=== PATIENT | male | born 1965 | race Caucasian/White ===

== ENCOUNTER 2017-03-17 11:02 | Emergency (ER) | payer MEDICAID ==
[~2017-03-17] VITALS: Ht 177.8 cm; Wt 113.4 kg
[2017-03-17] MEDS ORDERED: SODIUM CHLORIDE 0.9% 2,000 ML IV ONE (14:25)
[2017-03-17] MEDS ORDERED: cefTRIAXone 1GM/50ML D5W 50 ML IV ONE (14:30)
[2017-03-17 15:12] LABS: Albumin 3.4 g/dL (3.4-5.0); BUN/Creatinine Ratio 8.2; Potassium 4.4 mmol/L (3.5-5.1)
[2017-03-17 15:14] LABS: Bilirubin, Total 4.3 mg/dL (0.2-1.0); Total Protein 7.5 g/dL (6.4-8.2)
[2017-03-17] MEDS ORDERED: KETOROLAC TROMETH 30 MG/ML 1ML VIAL IV ONE (15:15)
[2017-03-17 15:41] LABS: CONDITION Y; Hematocrit 47.8 % (41.0-53.0); Hemoglobin 16.2 g/dL (13.5-17.5); Mean Corpuscular Hemoglobin 30.9 pg (28.0-32.0); Mean Corpuscular Hgb Conc. 33.8 g/dL (32.0-36.0); Mean Corpuscular Volume 91.2 fL (80.0-100.0); Mean Platelet Volume 10.3 fL (7.4-10.4); Platelet Count (auto) 199 10^3/uL (140-450); Red Cell Distribution Width 13.8 % (11.6-16.0); SUSPECT SEE PRINTOUT; White Blood Cell 17.9 10^3/uL (4.4-10.8)
[2017-03-17] MEDS ORDERED: KETOROLAC TROMETH 60MG/2ML VIAL IM ONE (15:45)
[2017-03-17 15:48] LABS: Metamyelocytes % 0; Myelocytes % 0; Promyelocytes % 0; Reactive Lymphocytes 0
[2017-03-17 17:20] LABS: Platelet Clumps FEW
[2017-03-17 18:05] VITALS: BP 126/78
[2017-03-17 19:23] LABS: Urine Bilirubin Negative (Negative); Urine Blood Negative /uL (Negative); Urine Color Yellow (Yellow); Urine Glucose Normal (Normal); Urine Ketone Negative (Negative); Urine Mucus FEW (None Seen); Urine Nitrite Negative (Negative); Urine RBC <1 /hpf (0 - 3); Urine Squamous Epithelial Cell FEW /hpf (<5); Urine Urobilinogen Normal (Negative); Urine pH 5.5 (5.0-8.0)
== END 2017-03-17 18:25 | disposition home or self-care (01) ==
LOC: ER 11:02
DX: L03.116 Cellulitis of left lower limb (principal); V13.4XXA Pedal cycle driver injured in collision with car, pick-up truck or van in traffic accident, initial encounter; Y93.89 Activity, other specified; Y92.89 Other specified places as the place of occurrence of the external cause; Y99.8 Other external cause status
CPT/HCPCS: 36415; 73562; 73590; 80053; 80307; 81001; 85007; 85027; 93971; 96361; 96365; 96375; 99285; J0696; J1885; J7030

== ENCOUNTER 2017-03-18 18:04 | Emergency (ER) | payer MEDICAID ==
[~2017-03-18] VITALS: Ht 185.4 cm; Wt 122.5 kg
[2017-03-18] MEDS ORDERED: D5W 5% 100 ML MINI BAG IV ONE (18:07)
[2017-03-18] MEDS ORDERED: AMIODARONE HCL (50 MG/ ML) 3 ML VIAL IV ONE (18:07)
[2017-03-18] MEDS ORDERED: SODIUM BICARBONATE 8.4% INJ 50ML SYRINGE IV ONE (18:07)
[2017-03-18] MEDS ORDERED: DEXAMETHASONE SOD PHOS 10MG/1ML VIAL INJ ONE (18:53)
[2017-03-18] MEDS ORDERED: ETOMIDATE (2MG/ML) 20ML VIAL IV ONE ×2 (18:54→19:07)
[2017-03-18] MEDS ORDERED: SUCCINYLCHOLINE CHLORIDE 20 MG/ML 10ML VIAL IV ONE ×4 (18:55→19:15)
[2017-03-18] MEDS ORDERED: MANNITOL FTV 25% 12.5 GM/50 ML 0 ML IV ONE (18:58)
[2017-03-18] MEDS ORDERED: MANNITOL 20% SOLN 100 gm/500ml 250 ML IV ONE (19:00)
[2017-03-18] MEDS ORDERED: DEXAMETHASONE SOD PHOS 10MG/1ML VIAL INJ IV ONE (19:00)
[2017-03-18] MEDS ORDERED: MANNITOL 20 % (20GM/100ML) 500 ML IV ONE (19:00)
[2017-03-18] MEDS ORDERED: MIDAZOLAM DRIP 50 mg/50mL 50 ML IV ONE (19:05)
[2017-03-18] MEDS ORDERED: MIDAZOLAM DRIP 50 mg/50mL 50 ML IV SCH (19:14)
[2017-03-18 19:27] LABS: CONDITION Y; Hematocrit 52.9 % (41.0-53.0); Hemoglobin 18.2 g/dL (13.5-17.5); Mean Corpuscular Hemoglobin 31.1 pg (28.0-32.0); Mean Corpuscular Hgb Conc. 34.4 g/dL (32.0-36.0); Mean Corpuscular Volume 90.4 fL (80.0-100.0); Mean Platelet Volume 10.2 fL (6.9-10.8); Platelet Count (auto) 137 10^3/uL (140-450); SUSPECT SEE PRINTOUT; White Blood Cell 18.1 10^3/uL (4.4-10.8)
[2017-03-18 19:31] LABS: Metamyelocytes % 0; Myelocytes % 0; Promyelocytes % 0; Reactive Lymphocytes 0
[2017-03-18 19:36] LABS: B-Type Natriuretic Peptide 561.02 pg/mL (0-100)
[2017-03-18 19:50] LABS: Temperature: 23.5 C (20.0-25.0)
[2017-03-18 19:58] LABS: Urine Bilirubin 1+ (Negative); Urine Blood 1+ /uL (Negative); Urine Color Brown (Yellow); Urine Glucose TRACE mg/dL (Normal); Urine Ketone Negative (Negative); Urine Nitrite Negative (Negative); Urine RBC 5 /hpf (0 - 3); Urine Urobilinogen Normal (Negative); Urine pH 5.5 (5.0-8.0)
[2017-03-18] MEDS ORDERED: HETASTARCH 500 ML IV ONE (20:00)
[2017-03-18] MEDS ORDERED: THIAMINE INJ 100 MG, MULTIPLE VITAMIN 10 ML, FOLIC ACID 1 MG, MAGNESIUM SULF SDV 50% 8 ... IV SCH ×5 (20:00)
[2017-03-18] MEDS ORDERED: VANCOMYCIN 1GM/250ML D5W 250 ML IV ONE (20:00)
[2017-03-18] MEDS ORDERED: SODIUM CHLORIDE 0.9% IV ONE (20:00)
[2017-03-18 20:09] LABS: Potassium 3.4 mmol/L (3.5-5.1)
[2017-03-18 20:10] LABS: Urine Granular Cast FEW /lpf (0)
[2017-03-18 20:10] LABS: Albumin 2.6 g/dL (3.4-5.0); BUN/Creatinine Ratio 8.2; Bilirubin, Total 4.6 mg/dL (0.2-1.0); Calcium 8.1 mg/dL (8.5-10.1); Total Protein 6.7 g/dL (6.4-8.2)
[2017-03-18 20:29] LABS: Platelet Estimate Decreased
[2017-03-18] MEDS ORDERED: ACETAMINOPHEN 650 MG RECT SUPP PR ONE (20:30)
[2017-03-18] MEDS ORDERED: ROCURONIUM 10MG/ML 10ML VIAL IV ONE ×2 (20:45→21:00)
[2017-03-18 20:47] LABS: Lactic Acid w/Reflex 5.8 mmol/L (0.4-2.0)
[2017-03-18 20:48] LABS: Allen Test Yes; Base Excess -7.9 mmol/L (-2.0-2.0); Blood COHb 0.3 % (0.5-1.5); Blood MetHb 0.6 % (0.0-1.5); HCO3 16.1 mmol/L (22-26.0); MODE VENT - A/C; O2Hb 98.1 % (94.0-97.0); PCO2 29.2 mmHg (35.0-45.0); PCO2(T) 29.2 mmHg (35.0-45.0); PO2 447.1 mmHg (80.0-100.0); PO2(T) 447.1 mmHg (80.0-100.0); Sample Type Arterial; pH 7.358 (7.350-7.450)
[2017-03-18] MEDS ORDERED: PROPOFOL 100 ML IV ONE (21:01)
[2017-03-18] MEDS ORDERED: PROPOFOL 100 ML IV SCH (21:05)
[2017-03-18] MEDS ORDERED: NOREPINEPHRINE BITARTRATE 250 ML IV ONE (21:09)
[2017-03-18] MEDS ORDERED: NOREPINEPHRINE BITARTRATE 250 ML IV SCH (21:13)
[2017-03-18 21:20] LABS: REFLEX LACTIC ACID YES OR NO YES
[2017-03-18] MEDS ORDERED: AMIODARONE HCL 150 MG in D5W 5% 100 ML IV ONE ×2 (22:45→23:15)
[2017-03-18] MEDS ORDERED: LIDOCAINE HCL 100 MG/5ML (2%) SYRG INJ IV ONE ×2 (22:55→23:15)
[2017-03-18] MEDS ORDERED: AMIODARONE HCL 900 MG IV ONE (22:56)
[2017-03-18 22:58] VITALS: BP 86/50
[2017-03-18] MEDS ORDERED: AMIODARONE HCL 900 MG in DEXTROSE 500 ML IV SCH (23:12)
[2017-03-19] MEDS ORDERED: AMIODARONE HCL 900 MG in DEXTROSE 500 ML IV SCH (05:12)
== END 2017-03-18 23:45 | disposition short-term general hospital (02) ==
LOC: EDBD 18:04 → ER 18:06
DX: A41.9 Sepsis, unspecified organism (principal); S06.5X9A Traumatic subdural hemorrhage with loss of consciousness of unspecified duration, initial encounter; N39.0 Urinary tract infection, site not specified; N17.9 Acute kidney failure, unspecified; R41.82 Altered mental status, unspecified; I95.9 Hypotension, unspecified; F19.10 Other psychoactive substance abuse, uncomplicated; W18.39XA Other fall on same level, initial encounter; Y93.89 Activity, other specified; Y92.89 Other specified places as the place of occurrence of the external cause; Y99.8 Other external cause status
CPT/HCPCS: 31500; 36415; 36556; 36600; 51702; 70450; 71010; 72125; 72170; 80053; 80307; 80320; 81001; 82805; 82962; 83605; 83880; 84484; 85007; 85027; 87040; 87070; 87205; 92960; 93005; 96365; 96367; 96368; 96375; 99291; J0282; J0330; J1100; J2250; J2704; J3370; J3411; J3475; J7030; J7060; 94002

== ENCOUNTER 2019-05-04 09:35 | Emergency (ER) | payer MEDICAID ==
[~2019-05-04] VITALS: Ht 177.8 cm; Wt 104.3 kg
[2019-05-04 09:51] VITALS: BP 158/87
[2019-05-04] MEDS ORDERED: cefTRIAXone SOD 1,000 MG VL IM ONE (11:15)
[2019-05-04] MEDS ORDERED: IBUPROFEN 800 MG TAB PO ONE (11:15)
== END 2019-05-04 11:38 | disposition home or self-care (01) ==
LOC: ER 09:35
DX: S80.211A Abrasion, right knee, initial encounter (principal); S80.811A Abrasion, right lower leg, initial encounter; L03.116 Cellulitis of left lower limb; M25.532 Pain in left wrist; I10 Essential (primary) hypertension; F12.10 Cannabis abuse, uncomplicated; F15.10 Other stimulant abuse, uncomplicated; V09.9XXA Pedestrian injured in unspecified transport accident, initial encounter; Y93.89 Activity, other specified; Y92.89 Other specified places as the place of occurrence of the external cause; Y99.8 Other external cause status
CPT/HCPCS: 73110; 73562; 96372; 99283; J0696

== ENCOUNTER → 2019-12-31 | Emergency (ER) | payer MEDICAID ==
[~2019-12-31] VITALS: Ht 177.8 cm; Wt 106.6 kg
[~2019-12-31] MED LIST: LIDOCAINE 1% HCL (LOCAL ANESTH.) INJ 20ML MDV ID ONE; TETANUS-DIPTH-ACEL PERTUSSIS 0.5ML SYR Tdap IM ONE
[2019-12-31 17:38] VITALS: BP 139/85
== END | disposition home or self-care (01) ==
LOC: ER 17:21
DX: S61.241A Puncture wound with foreign body of left index finger without damage to nail, initial encounter (principal); I10 Essential (primary) hypertension; W22.8XXA Striking against or struck by other objects, initial encounter; Y93.89 Activity, other specified; Y92.89 Other specified places as the place of occurrence of the external cause; Y99.8 Other external cause status
CPT/HCPCS: 10120; 73130; 90471; 90715; 99285; J2001

== ENCOUNTER 2021-01-13 14:21 | Emergency (ER) | payer MEDICAID ==
[~2021-01-13] VITALS: Ht 180.3 cm; Wt 108.9 kg
[2021-01-13 15:50] LABS: Basophils # (auto) 0.2 10 ^3/uL (0-0.2); Basophils % (auto) 1.2 % (0.0-2.0); Eosinophils # (auto) 0.3 10 ^3/uL (0-0.8); Hematocrit 48.6 % (41.0-53.0); Hemoglobin 16.9 g/dL (13.5-17.5); Lymphocytes # (auto) 3.6 10 ^3/uL (0.4-5.4); Lymphocytes % (auto) 26.8 % (10.0-50.0); Mean Corpuscular Hgb Conc. 34.9 g/dL (32.0-36.0); Mean Corpuscular Volume 91.7 fL (80.0-100.0); Monocytes # (auto) 0.7 10 ^3/uL (0-1.3); Monocytes % (auto) 5.4 % (0.0-12.0); Neutrophils # (auto) 8.6 10 ^3/uL (1.6-8.6); Neutrophils % (auto) 64.6 % (37.0-80.0); Nucleated Red Blood Cells % 0.1 %; Red Cell Distribution Width 14.5 % (11.8-14.3); White Blood Cell 13.3 10^3/uL (4.4-10.8)
[2021-01-13] MEDS ORDERED: dilTIAZem 25 MG/5 ML VIAL IV ONE (16:00)
[2021-01-13 21:36] VITALS: BP 126/98
== END 2021-01-13 21:25 | disposition home or self-care (01) ==
LOC: ER 14:21
DX: R07.89 Other chest pain (principal); I48.0 Paroxysmal atrial fibrillation; E66.9 Obesity, unspecified; R00.0 Tachycardia, unspecified; I10 Essential (primary) hypertension; F32.9 Major depressive disorder, single episode, unspecified; Z68.33 Body mass index [BMI] 33.0-33.9, adult
CPT/HCPCS: 36415; 71045; 83880; 85025; 85049; 93005

== ENCOUNTER 2021-07-11 12:58 | Emergency (ER) | payer MEDICAID ==
[~2021-07-11] VITALS: Ht 180.3 cm; Wt 113.4 kg
[2021-07-11 16:01] VITALS: BP 144/97
[2021-07-11] MEDS ORDERED: PROM1SOL4 PO (16:50)
[2021-07-11] MEDS ORDERED: PRED20TA2 PO (16:50)
[2021-07-11] MEDS ORDERED: CEPH500T PO (16:50)
== END 2021-07-11 17:04 | disposition home or self-care (01) ==
LOC: ER 12:58
DX: J20.9 Acute bronchitis, unspecified (principal); F12.10 Cannabis abuse, uncomplicated; F15.10 Other stimulant abuse, uncomplicated; I10 Essential (primary) hypertension
CPT/HCPCS: 93005

== ENCOUNTER 2021-09-21 13:56 | Inpatient (IN) | payer MEDICAID ==
[~2021-09-21] VITALS: Ht 180.3 cm; Wt 111.0 kg
[~2021-09-21 13:56] MED LIST changes: +CEPH500T PO; -LIDOCAINE 1% HCL (LOCAL ANESTH.) INJ 20ML MDV ID ONE; +PRED20TA2 PO; +PROM1SOL4 PO; -TETANUS-DIPTH-ACEL PERTUSSIS 0.5ML SYR Tdap IM ONE
[2021-09-21] MEDS ORDERED: dilTIAZem 25 MG/5 ML VIAL IV ONE (14:30)
[2021-09-21] MEDS ORDERED: ASPirin 81 mg TAB PO ONE (14:45)
[2021-09-21 15:22] LABS: Basophils # (auto) 0 10 ^3/uL (0-0.2); Basophils % (auto) 0.4 % (0.0-2.0); Eosinophils # (auto) 0.1 10 ^3/uL (0-0.8); Eosinophils % (auto) 1.4 % (0.0-7.0); Hematocrit 40.7 % (41.0-53.0); Hemoglobin 13.8 g/dL (13.5-17.5); Lymphocytes # (auto) 2.4 10 ^3/uL (0.4-5.4); Lymphocytes % (auto) 24.2 % (10.0-50.0); Mean Corpuscular Hemoglobin 30.5 pg (28.0-32.0); Mean Corpuscular Hgb Conc. 33.9 g/dL (32.0-36.0); Mean Corpuscular Volume 90.1 fL (80.0-100.0); Monocytes # (auto) 0.7 10 ^3/uL (0-1.3); Monocytes % (auto) 7.1 % (0.0-12.0); Neutrophils # (auto) 6.7 10 ^3/uL (1.6-8.6); Neutrophils % (auto) 66.9 % (37.0-80.0); Nucleated Red Blood Cells % 0.1 %; Red Blood Cells 4.52 10^6/uL (4.5-5.90); Red Cell Distribution Width 13.8 % (11.8-14.3)
[2021-09-21] MEDS ORDERED: dilTIAZem HCL 50 MG/10 ML VIAL IV ONE (15:28)
[2021-09-21 15:35] LABS: Albumin 3.5 g/dL (3.4-5.0); Potassium 4.2 mmol/L (3.5-5.1)
[2021-09-21 15:36] LABS: INR 1.14 (0.9-1.15); Partial Thromboplastin Time 26.3 sec (23.6-33.0)
[2021-09-21 15:40] LABS: BUN/Creatinine Ratio 18.4; Bilirubin, Total 2.6 mg/dL (0.2-1.0); Total Protein 6.8 g/dL (6.4-8.2)
[2021-09-21] MEDS: dilTIAZem 125mg/125ml BAG KIT 100 ML IV SCH (15:43)
[2021-09-21 15:44] LABS: Urine Bacteria NONE SEEN /hpf (None Seen); Urine Blood Negative /uL (Negative); Urine Specific Gravity 1.024 (1.001-1.035); Urine WBC 1 /hpf (0 - 3)
[2021-09-21] MEDS ORDERED: FUROSEMIDE 40 MG/4 ML VIAL IV ONE (18:15)
[2021-09-21] MEDS ORDERED: DOCUSATE SOD 100 MG CAP PO PRN (18:15)
[2021-09-21] MEDS ORDERED: ACETAMINOPHEN 325 MG TAB PO PRN (18:15)
[2021-09-21] MEDS ORDERED: ONDANSETRON HCL 4 MG/2 ML VIAL IV PRN (18:15)
[2021-09-21] MEDS ORDERED: NITROGLYCERIN 0.4 MG SL TAB SL PRN (18:45)
[2021-09-21] MEDS ORDERED: MORPHINE SULFATE INJECTION 2 MG/ML SYRG IV PRN (18:45)
[2021-09-21] MEDS: HYDROcodone-ACET 5/325MG TAB PO PRN (22:00)
[2021-09-21] MEDS: METOPROLOL TARTRATE 50 MG TAB PO SCH (22:00)
[2021-09-21] MEDS: SODIUM CHLOR 0.9% PF (SALINE LOCK) 10ML VIAL/SYR IV SCH (22:00)
[2021-09-21] MEDS: MORPHINE SULFATE INJECTION 2 MG/ML SYRG IV PRN (22:00)
[2021-09-21 22:45] VITALS: BP 138/90
[2021-09-22] VITALS (19 sets, daily range): BP systolic 102–154; BP diastolic 64–100
[2021-09-22] MEDS: dilTIAZem 125mg/125ml BAG KIT 100 ML IV SCH (04:33)
[2021-09-22] MEDS: HYDROcodone-ACET 5/325MG TAB PO PRN (04:34)
[2021-09-22] MEDS: MORPHINE SULFATE INJECTION 2 MG/ML SYRG IV PRN (04:35)
[2021-09-22] MEDS: SODIUM CHLOR 0.9% PF (SALINE LOCK) 10ML VIAL/SYR IV SCH (06:00)
[2021-09-22] MEDS: METOPROLOL TARTRATE 50 MG TAB PO SCH (09:19)
[2021-09-22] MEDS ORDERED: ASPirin 81 mg TAB PO SCH (10:00)
[2021-09-22] MEDS ORDERED: FUROSEMIDE 40 MG/4 ML VIAL IV SCH (10:00)
[2021-09-22] MEDS ORDERED: TAMSULOSIN HYDROCHLORIDE 0.4 MG CAP PO ONE (11:15)
== END 2021-09-22 12:15 | disposition left against medical advice (07) | DRG 201 ==
LOC: ER 13:56 → TELE 18:51 → ICU CENTRL 22:25 → DOU IN ICU 22:40
PROVIDERS: ADMIT Nurse Practitioner Family; ATTEND Nurse Practitioner Family
DX: I48.0 Paroxysmal atrial fibrillation (principal); I50.21 Acute systolic (congestive) heart failure; I11.0 Hypertensive heart disease with heart failure; F32.A Depression, unspecified; Z53.29 Procedure and treatment not carried out because of patient's decision for other reasons; Z20.822 Contact with and (suspected) exposure to COVID-19; R33.9 Retention of urine, unspecified; Z91.19 Patient's noncompliance with other medical treatment and regimen
CPT/HCPCS: 36415; 71045; 80053; 81001; 83880; 84484; 85025; 85379; 85610; 85730; 87081; 96374; 96375; 99291; G0378

== ENCOUNTER 2021-11-22 00:58 | Emergency (ER) | payer MEDICAID ==
[~2021-11-22] VITALS: Ht 180.3 cm; Wt 108.9 kg
[2021-11-22 06:09] VITALS: BP 144/101
[2021-11-22] MEDS ORDERED: ACETAMINOPHEN 500 MG TAB PO ONE (06:45)
[2021-11-22 07:20] LABS: Basophils # (auto) 0.1 10 ^3/uL (0-0.2); Basophils % (auto) 0.8 % (0.0-2.0); Eosinophils # (auto) 0.2 10 ^3/uL (0-0.8); Eosinophils % (auto) 2.7 % (0.0-7.0); Hematocrit 40.4 % (41.0-53.0); Hemoglobin 13.4 g/dL (13.5-17.5); Lymphocytes % (auto) 32.6 % (10.0-50.0); Mean Corpuscular Hemoglobin 30.2 pg (28.0-32.0); Mean Corpuscular Hgb Conc. 33.2 g/dL (32.0-36.0); Monocytes # (auto) 0.6 10 ^3/uL (0-1.3); Monocytes % (auto) 6.2 % (0.0-12.0); Neutrophils # (auto) 5.3 10 ^3/uL (1.6-8.6); Neutrophils % (auto) 57.7 % (37.0-80.0); Nucleated Red Blood Cells % 0.1 %; Red Blood Cells 4.44 10^6/uL (4.5-5.90); Red Cell Distribution Width 15.4 % (11.8-14.3); White Blood Cell 9.1 10^3/uL (4.4-10.8)
[2021-11-22 08:30] LABS: Alcohol, Urine < 3.0 mg/dL (0-10); Amphetamine Screen, Urine POSITIVE (NEGATIVE); Barbiturate Scree,Urine NEGATIVE (NEGATIVE); Benzodiazephine Screen, Urine NEGATIVE (NEGATIVE); Cannabinoid Screen, Urine POSITIVE (NEGATIVE); Cocaine Screen, Urine NEGATIVE (NEGATIVE); Opiate Scree,Urine NEGATIVE (NEGATIVE); Phencyclidine Screen, Urine NEGATIVE (NEGATIVE); Urine Bacteria NONE SEEN /hpf (None Seen); Urine Blood Negative /uL (Negative); Urine Hyaline Cast FEW /lpf (0 - 2); Urine Mucus FEW (None Seen); Urine Specific Gravity 1.022 (1.001-1.035); Urine Sperm PRESENT /hpf (None Seen); Urine WBC 12 /hpf (0 - 3)
[2021-11-22 08:40] LABS: BUN/Creatinine Ratio 11.6; Calcium 8.8 mg/dL (8.5-10.1); Potassium 4.3 mmol/L (3.5-5.1); Uric Acid 6.7 mg/dL (3.5-7.2)
[2021-11-22] MEDS ORDERED: NAPR500T31 PO (09:11)
== END 2021-11-22 09:16 | disposition home or self-care (01) ==
LOC: ER 00:58
DX: S93.602A Unspecified sprain of left foot, initial encounter (principal); F19.10 Other psychoactive substance abuse, uncomplicated; F12.10 Cannabis abuse, uncomplicated; F15.10 Other stimulant abuse, uncomplicated; I10 Essential (primary) hypertension; R06.02 Shortness of breath; X50.1XXA Overexertion from prolonged static or awkward postures, initial encounter; Y93.89 Activity, other specified; Y92.89 Other specified places as the place of occurrence of the external cause; Y99.8 Other external cause status
CPT/HCPCS: 36415; 71046; 73610; 73630; 80048; 80307; 80320; 81001; 83880; 84550; 85025; 93971

== ENCOUNTER 2021-12-20 15:25 | Emergency (ER) | payer MEDICAID ==
[~2021-12-20] VITALS: Ht 180.3 cm; Wt 111.1 kg
[~2021-12-20 15:25] MED LIST changes: +NAPR500T31 PO
[2021-12-20] MEDS ORDERED: HYDROcodone-ACET 5/325MG TAB PO ONE (16:15)
[2021-12-20 16:35] LABS: Basophils # (auto) 0.2 10 ^3/uL (0-0.2); Basophils % (auto) 1.6 % (0.0-2.0); Eosinophils # (auto) 0.2 10 ^3/uL (0-0.8); Eosinophils % (auto) 1.7 % (0.0-7.0); Hematocrit 43.4 % (41.0-53.0); Hemoglobin 14.6 g/dL (13.5-17.5); Lymphocytes # (auto) 1.9 10 ^3/uL (0.4-5.4); Lymphocytes % (auto) 18.5 % (10.0-50.0); Mean Corpuscular Hemoglobin 31.2 pg (28.0-32.0); Mean Corpuscular Hgb Conc. 33.6 g/dL (32.0-36.0); Mean Corpuscular Volume 92.7 fL (80.0-100.0); Monocytes # (auto) 0.4 10 ^3/uL (0-1.3); Monocytes % (auto) 4.1 % (0.0-12.0); Neutrophils # (auto) 7.4 10 ^3/uL (1.6-8.6); Neutrophils % (auto) 74.1 % (37.0-80.0); Red Blood Cells 4.68 10^6/uL (4.5-5.90); Red Cell Distribution Width 17.4 % (11.8-14.3)
[2021-12-20 16:51] LABS: Albumin 4.2 g/dL (3.4-5.0); Calcium 9.3 mg/dL (8.5-10.1); Potassium 3.9 mmol/L (3.5-5.1)
[2021-12-20 16:54] LABS: BUN/Creatinine Ratio 22.8; Bilirubin, Total 3.9 mg/dL (0.2-1.0); Total Protein 7.9 g/dL (6.4-8.2)
[2021-12-20] MEDS ORDERED: DOXYCYCLINE 100 MG TAB/CAP PO ONE (18:00)
[2021-12-20] MEDS ORDERED: DOXY-332 PO (18:06)
[2021-12-20] MEDS ORDERED: ACET325T10 PO (18:06)
[2021-12-20 22:49] VITALS: BP 149/88
== END 2021-12-20 22:55 | disposition home or self-care (01) ==
LOC: ER 15:25
DX: L03.116 Cellulitis of left lower limb (principal); I10 Essential (primary) hypertension; F12.10 Cannabis abuse, uncomplicated; F15.10 Other stimulant abuse, uncomplicated
CPT/HCPCS: 36415; 80053; 83605; 83880; 85025; 85652; 93005; 93971

== ENCOUNTER 2021-12-30 21:50 | Emergency (ER) | payer MEDICAID ==
[~2021-12-30] VITALS: Ht 180.3 cm; Wt 117.9 kg
[~2021-12-30 21:50] MED LIST changes: +ACET325T10 PO; +DOXY-332 PO
[2021-12-31 03:47] VITALS: BP 127/105
[2021-12-31] MEDS ORDERED: CEPH-509 PO (03:58)
[2021-12-31] MEDS ORDERED: NAP500T PO (03:58)
== END 2021-12-31 04:08 | disposition home or self-care (01) ==
LOC: EDBD 21:50 → ER 21:50
DX: L03.116 Cellulitis of left lower limb (principal); I10 Essential (primary) hypertension; F12.10 Cannabis abuse, uncomplicated; F15.10 Other stimulant abuse, uncomplicated; Z59.00 Homelessness unspecified

== ENCOUNTER 2022-01-08 20:01 | Emergency (ER) | payer MEDICAID ==
[~2022-01-08] VITALS: Ht 180.3 cm; Wt 108.9 kg
[~2022-01-08 20:01] MED LIST changes: +CEPH-509 PO; +NAP500T PO
[2022-01-08 21:22] VITALS: BP 171/90
[2022-01-08 22:22] LABS: Basophils # (auto) 0 10 ^3/uL (0-0.2); Basophils % (auto) 0.8 % (0.0-2.0); Eosinophils # (auto) 0.2 10 ^3/uL (0-0.8); Eosinophils % (auto) 2.9 % (0.0-7.0); Hematocrit 41.6 % (41.0-53.0); Hemoglobin 13.6 g/dL (13.5-17.5); Lymphocytes # (auto) 1.9 10 ^3/uL (0.4-5.4); Mean Corpuscular Hemoglobin 30.4 pg (28.0-32.0); Mean Corpuscular Hgb Conc. 32.6 g/dL (32.0-36.0); Mean Corpuscular Volume 93.5 fL (80.0-100.0); Monocytes # (auto) 0.5 10 ^3/uL (0-1.3); Monocytes % (auto) 9.1 % (0.0-12.0); Neutrophils # (auto) 3.4 10 ^3/uL (1.6-8.6); Neutrophils % (auto) 56.2 % (37.0-80.0); Nucleated Red Blood Cells % 0.1 %; Red Blood Cells 4.45 10^6/uL (4.5-5.90); Red Cell Distribution Width 16.8 % (11.8-14.3)
[2022-01-08 22:43] LABS: Albumin 3.6 g/dL (3.4-5.0); Calcium 8.9 mg/dL (8.5-10.1); Potassium 4.6 mmol/L (3.5-5.1)
[2022-01-08 22:48] LABS: BUN/Creatinine Ratio 18.9; Bilirubin, Total 1.3 mg/dL (0.2-1.0); Total Protein 7.2 g/dL (6.4-8.2)
[2022-01-09] MEDS ORDERED: SULFAMETHOX W/TRIMETH(800/160MG) DS TAB PO ONE (03:15)
[2022-01-09] MEDS ORDERED: CEPHALEXIN 250 MG CAP PO ONE (03:15)
[2022-01-09] MEDS ORDERED: CEPH-509 PO (03:33)
[2022-01-09] MEDS ORDERED: SULF400T11 PO (03:33)
== END 2022-01-09 04:33 | disposition left against medical advice (07) ==
LOC: ER 20:01
DX: L03.116 Cellulitis of left lower limb (principal); I10 Essential (primary) hypertension; F12.10 Cannabis abuse, uncomplicated; F15.10 Other stimulant abuse, uncomplicated
CPT/HCPCS: 36415; 71045; 80053; 83605; 85025; 86141; 87040; 93971

== ENCOUNTER 2022-01-11 15:08 | Inpatient (IN) | payer MEDICAID ==
[~2022-01-11] VITALS: Ht 180.3 cm; Wt 108.6 kg
[~2022-01-11 15:08] MED LIST changes: +SULF400T11 PO
[2022-01-11] MEDS ORDERED: CLINDAMYCIN 600MG IV 50 ML IV ONE (15:45)
[2022-01-11] MEDS ORDERED: SODIUM CHLORIDE 0.9% 1,000 ML IV ONE (15:45)
[2022-01-11] MEDS ORDERED: cefTRIAXone 1GM/50ML D5W 50 ML IV ONE (15:45)
[2022-01-11 17:02] LABS: Basophils # (auto) 0 10 ^3/uL (0-0.2); Basophils % (auto) 0.3 % (0.0-2.0); Eosinophils # (auto) 0.2 10 ^3/uL (0-0.8); Eosinophils % (auto) 2.5 % (0.0-7.0); Hematocrit 43.3 % (41.0-53.0); Hemoglobin 14.2 g/dL (13.5-17.5); Lymphocytes % (auto) 35.7 % (10.0-50.0); Mean Corpuscular Hemoglobin 30.3 pg (28.0-32.0); Mean Corpuscular Hgb Conc. 32.9 g/dL (32.0-36.0); Monocytes # (auto) 0.6 10 ^3/uL (0-1.3); Neutrophils # (auto) 4.5 10 ^3/uL (1.6-8.6); Neutrophils % (auto) 54.5 % (37.0-80.0); Red Cell Distribution Width 16.4 % (11.8-14.3); White Blood Cell 8.3 10^3/uL (4.4-10.8)
[2022-01-11 17:22] LABS: Albumin 3.8 g/dL (3.4-5.0); BUN/Creatinine Ratio 16.1; Calcium 9.1 mg/dL (8.5-10.1); Potassium 3.9 mmol/L (3.5-5.1)
[2022-01-11 17:25] LABS: Bilirubin, Total 2.4 mg/dL (0.2-1.0); Total Protein 7.3 g/dL (6.4-8.2)
[2022-01-11] MEDS ORDERED: ONDANSETRON HCL 4 MG/2 ML VIAL IV PRN (23:15)
[2022-01-11] MEDS ORDERED: HYDROcodone-ACET 5/325MG TAB PO PRN (23:15)
[2022-01-11] MEDS ORDERED: ACETAMINOPHEN 325 MG TAB PO PRN (23:15)
[2022-01-11] MEDS ORDERED: DOCUSATE SOD 100 MG CAP PO PRN (23:15)
[2022-01-11] MEDS ORDERED: cefTRIAXone 1GM/50ML D5W 50 ML IV SCH (23:29)
[2022-01-11] MEDS ORDERED: MORPHINE SULFATE INJ 2 MG/ml SYRG IV PRN (23:45)
[2022-01-11] MEDS ORDERED: NITROGLYCERIN 0.4 MG SL TAB SL PRN (23:45)
[2022-01-12 09:01] LABS: Basophils # (auto) 0 10 ^3/uL (0-0.2); Basophils % (auto) 0.7 % (0.0-2.0); Eosinophils # (auto) 0.2 10 ^3/uL (0-0.8); Eosinophils % (auto) 2.5 % (0.0-7.0); Hematocrit 45.5 % (41.0-53.0); Hemoglobin 14.8 g/dL (13.5-17.5); Lymphocytes # (auto) 2.6 10 ^3/uL (0.4-5.4); Lymphocytes % (auto) 37.4 % (10.0-50.0); Mean Corpuscular Hemoglobin 30.1 pg (28.0-32.0); Mean Corpuscular Hgb Conc. 32.6 g/dL (32.0-36.0); Mean Corpuscular Volume 92.2 fL (80.0-100.0); Monocytes # (auto) 0.5 10 ^3/uL (0-1.3); Monocytes % (auto) 7.8 % (0.0-12.0); Neutrophils # (auto) 3.5 10 ^3/uL (1.6-8.6); Neutrophils % (auto) 51.6 % (37.0-80.0); Nucleated Red Blood Cells % 0.1 %; Red Blood Cells 4.93 10^6/uL (4.5-5.90); Red Cell Distribution Width 16.2 % (11.8-14.3); White Blood Cell 6.8 10^3/uL (4.4-10.8)
[2022-01-12 09:20] LABS: Albumin 3.8 g/dL (3.4-5.0); Calcium 8.9 mg/dL (8.5-10.1)
[2022-01-12 09:22] LABS: BUN/Creatinine Ratio 16.1
[2022-01-12 09:25] LABS: Bilirubin, Total 2.6 mg/dL (0.2-1.0); Total Protein 7.5 g/dL (6.4-8.2)
[2022-01-12] MEDS ORDERED: ENOXAPARIN SOD 40 MG/0.4 ML SYRINGE SC SCH (10:00)
[2022-01-12] MEDS: CLINDAMYCIN 300MG IV 50 ML IV SCH ×2 (15:23→22:32)
[2022-01-12] MEDS ORDERED: cloNIDine HCL 0.1 MG TAB ONE (15:57)
[2022-01-12] MEDS ORDERED: cloNIDine HCL 0.1 MG TAB PO ONE (16:00)
[2022-01-12] MEDS: cefTRIAXone 1GM/50ML D5W 50 ML IV SCH (16:23)
[2022-01-12] MEDS ORDERED: HEPARIN SODIUM (PORCINE) 5000 UNITS/ML 1ML VIAL IV ONE (18:45)
[2022-01-12] MEDS ORDERED: ACETAMINOPHEN 325 MG TAB PO PRN (18:45)
[2022-01-12] MEDS: METOPROLOL TARTRATE 25 MG TAB PO SCH ×2 (18:46→22:00)
[2022-01-12] MEDS ORDERED: dilTIAZem 25 MG/5 ML VIAL IV ONE (19:00)
[2022-01-12] MEDS ORDERED: dilTIAZem 125mg/125ml BAG KIT 125 ML IV SCH (19:00)
[2022-01-12] MEDS ORDERED: IOHEXOL 350 MG/ML 100ML IJ ONE (19:14)
[2022-01-12 22:26] LABS: Basophils # (auto) 0 10 ^3/uL (0-0.2); Basophils % (auto) 0.5 % (0.0-2.0); Eosinophils # (auto) 0.2 10 ^3/uL (0-0.8); Hematocrit 42.4 % (41.0-53.0); Hemoglobin 13.9 g/dL (13.5-17.5); Lymphocytes # (auto) 3.3 10 ^3/uL (0.4-5.4); Lymphocytes % (auto) 34.3 % (10.0-50.0); Mean Corpuscular Hemoglobin 30.3 pg (28.0-32.0); Mean Corpuscular Hgb Conc. 32.9 g/dL (32.0-36.0); Mean Corpuscular Volume 92.2 fL (80.0-100.0); Monocytes # (auto) 0.5 10 ^3/uL (0-1.3); Monocytes % (auto) 5.5 % (0.0-12.0); Neutrophils # (auto) 5.6 10 ^3/uL (1.6-8.6); Neutrophils % (auto) 57.7 % (37.0-80.0); Red Cell Distribution Width 16.2 % (11.8-14.3); White Blood Cell 9.7 10^3/uL (4.4-10.8)
[2022-01-12 22:48] LABS: INR 1.13 (0.9-1.15); Partial Thromboplastin Time 59.6 sec (24.6-33.4)
[2022-01-12] MEDS: HEPARIN DRIP/D5W 100UNITS/ML 250 ML IV SCH (23:31)
[2022-01-13] MEDS: SODIUM CHLORIDE 0.9% 1,000 ML IV SCH ×3 (00:20→08:35)
[2022-01-13 04:43] LABS: INR 1.06 (0.9-1.15); Partial Thromboplastin Time 32.6 sec (24.6-33.4)
[2022-01-13] MEDS: HEPARIN DRIP/D5W 100UNITS/ML 250 ML IV SCH (05:02)
[2022-01-13] MEDS: CLINDAMYCIN 300MG IV 50 ML IV SCH ×3 (05:58→21:36)
[2022-01-13] MEDS ORDERED: LABETALOL HCL 5 MG/ML 4ML SYRINGE IV PRN (09:00)
[2022-01-13] MEDS: cefTRIAXone 1GM/50ML D5W 50 ML IV SCH (09:50)
[2022-01-13] MEDS: METOPROLOL TARTRATE 25 MG TAB PO SCH ×2 (09:50→21:36)
[2022-01-13] MEDS: FOLIC ACID 1 MG, MULTIPLE VITAMIN 10 ML, MAGNESIUM SULF SDV 50% 8 MEQ, THIAMINE INJ 100... INJ SCH ×5 (13:06)
[2022-01-13 17:48] VITALS: BP 134/91
[2022-01-13] MEDS: APIXABAN 5 MG TAB PO SCH (21:36)
[2022-01-13 22:00] VITALS: BP 131/81
[2022-01-14] MEDS ORDERED: chlordiazePOXIDE HCL 25 MG CAP PO PRN (01:00)
[2022-01-14] MEDS: SODIUM CHLORIDE 0.9% 1,000 ML IV SCH ×2 (01:15→18:21)
[2022-01-14] MEDS ORDERED: chlordiazePOXIDE HCL 25 MG CAP PO ONE (02:45)
[2022-01-14 05:00] VITALS: BP 134/87
[2022-01-14] MEDS: CLINDAMYCIN 300MG IV 50 ML IV SCH ×3 (07:08→22:00)
[2022-01-14 09:00] VITALS: BP 162/112
[2022-01-14] MEDS: APIXABAN 5 MG TAB PO SCH ×2 (10:37→23:00)
[2022-01-14] MEDS: METOPROLOL TARTRATE 25 MG TAB PO SCH ×2 (10:37→23:00)
[2022-01-14] MEDS: cefTRIAXone 1GM/50ML D5W 50 ML IV SCH (10:38)
[2022-01-14] MEDS: chlordiazePOXIDE HCL 25 MG CAP PO PRN ×2 (10:44→19:48)
[2022-01-14] MEDS: FOLIC ACID 1 MG, MULTIPLE VITAMIN 10 ML, MAGNESIUM SULF SDV 50% 8 MEQ, THIAMINE INJ 100... INJ SCH ×5 (13:26)
[2022-01-14 17:00] VITALS: BP 150/94
[2022-01-14 22:00] VITALS: BP 132/81
[2022-01-15] VITALS (7 sets, daily range): BP systolic 123–157; BP diastolic 64–112
[2022-01-15] MEDS: CLINDAMYCIN 300MG IV 50 ML IV SCH ×3 (05:41→22:00)
[2022-01-15] MEDS: APIXABAN 5 MG TAB PO SCH ×2 (09:50→22:23)
[2022-01-15] MEDS: cefTRIAXone 1GM/50ML D5W 50 ML IV SCH (09:50)
[2022-01-15] MEDS: METOPROLOL TARTRATE 25 MG TAB PO SCH ×2 (09:51→22:23)
[2022-01-15] MEDS: chlordiazePOXIDE HCL 25 MG CAP PO PRN (09:51)
[2022-01-15] MEDS: SODIUM CHLORIDE 0.9% 1,000 ML IV SCH (09:52)
[2022-01-15] MEDS ORDERED: CLIN300C8 PO (10:59)
[2022-01-15] MEDS ORDERED: METO25TA5 PO (10:59)
[2022-01-15] MEDS ORDERED: CHL25C PO (10:59)
[2022-01-15] MEDS ORDERED: FOLI1TAB6 PO (10:59)
[2022-01-15] MEDS ORDERED: APIX5TAB PO (10:59)
[2022-01-15] MEDS ORDERED: THIA100T5 PO (10:59)
[2022-01-15] MEDS ORDERED: LEVO750T8 PO (10:59)
[2022-01-15] MEDS ORDERED: FUROSEMIDE 40 MG/4 ML VIAL IV ONE (13:45)
[2022-01-15] MEDS ORDERED: AZITHROMYCIN 500MG/ 250ML 250 ML IV ONE (13:45)
[2022-01-15] MEDS ORDERED: HALOPERIDOL LACTATE 5 MG/ML INJ VIAL IM PRN (15:45)
[2022-01-15] MEDS: IPRATROPIUM BROM 0.5 MG/2.5ML INH SOL NEB SCH ×3 (15:46→22:21)
[2022-01-15] MEDS: ALBUTEROL SULF 2.5 MG/0.5ML(0.5%) NEB SOLN NEB SCH ×3 (15:47→22:00)
[2022-01-15] MEDS: methylPREDNISolone SOD SUCC 125 MG/2 ML VL IV SCH ×2 (17:06→22:00)
[2022-01-15] MEDS: FUROSEMIDE 40 MG/4 ML VIAL IV SCH (19:36)
[2022-01-15] MEDS: FOLIC ACID 1 MG, MULTIPLE VITAMIN 10 ML, MAGNESIUM SULF SDV 50% 8 MEQ, THIAMINE INJ 100... INJ SCH ×5 (21:18)
[2022-01-16] MEDS: ALBUTEROL SULF 2.5 MG/0.5ML(0.5%) NEB SOLN NEB SCH ×6 (02:00→23:24)
[2022-01-16] MEDS: IPRATROPIUM BROM 0.5 MG/2.5ML INH SOL NEB SCH ×5 (02:00→19:33)
[2022-01-16] MEDS: SODIUM CHLORIDE 0.9% 1,000 ML IV SCH ×2 (03:15→20:30)
[2022-01-16 05:25] VITALS: BP 146/89
[2022-01-16] MEDS: FUROSEMIDE 40 MG/4 ML VIAL IV SCH ×2 (06:00→18:31)
[2022-01-16] MEDS: methylPREDNISolone SOD SUCC 125 MG/2 ML VL IV SCH ×3 (06:00→20:53)
[2022-01-16] MEDS: CLINDAMYCIN 300MG IV 50 ML IV SCH ×3 (06:00→20:53)
[2022-01-16 07:30] VITALS: BP 146/89
[2022-01-16] MEDS: APIXABAN 5 MG TAB PO SCH ×2 (10:23→20:53)
[2022-01-16] MEDS: chlordiazePOXIDE HCL 25 MG CAP PO PRN (10:25)
[2022-01-16] MEDS: METOPROLOL TARTRATE 25 MG TAB PO SCH ×2 (10:28→21:55)
[2022-01-16 11:28] VITALS: BP 127/84
[2022-01-16] MEDS: cefTRIAXone 1GM/50ML D5W 50 ML IV SCH (12:00)
[2022-01-16] MEDS: AZITHROMYCIN 500MG/ 250ML 250 ML IV SCH (12:30)
[2022-01-16 17:00] VITALS: BP 105/71
[2022-01-16] MEDS: FOLIC ACID 1 MG, MULTIPLE VITAMIN 10 ML, MAGNESIUM SULF SDV 50% 8 MEQ, THIAMINE INJ 100... INJ SCH ×5 (17:29)
[2022-01-16] MEDS ORDERED: METOPROLOL TARTRATE 1MG/1ML-5ML VIAL IV ONE (20:30)
[2022-01-16 21:43] VITALS: BP 121/66
[2022-01-16 22:41] LABS: Basophils # (auto) 0.1 10 ^3/uL (0-0.2); Basophils % (auto) 0.3 % (0.0-2.0); Eosinophils # (auto) 0 10 ^3/uL (0-0.8); Hematocrit 45.7 % (41.0-53.0); Hemoglobin 14.4 g/dL (13.5-17.5); Lymphocytes # (auto) 0.9 10 ^3/uL (0.4-5.4); Lymphocytes % (auto) 5.2 % (10.0-50.0); Mean Corpuscular Hemoglobin 29.2 pg (28.0-32.0); Mean Corpuscular Hgb Conc. 31.5 g/dL (32.0-36.0); Mean Corpuscular Volume 92.6 fL (80.0-100.0); Monocytes # (auto) 0.4 10 ^3/uL (0-1.3); Monocytes % (auto) 2.4 % (0.0-12.0); Neutrophils # (auto) 15.3 10 ^3/uL (1.6-8.6); Neutrophils % (auto) 92.1 % (37.0-80.0); Red Blood Cells 4.93 10^6/uL (4.5-5.90); Red Cell Distribution Width 16.1 % (11.8-14.3); White Blood Cell 16.6 10^3/uL (4.4-10.8)
[2022-01-16 22:56] LABS: Albumin 3.5 g/dL (3.4-5.0); BUN/Creatinine Ratio 25.2; Calcium 9.7 mg/dL (8.5-10.1); Potassium 4.4 mmol/L (3.5-5.1)
[2022-01-16 22:58] LABS: Bilirubin, Total 1.6 mg/dL (0.2-1.0); Total Protein 7.5 g/dL (6.4-8.2)
[2022-01-17] MEDS: ALBUTEROL SULF 2.5 MG/0.5ML(0.5%) NEB SOLN NEB SCH ×3 (02:00→09:53)
[2022-01-17] MEDS: IPRATROPIUM BROM 0.5 MG/2.5ML INH SOL NEB SCH ×3 (02:00→09:53)
[2022-01-17 05:00] VITALS: BP 139/84
[2022-01-17] MEDS: methylPREDNISolone SOD SUCC 125 MG/2 ML VL IV SCH (06:00)
[2022-01-17] MEDS: FUROSEMIDE 40 MG/4 ML VIAL IV SCH (06:00)
[2022-01-17] MEDS: CLINDAMYCIN 300MG IV 50 ML IV SCH (06:00)
[2022-01-17 09:00] VITALS: BP 145/91
[2022-01-17] MEDS: cefTRIAXone 1GM/50ML D5W 50 ML IV SCH (09:00)
[2022-01-17] MEDS: AZITHROMYCIN 500MG/ 250ML 250 ML IV SCH (09:44)
[2022-01-17] MEDS: APIXABAN 5 MG TAB PO SCH (09:44)
[2022-01-17] MEDS: METOPROLOL TARTRATE 25 MG TAB PO SCH (09:44)
[2022-01-17] MEDS ORDERED: ALBUAER3 IN (10:29)
[2022-01-17] MEDS ORDERED: AZIT500T66 PO (10:29)
[2022-01-17 11:06] VITALS: BP 145/91
== END 2022-01-17 12:43 | disposition home or self-care (01) | DRG 383 ==
LOC: ER 15:08 → OVERFLOW 23:39 → EAST 01-13 15:18 → TELE-EAST 01-13 19:06
PROVIDERS: ADMIT Nurse Practitioner Family; ATTEND Family Medicine
DX: L03.116 Cellulitis of left lower limb (principal); J96.01 Acute respiratory failure with hypoxia; J18.9 Pneumonia, unspecified organism; E66.01 Morbid (severe) obesity due to excess calories; I10 Essential (primary) hypertension; I48.91 Unspecified atrial fibrillation; F17.210 Nicotine dependence, cigarettes, uncomplicated; F10.10 Alcohol abuse, uncomplicated; F32.A Depression, unspecified; F12.10 Cannabis abuse, uncomplicated; Z20.822 Contact with and (suspected) exposure to COVID-19; F15.10 Other stimulant abuse, uncomplicated; G89.29 Other chronic pain; F19.10 Other psychoactive substance abuse, uncomplicated; I73.9 Peripheral vascular disease, unspecified; Z79.01 Long term (current) use of anticoagulants; I25.2 Old myocardial infarction; Z59.00 Homelessness unspecified; Z68.34 Body mass index [BMI] 34.0-34.9, adult; Z79.899 Other long term (current) drug therapy; Z83.3 Family history of diabetes mellitus; Z91.19 Patient's noncompliance with other medical treatment and regimen; Z86.59 Personal history of other mental and behavioral disorders; Z71.51 Drug abuse counseling and surveillance of drug abuser
CPT/HCPCS: 36415; 71045; 75635; 80053; 83605; 83735; 84443; 84484; 85025; 85610; 85730; 87040; 93005; 93306; 93925; 93970; 94640; 96365; G0378; J0696; J3490

== ENCOUNTER 2022-01-23 20:55 | Inpatient (IN) | payer MEDICAID ==
[~2022-01-23] VITALS: Ht 182.9 cm; Wt 107.5 kg
[~2022-01-23 20:55] MED LIST changes: +ALBUAER3 IN; +APIX5TAB PO; +AZIT500T66 PO; +CHL25C PO; +CLIN300C8 PO; +FOLI1TAB6 PO; +LEVO750T8 PO; +METO25TA5 PO; +THIA100T5 PO
[2022-01-23] MEDS ORDERED: ADENOSINE 6 MG/2 ML INJ IV ONE ×3 (21:04→21:15)
[2022-01-23] MEDS ORDERED: dilTIAZem 25 MG/5 ML VIAL IV ONE ×2 (21:15)
[2022-01-23] MEDS ORDERED: dilTIAZem HCL 50 MG/10 ML VIAL IV ONE (21:20)
[2022-01-23] MEDS ORDERED: dilTIAZem 125mg/125ml BAG KIT 125 ML IV ONE (21:20)
[2022-01-23] MEDS ORDERED: SODIUM CHLORIDE 0.9% 1,000 ML IV ONE (21:45)
[2022-01-23] MEDS: dilTIAZem 125mg/125ml BAG KIT 100 ML IV SCH (21:51)
[2022-01-23] MEDS ORDERED: HYDROcodone-ACET 5/325MG TAB PO PRN (22:15)
[2022-01-23] MEDS ORDERED: ONDANSETRON HCL 4 MG/2 ML VIAL IV PRN (22:15)
[2022-01-23] MEDS ORDERED: MORPHINE SULFATE INJ 2 MG/ml SYRG IV PRN ×2 (22:15→23:30)
[2022-01-23] MEDS ORDERED: DOCUSATE SOD 100 MG CAP PO PRN (22:15)
[2022-01-23] MEDS ORDERED: ACETAMINOPHEN 325 MG TAB PO PRN (22:15)
[2022-01-23] MEDS: SODIUM CHLORIDE 0.9% 1,000 ML IV SCH (22:35)
[2022-01-23 23:19] LABS: Basophils # (auto) 0.1 10 ^3/uL (0-0.2); Basophils % (auto) 0.6 % (0.0-2.0); Eosinophils # (auto) 0.2 10 ^3/uL (0-0.8); Eosinophils % (auto) 1.9 % (0.0-7.0); Hematocrit 42.7 % (41.0-53.0); Hemoglobin 13.5 g/dL (13.5-17.5); Lymphocytes # (auto) 3.1 10 ^3/uL (0.4-5.4); Lymphocytes % (auto) 24.8 % (10.0-50.0); Mean Corpuscular Hemoglobin 29.7 pg (28.0-32.0); Mean Corpuscular Hgb Conc. 31.6 g/dL (32.0-36.0); Mean Corpuscular Volume 93.9 fL (80.0-100.0); Monocytes # (auto) 1.2 10 ^3/uL (0-1.3); Monocytes % (auto) 9.7 % (0.0-12.0); Neutrophils # (auto) 7.9 10 ^3/uL (1.6-8.6); Red Blood Cells 4.55 10^6/uL (4.5-5.90); Red Cell Distribution Width 15.8 % (11.8-14.3); White Blood Cell 12.6 10^3/uL (4.4-10.8)
[2022-01-23] MEDS ORDERED: NITROGLYCERIN 0.4 MG SL TAB SL PRN (23:30)
[2022-01-23 23:43] LABS: Albumin 3.1 g/dL (3.4-5.0); Calcium 8.6 mg/dL (8.5-10.1); Magnesium 2.2 mg/dL (1.6-2.6); Potassium 4.4 mmol/L (3.5-5.1)
[2022-01-23 23:48] LABS: BUN/Creatinine Ratio 22.3; Bilirubin, Total 1.3 mg/dL (0.2-1.0); Total Protein 6.5 g/dL (6.4-8.2)
[2022-01-24] MEDS ORDERED: AZITHROMYCIN 500MG/ 250ML 250 ML IV ONE (01:45)
[2022-01-24 02:58] LABS: Basophils # (auto) 0.1 10 ^3/uL (0-0.2); Basophils % (auto) 0.8 % (0.0-2.0); Eosinophils # (auto) 0.3 10 ^3/uL (0-0.8); Eosinophils % (auto) 2.5 % (0.0-7.0); Hematocrit 45.4 % (41.0-53.0); Hemoglobin 14.5 g/dL (13.5-17.5); Lymphocytes # (auto) 3.1 10 ^3/uL (0.4-5.4); Lymphocytes % (auto) 25.2 % (10.0-50.0); Mean Corpuscular Hemoglobin 30.3 pg (28.0-32.0); Mean Corpuscular Volume 94.7 fL (80.0-100.0); Monocytes % (auto) 8.4 % (0.0-12.0); Neutrophils # (auto) 7.6 10 ^3/uL (1.6-8.6); Neutrophils % (auto) 63.1 % (37.0-80.0); Red Cell Distribution Width 15.7 % (11.8-14.3); White Blood Cell 12.1 10^3/uL (4.4-10.8)
[2022-01-24 03:23] LABS: Albumin 3.2 g/dL (3.4-5.0); BUN/Creatinine Ratio 24.4; Calcium 8.4 mg/dL (8.5-10.1); Potassium 4.6 mmol/L (3.5-5.1)
[2022-01-24 03:26] LABS: Bilirubin, Total 1.5 mg/dL (0.2-1.0); Total Protein 6.5 g/dL (6.4-8.2)
[2022-01-24] MEDS: METOPROLOL TARTRATE 50 MG TAB PO SCH ×2 (10:59→22:10)
[2022-01-24] MEDS: FAMOTIDINE (10MG/ML) 2ML VL IV SCH (11:00)
[2022-01-24] MEDS: ASPirin 81 mg TAB PO SCH (11:00)
[2022-01-24] MEDS ORDERED: DOXYCYCLINE 100 MG TAB/CAP PO ONE (12:30)
[2022-01-24] MEDS: dilTIAZem 125mg/125ml BAG KIT 100 ML IV SCH (13:02)
[2022-01-24] MEDS: CLINDAMYCIN 600MG IV 50 ML IV SCH ×2 (14:05→22:12)
[2022-01-24] MEDS ORDERED: dilTIAZem 120MG ER CAP PO ONE (16:30)
[2022-01-24] MEDS: SODIUM CHLORIDE 0.9% 1,000 ML IV SCH (17:24)
[2022-01-24] MEDS: AMIODARONE HCL 200 MG TAB PO SCH (17:24)
[2022-01-24 20:47] LABS: Alcohol, Urine < 3.0 mg/dL (0-10); Amphetamine Screen, Urine POSITIVE (NEGATIVE); Barbiturate Scree,Urine NEGATIVE (NEGATIVE); Benzodiazephine Screen, Urine POSITIVE (NEGATIVE); Cannabinoid Screen, Urine POSITIVE (NEGATIVE); Cocaine Screen, Urine NEGATIVE (NEGATIVE); Opiate Scree,Urine NEGATIVE (NEGATIVE); Phencyclidine Screen, Urine NEGATIVE (NEGATIVE)
[2022-01-24] MEDS ORDERED: AZITHROMYCIN 500MG/ 250ML 250 ML IV SCH (21:00)
[2022-01-24] MEDS: DOXYCYCLINE 100 MG TAB/CAP PO SCH (22:09)
[2022-01-25] MEDS: AMIODARONE HCL 200 MG TAB PO SCH ×4 (02:00→23:32)
[2022-01-25] MEDS: CLINDAMYCIN 600MG IV 50 ML IV SCH ×3 (07:10→22:42)
[2022-01-25 07:24] LABS: Basophils # (auto) 0.1 10 ^3/uL (0-0.2); Eosinophils # (auto) 0.2 10 ^3/uL (0-0.8); Eosinophils % (auto) 1.8 % (0.0-7.0); Hematocrit 41.8 % (41.0-53.0); Hemoglobin 13.7 g/dL (13.5-17.5); Lymphocytes # (auto) 1.9 10 ^3/uL (0.4-5.4); Lymphocytes % (auto) 15.7 % (10.0-50.0); Mean Corpuscular Hemoglobin 30.5 pg (28.0-32.0); Mean Corpuscular Hgb Conc. 32.7 g/dL (32.0-36.0); Mean Corpuscular Volume 93.5 fL (80.0-100.0); Monocytes # (auto) 0.7 10 ^3/uL (0-1.3); Monocytes % (auto) 5.7 % (0.0-12.0); Neutrophils # (auto) 9.3 10 ^3/uL (1.6-8.6); Neutrophils % (auto) 75.8 % (37.0-80.0); Nucleated Red Blood Cells % 0.3 %; Red Blood Cells 4.48 10^6/uL (4.5-5.90); Red Cell Distribution Width 15.5 % (11.8-14.3); White Blood Cell 12.3 10^3/uL (4.4-10.8)
[2022-01-25] MEDS: SODIUM CHLORIDE 0.9% 1,000 ML IV SCH (07:35)
[2022-01-25 07:42] LABS: Albumin 3.1 g/dL (3.4-5.0); Potassium 4.9 mmol/L (3.5-5.1)
[2022-01-25 07:45] LABS: BUN/Creatinine Ratio 22.2; Bilirubin, Total 2.2 mg/dL (0.2-1.0); Total Protein 6.3 g/dL (6.4-8.2)
[2022-01-25] MEDS: FAMOTIDINE (10MG/ML) 2ML VL IV SCH (09:25)
[2022-01-25] MEDS: ASPirin 81 mg TAB PO SCH (09:25)
[2022-01-25] MEDS: dilTIAZem 120MG ER CAP PO SCH (09:25)
[2022-01-25] MEDS: DOXYCYCLINE 100 MG TAB/CAP PO SCH ×2 (09:26→22:13)
[2022-01-25] MEDS: APIXABAN 5 MG TAB PO SCH ×2 (09:26→22:15)
[2022-01-25] MEDS: METOPROLOL TARTRATE 50 MG TAB PO SCH ×2 (09:26→22:15)
[2022-01-26] MEDS: SODIUM CHLORIDE 0.9% 1,000 ML IV SCH ×2 (00:45→17:44)
[2022-01-26 05:00] VITALS: BP 122/74
[2022-01-26] MEDS: CLINDAMYCIN 600MG IV 50 ML IV SCH ×2 (05:44→17:44)
[2022-01-26 09:18] VITALS: BP 123/73
[2022-01-26] MEDS: FAMOTIDINE (10MG/ML) 2ML VL IV SCH (10:06)
[2022-01-26] MEDS: AMIODARONE HCL 200 MG TAB PO SCH ×2 (10:06→16:30)
[2022-01-26] MEDS: DOXYCYCLINE 100 MG TAB/CAP PO SCH ×2 (10:06→21:34)
[2022-01-26] MEDS: dilTIAZem 120MG ER CAP PO SCH (10:07)
[2022-01-26] MEDS: APIXABAN 5 MG TAB PO SCH ×2 (10:07→21:33)
[2022-01-26] MEDS: ASPirin 81 mg TAB PO SCH (10:07)
[2022-01-26] MEDS: METOPROLOL TARTRATE 50 MG TAB PO SCH ×2 (10:07→21:34)
[2022-01-26 12:44] VITALS: BP 119/78
[2022-01-26 16:53] VITALS: BP 120/81
[2022-01-26 22:00] VITALS: BP 127/74
[2022-01-27] MEDS: AMIODARONE HCL 200 MG TAB PO SCH ×3 (00:05→16:30)
[2022-01-27] MEDS: SODIUM CHLORIDE 0.9% 1,000 ML IV SCH (00:06)
[2022-01-27] MEDS: CLINDAMYCIN 600MG IV 50 ML IV SCH ×3 (03:39→20:00)
[2022-01-27 05:00] VITALS: BP 127/88
[2022-01-27 08:39] VITALS: BP 129/77
[2022-01-27 09:21] LABS: Basophils # (auto) 0.1 10 ^3/uL (0-0.2); Basophils % (auto) 0.7 % (0.0-2.0); Eosinophils # (auto) 0.1 10 ^3/uL (0-0.8); Eosinophils % (auto) 0.7 % (0.0-7.0); Hematocrit 41.3 % (41.0-53.0); Hemoglobin 13.4 g/dL (13.5-17.5); Lymphocytes # (auto) 1.3 10 ^3/uL (0.4-5.4); Lymphocytes % (auto) 9.7 % (10.0-50.0); Mean Corpuscular Hemoglobin 29.9 pg (28.0-32.0); Mean Corpuscular Hgb Conc. 32.5 g/dL (32.0-36.0); Mean Corpuscular Volume 92.1 fL (80.0-100.0); Monocytes # (auto) 0.7 10 ^3/uL (0-1.3); Monocytes % (auto) 5.3 % (0.0-12.0); Neutrophils # (auto) 11.5 10 ^3/uL (1.6-8.6); Neutrophils % (auto) 83.6 % (37.0-80.0); Red Blood Cells 4.49 10^6/uL (4.5-5.90); White Blood Cell 13.7 10^3/uL (4.4-10.8)
[2022-01-27] MEDS: ASPirin 81 mg TAB PO SCH (09:30)
[2022-01-27] MEDS: FAMOTIDINE (10MG/ML) 2ML VL IV SCH (09:30)
[2022-01-27] MEDS: DOXYCYCLINE 100 MG TAB/CAP PO SCH (09:31)
[2022-01-27] MEDS: dilTIAZem 120MG ER CAP PO SCH (09:31)
[2022-01-27] MEDS: APIXABAN 5 MG TAB PO SCH ×2 (09:31→22:39)
[2022-01-27] MEDS: METOPROLOL TARTRATE 50 MG TAB PO SCH ×2 (09:31→22:39)
[2022-01-27] MEDS ORDERED: POTASSIUM CHL 20 Meq TABLET PO ONE (11:00)
[2022-01-27] MEDS ORDERED: levoFLOXacin 500 MG TAB PO ONE (11:00)
[2022-01-27] MEDS ORDERED: FUROSEMIDE 20 MG/2 ML VIAL IV ONE (11:00)
[2022-01-27 13:00] VITALS: BP 130/77
[2022-01-27 17:08] VITALS: BP 129/84
[2022-01-27 22:00] VITALS: BP 143/94
[2022-01-28 05:00] VITALS: BP 120/65
[2022-01-28] MEDS: CLINDAMYCIN 600MG IV 50 ML IV SCH (05:13)
[2022-01-28 05:39] LABS: Basophils # (auto) 0.1 10 ^3/uL (0-0.2); Basophils % (auto) 0.7 % (0.0-2.0); Eosinophils # (auto) 0.2 10 ^3/uL (0-0.8); Eosinophils % (auto) 1.3 % (0.0-7.0); Hematocrit 41.4 % (41.0-53.0); Hemoglobin 13.6 g/dL (13.5-17.5); Lymphocytes # (auto) 2.3 10 ^3/uL (0.4-5.4); Mean Corpuscular Hemoglobin 30.1 pg (28.0-32.0); Mean Corpuscular Hgb Conc. 32.9 g/dL (32.0-36.0); Mean Corpuscular Volume 91.5 fL (80.0-100.0); Monocytes % (auto) 7.2 % (0.0-12.0); Neutrophils % (auto) 73.8 % (37.0-80.0); Nucleated Red Blood Cells % 0.1 %; Red Blood Cells 4.52 10^6/uL (4.5-5.90); Red Cell Distribution Width 14.9 % (11.8-14.3); White Blood Cell 13.5 10^3/uL (4.4-10.8)
[2022-01-28 06:01] LABS: Potassium 4.3 mmol/L (3.5-5.1)
[2022-01-28 06:06] LABS: BUN/Creatinine Ratio 24.4; Calcium 9.1 mg/dL (8.5-10.1)
[2022-01-28 09:00] VITALS: BP 109/53
[2022-01-28] MEDS: METOPROLOL TARTRATE 50 MG TAB PO SCH ×2 (10:16→21:40)
[2022-01-28] MEDS: dilTIAZem 120MG ER CAP PO SCH (10:16)
[2022-01-28] MEDS: AMIODARONE HCL 200 MG TAB PO SCH (10:17)
[2022-01-28] MEDS: APIXABAN 5 MG TAB PO SCH ×2 (10:17→21:40)
[2022-01-28] MEDS: levoFLOXacin 500 MG TAB PO SCH (10:17)
[2022-01-28 13:00] VITALS: BP 137/89
[2022-01-28] MEDS: CLINDAMYCIN HCL 150 MG CAP PO SCH ×2 (14:13→21:40)
[2022-01-28 16:40] VITALS: BP 119/83
[2022-01-28 22:08] VITALS: BP 121/74
[2022-01-29 05:04] VITALS: BP 122/73
[2022-01-29] MEDS: CLINDAMYCIN HCL 150 MG CAP PO SCH ×2 (06:12→14:24)
[2022-01-29 09:00] VITALS: BP 133/78
[2022-01-29] MEDS: APIXABAN 5 MG TAB PO SCH (09:03)
[2022-01-29] MEDS: levoFLOXacin 500 MG TAB PO SCH (09:03)
[2022-01-29] MEDS: AMIODARONE HCL 200 MG TAB PO SCH (09:04)
[2022-01-29] MEDS: METOPROLOL TARTRATE 50 MG TAB PO SCH (09:04)
[2022-01-29] MEDS: dilTIAZem 120MG ER CAP PO SCH (09:05)
[2022-01-29 13:00] VITALS: BP 144/74
[2022-01-29] MEDS ORDERED: AMIO200T43 PO (13:34)
[2022-01-29] MEDS ORDERED: MET50T PO (13:34)
[2022-01-29] MEDS ORDERED: POTA-180 PO (13:34)
[2022-01-29] MEDS ORDERED: CLIN150C8 PO (13:34)
[2022-01-29] MEDS ORDERED: FURO1TAB31 PO (13:34)
[2022-01-29] MEDS ORDERED: LEVO-28 PO (13:34)
[2022-01-29] MEDS ORDERED: APIX5TAB PO (13:34)
[2022-01-29 14:35] VITALS: BP 115/74
[2022-01-29 16:40] VITALS: BP 124/75
== END 2022-01-29 17:10 | disposition home or self-care (01) | DRG 720 ==
LOC: EDBD 20:55 → ER 20:55 → TELE 23:16 → TELE-WESTW 01-25 18:45
PROVIDERS: ADMIT Nurse Practitioner Family; ATTEND Internal Medicine
DX: A41.9 Sepsis, unspecified organism (principal); I50.41 Acute combined systolic (congestive) and diastolic (congestive) heart failure; D68.69 Other thrombophilia; J18.9 Pneumonia, unspecified organism; E88.09 Other disorders of plasma-protein metabolism, not elsewhere classified; I11.0 Hypertensive heart disease with heart failure; E66.01 Morbid (severe) obesity due to excess calories; Z20.822 Contact with and (suspected) exposure to COVID-19; I48.91 Unspecified atrial fibrillation; L03.116 Cellulitis of left lower limb; Z79.01 Long term (current) use of anticoagulants; Z79.899 Other long term (current) drug therapy; Z68.32 Body mass index [BMI] 32.0-32.9, adult; Z59.00 Homelessness unspecified
CPT/HCPCS: 36415; 71045; 73700; 80048; 80053; 80307; 83735; 83880; 84443; 84484; 85025; 85379; 87081; 93005; 96361; 96374; 96375; 99291; G0378; J0153; J3490

== ENCOUNTER 2022-02-05 18:17 | Inpatient (IN) | payer MEDICAID ==
[~2022-02-05] VITALS: Ht 172.7 cm; Wt 107.5 kg
[~2022-02-05 18:17] MED LIST changes: +AMIO200T43 PO; +CLIN150C8 PO; +FURO1TAB31 PO; +LEVO-28 PO; +MET50T PO; +POTA-180 PO
[2022-02-05] MEDS ORDERED: SODIUM CHLORIDE 0.9% 1,000 ML IV ONE (20:00)
[2022-02-05 21:04] LABS: Basophils # (auto) 0.1 10 ^3/uL (0-0.2); Basophils % (auto) 1.1 % (0.0-2.0); Eosinophils # (auto) 0.2 10 ^3/uL (0-0.8); Eosinophils % (auto) 1.8 % (0.0-7.0); Hematocrit 43.7 % (41.0-53.0); Lymphocytes # (auto) 2.8 10 ^3/uL (0.4-5.4); Lymphocytes % (auto) 25.2 % (10.0-50.0); Mean Corpuscular Hemoglobin 29.8 pg (28.0-32.0); Mean Corpuscular Volume 93.1 fL (80.0-100.0); Monocytes # (auto) 0.8 10 ^3/uL (0-1.3); Monocytes % (auto) 7.6 % (0.0-12.0); Neutrophils # (auto) 7.1 10 ^3/uL (1.6-8.6); Neutrophils % (auto) 64.3 % (37.0-80.0); Nucleated Red Blood Cells % 0.1 %; Red Blood Cells 4.69 10^6/uL (4.5-5.90); Red Cell Distribution Width 14.5 % (11.8-14.3)
[2022-02-05 21:16] LABS: INR 1.05 (0.9-1.15); Partial Thromboplastin Time 27.8 sec (24.6-33.4)
[2022-02-05 21:26] LABS: Albumin 3.5 g/dL (3.4-5.0); BUN/Creatinine Ratio 14.7; Magnesium 2.5 mg/dL (1.6-2.6); Potassium 3.7 mmol/L (3.5-5.1)
[2022-02-05 21:29] LABS: Bilirubin, Total 1.6 mg/dL (0.2-1.0); Total Protein 7.2 g/dL (6.4-8.2)
[2022-02-05 21:33] LABS: Urine Bacteria NONE SEEN /hpf (None Seen); Urine Blood Negative /uL (Negative); Urine Hyaline Cast FEW /lpf (0 - 2); Urine Mucus FEW (None Seen); Urine Specific Gravity 1.024 (1.001-1.035); Urine WBC 5 /hpf (0 - 3)
[2022-02-06] MEDS ORDERED: cefTRIAXone 1GM/50ML D5W 50 ML IV ONE (01:15)
[2022-02-06] MEDS ORDERED: ACETAMINOPHEN 325 MG TAB PO PRN (02:30)
[2022-02-06] MEDS ORDERED: ONDANSETRON HCL 4 MG/2 ML VIAL IV PRN (02:30)
[2022-02-06] MEDS ORDERED: NITROGLYCERIN 0.4 MG SL TAB SL PRN (02:30)
[2022-02-06] MEDS ORDERED: HYDROcodone-ACET 5/325MG TAB PO PRN (02:30)
[2022-02-06] MEDS ORDERED: MORPHINE SULFATE INJ 2 MG/ml SYRG IV PRN (02:30)
[2022-02-06] MEDS ORDERED: TEMAZEPAM 15 MG CAP PO PRN (02:30)
[2022-02-06] MEDS: CLINDAMYCIN 600MG IV 50 ML IV SCH ×3 (06:24→23:08)
[2022-02-06] MEDS ORDERED: PANTOPRAZOLE 40 MG TAB PO SCH (10:00)
[2022-02-06] MEDS: AMIODARONE HCL 200 MG TAB PO SCH (10:15)
[2022-02-06] MEDS: FUROSEMIDE 40 MG TAB PO SCH (10:16)
[2022-02-06] MEDS: APIXABAN 5 MG TAB PO SCH ×2 (10:16→21:54)
[2022-02-06] MEDS: METOPROLOL TARTRATE 50 MG TAB PO SCH ×2 (10:17→21:54)
[2022-02-06] MEDS ORDERED: INFLUENZA QUAD 2021-2022 0.5 ML SYRG IM ONE (16:45)
[2022-02-06] MEDS ORDERED: PNEUMOCOCCAL VACC POLYS 25 MCG/0.5 ML VIAL IM ONE (16:45)
[2022-02-06 17:00] VITALS: BP 113/68
[2022-02-06 22:00] VITALS: BP 138/87
[2022-02-06] MEDS: cefTRIAXone 1GM/50ML D5W 50 ML IV SCH (22:02)
[2022-02-07 05:00] VITALS: BP 126/87
[2022-02-07] MEDS: CLINDAMYCIN 600MG IV 50 ML IV SCH ×2 (05:52→15:59)
[2022-02-07 09:00] VITALS: BP 121/48
[2022-02-07] MEDS: APIXABAN 5 MG TAB PO SCH ×2 (09:20→22:24)
[2022-02-07] MEDS: AMIODARONE HCL 200 MG TAB PO SCH (09:20)
[2022-02-07] MEDS: FUROSEMIDE 40 MG TAB PO SCH (09:21)
[2022-02-07] MEDS: METOPROLOL TARTRATE 50 MG TAB PO SCH ×2 (09:22→22:37)
[2022-02-07 11:18] LABS: Basophils # (auto) 0.1 10 ^3/uL (0-0.2); Basophils % (auto) 0.8 % (0.0-2.0); Eosinophils # (auto) 0.2 10 ^3/uL (0-0.8); Eosinophils % (auto) 2.4 % (0.0-7.0); Hematocrit 41.5 % (41.0-53.0); Hemoglobin 13.5 g/dL (13.5-17.5); Lymphocytes # (auto) 1.9 10 ^3/uL (0.4-5.4); Lymphocytes % (auto) 20.9 % (10.0-50.0); Mean Corpuscular Hemoglobin 29.9 pg (28.0-32.0); Mean Corpuscular Hgb Conc. 32.5 g/dL (32.0-36.0); Mean Corpuscular Volume 92.2 fL (80.0-100.0); Monocytes # (auto) 0.4 10 ^3/uL (0-1.3); Monocytes % (auto) 4.3 % (0.0-12.0); Neutrophils # (auto) 6.4 10 ^3/uL (1.6-8.6); Neutrophils % (auto) 71.6 % (37.0-80.0); Red Blood Cells 4.51 10^6/uL (4.5-5.90); Red Cell Distribution Width 14.7 % (11.8-14.3)
[2022-02-07 12:08] LABS: Potassium 3.9 mmol/L (3.5-5.1)
[2022-02-07 12:18] LABS: Albumin 3.1 g/dL (3.4-5.0); BUN/Creatinine Ratio 17.6; Calcium 8.7 mg/dL (8.5-10.1); Total Protein 6.6 g/dL (6.4-8.2)
[2022-02-07 13:00] VITALS: BP 126/84
[2022-02-07] MEDS: GABAPENTIN 100 MG CAP PO SCH ×2 (15:59→22:24)
[2022-02-07 17:00] VITALS: BP 124/77
[2022-02-07 22:00] VITALS: BP 101/59
[2022-02-07] MEDS: cefTRIAXone 1GM/50ML D5W 50 ML IV SCH (22:24)
[2022-02-08] MEDS: CLINDAMYCIN 600MG IV 50 ML IV SCH ×3 (00:20→14:00)
[2022-02-08 05:00] VITALS: BP 133/89
[2022-02-08] MEDS: GABAPENTIN 100 MG CAP PO SCH ×2 (06:11→14:00)
[2022-02-08 09:00] VITALS: BP 116/69
[2022-02-08] MEDS: APIXABAN 5 MG TAB PO SCH (09:36)
[2022-02-08] MEDS: METOPROLOL TARTRATE 50 MG TAB PO SCH (09:37)
[2022-02-08] MEDS: AMIODARONE HCL 200 MG TAB PO SCH (09:37)
[2022-02-08] MEDS: FUROSEMIDE 40 MG TAB PO SCH (09:39)
[2022-02-08 13:00] VITALS: BP 108/66
[2022-02-08 15:29] VITALS: BP 108/66
== END 2022-02-08 17:00 | disposition home or self-care (01) | DRG 383 ==
LOC: ER 18:17 → EDBD 18:17 → EDUNIT# 18:17 → TELE 02-06 02:21 → TELE-EAST 02-06 14:32
PROVIDERS: ADMIT Nurse Practitioner; ATTEND Internal Medicine Pulmonary Disease
PROC: 3E02340 Introduction of Influenza Vaccine into Muscle, Percutaneous Approach (ICD-10-PCS; principal; 2022-02-06)
PROC: 3E0234Z Introduction of Serum, Toxoid and Vaccine into Muscle, Percutaneous Approach (ICD-10-PCS; 2022-02-06)
DX: L03.116 Cellulitis of left lower limb (principal); I48.20 Chronic atrial fibrillation, unspecified; I50.22 Chronic systolic (congestive) heart failure; F15.90 Other stimulant use, unspecified, uncomplicated; G57.92 Unspecified mononeuropathy of left lower limb; F17.210 Nicotine dependence, cigarettes, uncomplicated; F32.A Depression, unspecified; Z20.822 Contact with and (suspected) exposure to COVID-19; Z91.19 Patient's noncompliance with other medical treatment and regimen; Z59.00 Homelessness unspecified; Z83.3 Family history of diabetes mellitus
CPT/HCPCS: 36415; 71045; 80053; 81001; 83735; 83880; 84484; 85025; 85610; 85730; 87081; 93005; 96361; 96365; 96367; G0378; J0696; J3490

== ENCOUNTER 2022-04-19 12:02 | Inpatient (IN) | payer MEDICAID ==
[2022-04-19] VITALS (10 sets, daily range): BP systolic 100–123; BP diastolic 62–93
[~2022-04-19] VITALS: Ht 172.7 cm; Wt 106.5 kg
[2022-04-19] MEDS ORDERED: cefTRIAXone 1GM/50ML D5W 50 ML IV ONE (12:15)
[2022-04-19] MEDS ORDERED: CLINDAMYCIN 600MG IV 50 ML IV ONE ×2 (12:15→15:00)
[2022-04-19] MEDS ORDERED: AMIODARONE HCL 150 MG in D5W 5% 100 ML IV ONE (12:15)
[2022-04-19] MEDS ORDERED: AMIODARONE 450mg/250ml AE 250 ML IV SCH (12:30)
[2022-04-19] MEDS ORDERED: AMIODARONE HCL (50 MG/ ML) 3 ML VIAL IV ONE (12:33)
[2022-04-19 12:41] LABS: Mean Corpuscular Volume 93.2 fL (80.0-100.0)
[2022-04-19 12:57] LABS: Hematocrit 46.9 % (41.0-53.0); Hemoglobin 15.3 g/dL (13.5-17.5); INR 1.18 (0.9-1.15); Mean Corpuscular Hemoglobin 30.4 pg (28.0-32.0); Mean Corpuscular Hgb Conc. 32.6 g/dL (32.0-36.0); Partial Thromboplastin Time 30.2 sec (24.6-33.4); Red Blood Cells 5.03 10^6/uL (4.5-5.90); Red Cell Distribution Width 16.7 % (11.8-14.3); White Blood Cell 19.2 10^3/uL (4.4-10.8)
[2022-04-19 12:59] LABS: Basophils % (manual) 0 (0.0-2.0); Blast Cells 0; Eosinophils % (manual) 0 (0-7); Metamyelocytes % 0; Myelocytes % 0; Promyelocytes % 0; Reactive Lymphocytes 0
[2022-04-19 13:01] LABS: Albumin 3.1 g/dL (3.4-5.0); BUN/Creatinine Ratio 14.6; Calcium 8.3 mg/dL (8.5-10.1); Potassium 3.7 mmol/L (3.5-5.1)
[2022-04-19 13:04] LABS: Bilirubin, Total 3.5 mg/dL (0.2-1.0); Lactic Acid w/Reflex 6.2 mmol/L (0.4-2.0); Total Protein 6.3 g/dL (6.4-8.2)
[2022-04-19] MEDS ORDERED: SODIUM CHLORIDE 0.9% 1,000 ML IV ONE ×2 (13:15→17:00)
[2022-04-19 14:52] LABS: Urine Bacteria FEW /hpf (None Seen); Urine Blood 2+ /uL (Negative); Urine Hyaline Cast FEW /lpf (0 - 2); Urine Mucus FEW (None Seen); Urine Specific Gravity 1.023 (1.001-1.035); Urine WBC 3 /hpf (0 - 3)
[2022-04-19 15:07] LABS: Amphetamine Screen, Urine POSITIVE (NEGATIVE); Barbiturate Scree,Urine NEGATIVE (NEGATIVE); Benzodiazephine Screen, Urine NEGATIVE (NEGATIVE); Cannabinoid Screen, Urine POSITIVE (NEGATIVE); Cocaine Screen, Urine NEGATIVE (NEGATIVE); Opiate Scree,Urine NEGATIVE (NEGATIVE); Phencyclidine Screen, Urine NEGATIVE (NEGATIVE)
[2022-04-19] MEDS ORDERED: ONDANSETRON HCL 4 MG/2 ML VIAL IV PRN (16:30)
[2022-04-19] MEDS ORDERED: MORPHINE SULFATE INJ 2 MG/ml SYRG IV PRN (16:30)
[2022-04-19] MEDS ORDERED: ACETAMINOPHEN 325 MG TAB PO PRN (16:30)
[2022-04-19] MEDS ORDERED: NITROGLYCERIN 0.4 MG SL TAB SL PRN (16:30)
[2022-04-19] MEDS ORDERED: VANCOMYCIN PER PHARMACY 0 MG IV SCH (17:15)
[2022-04-19] MEDS ORDERED: VANCOMYCIN 1GM/250ML 250 ML IV ONE (17:15)
[2022-04-19] MEDS: METOPROLOL TARTRATE 50 MG TAB PO SCH (17:31)
[2022-04-19] MEDS: PIPERACILLIN-TAZOB 3.375GM 100 ML IV SCH (18:30)
[2022-04-19] MEDS ORDERED: METOPROLOL TARTRATE 1MG/1ML-5ML VIAL IV ONE (19:15)
[2022-04-19] MEDS: HYDROcodone-ACET 5/325MG TAB PO PRN (20:04)
[2022-04-19] MEDS ORDERED: dilTIAZem 125mg/125ml BAG KIT 125 ML IV SCH (21:15)
[2022-04-19] MEDS ORDERED: SODIUM CHLORIDE 0.9% 2,000 ML IV ONE (21:15)
[2022-04-19] MEDS: chlordiazePOXIDE HCL 25 MG CAP PO SCH (21:52)
[2022-04-19] MEDS: APIXABAN 5 MG TAB PO SCH (21:52)
[2022-04-20] VITALS (85 sets, daily range): BP systolic 82–168; BP diastolic 50–126
[2022-04-20] MEDS: PIPERACILLIN-TAZOB 3.375GM 100 ML IV SCH ×3 (03:00→17:06)
[2022-04-20] MEDS: AMIODARONE 450mg/250ml AE 250 ML IV SCH ×2 (03:02→16:53)
[2022-04-20] MEDS: HYDROcodone-ACET 5/325MG TAB PO PRN ×2 (03:32→20:57)
[2022-04-20 04:24] LABS: Basophils # (auto) 0.1 10 ^3/uL (0-0.2); Basophils % (auto) 0.5 % (0.0-2.0); Eosinophils # (auto) 0 10 ^3/uL (0-0.8); Eosinophils % (auto) 0.2 % (0.0-7.0); Hematocrit 42.1 % (41.0-53.0); Hemoglobin 13.8 g/dL (13.5-17.5); Lymphocytes # (auto) 1.1 10 ^3/uL (0.4-5.4); Mean Corpuscular Hemoglobin 30.8 pg (28.0-32.0); Mean Corpuscular Hgb Conc. 32.9 g/dL (32.0-36.0); Mean Corpuscular Volume 93.7 fL (80.0-100.0); Monocytes # (auto) 1.1 10 ^3/uL (0-1.3); Monocytes % (auto) 6.9 % (0.0-12.0); Neutrophils # (auto) 13.1 10 ^3/uL (1.6-8.6); Neutrophils % (auto) 85.4 % (37.0-80.0); Red Blood Cells 4.49 10^6/uL (4.5-5.90); Red Cell Distribution Width 16.7 % (11.8-14.3); White Blood Cell 15.4 10^3/uL (4.4-10.8)
[2022-04-20 04:41] LABS: Albumin 2.6 g/dL (3.4-5.0); Calcium 7.8 mg/dL (8.5-10.1); Potassium 3.9 mmol/L (3.5-5.1)
[2022-04-20 04:44] LABS: Bilirubin, Total 2.5 mg/dL (0.2-1.0); Total Protein 5.7 g/dL (6.4-8.2)
[2022-04-20] MEDS: FUROSEMIDE 40 MG TAB PO SCH (06:14)
[2022-04-20] MEDS: chlordiazePOXIDE HCL 25 MG CAP PO SCH ×3 (06:14→22:20)
[2022-04-20] MEDS: VANCOMYCIN 1GM/250ML 250 ML IV SCH ×2 (06:14→17:06)
[2022-04-20] MEDS: METOPROLOL TARTRATE 50 MG TAB PO SCH (08:49)
[2022-04-20] MEDS: POTASSIUM CHL 20 Meq TABLET PO SCH (08:55)
[2022-04-20] MEDS: FOLIC ACID 1 MG TAB PO SCH (08:55)
[2022-04-20] MEDS: PANTOPRAZOLE 40 MG/10 ML VIAL INJ IV SCH (08:55)
[2022-04-20] MEDS: APIXABAN 5 MG TAB PO SCH ×2 (08:56→22:20)
[2022-04-20] MEDS: THIAMINE HCL 100 MG TAB PO SCH (08:56)
[2022-04-20] MEDS ORDERED: ENOXAPARIN SOD 40 MG/0.4 ML SYRINGE SC SCH (10:00)
[2022-04-20] MEDS ORDERED: PANTOPRAZOLE 40 MG/10 ML VIAL INJ IV SCH (10:00)
[2022-04-20] MEDS ORDERED: DIGOXIN (250MCG/ML) 2 ML AMPULE IV ONE (12:00)
[2022-04-20 12:41] LABS: Magnesium 2.1 mg/dL (1.6-2.6)
[2022-04-20 13:52] LABS: Acetaminophen < 2.0 ug/mL (10-30)
[2022-04-20 14:03] LABS: Salicylate < 1.7 mg/dL (2.8-20.0)
[2022-04-20 14:19] LABS: Anion Gap 10 (5-15); Blood Alcohol < 3.0 mg/dL (0-5); Blood Urea Nitrogen 24 mg/dL (7-18); Calcium 8.1 mg/dL (8.5-10.1); Carbon Dioxide 19 mmol/L (21-32); Chloride 103 mmol/L (98-107); GFR African American 90 mL/min; GFR Non-African American 74 mL/min; Glucose 135 mg/dL (74-106); Potassium 4.2 mmol/L (3.5-5.1); Sodium 132 mmol/L (136-145)
[2022-04-20] MEDS: MORPHINE SULFATE INJ 2 MG/ml SYRG IV PRN (16:54)
[2022-04-20] MEDS: METOPROLOL TARTRATE 25 MG TAB PO SCH (22:20)
[2022-04-21] VITALS (45 sets, daily range): BP systolic 102–190; BP diastolic 51–110
[2022-04-21] MEDS: PIPERACILLIN-TAZOB 3.375GM 100 ML IV SCH ×2 (02:30→10:44)
[2022-04-21] MEDS: MORPHINE SULFATE INJ 2 MG/ml SYRG IV PRN ×2 (02:30→08:51)
[2022-04-21] MEDS: chlordiazePOXIDE HCL 25 MG CAP PO SCH ×3 (06:00→21:39)
[2022-04-21] MEDS: VANCOMYCIN 1GM/250ML 250 ML IV SCH ×2 (06:00→16:06)
[2022-04-21] MEDS: FUROSEMIDE 40 MG TAB PO SCH (06:50)
[2022-04-21 08:13] LABS: Albumin 2.6 g/dL (3.4-5.0); Calcium 8.7 mg/dL (8.5-10.1); Potassium 4.1 mmol/L (3.5-5.1)
[2022-04-21 08:17] LABS: BUN/Creatinine Ratio 20.3; Bilirubin, Total 2.6 mg/dL (0.2-1.0); Total Protein 6.8 g/dL (6.4-8.2)
[2022-04-21] MEDS: AMIODARONE 450mg/250ml AE 250 ML IV SCH (09:47)
[2022-04-21] MEDS: APIXABAN 5 MG TAB PO SCH ×2 (09:48→21:39)
[2022-04-21] MEDS: METOPROLOL TARTRATE 25 MG TAB PO SCH (09:48)
[2022-04-21] MEDS: DIGOXIN 0.125 MG TAB PO SCH (09:48)
[2022-04-21] MEDS: THIAMINE HCL 100 MG TAB PO SCH (10:00)
[2022-04-21] MEDS: POTASSIUM CHL 20 Meq TABLET PO SCH (10:06)
[2022-04-21] MEDS: PANTOPRAZOLE 40 MG/10 ML VIAL INJ IV SCH (10:06)
[2022-04-21] MEDS: FOLIC ACID 1 MG TAB PO SCH (10:06)
[2022-04-21] MEDS ORDERED: AMIODARONE HCL 200 MG TAB PO ONE (11:00)
[2022-04-21] MEDS ORDERED: TAMSULOSIN HYDROCHLORIDE 0.4 MG CAP PO ONE (11:00)
[2022-04-21] MEDS ORDERED: cefTRIAXone 1GM/50ML D5W 50 ML IV ONE (15:00)
[2022-04-21] MEDS: TAMSULOSIN HYDROCHLORIDE 0.4 MG CAP PO SCH (18:02)
[2022-04-21] MEDS: AMIODARONE HCL 200 MG TAB PO SCH (21:40)
[2022-04-21] MEDS ORDERED: METOPROLOL TARTRATE 25 MG TAB PO SCH (22:00)
[2022-04-22] VITALS (22 sets, daily range): BP systolic 121–185; BP diastolic 66–113
[2022-04-22] MEDS: VANCOMYCIN 1GM/250ML 250 ML IV SCH ×3 (02:26→21:30)
[2022-04-22] MEDS: HYDROcodone-ACET 5/325MG TAB PO PRN ×2 (04:19→18:07)
[2022-04-22] MEDS: chlordiazePOXIDE HCL 25 MG CAP PO SCH ×3 (06:04→21:31)
[2022-04-22] MEDS: FUROSEMIDE 40 MG TAB PO SCH ×2 (06:05→07:00)
[2022-04-22] MEDS: cefTRIAXone 1GM/50ML D5W 50 ML IV SCH (09:32)
[2022-04-22] MEDS: THIAMINE HCL 100 MG TAB PO SCH (09:32)
[2022-04-22] MEDS: POTASSIUM CHL 20 Meq TABLET PO SCH (09:32)
[2022-04-22] MEDS: METOPROLOL TARTRATE 50 MG TAB PO SCH ×2 (09:33→21:31)
[2022-04-22] MEDS: AMIODARONE HCL 200 MG TAB PO SCH ×2 (09:34→21:31)
[2022-04-22] MEDS: DIGOXIN 0.125 MG TAB PO SCH (09:34)
[2022-04-22] MEDS: APIXABAN 5 MG TAB PO SCH ×2 (09:34→21:31)
[2022-04-22] MEDS: PANTOPRAZOLE 40 MG/10 ML VIAL INJ IV SCH (09:34)
[2022-04-22] MEDS: FOLIC ACID 1 MG TAB PO SCH (09:51)
[2022-04-22] MEDS ORDERED: hydrALAZINE HCL 20 MG/ML VL IV ONE (10:45)
[2022-04-22] MEDS: TAMSULOSIN HYDROCHLORIDE 0.4 MG CAP PO SCH (18:06)
[2022-04-22] MEDS: hydrALAZINE HCL 20 MG/ML VL IV PRN (21:31)
[2022-04-23] VITALS (14 sets, daily range): BP systolic 134–208; BP diastolic 80–107
[2022-04-23] MEDS: chlordiazePOXIDE HCL 25 MG CAP PO SCH ×3 (06:08→22:20)
[2022-04-23] MEDS: cloNIDine HCL 0.1 MG TAB PO PRN ×2 (06:09→15:29)
[2022-04-23] MEDS: FUROSEMIDE 40 MG TAB PO SCH (06:44)
[2022-04-23] MEDS: hydrALAZINE HCL 20 MG/ML VL IV PRN ×2 (06:59→17:16)
[2022-04-23] MEDS: VANCOMYCIN 1GM/250ML 250 ML IV SCH ×2 (08:31→18:51)
[2022-04-23 08:46] LABS: Basophils # (auto) 0.1 10 ^3/uL (0-0.2); Basophils % (auto) 0.7 % (0.0-2.0); Eosinophils # (auto) 0.3 10 ^3/uL (0-0.8); Eosinophils % (auto) 2.2 % (0.0-7.0); Hematocrit 44.1 % (41.0-53.0); Hemoglobin 14.6 g/dL (13.5-17.5); Lymphocytes # (auto) 1.7 10 ^3/uL (0.4-5.4); Lymphocytes % (auto) 14.6 % (10.0-50.0); Mean Corpuscular Hemoglobin 30.7 pg (28.0-32.0); Mean Corpuscular Hgb Conc. 33.2 g/dL (32.0-36.0); Mean Corpuscular Volume 92.5 fL (80.0-100.0); Monocytes # (auto) 1.1 10 ^3/uL (0-1.3); Monocytes % (auto) 9.1 % (0.0-12.0); Neutrophils # (auto) 8.5 10 ^3/uL (1.6-8.6); Neutrophils % (auto) 73.4 % (37.0-80.0); Nucleated Red Blood Cells % 0.2 %; Red Blood Cells 4.77 10^6/uL (4.5-5.90); White Blood Cell 11.6 10^3/uL (4.4-10.8)
[2022-04-23 09:05] LABS: BUN/Creatinine Ratio 22.8; Calcium 8.9 mg/dL (8.5-10.1); Potassium 3.6 mmol/L (3.5-5.1)
[2022-04-23] MEDS: THIAMINE HCL 100 MG TAB PO SCH (09:47)
[2022-04-23] MEDS: PANTOPRAZOLE 40 MG/10 ML VIAL INJ IV SCH (09:47)
[2022-04-23] MEDS: cefTRIAXone 1GM/50ML D5W 50 ML IV SCH (09:47)
[2022-04-23] MEDS: AMIODARONE HCL 200 MG TAB PO SCH ×2 (09:48→22:19)
[2022-04-23] MEDS: APIXABAN 5 MG TAB PO SCH ×2 (09:48→22:19)
[2022-04-23] MEDS: POTASSIUM CHL 20 Meq TABLET PO SCH (09:49)
[2022-04-23] MEDS: DIGOXIN 0.125 MG TAB PO SCH (09:50)
[2022-04-23] MEDS: METOPROLOL TARTRATE 50 MG TAB PO SCH ×3 (09:50→22:21)
[2022-04-23] MEDS: FOLIC ACID 1 MG TAB PO SCH ×2 (09:52→10:24)
[2022-04-23] MEDS: amLODIPine BESYLATE 5 MG TAB PO SCH (10:23)
[2022-04-23] MEDS: hydrALAZINE HCL 25 MG TAB PO SCH ×2 (14:35→22:19)
[2022-04-23] MEDS: GABAPENTIN 100 MG CAP PO SCH ×2 (14:35→22:21)
[2022-04-23] MEDS: TAMSULOSIN HYDROCHLORIDE 0.4 MG CAP PO SCH (18:25)
[2022-04-23] MEDS: HYDROcodone-ACET 5/325MG TAB PO PRN (22:22)
[2022-04-24] MEDS: VANCOMYCIN 1GM/250ML 250 ML IV SCH ×2 (03:47→13:42)
[2022-04-24 05:00] VITALS: BP 116/72
[2022-04-24] MEDS: GABAPENTIN 100 MG CAP PO SCH ×3 (05:52→23:15)
[2022-04-24] MEDS: chlordiazePOXIDE HCL 25 MG CAP PO SCH ×3 (05:52→23:17)
[2022-04-24] MEDS: hydrALAZINE HCL 25 MG TAB PO SCH ×3 (05:52→23:17)
[2022-04-24] MEDS: FUROSEMIDE 40 MG TAB PO SCH (06:21)
[2022-04-24 08:51] VITALS: BP 105/78
[2022-04-24] MEDS: APIXABAN 5 MG TAB PO SCH ×2 (09:22→23:15)
[2022-04-24] MEDS: cefTRIAXone 1GM/50ML D5W 50 ML IV SCH (09:22)
[2022-04-24] MEDS: PANTOPRAZOLE 40 MG/10 ML VIAL INJ IV SCH (09:22)
[2022-04-24] MEDS: METOPROLOL TARTRATE 50 MG TAB PO SCH ×2 (09:27→23:20)
[2022-04-24] MEDS: THIAMINE HCL 100 MG TAB PO SCH (09:27)
[2022-04-24] MEDS: FOLIC ACID 1 MG TAB PO SCH (09:28)
[2022-04-24] MEDS: amLODIPine BESYLATE 5 MG TAB PO SCH (09:28)
[2022-04-24] MEDS: DIGOXIN 0.125 MG TAB PO SCH (09:28)
[2022-04-24] MEDS: POTASSIUM CHL 20 Meq TABLET PO SCH (09:28)
[2022-04-24] MEDS: AMIODARONE HCL 200 MG TAB PO SCH ×2 (09:28→23:15)
[2022-04-24 09:42] LABS: Magnesium 1.8 mg/dL (1.6-2.6); Potassium 4.1 mmol/L (3.5-5.1)
[2022-04-24] MEDS ORDERED: MAGNESIUM SULFATE 1GM/100ML 100 ML IV ONE (12:00)
[2022-04-24] MEDS ORDERED: AMIO200T43 PO (12:54)
[2022-04-24] MEDS ORDERED: APIX5TAB PO (12:54)
[2022-04-24] MEDS ORDERED: AML5T PO (12:54)
[2022-04-24] MEDS ORDERED: GAB100C PO (12:54)
[2022-04-24 13:00] VITALS: BP 110/81
[2022-04-24 15:04] VITALS: BP 110/81
[2022-04-24 17:00] VITALS: BP 113/71
[2022-04-24] MEDS: TAMSULOSIN HYDROCHLORIDE 0.4 MG CAP PO SCH (18:04)
[2022-04-24 22:00] VITALS: BP 137/84
[2022-04-25] MEDS: VANCOMYCIN 1GM/250ML 250 ML IV SCH ×2 (00:10→00:14)
[2022-04-25 05:00] VITALS: BP 110/68
[2022-04-25] MEDS: GABAPENTIN 100 MG CAP PO SCH (06:00)
[2022-04-25] MEDS: chlordiazePOXIDE HCL 25 MG CAP PO SCH (06:00)
[2022-04-25] MEDS: hydrALAZINE HCL 25 MG TAB PO SCH (06:00)
[2022-04-25] MEDS: FUROSEMIDE 40 MG TAB PO SCH (06:37)
[2022-04-25] MEDS: cefTRIAXone 1GM/50ML D5W 50 ML IV SCH (09:00)
[2022-04-25] MEDS: PANTOPRAZOLE 40 MG/10 ML VIAL INJ IV SCH (09:21)
[2022-04-25] MEDS: THIAMINE HCL 100 MG TAB PO SCH (09:21)
[2022-04-25] MEDS: FOLIC ACID 1 MG TAB PO SCH (09:21)
[2022-04-25] MEDS: APIXABAN 5 MG TAB PO SCH (09:22)
[2022-04-25] MEDS: POTASSIUM CHL 20 Meq TABLET PO SCH (09:22)
[2022-04-25] MEDS: amLODIPine BESYLATE 5 MG TAB PO SCH (09:23)
[2022-04-25] MEDS: AMIODARONE HCL 200 MG TAB PO SCH (09:23)
[2022-04-25] MEDS: METOPROLOL TARTRATE 50 MG TAB PO SCH (09:24)
[2022-04-25] MEDS ORDERED: VANCOMYCIN 1GM/250ML 250 ML IV SCH (12:00)
== END 2022-04-25 12:30 | disposition home or self-care (01) | DRG 720 ==
LOC: EDBD 12:02 → ER 12:03 → OVERFLOW 16:31 → ICU WEST 17:43 → TELE-CENTR 04-23 18:10
PROVIDERS: ADMIT Registered Nurse; ATTEND Internal Medicine
PROC: 05HA33Z Insertion of Infusion Device into Left Brachial Vein, Percutaneous Approach (ICD-10-PCS; principal; 2022-04-19)
PROC: B54NZZA Ultrasonography of Left Upper Extremity Veins, Guidance (ICD-10-PCS; 2022-04-19)
DX: A41.9 Sepsis, unspecified organism (principal); N17.0 Acute kidney failure with tubular necrosis; I21.A1 Myocardial infarction type 2; I50.33 Acute on chronic diastolic (congestive) heart failure; I47.1 Supraventricular tachycardia; D68.59 Other primary thrombophilia; I11.0 Hypertensive heart disease with heart failure; I48.91 Unspecified atrial fibrillation; L03.113 Cellulitis of right upper limb; E66.9 Obesity, unspecified; F32.A Depression, unspecified; F10.239 Alcohol dependence with withdrawal, unspecified; F17.210 Nicotine dependence, cigarettes, uncomplicated; F19.10 Other psychoactive substance abuse, uncomplicated; Z20.822 Contact with and (suspected) exposure to COVID-19; Z59.00 Homelessness unspecified; Z91.199 Patient's noncompliance with other medical treatment and regimen due to unspecified reason; Z83.3 Family history of diabetes mellitus; Z68.38 Body mass index [BMI] 38.0-38.9, adult
CPT/HCPCS: 36415; 36600; 71045; 73200; 80048; 80053; 80061; 80162; 80202; 80307; 80320; 80329; 81001; 82565; 82805; 83036; 83605; 83735; 83880; 83930; 84132; 84443; 84484; 85007; 85025; 85027; 85610; 85730; 87040; 87077; 87081; 87186; 87426; 93005; 93306; 96361; 96365; 96367; 97163; 99291; C9113; G0378; J0696; J2543; J3490; J7060

== ENCOUNTER 2022-10-18 20:09 | Inpatient (IN) | payer MEDICAID ==
[~2022-10-18] VITALS: Ht 180.3 cm; Wt 117.7 kg
[~2022-10-18 20:09] MED LIST changes: +AML5T PO; -AZIT500T66 PO; -CEPH-509 PO; -CEPH500T PO; -CHL25C PO; -CLIN150C8 PO; -CLIN300C8 PO; -DOXY-332 PO; +GAB100C PO; -LEVO-28 PO; -LEVO750T8 PO; -METO25TA5 PO; -PRED20TA2 PO; -PROM1SOL4 PO; -SULF400T11 PO
[2022-10-18 21:42] LABS: Basophils # (auto) 0.2 10 ^3/uL (0-0.2); Basophils % (auto) 1.9 % (0.0-2.0); Eosinophils # (auto) 0.1 10 ^3/uL (0-0.8); Hematocrit 43.1 % (41.0-53.0); Hemoglobin 15.1 g/dL (13.5-17.5); Lymphocytes # (auto) 2.6 10 ^3/uL (0.4-5.4); Lymphocytes % (auto) 25.5 % (10.0-50.0); Mean Corpuscular Hemoglobin 31.7 pg (28.0-32.0); Mean Corpuscular Hgb Conc. 35.1 g/dL (32.0-36.0); Mean Corpuscular Volume 90.3 fL (80.0-100.0); Monocytes # (auto) 0.8 10 ^3/uL (0-1.3); Monocytes % (auto) 7.7 % (0.0-12.0); Neutrophils # (auto) 6.5 10 ^3/uL (1.6-8.6); Neutrophils % (auto) 63.9 % (37.0-80.0); Red Blood Cells 4.77 10^6/uL (4.5-5.90); Red Cell Distribution Width 15.2 % (11.8-14.3); White Blood Cell 10.2 10^3/uL (4.4-10.8)
[2022-10-18] MEDS ORDERED: dilTIAZem 25 MG/5 ML VIAL IV ONE (21:45)
[2022-10-18] MEDS ORDERED: METOPROLOL TARTRATE 1MG/1ML-5ML VIAL IV ONE (22:00)
[2022-10-18 22:09] LABS: Albumin 3.5 g/dL (3.4-5.0); Calcium 9.1 mg/dL (8.5-10.1); Potassium 4.1 mmol/L (3.5-5.1)
[2022-10-18 22:13] LABS: BUN/Creatinine Ratio 14.4 (10.0-20.0); Bilirubin, Total 1.6 mg/dL (0.2-1.0); Total Protein 6.9 g/dL (6.4-8.2)
[2022-10-19] MEDS ORDERED: cefTRIAXone 1GM/50ML D5W 50 ML IV ONE (01:00)
[2022-10-19] MEDS ORDERED: dilTIAZem 25 MG/5 ML VIAL IV ONE (01:00)
[2022-10-19] MEDS ORDERED: LACTATED RINGER'S 1,000 ML IV ONE (01:00)
[2022-10-19 06:08] LABS: Urine Bacteria FEW /hpf (None Seen); Urine Blood Negative /uL (Negative); Urine Mucus FEW (None Seen); Urine WBC 2 /hpf (0 - 3)
[2022-10-19 06:34] LABS: Cannabinoid Screen, Urine POSITIVE (NEGATIVE)
[2022-10-19 06:44] LABS: Amphetamine Screen, Urine POSITIVE (NEGATIVE); Barbiturate Scree,Urine NEGATIVE (NEGATIVE); Benzodiazephine Screen, Urine NEGATIVE (NEGATIVE); Cocaine Screen, Urine NEGATIVE (NEGATIVE); Opiate Scree,Urine NEGATIVE (NEGATIVE); Phencyclidine Screen, Urine NEGATIVE (NEGATIVE)
[2022-10-19] MEDS ORDERED: DOCUSATE SOD 100 MG CAP PO PRN (08:00)
[2022-10-19] MEDS ORDERED: MORPHINE SULFATE INJ 2 MG/ml SYRG IV PRN (08:00)
[2022-10-19] MEDS ORDERED: NITROGLYCERIN 0.4 MG SL TAB SL PRN (08:00)
[2022-10-19] MEDS ORDERED: ONDANSETRON HCL 4 MG/2 ML VIAL IV PRN (08:00)
[2022-10-19] MEDS ORDERED: ACETAMINOPHEN 325 MG TAB PO PRN (08:00)
[2022-10-19 08:49] LABS: Basophils # (auto) 0.2 10 ^3/uL (0-0.2); Basophils % (auto) 1.9 % (0.0-2.0); Eosinophils # (auto) 0.1 10 ^3/uL (0-0.8); Eosinophils % (auto) 1.4 % (0.0-7.0); Hematocrit 46.3 % (41.0-53.0); Lymphocytes # (auto) 2.4 10 ^3/uL (0.4-5.4); Lymphocytes % (auto) 26.9 % (10.0-50.0); Mean Corpuscular Hemoglobin 31.4 pg (28.0-32.0); Mean Corpuscular Hgb Conc. 34.5 g/dL (32.0-36.0); Mean Corpuscular Volume 91.1 fL (80.0-100.0); Monocytes # (auto) 0.7 10 ^3/uL (0-1.3); Monocytes % (auto) 7.7 % (0.0-12.0); Neutrophils # (auto) 5.5 10 ^3/uL (1.6-8.6); Neutrophils % (auto) 62.1 % (37.0-80.0); Nucleated Red Blood Cells % 0.1 %; Red Blood Cells 5.08 10^6/uL (4.5-5.90); Red Cell Distribution Width 15.4 % (11.8-14.3); White Blood Cell 8.9 10^3/uL (4.4-10.8)
[2022-10-19] MEDS: cefTRIAXone 1GM/50ML D5W 50 ML IV SCH (09:11)
[2022-10-19 09:15] LABS: Albumin 3.3 g/dL (3.4-5.0)
[2022-10-19 09:18] LABS: BUN/Creatinine Ratio 15.1 (10.0-20.0); Bilirubin, Total 2.1 mg/dL (0.2-1.0)
[2022-10-19] MEDS: FUROSEMIDE 40 MG/4 ML VIAL IV SCH (10:07)
[2022-10-19] MEDS: ASPirin 81 mg TAB PO SCH (10:08)
[2022-10-19] MEDS: APIXABAN 5 MG TAB PO SCH ×2 (10:08→22:13)
[2022-10-19] MEDS: MULTIPLE VITAMIN TAB PO SCH (10:08)
[2022-10-19] MEDS: THIAMINE HCL 100 MG TAB PO SCH (10:08)
[2022-10-19] MEDS: FOLIC ACID 1 MG TAB PO SCH (10:08)
[2022-10-19] MEDS: CARVEDILOL 12.5 MG TAB PO SCH ×2 (10:09→22:14)
[2022-10-19] MEDS: SODIUM CHLOR 0.9% PF (SALINE LOCK) 10ML VIAL/SYR IV SCH ×2 (14:18→22:00)
[2022-10-19] MEDS: HYDROcodone-ACET 5/325MG TAB PO PRN (22:56)
[2022-10-20] MEDS: SODIUM CHLOR 0.9% PF (SALINE LOCK) 10ML VIAL/SYR IV SCH ×3 (05:42→21:52)
[2022-10-20 05:57] LABS: Basophils # (auto) 0.1 10 ^3/uL (0-0.2); Basophils % (auto) 0.7 % (0.0-2.0); Eosinophils # (auto) 0.1 10 ^3/uL (0-0.8); Eosinophils % (auto) 1.3 % (0.0-7.0); Hematocrit 44.2 % (41.0-53.0); Hemoglobin 15.3 g/dL (13.5-17.5); Lymphocytes # (auto) 1.8 10 ^3/uL (0.4-5.4); Lymphocytes % (auto) 18.6 % (10.0-50.0); Mean Corpuscular Hemoglobin 31.8 pg (28.0-32.0); Mean Corpuscular Hgb Conc. 34.7 g/dL (32.0-36.0); Mean Corpuscular Volume 91.7 fL (80.0-100.0); Monocytes # (auto) 0.7 10 ^3/uL (0-1.3); Monocytes % (auto) 7.6 % (0.0-12.0); Neutrophils # (auto) 7.1 10 ^3/uL (1.6-8.6); Neutrophils % (auto) 71.8 % (37.0-80.0); Red Blood Cells 4.82 10^6/uL (4.5-5.90); Red Cell Distribution Width 15.4 % (11.8-14.3); White Blood Cell 9.8 10^3/uL (4.4-10.8)
[2022-10-20 07:25] LABS: Albumin 3.2 g/dL (3.4-5.0); Calcium 9.1 mg/dL (8.5-10.1)
[2022-10-20 07:28] LABS: BUN/Creatinine Ratio 16.8 (10.0-20.0); Bilirubin, Total 1.8 mg/dL (0.2-1.0); Total Protein 6.6 g/dL (6.4-8.2)
[2022-10-20] MEDS: cefTRIAXone 1GM/50ML D5W 50 ML IV SCH (10:14)
[2022-10-20] MEDS: MULTIPLE VITAMIN TAB PO SCH (10:15)
[2022-10-20] MEDS: CARVEDILOL 12.5 MG TAB PO SCH ×2 (10:15→21:50)
[2022-10-20] MEDS: FUROSEMIDE 40 MG/4 ML VIAL IV SCH (10:15)
[2022-10-20] MEDS: APIXABAN 5 MG TAB PO SCH ×2 (10:15→21:49)
[2022-10-20] MEDS: ASPirin 81 mg TAB PO SCH (10:15)
[2022-10-20] MEDS: FOLIC ACID 1 MG TAB PO SCH (10:16)
[2022-10-20] MEDS: THIAMINE HCL 100 MG TAB PO SCH (10:16)
[2022-10-20] MEDS ORDERED: AMIODARONE HCL 200 MG TAB PO ONE (14:45)
[2022-10-20] MEDS: AMIODARONE HCL 200 MG TAB PO SCH (21:50)
[2022-10-21] MEDS: SODIUM CHLOR 0.9% PF (SALINE LOCK) 10ML VIAL/SYR IV SCH (05:38)
[2022-10-21 06:42] LABS: Basophils # (auto) 0.1 10 ^3/uL (0-0.2); Basophils % (auto) 0.9 % (0.0-2.0); Eosinophils # (auto) 0.1 10 ^3/uL (0-0.8); Eosinophils % (auto) 1.3 % (0.0-7.0); Hematocrit 41.5 % (41.0-53.0); Hemoglobin 14.5 g/dL (13.5-17.5); Lymphocytes % (auto) 19.4 % (10.0-50.0); Mean Corpuscular Hemoglobin 31.9 pg (28.0-32.0); Mean Corpuscular Volume 91.2 fL (80.0-100.0); Monocytes # (auto) 0.6 10 ^3/uL (0-1.3); Monocytes % (auto) 5.6 % (0.0-12.0); Neutrophils # (auto) 7.7 10 ^3/uL (1.6-8.6); Neutrophils % (auto) 72.8 % (37.0-80.0); Red Blood Cells 4.55 10^6/uL (4.5-5.90); Red Cell Distribution Width 15.1 % (11.8-14.3); White Blood Cell 10.5 10^3/uL (4.4-10.8)
[2022-10-21 07:15] LABS: BUN/Creatinine Ratio 19.6 (10.0-20.0); Calcium 9.5 mg/dL (8.5-10.1)
[2022-10-21 09:00] VITALS: BP 125/79
[2022-10-21] MEDS: cefTRIAXone 1GM/50ML D5W 50 ML IV SCH (09:00)
[2022-10-21] MEDS: FOLIC ACID 1 MG TAB PO SCH (09:58)
[2022-10-21] MEDS: FUROSEMIDE 40 MG/4 ML VIAL IV SCH ×2 (09:58→10:00)
[2022-10-21] MEDS: THIAMINE HCL 100 MG TAB PO SCH (09:59)
[2022-10-21] MEDS: APIXABAN 5 MG TAB PO SCH (09:59)
[2022-10-21] MEDS: CARVEDILOL 12.5 MG TAB PO SCH (09:59)
[2022-10-21] MEDS: MULTIPLE VITAMIN TAB PO SCH (09:59)
[2022-10-21] MEDS ORDERED: PNEUMOCOCCAL VACC POLYS 25 MCG/0.5 ML VIAL IM ONE (10:00)
[2022-10-21] MEDS: AMIODARONE HCL 200 MG TAB PO SCH (10:00)
[2022-10-21] MEDS: HYDROcodone-ACET 5/325MG TAB PO PRN (11:46)
[2022-10-21 13:00] VITALS: BP 137/94
== END 2022-10-21 17:53 | disposition left against medical advice (07) | DRG 194 ==
LOC: ER 20:09 → TELE 10-19 08:09 → TELE-WESTW 10-20 21:00
PROVIDERS: ADMIT Nurse Practitioner Family; ATTEND Internal Medicine Pulmonary Disease
DX: I11.0 Hypertensive heart disease with heart failure (principal); I48.20 Chronic atrial fibrillation, unspecified; E86.0 Dehydration; E66.9 Obesity, unspecified; F10.10 Alcohol abuse, uncomplicated; F17.210 Nicotine dependence, cigarettes, uncomplicated; I48.91 Unspecified atrial fibrillation; L03.90 Cellulitis, unspecified; Z53.29 Procedure and treatment not carried out because of patient's decision for other reasons; I25.2 Old myocardial infarction; Z83.3 Family history of diabetes mellitus; Z68.36 Body mass index [BMI] 36.0-36.9, adult; I50.23 Acute on chronic systolic (congestive) heart failure
CPT/HCPCS: 36415; 71045; 80048; 80053; 80307; 80320; 81001; 83880; 84484; 85025; 93005; 93306; 93970; 96361; 96365; 96366; 96375; G0378; J0696

== ENCOUNTER 2022-11-22 18:26 | Inpatient (IN) | payer MEDICAID ==
[~2022-11-22] VITALS: Ht 180.3 cm; Wt 125.0 kg
[2022-11-22 19:29] LABS: Basophils # (auto) 0 10 ^3/uL (0-0.2); Basophils % (auto) 0.3 % (0.0-2.0); Eosinophils # (auto) 0.3 10 ^3/uL (0-0.8); Hematocrit 43.3 % (41.0-53.0); Hemoglobin 14.1 g/dL (13.5-17.5); Lymphocytes # (auto) 2.3 10 ^3/uL (0.4-5.4); Lymphocytes % (auto) 23.7 % (10.0-50.0); Mean Corpuscular Hemoglobin 31.4 pg (28.0-32.0); Mean Corpuscular Hgb Conc. 32.5 g/dL (32.0-36.0); Mean Corpuscular Volume 96.5 fL (80.0-100.0); Monocytes # (auto) 0.5 10 ^3/uL (0-1.3); Neutrophils # (auto) 6.7 10 ^3/uL (1.6-8.6); Red Blood Cells 4.49 10^6/uL (4.5-5.90); Red Cell Distribution Width 15.5 % (11.8-14.3); White Blood Cell 9.8 10^3/uL (4.4-10.8)
[2022-11-22 19:51] LABS: Albumin 3.8 g/dL (3.4-5.0); Potassium 4.1 mmol/L (3.5-5.1)
[2022-11-22 19:53] LABS: BUN/Creatinine Ratio 17.7 (10.0-20.0)
[2022-11-22 19:55] LABS: Total Protein 7.4 g/dL (6.4-8.2)
[2022-11-22] MEDS ORDERED: FUROSEMIDE 40 MG TAB PO ONE (20:30)
[2022-11-22 21:57] VITALS: BP 160/89
[2022-11-22] MEDS ORDERED: HYDROcodone-ACET 10/325MG TAB PO ONE (22:45)
[2022-11-22 23:07] LABS: Urine Bacteria FEW /hpf (None Seen); Urine Blood Negative /uL (Negative); Urine Mucus FEW (None Seen); Urine Specific Gravity 1.029 (1.001-1.035); Urine WBC 8 /hpf (0 - 3)
[2022-11-23] MEDS ORDERED: ACETAMINOPHEN 325 MG TAB PO PRN (04:45)
[2022-11-23] MEDS ORDERED: DOCUSATE SOD 100 MG CAP PO PRN (04:45)
[2022-11-23] MEDS ORDERED: ONDANSETRON HCL 4 MG/2 ML VIAL IV PRN (04:45)
[2022-11-23] MEDS ORDERED: HYDROcodone-ACET 5/325MG TAB PO PRN (04:45)
[2022-11-23] MEDS ORDERED: NITROGLYCERIN 0.4 MG SL TAB SL PRN (05:45)
[2022-11-23] MEDS ORDERED: MORPHINE SULFATE INJ 2 MG/ml SYRG IV PRN (05:45)
[2022-11-23] MEDS ORDERED: SODIUM CHLOR 0.9% PF (SALINE LOCK) 10ML VIAL/SYR IV SCH (06:00)
[2022-11-23 07:03] LABS: Basophils # (auto) 0.1 10 ^3/uL (0-0.2); Basophils % (auto) 0.7 % (0.0-2.0); Eosinophils # (auto) 0.4 10 ^3/uL (0-0.8); Eosinophils % (auto) 3.8 % (0.0-7.0); Hematocrit 43.1 % (41.0-53.0); Hemoglobin 14.7 g/dL (13.5-17.5); Lymphocytes # (auto) 2.7 10 ^3/uL (0.4-5.4); Lymphocytes % (auto) 23.6 % (10.0-50.0); Mean Corpuscular Hemoglobin 32.6 pg (28.0-32.0); Mean Corpuscular Hgb Conc. 34.2 g/dL (32.0-36.0); Mean Corpuscular Volume 95.5 fL (80.0-100.0); Monocytes # (auto) 0.6 10 ^3/uL (0-1.3); Monocytes % (auto) 5.4 % (0.0-12.0); Neutrophils # (auto) 7.5 10 ^3/uL (1.6-8.6); Neutrophils % (auto) 66.5 % (37.0-80.0); Nucleated Red Blood Cells % 0.3 %; Red Blood Cells 4.51 10^6/uL (4.5-5.90); Red Cell Distribution Width 15.3 % (11.8-14.3); White Blood Cell 11.3 10^3/uL (4.4-10.8)
[2022-11-23 07:50] LABS: BUN/Creatinine Ratio 16.5 (10.0-20.0); Bilirubin, Total 4.1 mg/dL (0.2-1.0); Total Protein 7.8 g/dL (6.4-8.2)
[2022-11-23 07:51] LABS: Potassium 5.1 mmol/L (3.5-5.1)
[2022-11-23] MEDS ORDERED: FAMOTIDINE (10MG/ML) 2ML VL IV SCH (10:00)
[2022-11-23] MEDS ORDERED: CARVEDILOL 3.125 MG TAB PO SCH (10:00)
[2022-11-23] MEDS ORDERED: amLODIPine BESYLATE 5 MG TAB PO SCH (10:00)
[2022-11-23] MEDS ORDERED: APIXABAN 5 MG TAB PO SCH (10:00)
[2022-11-23] MEDS ORDERED: FUROSEMIDE 40 MG/4 ML VIAL IV SCH (10:00)
== END 2022-11-23 15:11 | disposition left against medical advice (07) | DRG 194 ==
LOC: ER 18:26 → TELE 11-23 05:42
PROVIDERS: ADMIT Nurse Practitioner Family; ATTEND Nurse Practitioner Family
DX: I11.0 Hypertensive heart disease with heart failure (principal); J96.01 Acute respiratory failure with hypoxia; I50.31 Acute diastolic (congestive) heart failure; F10.90 Alcohol use, unspecified, uncomplicated; F12.90 Cannabis use, unspecified, uncomplicated; F15.90 Other stimulant use, unspecified, uncomplicated; Z53.29 Procedure and treatment not carried out because of patient's decision for other reasons; F17.210 Nicotine dependence, cigarettes, uncomplicated; I48.91 Unspecified atrial fibrillation; F32.A Depression, unspecified; Z79.899 Other long term (current) drug therapy; I25.2 Old myocardial infarction
CPT/HCPCS: 36415; 71045; 73630; 80053; 81001; 83880; 84484; 85025; 93005; G0378

== ENCOUNTER 2023-02-11 23:11 | Inpatient (IN) | payer MEDICAID ==
[~2023-02-11] VITALS: Ht 180.3 cm; Wt 113.1 kg
[~2023-02-11 23:11] MED LIST changes: +ACET-1882 PO; -ACET325T10 PO; +FOLI-119 PO; -FOLI1TAB6 PO; +NAPR-746 PO; -NAPR500T31 PO
[2023-02-12 00:25] LABS: Basophils # (auto) 0.1 10 ^3/uL (0-0.2); Basophils % (auto) 0.7 % (0.0-2.0); Eosinophils # (auto) 0.2 10 ^3/uL (0-0.8); Eosinophils % (auto) 1.2 % (0.0-7.0); Hematocrit 34.7 % (41.0-53.0); Hemoglobin 11.6 g/dL (13.5-17.5); Lymphocytes # (auto) 1.9 10 ^3/uL (0.4-5.4); Lymphocytes % (auto) 11.7 % (10.0-50.0); Mean Corpuscular Hemoglobin 31.4 pg (28.0-32.0); Mean Corpuscular Hgb Conc. 33.5 g/dL (32.0-36.0); Mean Corpuscular Volume 93.9 fL (80.0-100.0); Neutrophils # (auto) 12.8 10 ^3/uL (1.6-8.6); Neutrophils % (auto) 80.4 % (37.0-80.0); Nucleated Red Blood Cells % 0.1 %; Red Cell Distribution Width 15.8 % (11.8-14.3); White Blood Cell 15.9 10^3/uL (4.4-10.8)
[2023-02-12 00:41] LABS: INR 1.14 (0.9-1.15); Partial Thromboplastin Time 26.9 SEC (24.5-34.5); Prothrombin Time 11.9 sec (9.3-11.8)
[2023-02-12 00:44] LABS: BUN/Creatinine Ratio 12.8 (10.0-20.0); Calcium 8.4 mg/dL (8.5-10.1); Potassium 4.1 mmol/L (3.5-5.1)
[2023-02-12 00:47] LABS: Bilirubin, Total 0.8 mg/dL (0.2-1.0); Total Protein 6.8 g/dL (6.4-8.2)
[2023-02-12] MEDS ORDERED: dilTIAZem 25 MG/5 ML VIAL IV ONE ×2 (01:00→03:15)
[2023-02-12 02:19] VITALS: PULSE 107; RESP 18; O2SAT 97
[2023-02-12] MEDS ORDERED: MORPHINE SULFATE INJ 2 MG/ml SYRG IV PRN (05:00)
[2023-02-12] MEDS ORDERED: ONDANSETRON HCL 4 MG/2 ML VIAL IV PRN (05:00)
[2023-02-12] MEDS ORDERED: NITROGLYCERIN 0.4 MG SL TAB SL PRN (05:00)
[2023-02-12 05:39] LABS: Amphetamine Screen, Urine POSITIVE (NEGATIVE); Barbiturate Scree,Urine NEGATIVE (NEGATIVE); Benzodiazephine Screen, Urine NEGATIVE (NEGATIVE); Cannabinoid Screen, Urine POSITIVE (NEGATIVE); Cocaine Screen, Urine NEGATIVE (NEGATIVE)
[2023-02-12 05:47] LABS: Opiate Scree,Urine NEGATIVE (NEGATIVE); Phencyclidine Screen, Urine NEGATIVE (NEGATIVE)
[2023-02-12 08:00] VITALS: PULSE 96; RESP 25; O2SAT 96
[2023-02-12] MEDS ORDERED: DIGOXIN (250MCG/ML) 2 ML AMPULE IV ONE ×3 (08:45→15:00)
[2023-02-12] MEDS ORDERED: AMIODARONE HCL 200 MG TAB PO SCH (10:00)
[2023-02-12] MEDS: APIXABAN 5 MG TAB PO SCH ×2 (10:49→23:13)
[2023-02-12] MEDS: PANTOPRAZOLE 40 MG TAB PO SCH (10:49)
[2023-02-12] MEDS: FUROSEMIDE 40 MG TAB PO SCH (10:49)
[2023-02-12] MEDS: amLODIPine BESYLATE 5 MG TAB PO SCH (10:50)
[2023-02-12] MEDS: METOPROLOL TARTRATE 50 MG TAB PO SCH ×2 (10:50→23:13)
[2023-02-12] MEDS: ACETAMINOPHEN 325 MG TAB PO PRN (11:53)
[2023-02-12] MEDS ORDERED: AZITHROMYCIN 500MG/ 250ML 250 ML IV ONE (13:45)
[2023-02-12] MEDS ORDERED: GABAPENTIN 100 MG CAP PO ONE (13:45)
[2023-02-12] MEDS ORDERED: cefTRIAXone 1GM/50ML D5W 50 ML IV ONE (13:45)
[2023-02-12] MEDS ORDERED: LABETALOL HCL 5 MG/ML 4ML SYRINGE IV PRN (13:45)
[2023-02-12 14:52] LABS: Urine Bacteria FEW /hpf (None Seen); Urine Blood 1+ /uL (Negative); Urine Clarity Clear (Clear); Urine Color Yellow (Yellow); Urine Protein, UAD 3+ (Negative); Urine Specific Gravity 1.011 (1.001-1.035); Urine Sperm PRESENT /hpf (None Seen); Urine Urobilinogen Normal (Negative); Urine WBC 77 /hpf (0 - 3)
[2023-02-12] MEDS: GABAPENTIN 300 MG CAP PO SCH ×2 (14:52→22:00)
[2023-02-12 19:30] VITALS: PULSE 111; RESP 30; O2SAT 93
[2023-02-12 19:36] LABS: Protein, Urine 319.7 mg/dL (0.0-11.9)
[2023-02-12] MEDS: LORazepam 2MG/ML-1ML VIAL IV PRN (20:24)
[2023-02-12 23:00] VITALS: BP 107/64; PULSE 124; RESP 20; TEMP 98.6; O2SAT 96
[2023-02-12 23:24] VITALS: PULSE 126; RESP 22; O2SAT 98
[2023-02-13 00:18] LABS: % Iron Saturation 6.6 % (20-55)
[2023-02-13] MEDS ORDERED: dilTIAZem 25 MG/5 ML VIAL IV ONE (00:30)
[2023-02-13 05:00] VITALS: BP 136/89; RESP 18; TEMP 98.6; O2SAT 92
[2023-02-13] MEDS: GABAPENTIN 300 MG CAP PO SCH ×3 (06:18→21:53)
[2023-02-13 08:00] VITALS: BP 146/89; PULSE 116; PULSE 91; RESP 18; TEMP 99.7; O2SAT 93
[2023-02-13] MEDS ORDERED: METOPROLOL TARTRATE 50 MG TAB PO SCH (08:15)
[2023-02-13] MEDS: PANTOPRAZOLE 40 MG TAB PO SCH (08:59)
[2023-02-13] MEDS: APIXABAN 5 MG TAB PO SCH ×2 (08:59→21:53)
[2023-02-13] MEDS: FUROSEMIDE 40 MG TAB PO SCH (08:59)
[2023-02-13] MEDS ORDERED: cefTRIAXone 1GM/50ML D5W 50 ML IV SCH (09:00)
[2023-02-13] MEDS: amLODIPine BESYLATE 5 MG TAB PO SCH (09:00)
[2023-02-13] MEDS ORDERED: METOPROLOL TARTRATE 25 MG TAB PO ONE (11:15)
[2023-02-13] MEDS: AZITHROMYCIN 500MG/ 250ML 250 ML IV SCH (11:35)
[2023-02-13 12:00] VITALS: BP 132/57; PULSE 73; RESP 22; TEMP 98.1; O2SAT 92
[2023-02-13] MEDS ORDERED: FOLIC ACID 1 MG, MULTIPLE VITAMIN 10 ML, MAGNESIUM SULF SDV 50% 8 MEQ, THIAMINE INJ 100... INJ SCH ×5 (12:00)
[2023-02-13] MEDS ORDERED: hydrALAZINE HCL 20 MG/ML VL IV PRN (15:00)
[2023-02-13 15:05] LABS: Basophils # (auto) 0 10 ^3/uL (0-0.2); Eosinophils # (auto) 0.2 10 ^3/uL (0-0.8); Eosinophils % (auto) 0.8 % (0.0-7.0); Hematocrit 36.9 % (41.0-53.0); Hemoglobin 11.9 g/dL (13.5-17.5); Lymphocytes # (auto) 1.2 10 ^3/uL (0.4-5.4); Lymphocytes % (auto) 6.7 % (10.0-50.0); Mean Corpuscular Hemoglobin 30.5 pg (28.0-32.0); Mean Corpuscular Hgb Conc. 32.4 g/dL (32.0-36.0); Mean Corpuscular Volume 94.1 fL (80.0-100.0); Monocytes # (auto) 1.4 10 ^3/uL (0-1.3); Monocytes % (auto) 7.5 % (0.0-12.0); Neutrophils # (auto) 15.4 10 ^3/uL (1.6-8.6); Nucleated Red Blood Cells % 0.1 %; Red Blood Cells 3.92 10^6/uL (4.5-5.90); Red Cell Distribution Width 15.8 % (11.8-14.3); White Blood Cell 18.1 10^3/uL (4.4-10.8)
[2023-02-13 15:22] LABS: Albumin 2.6 g/dL (3.4-5.0); Calcium 8.9 mg/dL (8.5-10.1); Potassium 4.8 mmol/L (3.5-5.1)
[2023-02-13 15:33] LABS: BUN/Creatinine Ratio 11.3 (10.0-20.0); Total Protein 6.9 g/dL (6.4-8.2)
[2023-02-13 16:00] VITALS: BP 109/72; PULSE 84; RESP 20; TEMP 98; O2SAT 100
[2023-02-13 16:23] LABS: Urine Bacteria NONE SEEN /hpf (None Seen); Urine Blood 2+ /uL (Negative); Urine Clarity CLOUDY (Clear); Urine Color Yellow (Yellow); Urine Protein, UAD 1+ (Negative); Urine Specific Gravity 1.014 (1.001-1.035); Urine Urobilinogen Normal (Negative); Urine WBC 2657 /hpf (0 - 3); Urine WBC Clumps PRESENT /hpf (None Seen)
[2023-02-13 20:00] VITALS: PULSE 85; PULSE 95; RESP 19; O2SAT 97
[2023-02-13] MEDS: METOPROLOL TARTRATE 25 MG TAB PO SCH (21:53)
[2023-02-13 22:00] VITALS: BP 119/85; PULSE 85; RESP 19; TEMP 98.3; O2SAT 97
[2023-02-14 05:00] VITALS: BP 122/79; PULSE 94; RESP 18; TEMP 97.8; O2SAT 96
[2023-02-14 05:02] LABS: Basophils # (auto) 0.2 10 ^3/uL (0-0.2); Basophils % (auto) 1.2 % (0.0-2.0); Eosinophils # (auto) 0.2 10 ^3/uL (0-0.8); Hematocrit 38.8 % (41.0-53.0); Hemoglobin 12.8 g/dL (13.5-17.5); Lymphocytes # (auto) 1.7 10 ^3/uL (0.4-5.4); Lymphocytes % (auto) 9.3 % (10.0-50.0); Mean Corpuscular Hemoglobin 31.1 pg (28.0-32.0); Mean Corpuscular Volume 94.2 fL (80.0-100.0); Monocytes # (auto) 1.4 10 ^3/uL (0-1.3); Monocytes % (auto) 7.7 % (0.0-12.0); Neutrophils # (auto) 14.7 10 ^3/uL (1.6-8.6); Neutrophils % (auto) 80.8 % (37.0-80.0); Red Blood Cells 4.12 10^6/uL (4.5-5.90); Red Cell Distribution Width 15.4 % (11.8-14.3); White Blood Cell 18.1 10^3/uL (4.4-10.8)
[2023-02-14 05:20] LABS: Albumin 2.5 g/dL (3.4-5.0); Potassium 4.6 mmol/L (3.5-5.1)
[2023-02-14 05:27] LABS: BUN/Creatinine Ratio 12.1 (10.0-20.0); Calcium 8.9 mg/dL (8.5-10.1); Total Protein 6.5 g/dL (6.4-8.2)
[2023-02-14] MEDS: GABAPENTIN 300 MG CAP PO SCH (05:39)
[2023-02-14 08:00] VITALS: BP 114/71; PULSE 69; PULSE 77; RESP 24; TEMP 98.3; O2SAT 94
[2023-02-14] MEDS: AZITHROMYCIN 500MG/ 250ML 250 ML IV SCH (09:41)
[2023-02-14] MEDS: PANTOPRAZOLE 40 MG TAB PO SCH (09:41)
[2023-02-14] MEDS: APIXABAN 5 MG TAB PO SCH ×2 (09:41→21:49)
[2023-02-14] MEDS: METOPROLOL TARTRATE 25 MG TAB PO SCH ×2 (09:43→21:50)
[2023-02-14] MEDS: amLODIPine BESYLATE 5 MG TAB PO SCH (09:44)
[2023-02-14 12:00] VITALS: BP 120/77; PULSE 80; RESP 20; TEMP 98.3; O2SAT 92
[2023-02-14] MEDS: cefTRIAXone 1GM/50ML D5W 50 ML IV SCH (12:18)
[2023-02-14] MEDS ORDERED: GABAPENTIN 100 MG CAP PO SCH (14:00)
[2023-02-14] MEDS ORDERED: PIPERACILLIN-TAZOB 2.25GM 50 ML IV SCH (14:00)
[2023-02-14 16:00] VITALS: BP 111/69; PULSE 79; RESP 22; TEMP 98.3; O2SAT 94
[2023-02-14 20:00] VITALS: PULSE 81
[2023-02-14] MEDS: ATORVASTATIN 20 MG TAB PO SCH (21:49)
[2023-02-14] MEDS: GABAPENTIN 100 MG CAP PO SCH (21:49)
[2023-02-14] MEDS ORDERED: ATORVASTATIN 20 MG TAB PO SCH (22:00)
[2023-02-14 22:53] VITALS: BP 129/87; PULSE 83; RESP 18; TEMP 98.3; O2SAT 97
[2023-02-15] VITALS (7 sets, daily range): BP systolic 112–138; BP diastolic 52–89; PULSE 67–86; RESP 18–22; TEMP 97.6–98.6; O2SAT 91–98
[2023-02-15] MEDS: cefTRIAXone 1GM/50ML D5W 50 ML IV SCH (09:01)
[2023-02-15] MEDS: ACETAMINOPHEN 325 MG TAB PO PRN ×2 (09:04→15:28)
[2023-02-15] MEDS: AZITHROMYCIN 500MG/ 250ML 250 ML IV SCH (09:53)
[2023-02-15] MEDS: APIXABAN 5 MG TAB PO SCH ×2 (09:53→21:51)
[2023-02-15] MEDS: METOPROLOL TARTRATE 25 MG TAB PO SCH ×2 (09:53→21:51)
[2023-02-15] MEDS: GABAPENTIN 100 MG CAP PO SCH ×2 (09:54→21:51)
[2023-02-15] MEDS: amLODIPine BESYLATE 5 MG TAB PO SCH (09:54)
[2023-02-15] MEDS: PANTOPRAZOLE 40 MG TAB PO SCH (09:54)
[2023-02-15 10:28] LABS: Basophils # (auto) 0.1 10 ^3/uL (0-0.2); Basophils % (auto) 0.9 % (0.0-2.0); Eosinophils # (auto) 0.2 10 ^3/uL (0-0.8); Eosinophils % (auto) 1.8 % (0.0-7.0); Hematocrit 37.9 % (41.0-53.0); Hemoglobin 12.3 g/dL (13.5-17.5); Lymphocytes # (auto) 1.6 10 ^3/uL (0.4-5.4); Lymphocytes % (auto) 14.1 % (10.0-50.0); Mean Corpuscular Hemoglobin 30.5 pg (28.0-32.0); Mean Corpuscular Hgb Conc. 32.4 g/dL (32.0-36.0); Mean Corpuscular Volume 94.1 fL (80.0-100.0); Monocytes # (auto) 0.9 10 ^3/uL (0-1.3); Monocytes % (auto) 7.7 % (0.0-12.0); Neutrophils # (auto) 8.8 10 ^3/uL (1.6-8.6); Neutrophils % (auto) 75.5 % (37.0-80.0); Nucleated Red Blood Cells % 0.1 %; Red Blood Cells 4.02 10^6/uL (4.5-5.90); Red Cell Distribution Width 15.4 % (11.8-14.3); White Blood Cell 11.7 10^3/uL (4.4-10.8)
[2023-02-15 11:03] LABS: Albumin 2.4 g/dL (3.4-5.0); Calcium 8.9 mg/dL (8.5-10.1); Potassium 4.7 mmol/L (3.5-5.1)
[2023-02-15 11:06] LABS: BUN/Creatinine Ratio 17.5 (10.0-20.0); Bilirubin, Total 0.5 mg/dL (0.2-1.0); Total Protein 7.2 g/dL (6.4-8.2)
[2023-02-15] MEDS: ATORVASTATIN 20 MG TAB PO SCH (21:51)
[2023-02-16 05:00] VITALS: BP 115/58; PULSE 85; RESP 18; TEMP 98.6; O2SAT 100
[2023-02-16 08:00] VITALS: PULSE 74; PULSE 88; RESP 18; O2SAT 98
[2023-02-16 09:03] VITALS: BP 130/71; PULSE 88; RESP 18; TEMP 98.1; O2SAT 98
[2023-02-16] MEDS: cefTRIAXone 1GM/50ML D5W 50 ML IV SCH (09:26)
[2023-02-16] MEDS: PANTOPRAZOLE 40 MG TAB PO SCH (09:34)
[2023-02-16] MEDS: GABAPENTIN 100 MG CAP PO SCH ×2 (09:34→22:00)
[2023-02-16] MEDS: APIXABAN 5 MG TAB PO SCH ×2 (09:34→22:00)
[2023-02-16] MEDS: METOPROLOL TARTRATE 25 MG TAB PO SCH ×2 (09:35→22:02)
[2023-02-16] MEDS: amLODIPine BESYLATE 5 MG TAB PO SCH (09:35)
[2023-02-16] MEDS ORDERED: FUROSEMIDE 40 MG/4 ML VIAL IV ONE (10:45)
[2023-02-16] MEDS ORDERED: CEFA500C PO (11:54)
[2023-02-16] MEDS: AZITHROMYCIN 500MG/ 250ML 250 ML IV SCH (12:16)
[2023-02-16 15:44] LABS: Basophils # (auto) 0.1 10 ^3/uL (0-0.2); Eosinophils # (auto) 0.2 10 ^3/uL (0-0.8); Hemoglobin 13.2 g/dL (13.5-17.5); Lymphocytes # (auto) 1.4 10 ^3/uL (0.4-5.4); Monocytes # (auto) 0.9 10 ^3/uL (0-1.3); Monocytes % (auto) 7.6 % (0.0-12.0)
[2023-02-16 15:45] LABS: Basophils % (auto) 0.8 % (0.0-2.0); Eosinophils % (auto) 1.9 % (0.0-7.0); Hematocrit 39.1 % (41.0-53.0); Lymphocytes % (auto) 11.2 % (10.0-50.0); Mean Corpuscular Hemoglobin 31.1 pg (28.0-32.0); Mean Corpuscular Hgb Conc. 33.6 g/dL (32.0-36.0); Mean Corpuscular Volume 92.5 fL (80.0-100.0); Neutrophils # (auto) 9.5 10 ^3/uL (1.6-8.6); Neutrophils % (auto) 78.5 % (37.0-80.0); Nucleated Red Blood Cells % 0.1 %; Red Blood Cells 4.23 10^6/uL (4.5-5.90); Red Cell Distribution Width 14.8 % (11.8-14.3); White Blood Cell 12.2 10^3/uL (4.4-10.8)
[2023-02-16 17:00] VITALS: BP 114/82; PULSE 77; RESP 20; TEMP 98; O2SAT 97
[2023-02-16 20:00] VITALS: PULSE 115; PULSE 98; RESP 20
[2023-02-16 22:00] VITALS: BP 111/64; PULSE 94; RESP 18; TEMP 98.4; O2SAT 96
[2023-02-16] MEDS: ATORVASTATIN 20 MG TAB PO SCH (22:00)
[2023-02-17 05:00] VITALS: BP 129/70; PULSE 60; RESP 18; TEMP 98.4; O2SAT 98
[2023-02-17 08:30] VITALS: BP 117/75; PULSE 63; RESP 20; TEMP 98.4
[2023-02-17] MEDS: cefTRIAXone 1GM/50ML D5W 50 ML IV SCH (08:31)
[2023-02-17 09:00] VITALS: BP 117/75; PULSE 63; RESP 20; TEMP 98.4; O2SAT 96
[2023-02-17] MEDS: APIXABAN 5 MG TAB PO SCH ×2 (10:26→21:44)
[2023-02-17] MEDS: AZITHROMYCIN 250 MG TAB PO SCH (10:26)
[2023-02-17] MEDS: amLODIPine BESYLATE 5 MG TAB PO SCH (10:26)
[2023-02-17] MEDS: GABAPENTIN 100 MG CAP PO SCH ×2 (10:26→21:43)
[2023-02-17] MEDS: METOPROLOL TARTRATE 25 MG TAB PO SCH ×2 (10:27→21:44)
[2023-02-17 11:29] LABS: Basophils # (auto) 0.4 10 ^3/uL (0-0.2); Basophils % (auto) 3.9 % (0.0-2.0); Eosinophils # (auto) 0.2 10 ^3/uL (0-0.8); Eosinophils % (auto) 1.8 % (0.0-7.0); Hematocrit 40.6 % (41.0-53.0); Hemoglobin 13.4 g/dL (13.5-17.5); Lymphocytes # (auto) 1.3 10 ^3/uL (0.4-5.4); Lymphocytes % (auto) 12.9 % (10.0-50.0); Mean Corpuscular Hemoglobin 30.8 pg (28.0-32.0); Mean Corpuscular Volume 93.2 fL (80.0-100.0); Monocytes # (auto) 0.6 10 ^3/uL (0-1.3); Monocytes % (auto) 5.6 % (0.0-12.0); Neutrophils # (auto) 7.8 10 ^3/uL (1.6-8.6); Neutrophils % (auto) 75.8 % (37.0-80.0); Nucleated Red Blood Cells % 0.1 %; Red Blood Cells 4.36 10^6/uL (4.5-5.90); Red Cell Distribution Width 15.2 % (11.8-14.3); White Blood Cell 10.3 10^3/uL (4.4-10.8)
[2023-02-17 11:37] LABS: Albumin 2.8 g/dL (3.4-5.0); BUN/Creatinine Ratio 20.3 (10.0-20.0); Bilirubin, Total 0.5 mg/dL (0.2-1.0); Calcium 9.3 mg/dL (8.5-10.1); Magnesium 1.9 mg/dL (1.6-2.6); Potassium 3.8 mmol/L (3.5-5.1); Total Protein 7.9 g/dL (6.4-8.2)
[2023-02-17 12:58] VITALS: BP 134/73; PULSE 62; RESP 20; TEMP 97.6; O2SAT 96
[2023-02-17] MEDS: LORazepam 2MG/ML-1ML VIAL IV PRN (15:45)
[2023-02-17 17:00] VITALS: BP 107/63; PULSE 78; RESP 20; TEMP 98.2; O2SAT 97
[2023-02-17] MEDS: ATORVASTATIN 20 MG TAB PO SCH (21:44)
[2023-02-17 22:00] VITALS: BP 107/65; PULSE 70; RESP 18; TEMP 97.6; O2SAT 97
[2023-02-18 05:13] VITALS: BP 113/70; PULSE 56; RESP 18; TEMP 97.8; O2SAT 100
[2023-02-18 09:00] VITALS: BP 108/53; PULSE 62; RESP 21; TEMP 98; O2SAT 93
[2023-02-18] MEDS: METOPROLOL TARTRATE 25 MG TAB PO SCH ×2 (09:24→21:34)
[2023-02-18] MEDS: GABAPENTIN 100 MG CAP PO SCH ×2 (09:24→21:33)
[2023-02-18] MEDS: APIXABAN 5 MG TAB PO SCH ×2 (09:24→21:32)
[2023-02-18] MEDS: AZITHROMYCIN 250 MG TAB PO SCH (09:24)
[2023-02-18] MEDS: cefTRIAXone 1GM/50ML D5W 50 ML IV SCH (09:25)
[2023-02-18] MEDS: amLODIPine BESYLATE 5 MG TAB PO SCH (09:25)
[2023-02-18 09:32] LABS: Basophils # (auto) 0.1 10 ^3/uL (0-0.2); Basophils % (auto) 1.3 % (0.0-2.0); Eosinophils # (auto) 0.3 10 ^3/uL (0-0.8); Hematocrit 41.6 % (41.0-53.0); Hemoglobin 13.6 g/dL (13.5-17.5); Lymphocytes # (auto) 1.9 10 ^3/uL (0.4-5.4); Lymphocytes % (auto) 17.6 % (10.0-50.0); Mean Corpuscular Hemoglobin 30.5 pg (28.0-32.0); Mean Corpuscular Hgb Conc. 32.7 g/dL (32.0-36.0); Mean Corpuscular Volume 93.1 fL (80.0-100.0); Monocytes # (auto) 0.6 10 ^3/uL (0-1.3); Monocytes % (auto) 5.3 % (0.0-12.0); Neutrophils % (auto) 72.8 % (37.0-80.0); Nucleated Red Blood Cells % 0.1 %; Red Blood Cells 4.47 10^6/uL (4.5-5.90)
[2023-02-18 09:55] LABS: BUN/Creatinine Ratio 22.2 (10.0-20.0); Calcium 9.4 mg/dL (8.5-10.1); Potassium 4.1 mmol/L (3.5-5.1)
[2023-02-18 13:00] VITALS: BP 128/75; PULSE 54; RESP 20; TEMP 98; O2SAT 97
[2023-02-18 17:00] VITALS: BP 126/75; PULSE 59; RESP 20; TEMP 97.9; O2SAT 96
[2023-02-18] MEDS: LORazepam 2MG/ML-1ML VIAL IV PRN ×2 (18:36→23:29)
[2023-02-18 20:00] VITALS: PULSE 66; RESP 19
[2023-02-18] MEDS: ATORVASTATIN 20 MG TAB PO SCH (21:33)
[2023-02-18 22:00] VITALS: BP 121/58; PULSE 63; RESP 18; TEMP 97.6; O2SAT 96
[2023-02-19] VITALS (7 sets, daily range): BP systolic 102–126; BP diastolic 46–76; PULSE 54–96; RESP 16–20; TEMP 97.4–98; O2SAT 96–99
[2023-02-19 09:14] LABS: Basophils # (auto) 0.1 10 ^3/uL (0-0.2); Basophils % (auto) 0.9 % (0.0-2.0); Eosinophils # (auto) 0.3 10 ^3/uL (0-0.8); Hematocrit 41.7 % (41.0-53.0); Hemoglobin 13.8 g/dL (13.5-17.5); Lymphocytes # (auto) 1.9 10 ^3/uL (0.4-5.4); Lymphocytes % (auto) 17.3 % (10.0-50.0); Mean Corpuscular Hemoglobin 30.5 pg (28.0-32.0); Mean Corpuscular Hgb Conc. 33.2 g/dL (32.0-36.0); Monocytes # (auto) 0.8 10 ^3/uL (0-1.3); Monocytes % (auto) 6.8 % (0.0-12.0); Neutrophils # (auto) 8.1 10 ^3/uL (1.6-8.6); Nucleated Red Blood Cells % 0.1 %; Red Blood Cells 4.53 10^6/uL (4.5-5.90); Red Cell Distribution Width 15.3 % (11.8-14.3); White Blood Cell 11.2 10^3/uL (4.4-10.8)
[2023-02-19 09:33] LABS: Calcium 9.3 mg/dL (8.5-10.1); Potassium 4.5 mmol/L (3.5-5.1)
[2023-02-19] MEDS: cefTRIAXone 1GM/50ML D5W 50 ML IV SCH (10:19)
[2023-02-19] MEDS: AZITHROMYCIN 250 MG TAB PO SCH (10:19)
[2023-02-19] MEDS: GABAPENTIN 100 MG CAP PO SCH ×2 (10:19→22:10)
[2023-02-19] MEDS: amLODIPine BESYLATE 5 MG TAB PO SCH (10:25)
[2023-02-19] MEDS: APIXABAN 5 MG TAB PO SCH ×2 (10:25→22:00)
[2023-02-19] MEDS: METOPROLOL TARTRATE 25 MG TAB PO SCH ×2 (10:25→22:10)
[2023-02-19 19:24] LABS: Urine Bacteria NONE SEEN /hpf (None Seen); Urine Blood TRACE /uL (Negative); Urine Clarity Clear (Clear); Urine Color Yellow (Yellow); Urine Protein, UAD 1+ (Negative); Urine Specific Gravity 1.014 (1.001-1.035); Urine Urobilinogen Normal (Negative); Urine WBC 45 /hpf (0 - 3)
[2023-02-19 20:28] LABS: Albumin 3.1 g/dL (3.4-5.0); Calcium 9.1 mg/dL (8.5-10.1); Potassium 4.5 mmol/L (3.5-5.1)
[2023-02-19 20:33] LABS: BUN/Creatinine Ratio 21.3 (10.0-20.0); Bilirubin, Total 0.6 mg/dL (0.2-1.0); Total Protein 8.3 g/dL (6.4-8.2)
[2023-02-19] MEDS: LORazepam 2MG/ML-1ML VIAL IV PRN (22:09)
[2023-02-19] MEDS: ATORVASTATIN 20 MG TAB PO SCH (22:10)
[2023-02-20] VITALS (8 sets, daily range): BP systolic 107–139; BP diastolic 71–89; PULSE 67–105; RESP 12–21; TEMP 97.4–98; O2SAT 90–99
[2023-02-20] MEDS: ACETAMINOPHEN 325 MG TAB PO PRN (04:39)
[2023-02-20] MEDS: APIXABAN 5 MG TAB PO SCH ×2 (08:00→16:40)
[2023-02-20] MEDS: cefTRIAXone 1GM/50ML D5W 50 ML IV SCH (09:00)
[2023-02-20] MEDS: METOPROLOL TARTRATE 25 MG TAB PO SCH ×2 (10:00→21:40)
[2023-02-20] MEDS: GABAPENTIN 100 MG CAP PO SCH ×2 (10:00→21:37)
[2023-02-20] MEDS: amLODIPine BESYLATE 5 MG TAB PO SCH (10:00)
[2023-02-20 10:57] LABS: Basophils # (auto) 0.3 10 ^3/uL (0-0.2); Basophils % (auto) 4.3 % (0.0-2.0); Eosinophils # (auto) 0.2 10 ^3/uL (0-0.8); Eosinophils % (auto) 2.8 % (0.0-7.0); Hematocrit 49.4 % (41.0-53.0); Hemoglobin 16.5 g/dL (13.5-17.5); Lymphocytes # (auto) 1.9 10 ^3/uL (0.4-5.4); Lymphocytes % (auto) 31.2 % (10.0-50.0); Mean Corpuscular Hemoglobin 30.4 pg (28.0-32.0); Mean Corpuscular Hgb Conc. 33.4 g/dL (32.0-36.0); Monocytes # (auto) 0.3 10 ^3/uL (0-1.3); Monocytes % (auto) 5.2 % (0.0-12.0); Neutrophils # (auto) 3.4 10 ^3/uL (1.6-8.6); Neutrophils % (auto) 56.5 % (37.0-80.0); Nucleated Red Blood Cells % 0.1 %; Red Blood Cells 5.43 10^6/uL (4.5-5.90); Red Cell Distribution Width 14.8 % (11.8-14.3)
[2023-02-20] MEDS ORDERED: fentaNYL CITRATE 100 MCG/2 ML VL ONE (11:40)
[2023-02-20] MEDS ORDERED: MIDAZOLAM HCL 2MG/2ML 2ml VIAL (1mg/ml) ONE (11:40)
[2023-02-20] MEDS ORDERED: LIDOCAINE 2%HCL (LOCAL ANESTH.) INJ 20ML MDV ONE (11:41)
[2023-02-20] MEDS ORDERED: cefTRIAXone 1GM/50ML D5W 50 ML IV ONE (11:58)
[2023-02-20] MEDS ORDERED: IODIXANOL 320MG/ML 100ML BTL IV ONE (12:09)
[2023-02-20] MEDS: AZITHROMYCIN 250 MG TAB PO SCH (16:45)
[2023-02-20] MEDS ORDERED: HYDROcodone-ACET 5/325MG TAB PO PRN (20:30)
[2023-02-20] MEDS ORDERED: HYDROcodone-ACET 10/325MG TAB PO PRN (20:30)
[2023-02-20] MEDS: LORazepam 2MG/ML-1ML VIAL IV PRN (21:35)
[2023-02-20] MEDS: ATORVASTATIN 20 MG TAB PO SCH (21:37)
[2023-02-21] VITALS (7 sets, daily range): BP systolic 102–127; BP diastolic 68–87; PULSE 69–89; RESP 16–18; TEMP 97.4–98; O2SAT 95–100
[2023-02-21] MEDS: cefTRIAXone 1GM/50ML D5W 50 ML IV SCH (08:41)
[2023-02-21] MEDS: GABAPENTIN 100 MG CAP PO SCH ×2 (08:45→22:26)
[2023-02-21] MEDS: AZITHROMYCIN 250 MG TAB PO SCH (08:45)
[2023-02-21] MEDS: METOPROLOL TARTRATE 25 MG TAB PO SCH ×2 (08:46→22:26)
[2023-02-21] MEDS: amLODIPine BESYLATE 5 MG TAB PO SCH (08:46)
[2023-02-21] MEDS: APIXABAN 5 MG TAB PO SCH ×2 (08:46→22:26)
[2023-02-21 11:13] LABS: Basophils # (auto) 0.2 10 ^3/uL (0-0.2); Basophils % (auto) 1.4 % (0.0-2.0); Eosinophils # (auto) 0.3 10 ^3/uL (0-0.8); Eosinophils % (auto) 2.2 % (0.0-7.0); Hematocrit 42.6 % (41.0-53.0); Lymphocytes # (auto) 2.6 10 ^3/uL (0.4-5.4); Mean Corpuscular Hgb Conc. 32.8 g/dL (32.0-36.0); Mean Corpuscular Volume 91.5 fL (80.0-100.0); Monocytes # (auto) 0.7 10 ^3/uL (0-1.3); Neutrophils # (auto) 8.2 10 ^3/uL (1.6-8.6); Neutrophils % (auto) 68.4 % (37.0-80.0); Red Blood Cells 4.66 10^6/uL (4.5-5.90); Red Cell Distribution Width 14.9 % (11.8-14.3); White Blood Cell 11.9 10^3/uL (4.4-10.8)
[2023-02-21 11:28] LABS: Albumin 3.1 g/dL (3.4-5.0); Calcium 9.2 mg/dL (8.5-10.1); Potassium 4.6 mmol/L (3.5-5.1)
[2023-02-21 11:32] LABS: Bilirubin, Total 0.6 mg/dL (0.2-1.0); Total Protein 7.2 g/dL (6.4-8.2)
[2023-02-21] MEDS: ATORVASTATIN 20 MG TAB PO SCH (22:26)
[2023-02-22 05:00] VITALS: BP 98/71; PULSE 88; RESP 17; TEMP 98.1; O2SAT 94
[2023-02-22 05:26] LABS: Basophils # (auto) 0.2 10 ^3/uL (0-0.2); Basophils % (auto) 1.4 % (0.0-2.0); Eosinophils # (auto) 0.3 10 ^3/uL (0-0.8); Eosinophils % (auto) 2.1 % (0.0-7.0); Hematocrit 41.5 % (41.0-53.0); Hemoglobin 13.7 g/dL (13.5-17.5); Lymphocytes # (auto) 2.9 10 ^3/uL (0.4-5.4); Lymphocytes % (auto) 24.1 % (10.0-50.0); Mean Corpuscular Hemoglobin 30.2 pg (28.0-32.0); Mean Corpuscular Hgb Conc. 33.1 g/dL (32.0-36.0); Mean Corpuscular Volume 91.2 fL (80.0-100.0); Monocytes # (auto) 0.7 10 ^3/uL (0-1.3); Monocytes % (auto) 5.6 % (0.0-12.0); Neutrophils # (auto) 8.1 10 ^3/uL (1.6-8.6); Neutrophils % (auto) 66.8 % (37.0-80.0); Red Blood Cells 4.55 10^6/uL (4.5-5.90); Red Cell Distribution Width 14.9 % (11.8-14.3); White Blood Cell 12.1 10^3/uL (4.4-10.8)
[2023-02-22 05:52] LABS: Albumin 3.1 g/dL (3.4-5.0); BUN/Creatinine Ratio 22.7 (10.0-20.0); Calcium 9.1 mg/dL (8.5-10.1); Potassium 4.2 mmol/L (3.5-5.1)
[2023-02-22 05:55] LABS: Bilirubin, Total 0.5 mg/dL (0.2-1.0); Total Protein 7.7 g/dL (6.4-8.2)
[2023-02-22 09:14] VITALS: BP 95/59; PULSE 57; RESP 16; TEMP 97.6; O2SAT 95
[2023-02-22] MEDS: AZITHROMYCIN 250 MG TAB PO SCH (09:32)
[2023-02-22] MEDS: GABAPENTIN 100 MG CAP PO SCH (09:32)
[2023-02-22] MEDS: cefTRIAXone 1GM/50ML D5W 50 ML IV SCH (09:33)
[2023-02-22] MEDS: APIXABAN 5 MG TAB PO SCH ×2 (09:33→23:18)
[2023-02-22] MEDS: METOPROLOL TARTRATE 25 MG TAB PO SCH ×2 (09:34→23:18)
[2023-02-22] MEDS: amLODIPine BESYLATE 5 MG TAB PO SCH (09:34)
[2023-02-22 13:00] VITALS: BP 105/72; PULSE 80; RESP 18; TEMP 97.6; O2SAT 98
[2023-02-22 17:22] VITALS: BP 132/74; PULSE 46; RESP 18; TEMP 98.4; O2SAT 97
[2023-02-22 20:00] VITALS: BP 121/78; PULSE 96; RESP 18; TEMP 97.7; O2SAT 98
[2023-02-22 22:00] VITALS: BP 121/78; PULSE 96; RESP 18; TEMP 97.7; O2SAT 98
[2023-02-22] MEDS: ATORVASTATIN 20 MG TAB PO SCH (23:17)
[2023-02-23] VITALS (7 sets, daily range): BP systolic 111–127; BP diastolic 52–76; PULSE 64–120; RESP 17–20; TEMP 97.5–98.4; O2SAT 91–98
[2023-02-23] MEDS: AZITHROMYCIN 250 MG TAB PO SCH (08:44)
[2023-02-23] MEDS: METOPROLOL SUCCINATE XL 50 MG TAB PO SCH (08:45)
[2023-02-23] MEDS: cefTRIAXone 1GM/50ML D5W 50 ML IV SCH (08:45)
[2023-02-23] MEDS: APIXABAN 5 MG TAB PO SCH ×2 (08:45→21:05)
[2023-02-23] MEDS: amLODIPine BESYLATE 5 MG TAB PO SCH (08:45)
[2023-02-23] MEDS: GABAPENTIN 100 MG CAP PO SCH (08:45)
[2023-02-23 11:30] LABS: Basophils # (auto) 0.5 10 ^3/uL (0-0.2); Basophils % (auto) 4.3 % (0.0-2.0); Eosinophils # (auto) 0.2 10 ^3/uL (0-0.8); Eosinophils % (auto) 1.6 % (0.0-7.0); Hematocrit 45.6 % (41.0-53.0); Hemoglobin 15.1 g/dL (13.5-17.5); Lymphocytes # (auto) 2.5 10 ^3/uL (0.4-5.4); Lymphocytes % (auto) 23.3 % (10.0-50.0); Mean Corpuscular Hemoglobin 30.5 pg (28.0-32.0); Mean Corpuscular Volume 92.5 fL (80.0-100.0); Monocytes # (auto) 0.6 10 ^3/uL (0-1.3); Monocytes % (auto) 5.6 % (0.0-12.0); Neutrophils # (auto) 6.9 10 ^3/uL (1.6-8.6); Neutrophils % (auto) 65.2 % (37.0-80.0); Nucleated Red Blood Cells % 0.1 %; Red Blood Cells 4.94 10^6/uL (4.5-5.90); Red Cell Distribution Width 14.5 % (11.8-14.3); White Blood Cell 10.6 10^3/uL (4.4-10.8)
[2023-02-23 12:26] LABS: Potassium 4.8 mmol/L (3.5-5.1)
[2023-02-23 12:33] LABS: Albumin 3.4 g/dL (3.4-5.0); BUN/Creatinine Ratio 21.1 (10.0-20.0); Bilirubin, Total 0.8 mg/dL (0.2-1.0); Calcium 9.6 mg/dL (8.5-10.1); Total Protein 7.7 g/dL (6.4-8.2)
[2023-02-23] MEDS: ATORVASTATIN 20 MG TAB PO SCH (21:08)
[2023-02-24 05:00] VITALS: BP 109/74; PULSE 117; RESP 18; TEMP 97.5; O2SAT 92
[2023-02-24 08:00] VITALS: BP 104/61; PULSE 63; RESP 18; TEMP 98.2; O2SAT 99
[2023-02-24] MEDS ORDERED: CIPROFLOXACIN 400MG/200ML 200 ML IV ONE (08:02)
[2023-02-24] MEDS ORDERED: ROCURONIUM 10MG/ML 10ML VIAL IV ONE (08:12)
[2023-02-24] MEDS ORDERED: PROPOFOL 10 MG/ML 20 ML IV ONE (08:12)
[2023-02-24] MEDS ORDERED: SODIUM CHLORIDE LOCK 10 ML ONE (08:12)
[2023-02-24] MEDS ORDERED: MIDAZOLAM HCL 2MG/2ML 2ml VIAL (1mg/ml) ONE (08:12)
[2023-02-24] MEDS ORDERED: ONDANSETRON HCL 4 MG/2 ML VIAL ONE (08:12)
[2023-02-24] MEDS ORDERED: MEPERIDINE HCL (50 MG/ML) 1 ML VIAL ONE (08:12)
[2023-02-24] MEDS ORDERED: fentaNYL CITRATE 100 MCG/2 ML VL ONE (08:12)
[2023-02-24] MEDS ORDERED: DexAMETHasone SOD PHOS 10MG/1ML VIAL INJ ONE (08:12)
[2023-02-24] MEDS: amLODIPine BESYLATE 5 MG TAB PO SCH (10:00)
[2023-02-24] MEDS: APIXABAN 5 MG TAB PO SCH (10:00)
[2023-02-24] MEDS: METOPROLOL SUCCINATE XL 50 MG TAB PO SCH (10:00)
[2023-02-24] MEDS: cefTRIAXone 1GM/50ML D5W 50 ML IV SCH (11:13)
[2023-02-24] MEDS: AZITHROMYCIN 250 MG TAB PO SCH (11:13)
[2023-02-24] MEDS: GABAPENTIN 100 MG CAP PO SCH (11:13)
[2023-02-24 12:34] VITALS: BP 112/75; PULSE 61; RESP 19; TEMP 97.3; O2SAT 100
[2023-02-24 16:50] VITALS: BP 107/62; PULSE 67; RESP 18; TEMP 98.2; O2SAT 98
[2023-02-24 18:48] VITALS: BP 107/62; PULSE 67; RESP 18; TEMP 98.2; O2SAT 98
== END 2023-02-24 20:08 | disposition home or self-care (01) | DRG 720 ==
LOC: EDBD 23:11 → ER 23:11 → TELE 02-12 04:52 → TELE-WESTW 02-12 22:30 → WEST WING 02-16 22:37 → TELE-WESTW 02-23 09:59
PROVIDERS: ADMIT Internal Medicine; ATTEND Student in an Organized Health Care Education/Training Program
PROC: 0T943ZZ Drainage of Left Kidney Pelvis, Percutaneous Approach (ICD-10-PCS; principal; 2023-02-20)
PROC: BT121ZZ Fluoroscopy of Left Kidney using Low Osmolar Contrast (ICD-10-PCS; 2023-02-20)
PROC: 0JPV3XZ Removal of Tunneled Vascular Access Device from Upper Extremity Subcutaneous Tissue and Fascia, Percutaneous Approach (ICD-10-PCS; 2023-02-20)
PROC: 05PYX3Z Removal of Infusion Device from Upper Vein, External Approach (ICD-10-PCS; 2023-02-20)
DX: A41.9 Sepsis, unspecified organism (principal); I13.2 Hypertensive heart and chronic kidney disease with heart failure and with stage 5 chronic kidney disease, or end stage renal disease; I47.1 Supraventricular tachycardia; N17.9 Acute kidney failure, unspecified; D63.8 Anemia in other chronic diseases classified elsewhere; I48.92 Unspecified atrial flutter; N18.6 End stage renal disease; E11.22 Type 2 diabetes mellitus with diabetic chronic kidney disease; I50.32 Chronic diastolic (congestive) heart failure; J15.9 Unspecified bacterial pneumonia; I48.91 Unspecified atrial fibrillation; G25.81 Restless legs syndrome; E66.9 Obesity, unspecified; F32.A Depression, unspecified; N13.6 Pyonephrosis; N44.2 Benign cyst of testis; N40.1 Benign prostatic hyperplasia with lower urinary tract symptoms; Y90.9 Presence of alcohol in blood, level not specified; D50.9 Iron deficiency anemia, unspecified; F10.239 Alcohol dependence with withdrawal, unspecified; F10.229 Alcohol dependence with intoxication, unspecified; N13.8 Other obstructive and reflux uropathy; R80.9 Proteinuria, unspecified; Z79.899 Other long term (current) drug therapy; Z79.1 Long term (current) use of non-steroidal anti-inflammatories (NSAID); Z79.01 Long term (current) use of anticoagulants; Z91.148 Patient's other noncompliance with medication regimen for other reason; Z99.2 Dependence on renal dialysis; Z91.199 Patient's noncompliance with other medical treatment and regimen due to unspecified reason; Z59.00 Homelessness unspecified
CPT/HCPCS: 36415; 70450; 71045; 74176; 74425; 76775; 76942; 78707; 80048; 80053; 80061; 80307; 81001; 82570; 82728; 82962; 83036; 83540; 83550; 83605; 83735; 83880; 84100; 84156; 84443; 84484; 85025; 85610; 85730; 87081; 87086; 93005; 96365; 96366; 96375; 96376; 99152; 99153; G0378; J0696; J1100; J2250; J2405; J2704; Q9967

== ENCOUNTER 2023-02-27 12:59 | Emergency (ER) | payer MEDICAID ==
[~2023-02-27] VITALS: Ht 177.8 cm; Wt 108.6 kg
[~2023-02-27 12:59] MED LIST changes: +CEFA500C PO
[2023-02-27 13:45] LABS: Basophils # (auto) 0.1 10 ^3/uL (0-0.2); Basophils % (auto) 0.7 % (0.0-2.0); Eosinophils # (auto) 0.3 10 ^3/uL (0-0.8); Eosinophils % (auto) 2.2 % (0.0-7.0); Hematocrit 43.6 % (41.0-53.0); Hemoglobin 14.3 g/dL (13.5-17.5); Mean Corpuscular Hemoglobin 30.2 pg (28.0-32.0); Mean Corpuscular Hgb Conc. 32.7 g/dL (32.0-36.0); Mean Corpuscular Volume 92.3 fL (80.0-100.0); Monocytes # (auto) 0.8 10 ^3/uL (0-1.3); Monocytes % (auto) 6.1 % (0.0-12.0); Neutrophils # (auto) 9.5 10 ^3/uL (1.6-8.6); Nucleated Red Blood Cells % 0.1 %; Red Blood Cells 4.73 10^6/uL (4.5-5.90); Red Cell Distribution Width 14.9 % (11.8-14.3); White Blood Cell 13.7 10^3/uL (4.4-10.8)
[2023-02-27 14:00] LABS: INR 1.08 (0.9-1.15); Partial Thromboplastin Time 28.6 SEC (24.5-34.5); Prothrombin Time 11.3 sec (9.3-11.8)
[2023-02-27 14:10] LABS: Alanine Aminotransferase 48 U/L (7-40); Albumin 4.8 g/dL (3.2-4.8); Alkaline Phosphatase 151 U/L (46-116); Aspartate Aminotransferase 44 U/L (13-40); BUN/Creatinine Ratio 10.2 (10.0-20.0); Blood Urea Nitrogen 13 mg/dL (9-23); Calcium 9.9 mg/dL (8.5-10.1); Chloride 109 mmol/L (98-107); Glucose 98 mg/dL (74-106); Potassium 4.4 mmol/L (3.5-5.1); Sodium 138 mmol/L (136-145)
[2023-02-27 14:11] LABS: Bilirubin, Total 1.1 mg/dL (0.2-1.0); Total Protein 8.4 g/dL (5.7-8.2)
[2023-02-27] MEDS ORDERED: cefTRIAXone SOD 1,000 MG VL IM ONE ×2 (16:30→18:45)
[2023-02-27 18:50] VITALS: BP 143/98; PULSE 72; RESP 19; TEMP 98; O2SAT 95
== END 2023-02-27 18:55 | disposition home or self-care (01) ==
LOC: ER 12:59
DX: T83.022A Displacement of nephrostomy catheter, initial encounter (principal); I11.0 Hypertensive heart disease with heart failure; I50.9 Heart failure, unspecified; I25.2 Old myocardial infarction; I48.91 Unspecified atrial fibrillation; F17.210 Nicotine dependence, cigarettes, uncomplicated; Z90.49 Acquired absence of other specified parts of digestive tract; Z79.899 Other long term (current) drug therapy
CPT/HCPCS: 36415; 80053; 85025; 85610; 85730; 96372; 99284; J0696

== ENCOUNTER 2023-03-01 19:31 | Emergency (ER) | payer MEDICAID ==
[~2023-03-01] VITALS: Ht 180.3 cm; Wt 109.0 kg
[2023-03-01 19:54] VITALS: BP 132/74; O2SAT 94
[2023-03-01 19:59] VITALS: PULSE 133
[2023-03-01 20:34] LABS: Basophils # (auto) 0.1 10 ^3/uL (0-0.2); Basophils % (auto) 0.7 % (0.0-2.0); Eosinophils # (auto) 0.4 10 ^3/uL (0-0.8); Eosinophils % (auto) 2.9 % (0.0-7.0); Hematocrit 37.9 % (41.0-53.0); Hemoglobin 12.5 g/dL (13.5-17.5); Lymphocytes # (auto) 2.5 10 ^3/uL (0.4-5.4); Lymphocytes % (auto) 20.4 % (10.0-50.0); Mean Corpuscular Hgb Conc. 32.9 g/dL (32.0-36.0); Mean Corpuscular Volume 91.1 fL (80.0-100.0); Monocytes % (auto) 8.1 % (0.0-12.0); Neutrophils # (auto) 8.5 10 ^3/uL (1.6-8.6); Neutrophils % (auto) 67.9 % (37.0-80.0); Red Blood Cells 4.16 10^6/uL (4.5-5.90); Red Cell Distribution Width 14.9 % (11.8-14.3); White Blood Cell 12.5 10^3/uL (4.4-10.8)
[2023-03-01 20:51] LABS: Alanine Aminotransferase 35 U/L (7-40); Albumin 4.3 g/dL (3.2-4.8); Alkaline Phosphatase 133 U/L (46-116); Anion Gap 11.6 (5-15); Aspartate Aminotransferase 39 U/L (13-40); BUN/Creatinine Ratio 13.8 (10.0-20.0); Bilirubin, Total 1.4 mg/dL (0.2-1.0); Blood Urea Nitrogen 20 mg/dL (9-23); Calcium 9.4 mg/dL (8.7-10.4); Carbon Dioxide 18.4 mmol/L (20-30); Chloride 110 mmol/L (98-107); Glucose 84 mg/dL (74-106); Magnesium 1.9 mg/dL (1.6-2.6); Sodium 140 mmol/L (136-145); Total Protein 7.1 g/dL (5.7-8.2)
[2023-03-01 21:11] LABS: INR 1.06 (0.9-1.15); Prothrombin Time 11.1 sec (9.3-11.8)
[2023-03-02 06:02] VITALS: RESP 18
== END 2023-03-02 06:03 | disposition home or self-care (01) ==
LOC: EDBD 19:31 → ER 19:31
DX: F10.10 Alcohol abuse, uncomplicated (principal); R53.1 Weakness; F17.210 Nicotine dependence, cigarettes, uncomplicated; F12.10 Cannabis abuse, uncomplicated; F15.10 Other stimulant abuse, uncomplicated; I13.0 Hypertensive heart and chronic kidney disease with heart failure and stage 1 through stage 4 chronic kidney disease, or unspecified chronic kidney disease; N18.9 Chronic kidney disease, unspecified; I50.89 Other heart failure; I25.2 Old myocardial infarction; Y90.8 Blood alcohol level of 240 mg/100 ml or more
CPT/HCPCS: 36415; 71045; 80053; 80320; 83735; 83880; 84484; 85025; 85610; 85730; 93005

== ENCOUNTER 2023-03-17 10:58 | Inpatient (IN) | payer MEDICAID ==
[~2023-03-17] VITALS: Ht 180.3 cm; Wt 107.6 kg
[2023-03-17 11:58] LABS: Basophils # (auto) 0.1 10 ^3/uL (0-0.2); Basophils % (auto) 0.8 % (0.0-2.0); Eosinophils # (auto) 0.4 10 ^3/uL (0-0.8); Eosinophils % (auto) 4.1 % (0.0-7.0); Hematocrit 37.1 % (41.0-53.0); Hemoglobin 12.2 g/dL (13.5-17.5); Lymphocytes # (auto) 1.8 10 ^3/uL (0.4-5.4); Lymphocytes % (auto) 19.8 % (10.0-50.0); Mean Corpuscular Hemoglobin 30.5 pg (28.0-32.0); Mean Corpuscular Volume 92.5 fL (80.0-100.0); Monocytes # (auto) 0.7 10 ^3/uL (0-1.3); Monocytes % (auto) 7.4 % (0.0-12.0); Neutrophils # (auto) 6.2 10 ^3/uL (1.6-8.6); Neutrophils % (auto) 67.9 % (37.0-80.0); Red Blood Cells 4.01 10^6/uL (4.5-5.90); Red Cell Distribution Width 15.4 % (11.8-14.3); White Blood Cell 9.2 10^3/uL (4.4-10.8)
[2023-03-17 12:17] LABS: Alanine Aminotransferase 11 U/L (7-40); Alkaline Phosphatase 107 U/L (46-116); Anion Gap 7.7 (5-15); Aspartate Aminotransferase 14 U/L (13-40); BUN/Creatinine Ratio 6.7 (10.0-20.0); Blood Urea Nitrogen 9 mg/dL (9-23); Calcium 8.9 mg/dL (8.5-10.1); Carbon Dioxide 23.3 mmol/L (20-30); Chloride 111 mmol/L (98-107); Glucose 93 mg/dL (74-106); Potassium 3.7 mmol/L (3.5-5.1); Sodium 142 mmol/L (136-145)
[2023-03-17 12:18] LABS: Bilirubin, Total 2.7 mg/dL (0.2-1.0); Total Protein 6.8 g/dL (5.7-8.2)
[2023-03-17] MEDS ORDERED: cefTRIAXone 1GM/50ML D5W 50 ML IV ONE (15:00)
[2023-03-17] MEDS ORDERED: SODIUM CHLORIDE 0.9% 1,000 ML IV ONE ×2 (15:00)
[2023-03-17 16:43] LABS: Lactic Acid w/Reflex 2.1 mmol/L (0.4-2.0)
[2023-03-17] MEDS ORDERED: ACETAMINOPHEN 325 MG TAB PO PRN (17:15)
[2023-03-17] MEDS: TAMSULOSIN HYDROCHLORIDE 0.4 MG CAP PO SCH (18:16)
[2023-03-17 18:32] VITALS: PULSE 77; RESP 23; O2SAT 97
[2023-03-17] MEDS: hydrALAZINE HCL 20 MG/ML VL IV PRN ×2 (18:37→22:36)
[2023-03-17 20:05] VITALS: PULSE 67; RESP 13; O2SAT 96
[2023-03-17] MEDS ORDERED: ERTAPENEM SOD 1 GM INJ VIAL ONE (22:25)
[2023-03-17] MEDS: ERTAPENEM SOD INJ 1 GM in SODIUM CHL 0.9% 50 ML IV SCH (22:32)
[2023-03-17] MEDS: HYDROcodone-ACET 5/325MG TAB PO PRN (22:33)
[2023-03-17] MEDS: GABAPENTIN 100 MG CAP PO SCH (22:33)
[2023-03-17] MEDS: METOPROLOL TARTRATE 50 MG TAB PO SCH (22:33)
[2023-03-18 05:12] LABS: Basophils # (auto) 0.1 10 ^3/uL (0-0.2); Basophils % (auto) 0.9 % (0.0-2.0); Eosinophils # (auto) 0.3 10 ^3/uL (0-0.8); Eosinophils % (auto) 4.1 % (0.0-7.0); Hematocrit 38.6 % (41.0-53.0); Lymphocytes # (auto) 1.5 10 ^3/uL (0.4-5.4); Lymphocytes % (auto) 17.3 % (10.0-50.0); Mean Corpuscular Hemoglobin 31.3 pg (28.0-32.0); Mean Corpuscular Hgb Conc. 33.8 g/dL (32.0-36.0); Mean Corpuscular Volume 92.8 fL (80.0-100.0); Monocytes # (auto) 0.7 10 ^3/uL (0-1.3); Monocytes % (auto) 7.9 % (0.0-12.0); Neutrophils # (auto) 5.9 10 ^3/uL (1.6-8.6); Neutrophils % (auto) 69.8 % (37.0-80.0); Red Blood Cells 4.16 10^6/uL (4.5-5.90); Red Cell Distribution Width 15.5 % (11.8-14.3); White Blood Cell 8.5 10^3/uL (4.4-10.8)
[2023-03-18 05:55] LABS: Alanine Aminotransferase 10 U/L (7-40); Albumin 3.8 g/dL (3.2-4.8); Alkaline Phosphatase 112 U/L (46-116); Anion Gap 5.8 (5-15); Aspartate Aminotransferase 13 U/L (13-40); BUN/Creatinine Ratio 6.4 (10.0-20.0); Bilirubin, Total 2.2 mg/dL (0.2-1.0); Blood Urea Nitrogen 7 mg/dL (9-23); Carbon Dioxide 24.2 mmol/L (20-30); Chloride 111 mmol/L (98-107); Glucose 98 mg/dL (74-106); Sodium 141 mmol/L (136-145); Total Protein 6.3 g/dL (5.7-8.2)
[2023-03-18] MEDS ORDERED: FUROSEMIDE 40 MG TAB PO SCH (07:00)
[2023-03-18] MEDS: HYDROcodone-ACET 5/325MG TAB PO PRN (07:06)
[2023-03-18] MEDS: GABAPENTIN 100 MG CAP PO SCH ×3 (07:07→22:01)
[2023-03-18 09:14] VITALS: PULSE 55; RESP 20; O2SAT 97
[2023-03-18] MEDS ORDERED: ENOXAPARIN SOD 40 MG/0.4 ML SYRINGE SC SCH (10:00)
[2023-03-18] MEDS ORDERED: IOHEXOL 300 MG/ML 100ML BOTTLE IJ ONE (10:35)
[2023-03-18] MEDS: POTASSIUM CHL 20 Meq TABLET PO SCH (11:09)
[2023-03-18] MEDS: THIAMINE HCL 100 MG TAB PO SCH (11:09)
[2023-03-18] MEDS: AMIODARONE HCL 200 MG TAB PO SCH (11:10)
[2023-03-18 11:11] LABS: Urine Bacteria FEW /hpf (None Seen); Urine Blood 1+ /uL (Negative); Urine Budding Yeast MODERATE /hpf (None Seen); Urine Clarity HAZY (Clear); Urine Color Yellow (Yellow); Urine Protein, UAD 2+ (Negative); Urine Specific Gravity 1.012 (1.001-1.035); Urine Urobilinogen Normal (Negative); Urine WBC 410 /hpf (0 - 3); Urine WBC Clumps PRESENT /hpf (None Seen)
[2023-03-18] MEDS: FOLIC ACID 1 MG TAB PO SCH (11:11)
[2023-03-18] MEDS: amLODIPine BESYLATE 5 MG TAB PO SCH (11:11)
[2023-03-18] MEDS: METOPROLOL TARTRATE 50 MG TAB PO SCH ×2 (11:12→22:02)
[2023-03-18] MEDS: TAMSULOSIN HYDROCHLORIDE 0.4 MG CAP PO SCH (18:24)
[2023-03-18] MEDS: ERTAPENEM SOD INJ 1 GM in SODIUM CHL 0.9% 50 ML IV SCH (20:47)
[2023-03-18 20:57] VITALS: PULSE 65; RESP 18; O2SAT 97
[2023-03-18] MEDS ORDERED: ENOXAPARIN SOD 100 MG/1 ML SYRINGE SC SCH (22:00)
[2023-03-18 23:05] VITALS: BP 142/76; PULSE 63; RESP 22; TEMP 97.6; O2SAT 98
[2023-03-18 23:56] VITALS: PULSE 66; RESP 22; O2SAT 98
[2023-03-19] VITALS (7 sets, daily range): BP systolic 129–157; BP diastolic 70–90; PULSE 57–98; RESP 18–22; TEMP 97.6–98.8; O2SAT 95–99
[2023-03-19] MEDS ORDERED: PNEUMOCOCCAL VACC POLYS 25 MCG/0.5 ML VIAL IM ONE (00:30)
[2023-03-19] MEDS: GABAPENTIN 100 MG CAP PO SCH ×3 (06:00→21:54)
[2023-03-19 07:01] LABS: INR 1.05 (0.9-1.15); Partial Thromboplastin Time 25.1 SEC (24.5-34.5)
[2023-03-19 07:07] LABS: Alanine Aminotransferase 10 U/L (7-40); Albumin 3.8 g/dL (3.2-4.8); Alkaline Phosphatase 106 U/L (46-116); Aspartate Aminotransferase 23 U/L (13-40); BUN/Creatinine Ratio 6.4 (10.0-20.0); Bilirubin, Total 2.6 mg/dL (0.2-1.0); Blood Urea Nitrogen 7 mg/dL (9-23); Calcium 9.2 mg/dL (8.5-10.1); Chloride 108 mmol/L (98-107); Glucose 92 mg/dL (74-106); Magnesium 1.8 mg/dL (1.6-2.6); Potassium 4.5 mmol/L (3.5-5.1); Sodium 138 mmol/L (136-145); Total Protein 6.7 g/dL (5.7-8.2)
[2023-03-19 07:09] LABS: Anion Gap 8 (5-15); Carbon Dioxide 22 mmol/L (20-30)
[2023-03-19 07:20] LABS: Basophils # (auto) 0.1 10 ^3/uL (0-0.2); Basophils % (auto) 0.8 % (0.0-2.0); Eosinophils # (auto) 0.3 10 ^3/uL (0-0.8); Eosinophils % (auto) 3.9 % (0.0-7.0); Hemoglobin 13.7 g/dL (13.5-17.5); Lymphocytes # (auto) 1.6 10 ^3/uL (0.4-5.4); Lymphocytes % (auto) 19.5 % (10.0-50.0); Mean Corpuscular Hemoglobin 30.9 pg (28.0-32.0); Mean Corpuscular Hgb Conc. 31.8 g/dL (32.0-36.0); Mean Corpuscular Volume 97.2 fL (80.0-100.0); Monocytes # (auto) 0.7 10 ^3/uL (0-1.3); Monocytes % (auto) 8.6 % (0.0-12.0); Neutrophils # (auto) 5.6 10 ^3/uL (1.6-8.6); Neutrophils % (auto) 67.2 % (37.0-80.0); Red Blood Cells 4.43 10^6/uL (4.5-5.90); White Blood Cell 8.4 10^3/uL (4.4-10.8)
[2023-03-19] MEDS: THIAMINE HCL 100 MG TAB PO SCH (09:49)
[2023-03-19] MEDS: FOLIC ACID 1 MG TAB PO SCH (09:50)
[2023-03-19] MEDS: METOPROLOL TARTRATE 50 MG TAB PO SCH ×2 (09:50→21:53)
[2023-03-19] MEDS: AMIODARONE HCL 200 MG TAB PO SCH (09:50)
[2023-03-19] MEDS: amLODIPine BESYLATE 5 MG TAB PO SCH (09:50)
[2023-03-19] MEDS: POTASSIUM CHL 20 Meq TABLET PO SCH (09:51)
[2023-03-19] MEDS: FLUCONAZOLE 200MG/100ML 100 ML IV SCH (11:29)
[2023-03-19] MEDS ORDERED: CIPROFLOXACIN 400MG/200ML 200 ML IV ONE (13:03)
[2023-03-19] MEDS ORDERED: fentaNYL CITRATE 100 MCG/2 ML VL ONE (13:18)
[2023-03-19] MEDS ORDERED: MIDAZOLAM HCL 2MG/2ML 2ml VIAL (1mg/ml) ONE ×2 (13:18→13:57)
[2023-03-19] MEDS ORDERED: ONDANSETRON HCL 4 MG/2 ML VIAL ONE (13:19)
[2023-03-19] MEDS ORDERED: EPINEPHrine HCL 1 MG/1 ML AMP ONE (13:19)
[2023-03-19] MEDS ORDERED: SODIUM CHLORIDE LOCK 10 ML ONE (13:19)
[2023-03-19] MEDS ORDERED: DexAMETHasone SOD PHOS 10MG/1ML VIAL INJ ONE (13:19)
[2023-03-19] MEDS ORDERED: PROPOFOL 10 MG/ML 20 ML IV ONE (13:19)
[2023-03-19] MEDS ORDERED: MORPHINE SULFATE INJ 2 MG/ml SYRG IV PRN (15:30)
[2023-03-19] MEDS ORDERED: METOCLOPRAMIDE HCL 5MG/ml INJ 2ml VIAL IV PRN (15:30)
[2023-03-19] MEDS ORDERED: HYDROmorphone HCL 2 MG/ML VL/or syr IV PRN ×2 (15:30)
[2023-03-19] MEDS: TAMSULOSIN HYDROCHLORIDE 0.4 MG CAP PO SCH (18:09)
[2023-03-19] MEDS: HYDROcodone-ACET 5/325MG TAB PO PRN (19:50)
[2023-03-19] MEDS: ERTAPENEM SOD INJ 1 GM in SODIUM CHL 0.9% 50 ML IV SCH (20:45)
[2023-03-19] MEDS: MORPHINE SULFATE INJ 2 MG/ml SYRG IV PRN (21:53)
[2023-03-20] VITALS (7 sets, daily range): BP systolic 106–144; BP diastolic 60–76; PULSE 53–93; RESP 18–23; TEMP 97.5–98.6; O2SAT 90–95
[2023-03-20] MEDS: GABAPENTIN 100 MG CAP PO SCH ×3 (05:12→21:21)
[2023-03-20] MEDS: POTASSIUM CHL 20 Meq TABLET PO SCH (08:11)
[2023-03-20] MEDS: THIAMINE HCL 100 MG TAB PO SCH (08:11)
[2023-03-20] MEDS: HYDROcodone-ACET 5/325MG TAB PO PRN (08:12)
[2023-03-20] MEDS: AMIODARONE HCL 200 MG TAB PO SCH (08:12)
[2023-03-20] MEDS: METOPROLOL TARTRATE 50 MG TAB PO SCH ×2 (08:13→21:23)
[2023-03-20] MEDS: FLUCONAZOLE 200MG/100ML 100 ML IV SCH (08:13)
[2023-03-20] MEDS: FOLIC ACID 1 MG TAB PO SCH (08:13)
[2023-03-20] MEDS: amLODIPine BESYLATE 5 MG TAB PO SCH (08:13)
[2023-03-20 09:08] LABS: Basophils # (auto) 0 10 ^3/uL (0-0.2); Basophils % (auto) 0.4 % (0.0-2.0); Eosinophils # (auto) 0.2 10 ^3/uL (0-0.8); Eosinophils % (auto) 2.1 % (0.0-7.0); Hemoglobin 12.6 g/dL (13.5-17.5); Lymphocytes # (auto) 1.1 10 ^3/uL (0.4-5.4); Lymphocytes % (auto) 11.2 % (10.0-50.0); Mean Corpuscular Hemoglobin 30.8 pg (28.0-32.0); Mean Corpuscular Hgb Conc. 33.2 g/dL (32.0-36.0); Mean Corpuscular Volume 92.7 fL (80.0-100.0); Monocytes # (auto) 0.7 10 ^3/uL (0-1.3); Monocytes % (auto) 6.7 % (0.0-12.0); Neutrophils % (auto) 79.6 % (37.0-80.0); Nucleated Red Blood Cells % 0.1 %; Red Cell Distribution Width 15.3 % (11.8-14.3)
[2023-03-20 09:22] LABS: Anion Gap 5 (5-15); Carbon Dioxide 24 mmol/L (20-30); Chloride 108 mmol/L (98-107); Potassium 4.3 mmol/L (3.5-5.1); Sodium 137 mmol/L (136-145)
[2023-03-20 09:23] LABS: Calcium 8.9 mg/dL (8.5-10.1)
[2023-03-20 09:27] LABS: BUN/Creatinine Ratio 10.3 (10.0-20.0); Blood Urea Nitrogen 10 mg/dL (9-23); Glucose 128 mg/dL (74-106)
[2023-03-20 09:28] LABS: Magnesium 1.7 mg/dL (1.6-2.6)
[2023-03-20] MEDS: TAMSULOSIN HYDROCHLORIDE 0.4 MG CAP PO SCH (17:25)
[2023-03-20] MEDS: ERTAPENEM SOD INJ 1 GM in SODIUM CHL 0.9% 50 ML IV SCH (20:19)
[2023-03-21] VITALS (8 sets, daily range): BP systolic 146–166; BP diastolic 59–98; PULSE 58–75; RESP 17–22; TEMP 97.7–98.1; O2SAT 92–99
[2023-03-21 00:07] LABS: PSA Free 1.8 ng/mL; Prostate Specific Antigen 54.3 ng/mL (0.0-4.0)
[2023-03-21] MEDS ORDERED: CALCIUM CARB 500 MG CHEW TAB PO PRN (02:30)
[2023-03-21] MEDS: GABAPENTIN 100 MG CAP PO SCH ×3 (05:37→21:57)
[2023-03-21] MEDS: HYDROcodone-ACET 5/325MG TAB PO PRN ×3 (06:38→19:41)
[2023-03-21] MEDS: MORPHINE SULFATE INJ 2 MG/ml SYRG IV PRN (10:12)
[2023-03-21] MEDS: FLUCONAZOLE 200MG/100ML 100 ML IV SCH (10:16)
[2023-03-21] MEDS: METOPROLOL TARTRATE 50 MG TAB PO SCH ×2 (10:25→21:57)
[2023-03-21] MEDS: amLODIPine BESYLATE 5 MG TAB PO SCH (10:25)
[2023-03-21] MEDS: AMIODARONE HCL 200 MG TAB PO SCH (10:25)
[2023-03-21] MEDS: POTASSIUM CHL 20 Meq TABLET PO SCH (10:26)
[2023-03-21] MEDS: THIAMINE HCL 100 MG TAB PO SCH (10:26)
[2023-03-21] MEDS: FOLIC ACID 1 MG TAB PO SCH (10:26)
[2023-03-21] MEDS ORDERED: FLEET ENEMA(ADULT) 135 ML PR ONE (10:30)
[2023-03-21] MEDS ORDERED: DOCUSATE SOD 100 MG CAP PO ONE (10:30)
[2023-03-21] MEDS ORDERED: LACTULOSE 20Gm/30ML SOLN PO ONE (10:30)
[2023-03-21] MEDS: hydrALAZINE HCL 20 MG/ML VL IV PRN (13:36)
[2023-03-21] MEDS: TAMSULOSIN HYDROCHLORIDE 0.4 MG CAP PO SCH (18:00)
[2023-03-21] MEDS: ERTAPENEM SOD INJ 1 GM in SODIUM CHL 0.9% 50 ML IV SCH (19:39)
[2023-03-21] MEDS: DOCUSATE SOD 100 MG CAP PO SCH (21:57)
[2023-03-22] VITALS (8 sets, daily range): BP systolic 121–133; BP diastolic 65–75; PULSE 58–83; RESP 17–20; TEMP 97.9–98.9; O2SAT 90–97
[2023-03-22] MEDS: GABAPENTIN 100 MG CAP PO SCH ×3 (05:07→22:44)
[2023-03-22] MEDS: DOCUSATE SOD 100 MG CAP PO SCH ×2 (10:17→22:36)
[2023-03-22] MEDS: METOPROLOL TARTRATE 50 MG TAB PO SCH ×2 (10:17→22:45)
[2023-03-22] MEDS: THIAMINE HCL 100 MG TAB PO SCH (10:17)
[2023-03-22] MEDS: AMIODARONE HCL 200 MG TAB PO SCH (10:17)
[2023-03-22] MEDS: FOLIC ACID 1 MG TAB PO SCH (10:17)
[2023-03-22] MEDS: amLODIPine BESYLATE 5 MG TAB PO SCH (10:18)
[2023-03-22] MEDS: FLUCONAZOLE 200MG/100ML 100 ML IV SCH (10:18)
[2023-03-22] MEDS: POTASSIUM CHL 20 Meq TABLET PO SCH (10:18)
[2023-03-22] MEDS: TAMSULOSIN HYDROCHLORIDE 0.4 MG CAP PO SCH (18:00)
[2023-03-22] MEDS: ERTAPENEM SOD INJ 1 GM in SODIUM CHL 0.9% 50 ML IV SCH (22:36)
[2023-03-23] MEDS: GABAPENTIN 100 MG CAP PO SCH (05:32)
[2023-03-23 05:40] VITALS: BP 124/80; PULSE 60; RESP 18; TEMP 98.2; O2SAT 98
[2023-03-23 08:00] VITALS: PULSE 58; PULSE 61; RESP 20
[2023-03-23] MEDS: FLUCONAZOLE 200MG/100ML 100 ML IV SCH (09:06)
[2023-03-23] MEDS: POTASSIUM CHL 20 Meq TABLET PO SCH (09:08)
[2023-03-23] MEDS: DOCUSATE SOD 100 MG CAP PO SCH (09:08)
[2023-03-23] MEDS: THIAMINE HCL 100 MG TAB PO SCH (09:09)
[2023-03-23] MEDS: FOLIC ACID 1 MG TAB PO SCH (09:09)
[2023-03-23] MEDS: amLODIPine BESYLATE 5 MG TAB PO SCH (09:09)
[2023-03-23] MEDS: METOPROLOL TARTRATE 50 MG TAB PO SCH (09:09)
[2023-03-23] MEDS: AMIODARONE HCL 200 MG TAB PO SCH (09:10)
[2023-03-23 10:44] VITALS: BP 101/53; PULSE 55; RESP 16; TEMP 97.5; O2SAT 99
[2023-03-23] MEDS ORDERED: FLUC200T PO (11:20)
[2023-03-23] MEDS ORDERED: CIPR-173 PO (11:20)
[2023-03-23 12:06] VITALS: BP 115/74; PULSE 58; RESP 16; TEMP 97.6; O2SAT 96
[2023-03-23 13:20] VITALS: BP 102/56; PULSE 57; RESP 21; TEMP 97.6; O2SAT 96
== END 2023-03-23 14:15 | disposition home or self-care (01) | DRG 482 ==
LOC: ER 10:58 → OVERFLOW 17:14 → TELE-WESTW 03-18 22:50
PROVIDERS: ADMIT Internal Medicine Geriatric Medicine; ATTEND Internal Medicine Geriatric Medicine
PROC: 0T9130Z Drainage of Left Kidney with Drainage Device, Percutaneous Approach (ICD-10-PCS; 2023-03-18)
PROC: 0VT08ZZ Resection of Prostate, Via Natural or Artificial Opening Endoscopic (ICD-10-PCS; principal; 2023-03-19 13:33)
DX: N40.1 Benign prostatic hyperplasia with lower urinary tract symptoms (principal); N17.9 Acute kidney failure, unspecified; N13.6 Pyonephrosis; E11.22 Type 2 diabetes mellitus with diabetic chronic kidney disease; I13.0 Hypertensive heart and chronic kidney disease with heart failure and stage 1 through stage 4 chronic kidney disease, or unspecified chronic kidney disease; I50.32 Chronic diastolic (congestive) heart failure; I48.92 Unspecified atrial flutter; N13.8 Other obstructive and reflux uropathy; L03.90 Cellulitis, unspecified; E66.9 Obesity, unspecified; I48.91 Unspecified atrial fibrillation; F10.20 Alcohol dependence, uncomplicated; Y90.9 Presence of alcohol in blood, level not specified; F12.90 Cannabis use, unspecified, uncomplicated; F17.210 Nicotine dependence, cigarettes, uncomplicated; K59.00 Constipation, unspecified; R33.8 Other retention of urine; F19.10 Other psychoactive substance abuse, uncomplicated; N32.0 Bladder-neck obstruction; N18.2 Chronic kidney disease, stage 2 (mild); Z93.6 Other artificial openings of urinary tract status; Z90.79 Acquired absence of other genital organ(s); Z59.00 Homelessness unspecified; Z79.01 Long term (current) use of anticoagulants; Z91.199 Patient's noncompliance with other medical treatment and regimen due to unspecified reason; Z68.33 Body mass index [BMI] 33.0-33.9, adult
CPT/HCPCS: 36415; 50432; 71045; 74176; 74425; 80048; 80053; 81001; 83605; 83735; 84154; 85025; 85610; 85730; 87040; 87086; 87088; 87186; 93005; 96365; 96366; 97110; 97116; 97163; 97530; G0378; J0171; J0696; J1100; J1335; J1450; J2250; J2405; J2704

== ENCOUNTER 2023-03-23 17:54 | Inpatient (IN) | payer MEDICAID ==
[~2023-03-23] VITALS: Ht 175.3 cm; Wt 115.0 kg
[~2023-03-23 17:54] MED LIST changes: +CIPR-173 PO; +FLUC200T PO
[2023-03-23 18:42] VITALS: PULSE 63; RESP 22; O2SAT 96
[2023-03-23 19:11] LABS: Basophils # (auto) 0 10 ^3/uL (0-0.2); Basophils % (auto) 0.3 % (0.0-2.0); Eosinophils # (auto) 0.3 10 ^3/uL (0-0.8); Eosinophils % (auto) 1.9 % (0.0-7.0); Hematocrit 37.6 % (41.0-53.0); Hemoglobin 12.4 g/dL (13.5-17.5); Lymphocytes # (auto) 1.6 10 ^3/uL (0.4-5.4); Lymphocytes % (auto) 11.6 % (10.0-50.0); Mean Corpuscular Hemoglobin 30.5 pg (28.0-32.0); Mean Corpuscular Hgb Conc. 33.1 g/dL (32.0-36.0); Mean Corpuscular Volume 92.3 fL (80.0-100.0); Monocytes # (auto) 1.5 10 ^3/uL (0-1.3); Monocytes % (auto) 11.1 % (0.0-12.0); Neutrophils # (auto) 10.3 10 ^3/uL (1.6-8.6); Neutrophils % (auto) 75.1 % (37.0-80.0); Red Blood Cells 4.07 10^6/uL (4.5-5.90); Red Cell Distribution Width 15.2 % (11.8-14.3); White Blood Cell 13.8 10^3/uL (4.4-10.8)
[2023-03-23 19:30] LABS: INR 1.09 (0.9-1.15); Partial Thromboplastin Time 29.9 SEC (24.5-34.5); Prothrombin Time 11.4 sec (9.3-11.8)
[2023-03-23 19:31] LABS: Alanine Aminotransferase 11 U/L (7-40); Albumin 3.9 g/dL (3.2-4.8); Alkaline Phosphatase 137 U/L (46-116); Anion Gap 6 (5-15); Aspartate Aminotransferase 17 U/L (13-40); BUN/Creatinine Ratio 16.2 (10.0-20.0); Blood Urea Nitrogen 24 mg/dL (9-23); Calcium 9.2 mg/dL (8.7-10.4); Carbon Dioxide 25 mmol/L (20-30); Chloride 104 mmol/L (98-107); Glucose 94 mg/dL (74-106); Potassium 4.4 mmol/L (3.5-5.1); Sodium 135 mmol/L (136-145); Total Protein 6.7 g/dL (5.7-8.2)
[2023-03-23 20:00] VITALS: PULSE 64; RESP 20; O2SAT 97
[2023-03-23] MEDS ORDERED: SODIUM CHLORIDE 0.9% 1,000 ML IV ONE ×2 (20:45→21:15)
[2023-03-23] MEDS ORDERED: PIPERACILLIN-TAZOB 3.375GM 100 ML IV ONE (21:15)
[2023-03-24] MEDS ORDERED: metroNIDAZOLE 500MG/100ML 100 ML IV ONE ×2 (02:45→11:15)
[2023-03-24 04:44] LABS: Urine Bacteria FEW /hpf (None Seen); Urine Blood 3+ /uL (Negative); Urine Budding Yeast FEW /hpf (None Seen); Urine Clarity HAZY (Clear); Urine Color Red (Yellow); Urine Mucus FEW (None Seen); Urine Protein, UAD 2+ (Negative); Urine Specific Gravity 1.019 (1.001-1.035); Urine Urobilinogen Normal (Negative); Urine WBC 353 /hpf (0 - 3); Urine WBC Clumps PRESENT /hpf (None Seen); Urine pH 5.5 (5.0-8.0)
[2023-03-24] MEDS ORDERED: HYDROcodone-ACET 5/325MG TAB PO PRN (06:30)
[2023-03-24] MEDS ORDERED: ACETAMINOPHEN 325 MG TAB PO PRN (06:30)
[2023-03-24] MEDS ORDERED: TEMAZEPAM 15 MG CAP PO PRN (06:30)
[2023-03-24] MEDS ORDERED: ONDANSETRON HCL 4 MG/2 ML VIAL IV PRN (06:30)
[2023-03-24 07:02] LABS: Basophils # (auto) 0.1 10 ^3/uL (0-0.2); Basophils % (auto) 0.6 % (0.0-2.0); Eosinophils # (auto) 0.4 10 ^3/uL (0-0.8); Eosinophils % (auto) 3.3 % (0.0-7.0); Hematocrit 33.9 % (41.0-53.0); Hemoglobin 11.2 g/dL (13.5-17.5); Lymphocytes # (auto) 1.5 10 ^3/uL (0.4-5.4); Lymphocytes % (auto) 11.9 % (10.0-50.0); Mean Corpuscular Hemoglobin 30.7 pg (28.0-32.0); Mean Corpuscular Volume 92.9 fL (80.0-100.0); Monocytes # (auto) 1.1 10 ^3/uL (0-1.3); Monocytes % (auto) 8.4 % (0.0-12.0); Neutrophils # (auto) 9.7 10 ^3/uL (1.6-8.6); Neutrophils % (auto) 75.8 % (37.0-80.0); Nucleated Red Blood Cells % 0.1 %; Red Blood Cells 3.65 10^6/uL (4.5-5.90); Red Cell Distribution Width 14.6 % (11.8-14.3); White Blood Cell 12.8 10^3/uL (4.4-10.8)
[2023-03-24 07:12] LABS: Alanine Aminotransferase 12 U/L (7-40); Albumin 3.4 g/dL (3.2-4.8); Alkaline Phosphatase 134 U/L (46-116); Anion Gap 5 (5-15); Aspartate Aminotransferase 22 U/L (13-40); BUN/Creatinine Ratio 17.5 (10.0-20.0); Blood Urea Nitrogen 21 mg/dL (9-23); Calcium 8.3 mg/dL (8.7-10.4); Carbon Dioxide 22 mmol/L (20-30); Chloride 109 mmol/L (98-107); Glucose 93 mg/dL (74-106); Sodium 136 mmol/L (136-145)
[2023-03-24 07:13] LABS: Bilirubin, Total 1.5 mg/dL (0.2-1.0); Total Protein 5.9 g/dL (5.7-8.2)
[2023-03-24 07:45] VITALS: PULSE 62; RESP 16; O2SAT 95
[2023-03-24] MEDS: amLODIPine BESYLATE 5 MG TAB PO SCH (11:05)
[2023-03-24] MEDS: PANTOPRAZOLE 40 MG TAB PO SCH (11:05)
[2023-03-24] MEDS: AMIODARONE HCL 200 MG TAB PO SCH (11:34)
[2023-03-24] MEDS: METOPROLOL TARTRATE 25 MG TAB PO SCH ×2 (11:35→22:00)
[2023-03-24] MEDS ORDERED: FOLIC ACID 1 MG, MULTIPLE VITAMIN 10 ML, MAGNESIUM SULF SDV 50% 8 MEQ, THIAMINE INJ 100... INJ ONE ×5 (12:00)
[2023-03-24] MEDS: metroNIDAZOLE 500MG/100ML 100 ML IV SCH ×2 (14:31→20:13)
[2023-03-24] MEDS: CEFEPIME 1GM/ 50ML 50 ML IV SCH (15:14)
[2023-03-24 20:34] VITALS: BP 106/71; PULSE 78; PULSE 82; RESP 18; RESP 21; TEMP 97.3; O2SAT 100
[2023-03-25] VITALS (7 sets, daily range): BP systolic 97–137; BP diastolic 58–105; PULSE 59–85; RESP 18–22; TEMP 97.6–98.7; O2SAT 95–100
[2023-03-25] MEDS: CEFEPIME 1GM/ 50ML 50 ML IV SCH ×2 (05:01→13:00)
[2023-03-25] MEDS: metroNIDAZOLE 500MG/100ML 100 ML IV SCH ×3 (05:02→21:10)
[2023-03-25 06:21] LABS: Basophils # (auto) 0.1 10 ^3/uL (0-0.2); Eosinophils # (auto) 0.4 10 ^3/uL (0-0.8); Eosinophils % (auto) 3.1 % (0.0-7.0); Hematocrit 36.1 % (41.0-53.0); Lymphocytes # (auto) 1.4 10 ^3/uL (0.4-5.4); Lymphocytes % (auto) 11.2 % (10.0-50.0); Mean Corpuscular Hemoglobin 30.4 pg (28.0-32.0); Mean Corpuscular Hgb Conc. 33.1 g/dL (32.0-36.0); Mean Corpuscular Volume 91.7 fL (80.0-100.0); Monocytes # (auto) 1.1 10 ^3/uL (0-1.3); Monocytes % (auto) 8.8 % (0.0-12.0); Neutrophils # (auto) 9.2 10 ^3/uL (1.6-8.6); Neutrophils % (auto) 75.9 % (37.0-80.0); Red Blood Cells 3.94 10^6/uL (4.5-5.90); White Blood Cell 12.1 10^3/uL (4.4-10.8)
[2023-03-25 06:30] LABS: Calcium 8.7 mg/dL (8.7-10.4); Chloride 106 mmol/L (98-107); Potassium 3.8 mmol/L (3.5-5.1); Sodium 135 mmol/L (136-145)
[2023-03-25 06:31] LABS: Anion Gap 7 (5-15); Carbon Dioxide 22 mmol/L (20-30)
[2023-03-25 06:36] LABS: BUN/Creatinine Ratio 14.4 (10.0-20.0); Blood Urea Nitrogen 13 mg/dL (9-23); Glucose 97 mg/dL (74-106)
[2023-03-25] MEDS: amLODIPine BESYLATE 5 MG TAB PO SCH (10:00)
[2023-03-25] MEDS: METOPROLOL TARTRATE 25 MG TAB PO SCH ×2 (11:25→21:37)
[2023-03-25] MEDS: PANTOPRAZOLE 40 MG TAB PO SCH (11:26)
[2023-03-25] MEDS: AMIODARONE HCL 200 MG TAB PO SCH (11:26)
[2023-03-25] MEDS ORDERED: FOLIC ACID 1 MG, MULTIPLE VITAMIN 10 ML, MAGNESIUM SULF SDV 50% 8 MEQ, THIAMINE INJ 100... INJ SCH ×5 (12:00)
[2023-03-25] MEDS: D5W/SOD CHL 0.45% 1,000 ML IV SCH (17:54)
[2023-03-25] MEDS: LINEZOLID 600MG/300ML 300 ML IV SCH (21:16)
[2023-03-26] MEDS: D5W/SOD CHL 0.45% 1,000 ML IV SCH ×3 (01:15→16:47)
[2023-03-26] MEDS: metroNIDAZOLE 500MG/100ML 100 ML IV SCH ×3 (04:36→20:10)
[2023-03-26 05:00] VITALS: BP 123/67; PULSE 67; RESP 20; TEMP 98.6; O2SAT 97
[2023-03-26 08:00] VITALS: BP 125/75; PULSE 63; RESP 18; TEMP 97.9; O2SAT 97
[2023-03-26] MEDS: LINEZOLID 600MG/300ML 300 ML IV SCH ×2 (09:17→21:43)
[2023-03-26] MEDS: PANTOPRAZOLE 40 MG TAB PO SCH (09:17)
[2023-03-26] MEDS: AMIODARONE HCL 200 MG TAB PO SCH (09:17)
[2023-03-26] MEDS: amLODIPine BESYLATE 5 MG TAB PO SCH (09:18)
[2023-03-26] MEDS: METOPROLOL TARTRATE 25 MG TAB PO SCH ×2 (09:18→21:44)
[2023-03-26 10:44] LABS: Basophils # (auto) 0.1 10 ^3/uL (0-0.2); Eosinophils # (auto) 0.3 10 ^3/uL (0-0.8); Eosinophils % (auto) 2.1 % (0.0-7.0); Hematocrit 33.8 % (41.0-53.0); Hemoglobin 11.1 g/dL (13.5-17.5); Lymphocytes # (auto) 1.2 10 ^3/uL (0.4-5.4); Lymphocytes % (auto) 8.5 % (10.0-50.0); Mean Corpuscular Hemoglobin 29.8 pg (28.0-32.0); Mean Corpuscular Hgb Conc. 32.9 g/dL (32.0-36.0); Mean Corpuscular Volume 90.5 fL (80.0-100.0); Neutrophils % (auto) 81.4 % (37.0-80.0); Red Blood Cells 3.74 10^6/uL (4.5-5.90); Red Cell Distribution Width 14.5 % (11.8-14.3); White Blood Cell 14.8 10^3/uL (4.4-10.8)
[2023-03-26 11:00] LABS: Alanine Aminotransferase 11 U/L (7-40); Albumin 3.5 g/dL (3.2-4.8); Alkaline Phosphatase 165 U/L (46-116); Anion Gap 5 (5-15); Aspartate Aminotransferase 15 U/L (13-40); BUN/Creatinine Ratio 11.7 (10.0-20.0); Bilirubin, Total 1.7 mg/dL (0.2-1.0); Blood Urea Nitrogen 11 mg/dL (9-23); Calcium 8.4 mg/dL (8.7-10.4); Carbon Dioxide 23 mmol/L (20-30); Chloride 106 mmol/L (98-107); Glucose 142 mg/dL (74-106); Potassium 3.8 mmol/L (3.5-5.1); Sodium 134 mmol/L (136-145); Total Protein 6.3 g/dL (5.7-8.2)
[2023-03-26 12:00] VITALS: BP 116/68; PULSE 55; RESP 18; TEMP 97.7; O2SAT 97
[2023-03-26] MEDS ORDERED: levoFLOXacin 500MG 100 ML IV ONE (13:30)
[2023-03-26 16:00] VITALS: BP 103/55; PULSE 57; RESP 18; TEMP 97.6; O2SAT 95
[2023-03-26 20:00] VITALS: PULSE 68; RESP 20; O2SAT 97
[2023-03-26 22:00] VITALS: BP 125/70; PULSE 68; RESP 20; TEMP 98.8; O2SAT 97
[2023-03-27] VITALS (19 sets, daily range): BP systolic 103–127; BP diastolic 54–77; PULSE 51–66; RESP 16–21; TEMP 97.7–98.3; O2SAT 92–98
[2023-03-27] MEDS: D5W/SOD CHL 0.45% 1,000 ML IV SCH ×4 (01:15→12:18)
[2023-03-27] MEDS: metroNIDAZOLE 500MG/100ML 100 ML IV SCH ×3 (04:29→22:05)
[2023-03-27] MEDS: levoFLOXacin 500MG 100 ML IV SCH (09:28)
[2023-03-27] MEDS: LINEZOLID 600MG/300ML 300 ML IV SCH ×2 (09:28→22:13)
[2023-03-27] MEDS: AMIODARONE HCL 200 MG TAB PO SCH (09:33)
[2023-03-27] MEDS: METOPROLOL TARTRATE 25 MG TAB PO SCH ×2 (09:34→22:00)
[2023-03-27] MEDS: amLODIPine BESYLATE 5 MG TAB PO SCH (09:34)
[2023-03-27] MEDS ORDERED: ROCURONIUM 10MG/ML 10ML VIAL IV ONE ×2 (09:41→13:57)
[2023-03-27 10:59] LABS: Alanine Aminotransferase 11 U/L (7-40); Alkaline Phosphatase 148 U/L (46-116)
[2023-03-27 11:00] LABS: Albumin 3.6 g/dL (3.2-4.8); Aspartate Aminotransferase 23 U/L (13-40); Bilirubin, Total 1.7 mg/dL (0.2-1.0); Calcium 8.6 mg/dL (8.5-10.1); Carbon Dioxide 21 mmol/L (20-30); Glucose 101 mg/dL (74-106); Total Protein 6.5 g/dL (5.7-8.2)
[2023-03-27 11:14] LABS: Basophils # (auto) 0.1 10 ^3/uL (0-0.2); Basophils % (auto) 0.7 % (0.0-2.0); Eosinophils # (auto) 0.3 10 ^3/uL (0-0.8); Eosinophils % (auto) 2.1 % (0.0-7.0); Hematocrit 36.3 % (41.0-53.0); Hemoglobin 11.7 g/dL (13.5-17.5); Lymphocytes # (auto) 1.4 10 ^3/uL (0.4-5.4); Lymphocytes % (auto) 10.1 % (10.0-50.0); Mean Corpuscular Hemoglobin 30.5 pg (28.0-32.0); Mean Corpuscular Hgb Conc. 32.3 g/dL (32.0-36.0); Mean Corpuscular Volume 94.4 fL (80.0-100.0); Monocytes # (auto) 1.1 10 ^3/uL (0-1.3); Monocytes % (auto) 7.7 % (0.0-12.0); Neutrophils # (auto) 11.3 10 ^3/uL (1.6-8.6); Neutrophils % (auto) 79.4 % (37.0-80.0); Red Blood Cells 3.85 10^6/uL (4.5-5.90); White Blood Cell 14.3 10^3/uL (4.4-10.8)
[2023-03-27 11:23] LABS: Blood Urea Nitrogen < 5 mg/dL (9-23)
[2023-03-27 11:47] LABS: Anion Gap 7 (5-15); Chloride 106 mmol/L (98-107); Potassium 3.9 mmol/L (3.5-5.1); Sodium 134 mmol/L (136-145)
[2023-03-27] MEDS ORDERED: LIDOCAINE 1% HCL (LOCAL ANESTH.) INJ 20ML MDV ONE (12:43)
[2023-03-27] MEDS ORDERED: fentaNYL CITRATE 100 MCG/2 ML VL ONE ×2 (13:57→18:01)
[2023-03-27] MEDS ORDERED: MIDAZOLAM HCL 2MG/2ML 2ml VIAL (1mg/ml) ONE (13:57)
[2023-03-27] MEDS ORDERED: ONDANSETRON HCL 4 MG/2 ML VIAL ONE (13:57)
[2023-03-27] MEDS ORDERED: PROPOFOL 10 MG/ML 20 ML IV ONE (13:57)
[2023-03-27] MEDS ORDERED: LIDOCAINE 2% (LOCAL ANESTH.) PF 5ml SDV ONE (13:57)
[2023-03-27] MEDS ORDERED: HYDROmorphone HCL 2 MG/ML VL/or syr IV PRN (16:15)
[2023-03-27] MEDS ORDERED: ONDANSETRON HCL 4 MG/2 ML VIAL IV PRN (16:15)
[2023-03-27] MEDS ORDERED: ACETAMINOPHEN IV 1000 MG/100ML (10MG/ML) IV ONE (18:00)
[2023-03-27] MEDS ORDERED: NOREPINEPHRINE 8 MG/250ML KIT 250 ML IV SCH (18:00)
[2023-03-27] MEDS: HYDROmorphone HCL 2 MG/ML VL/or syr IV PRN ×2 (18:45→19:20)
[2023-03-27] MEDS: SODIUM CHLORIDE 0.9% 1,000 ML IV SCH (18:50)
[2023-03-28] VITALS (51 sets, daily range): BP systolic 100–153; BP diastolic 45–92; PULSE 56–72; RESP 9–26; TEMP 97.6–98.3; O2SAT 79–100
[2023-03-28] MEDS: HYDROmorphone HCL 2 MG/ML VL/or syr IV PRN ×5 (00:26→21:09)
[2023-03-28] MEDS: SODIUM CHLORIDE 0.9% 1,000 ML IV SCH ×3 (02:16→20:02)
[2023-03-28] MEDS: metroNIDAZOLE 500MG/100ML 100 ML IV SCH ×3 (03:36→20:03)
[2023-03-28 04:12] LABS: Basophils # (auto) 0.1 10 ^3/uL (0-0.2); Basophils % (auto) 0.6 % (0.0-2.0); Eosinophils # (auto) 0.1 10 ^3/uL (0-0.8); Eosinophils % (auto) 0.6 % (0.0-7.0); Hematocrit 32.1 % (41.0-53.0); Hemoglobin 10.5 g/dL (13.5-17.5); Lymphocytes # (auto) 1.3 10 ^3/uL (0.4-5.4); Lymphocytes % (auto) 9.5 % (10.0-50.0); Mean Corpuscular Hgb Conc. 32.8 g/dL (32.0-36.0); Mean Corpuscular Volume 91.4 fL (80.0-100.0); Monocytes % (auto) 7.3 % (0.0-12.0); Neutrophils # (auto) 10.9 10 ^3/uL (1.6-8.6); Red Blood Cells 3.51 10^6/uL (4.5-5.90); Red Cell Distribution Width 14.7 % (11.8-14.3); White Blood Cell 13.2 10^3/uL (4.4-10.8)
[2023-03-28 04:26] LABS: Alanine Aminotransferase 11 U/L (7-40); Alkaline Phosphatase 142 U/L (46-116); Aspartate Aminotransferase 32 U/L (13-40); BUN/Creatinine Ratio 6.9 (10.0-20.0); Blood Urea Nitrogen 6 mg/dL (9-23); Calcium 8.2 mg/dL (8.7-10.4); Chloride 107 mmol/L (98-107); Glucose 99 mg/dL (74-106); Magnesium 1.6 mg/dL (1.6-2.6); Potassium 4.2 mmol/L (3.5-5.1); Sodium 136 mmol/L (136-145)
[2023-03-28 04:27] LABS: Bilirubin, Total 0.8 mg/dL (0.2-1.0); Total Protein 5.6 g/dL (5.7-8.2)
[2023-03-28 04:44] LABS: Anion Gap 9 (5-15); Carbon Dioxide 20 mmol/L (20-30)
[2023-03-28] MEDS: levoFLOXacin 500MG 100 ML IV SCH (09:34)
[2023-03-28] MEDS: amLODIPine BESYLATE 5 MG TAB PO SCH (10:00)
[2023-03-28] MEDS: AMIODARONE HCL 200 MG TAB PO SCH (10:00)
[2023-03-28] MEDS: METOPROLOL TARTRATE 25 MG TAB PO SCH ×2 (10:00→21:16)
[2023-03-28] MEDS: LINEZOLID 600MG/300ML 300 ML IV SCH ×2 (10:46→21:08)
[2023-03-29] VITALS (13 sets, daily range): BP systolic 107–149; BP diastolic 64–83; PULSE 66–79; RESP 15–27; TEMP 97.5–98.6; O2SAT 89–99
[2023-03-29] MEDS: metroNIDAZOLE 500MG/100ML 100 ML IV SCH ×3 (03:17→20:37)
[2023-03-29] MEDS: SODIUM CHLORIDE 0.9% 1,000 ML IV SCH ×4 (03:17→17:29)
[2023-03-29 03:58] LABS: Basophils # (auto) 0.1 10 ^3/uL (0-0.2); Basophils % (auto) 0.8 % (0.0-2.0); Eosinophils # (auto) 0.4 10 ^3/uL (0-0.8); Eosinophils % (auto) 3.1 % (0.0-7.0); Hematocrit 31.1 % (41.0-53.0); Hemoglobin 10.4 g/dL (13.5-17.5); Lymphocytes # (auto) 1.5 10 ^3/uL (0.4-5.4); Lymphocytes % (auto) 12.5 % (10.0-50.0); Mean Corpuscular Hemoglobin 30.2 pg (28.0-32.0); Mean Corpuscular Hgb Conc. 33.5 g/dL (32.0-36.0); Mean Corpuscular Volume 90.3 fL (80.0-100.0); Monocytes # (auto) 0.8 10 ^3/uL (0-1.3); Monocytes % (auto) 7.1 % (0.0-12.0); Neutrophils # (auto) 8.9 10 ^3/uL (1.6-8.6); Neutrophils % (auto) 76.5 % (37.0-80.0); Red Blood Cells 3.44 10^6/uL (4.5-5.90); Red Cell Distribution Width 14.9 % (11.8-14.3); White Blood Cell 11.6 10^3/uL (4.4-10.8)
[2023-03-29 04:17] LABS: Alanine Aminotransferase 11 U/L (7-40); Albumin 2.9 g/dL (3.2-4.8); Alkaline Phosphatase 139 U/L (46-116); Anion Gap 7 (5-15); Aspartate Aminotransferase 22 U/L (13-40); BUN/Creatinine Ratio 7.8 (10.0-20.0); Bilirubin, Total 0.7 mg/dL (0.2-1.0); Blood Urea Nitrogen 6 mg/dL (9-23); Calcium 8.2 mg/dL (8.7-10.4); Carbon Dioxide 23 mmol/L (20-30); Chloride 107 mmol/L (98-107); Glucose 90 mg/dL (74-106); Potassium 3.8 mmol/L (3.5-5.1); Sodium 137 mmol/L (136-145); Total Protein 5.5 g/dL (5.7-8.2)
[2023-03-29] MEDS: levoFLOXacin 500MG 100 ML IV SCH (09:41)
[2023-03-29] MEDS: AMIODARONE HCL 200 MG TAB PO SCH (10:00)
[2023-03-29] MEDS: amLODIPine BESYLATE 5 MG TAB PO SCH (10:00)
[2023-03-29] MEDS: METOPROLOL TARTRATE 25 MG TAB PO SCH ×2 (10:00→21:34)
[2023-03-29] MEDS: LINEZOLID 600MG/300ML 300 ML IV SCH ×2 (10:53→21:35)
[2023-03-29] MEDS: HYDROmorphone HCL 2 MG/ML VL/or syr IV PRN ×2 (15:26→21:39)
[2023-03-29 15:43] LABS: Hemoglobin 9.3 g/dL (13.5-17.5)
[2023-03-29 15:45] LABS: Hematocrit 27.8 % (41.0-53.0)
[2023-03-30] VITALS (51 sets, daily range): BP systolic 81–146; BP diastolic 36–105; PULSE 58–145; RESP 13–31; TEMP 97.9–98.9; O2SAT 85–100
[2023-03-30] MEDS: metroNIDAZOLE 500MG/100ML 100 ML IV SCH ×3 (03:36→20:24)
[2023-03-30 04:18] LABS: Basophils # (auto) 0.1 10 ^3/uL (0-0.2); Eosinophils # (auto) 0.6 10 ^3/uL (0-0.8); Neutrophils # (auto) 9.5 10 ^3/uL (1.6-8.6); Red Cell Distribution Width 14.7 % (11.8-14.3)
[2023-03-30 04:20] LABS: Basophils % (auto) 0.8 % (0.0-2.0); Eosinophils % (auto) 4.7 % (0.0-7.0); Hematocrit 22.1 % (41.0-53.0); Hemoglobin 7.5 g/dL (13.5-17.5); Lymphocytes # (auto) 1.8 10 ^3/uL (0.4-5.4); Lymphocytes % (auto) 13.6 % (10.0-50.0); Mean Corpuscular Hemoglobin 30.4 pg (28.0-32.0); Mean Corpuscular Hgb Conc. 33.9 g/dL (32.0-36.0); Mean Corpuscular Volume 89.4 fL (80.0-100.0); Monocytes # (auto) 0.9 10 ^3/uL (0-1.3); Monocytes % (auto) 6.9 % (0.0-12.0); Red Blood Cells 2.47 10^6/uL (4.5-5.90); White Blood Cell 12.9 10^3/uL (4.4-10.8)
[2023-03-30 04:37] LABS: Alanine Aminotransferase 11 U/L (7-40); Albumin 2.7 g/dL (3.2-4.8); Alkaline Phosphatase 136 U/L (46-116); Anion Gap 4 (5-15); Aspartate Aminotransferase 24 U/L (13-40); BUN/Creatinine Ratio 5.9 (10.0-20.0); Blood Urea Nitrogen 5 mg/dL (9-23); Calcium 7.9 mg/dL (8.7-10.4); Carbon Dioxide 25 mmol/L (20-30); Chloride 106 mmol/L (98-107); Glucose 134 mg/dL (74-106); Potassium 3.7 mmol/L (3.5-5.1); Sodium 135 mmol/L (136-145)
[2023-03-30 04:38] LABS: Bilirubin, Total 0.7 mg/dL (0.2-1.0); Total Protein 4.9 g/dL (5.7-8.2)
[2023-03-30] MEDS: HYDROmorphone HCL 2 MG/ML VL/or syr IV PRN ×2 (06:18→09:32)
[2023-03-30] MEDS ORDERED: LIDOCAINE 2% JELLY 11ml (GLYDO) ONE (09:21)
[2023-03-30] MEDS ORDERED: LIDOCAINE 2% JELLY 11ml (GLYDO) UR ONE (09:30)
[2023-03-30] MEDS: amLODIPine BESYLATE 5 MG TAB PO SCH (10:00)
[2023-03-30] MEDS: METOPROLOL TARTRATE 25 MG TAB PO SCH ×3 (10:00→21:41)
[2023-03-30] MEDS: AMIODARONE HCL 200 MG TAB PO SCH ×2 (10:00→10:13)
[2023-03-30] MEDS: levoFLOXacin 500MG 100 ML IV SCH (10:05)
[2023-03-30] MEDS: LINEZOLID 600MG/300ML 300 ML IV SCH ×2 (11:16→22:00)
[2023-03-30] MEDS: SODIUM CHLORIDE 0.9% 1,000 ML IV SCH (11:24)
[2023-03-30] MEDS ORDERED: AMIODARONE BOLUS KIT 100 ML IV ONE (12:15)
[2023-03-30] MEDS ORDERED: AMIODARONE 450mg/250ml AE 250 ML IV SCH (12:30)
[2023-03-30] MEDS: AMIODARONE 450mg/250ml AE 250 ML IV SCH (19:32)
[2023-03-31] VITALS (44 sets, daily range): BP systolic 84–164; BP diastolic 20–103; PULSE 62–76; RESP 11–34; TEMP 97.6–98.8; O2SAT 90–100
[2023-03-31] MEDS: metroNIDAZOLE 500MG/100ML 100 ML IV SCH ×3 (04:19→20:00)
[2023-03-31 07:45] LABS: Eosinophils # (auto) 0.3 10 ^3/uL (0-0.8); Lymphocytes # (auto) 1.2 10 ^3/uL (0.4-5.4); Lymphocytes % (auto) 10.9 % (10.0-50.0); Monocytes # (auto) 0.5 10 ^3/uL (0-1.3); White Blood Cell 10.8 10^3/uL (4.4-10.8)
[2023-03-31 07:47] LABS: Basophils # (auto) 0 10 ^3/uL (0-0.2); Basophils % (auto) 0.5 % (0.0-2.0); Eosinophils % (auto) 2.9 % (0.0-7.0); Hematocrit 24.4 % (41.0-53.0); Hemoglobin 8.3 g/dL (13.5-17.5); Mean Corpuscular Hemoglobin 30.7 pg (28.0-32.0); Mean Corpuscular Hgb Conc. 34.2 g/dL (32.0-36.0); Mean Corpuscular Volume 89.9 fL (80.0-100.0); Monocytes % (auto) 4.2 % (0.0-12.0); Neutrophils # (auto) 8.8 10 ^3/uL (1.6-8.6); Neutrophils % (auto) 81.5 % (37.0-80.0); Red Blood Cells 2.72 10^6/uL (4.5-5.90); Red Cell Distribution Width 15.1 % (11.8-14.3)
[2023-03-31 07:50] LABS: INR 1.24 (0.9-1.15); Partial Thromboplastin Time 20.9 SEC (24.5-34.5); Prothrombin Time 12.8 sec (9.3-11.8)
[2023-03-31 08:01] LABS: Alanine Aminotransferase 10 U/L (7-40); Albumin 2.9 g/dL (3.2-4.8); Alkaline Phosphatase 133 U/L (46-116); Anion Gap 7 (5-15); Aspartate Aminotransferase 27 U/L (13-40); Bilirubin, Total 0.9 mg/dL (0.2-1.0); Carbon Dioxide 23 mmol/L (20-30); Chloride 105 mmol/L (98-107); Glucose 102 mg/dL (74-106); Potassium 3.8 mmol/L (3.5-5.1); Sodium 135 mmol/L (136-145); Total Protein 5.4 g/dL (5.7-8.2)
[2023-03-31 08:04] LABS: BUN/Creatinine Ratio 6.5 (10.0-20.0); Blood Urea Nitrogen < 5 mg/dL (9-23)
[2023-03-31] MEDS: AMIODARONE 450mg/250ml AE 250 ML IV SCH (09:30)
[2023-03-31] MEDS: LINEZOLID 600MG/300ML 300 ML IV SCH ×2 (09:35→22:00)
[2023-03-31] MEDS: METOPROLOL TARTRATE 25 MG TAB PO SCH ×2 (10:00→22:28)
[2023-03-31] MEDS: amLODIPine BESYLATE 5 MG TAB PO SCH (10:00)
[2023-03-31] MEDS: AMIODARONE HCL 200 MG TAB PO SCH (10:47)
[2023-03-31] MEDS: MAGNESIUM SULFATE 1GM/100ML 100 ML IV SCH ×2 (10:56→17:46)
[2023-03-31] MEDS ORDERED: CIPROFLOXACIN 400MG/200ML 200 ML IV ONE (14:00)
[2023-03-31] MEDS ORDERED: MIDAZOLAM HCL 2MG/2ML 2ml VIAL (1mg/ml) ONE (14:14)
[2023-03-31] MEDS ORDERED: fentaNYL CITRATE 100 MCG/2 ML VL ONE (14:14)
[2023-03-31] MEDS ORDERED: ONDANSETRON HCL 4 MG/2 ML VIAL ONE (15:39)
[2023-03-31] MEDS ORDERED: GLYCOPYRROLATE 0.2 MG/ML 1ML VIAL ONE (15:39)
[2023-03-31] MEDS ORDERED: PROPOFOL 10 MG/ML 20 ML IV ONE (15:39)
[2023-03-31] MEDS ORDERED: NEOSTIGMINE 1 MG/ML INJ (10mg/10ML VIAL) ONE (15:39)
[2023-03-31] MEDS ORDERED: HYDROmorphone HCL 2 MG/ML VL/or syr IV PRN (16:15)
[2023-03-31] MEDS ORDERED: ONDANSETRON HCL 4 MG/2 ML VIAL IV PRN (16:15)
[2023-03-31] MEDS ORDERED: SUCCINYLCHOLINE CHLORIDE 20 MG/ML 10ML VIAL IV ONE (16:51)
[2023-04-01] VITALS (8 sets, daily range): BP systolic 100–119; BP diastolic 52–63; PULSE 54–70; RESP 18–22; TEMP 97.9–98.6; O2SAT 91–98
[2023-04-01] MEDS: AMIODARONE 450mg/250ml AE 250 ML IV SCH ×2 (00:30→15:30)
[2023-04-01] MEDS: metroNIDAZOLE 500MG/100ML 100 ML IV SCH (04:21)
[2023-04-01 05:41] LABS: Eosinophils # (auto) 0.4 10 ^3/uL (0-0.8); Hematocrit 29.7 % (41.0-53.0); Monocytes # (auto) 1.1 10 ^3/uL (0-1.3); Red Cell Distribution Width 15.8 % (11.8-14.3); White Blood Cell 12.1 10^3/uL (4.4-10.8)
[2023-04-01 05:45] LABS: Basophils # (auto) 0.2 10 ^3/uL (0-0.2); Basophils % (auto) 1.3 % (0.0-2.0); Eosinophils % (auto) 3.3 % (0.0-7.0); Hemoglobin 10.1 g/dL (13.5-17.5); Lymphocytes % (auto) 16.1 % (10.0-50.0); Mean Corpuscular Hemoglobin 29.7 pg (28.0-32.0); Mean Corpuscular Hgb Conc. 33.9 g/dL (32.0-36.0); Mean Corpuscular Volume 87.6 fL (80.0-100.0); Neutrophils # (auto) 8.5 10 ^3/uL (1.6-8.6); Neutrophils % (auto) 70.3 % (37.0-80.0); Red Blood Cells 3.39 10^6/uL (4.5-5.90)
[2023-04-01 06:03] LABS: Alanine Aminotransferase 11 U/L (7-40); Alkaline Phosphatase 135 U/L (46-116); Anion Gap 4 (5-15); Aspartate Aminotransferase 28 U/L (13-40); BUN/Creatinine Ratio 6.5 (10.0-20.0); Bilirubin, Total 0.9 mg/dL (0.2-1.0); Blood Urea Nitrogen 6 mg/dL (9-23); Calcium 8.1 mg/dL (8.7-10.4); Carbon Dioxide 26 mmol/L (20-30); Chloride 103 mmol/L (98-107); Glucose 103 mg/dL (74-106); Magnesium 1.8 mg/dL (1.6-2.6); Potassium 3.8 mmol/L (3.5-5.1); Sodium 133 mmol/L (136-145)
[2023-04-01 06:04] LABS: Total Protein 5.5 g/dL (5.7-8.2)
[2023-04-01] MEDS: METOPROLOL TARTRATE 25 MG TAB PO SCH ×2 (10:41→22:00)
[2023-04-01] MEDS: amLODIPine BESYLATE 5 MG TAB PO SCH (10:41)
[2023-04-01] MEDS: LINEZOLID 600MG/300ML 300 ML IV SCH ×2 (10:41→22:10)
[2023-04-01] MEDS: AMIODARONE HCL 200 MG TAB PO SCH (10:41)
[2023-04-01] MEDS ORDERED: FLUCONAZOLE 200MG/100ML 100 ML IV ONE (11:00)
[2023-04-02] VITALS (7 sets, daily range): BP systolic 104–119; BP diastolic 50–86; PULSE 55–75; RESP 18–22; TEMP 97.4–99.1; O2SAT 8–95
[2023-04-02] MEDS: AMIODARONE 450mg/250ml AE 250 ML IV SCH (05:49)
[2023-04-02 06:52] LABS: Basophils # (auto) 0.1 10 ^3/uL (0-0.2); Basophils % (auto) 1.3 % (0.0-2.0); Eosinophils # (auto) 0.7 10 ^3/uL (0-0.8); Eosinophils % (auto) 5.7 % (0.0-7.0); Hematocrit 27.7 % (41.0-53.0); Hemoglobin 9.2 g/dL (13.5-17.5); Lymphocytes # (auto) 2.2 10 ^3/uL (0.4-5.4); Lymphocytes % (auto) 18.9 % (10.0-50.0); Mean Corpuscular Hemoglobin 29.7 pg (28.0-32.0); Mean Corpuscular Hgb Conc. 33.4 g/dL (32.0-36.0); Mean Corpuscular Volume 88.7 fL (80.0-100.0); Monocytes # (auto) 0.9 10 ^3/uL (0-1.3); Monocytes % (auto) 7.9 % (0.0-12.0); Neutrophils # (auto) 7.7 10 ^3/uL (1.6-8.6); Neutrophils % (auto) 66.2 % (37.0-80.0); Red Blood Cells 3.12 10^6/uL (4.5-5.90); Red Cell Distribution Width 15.7 % (11.8-14.3); White Blood Cell 11.6 10^3/uL (4.4-10.8)
[2023-04-02 06:59] LABS: Anion Gap 7 (5-15); Carbon Dioxide 25 mmol/L (20-30); Chloride 106 mmol/L (98-107); Potassium 3.7 mmol/L (3.5-5.1); Sodium 138 mmol/L (136-145)
[2023-04-02 07:00] LABS: Calcium 8.1 mg/dL (8.5-10.1)
[2023-04-02 07:05] LABS: Glucose 132 mg/dL (74-106)
[2023-04-02 07:06] LABS: BUN/Creatinine Ratio 9.9 (10.0-20.0); Blood Urea Nitrogen 8 mg/dL (9-23)
[2023-04-02] MEDS ORDERED: FLUC200T50 PO ×2 (09:42)
[2023-04-02] MEDS: FLUCONAZOLE 200MG/100ML 100 ML IV SCH (10:53)
[2023-04-02] MEDS: METOPROLOL TARTRATE 25 MG TAB PO SCH ×2 (10:54→22:03)
[2023-04-02] MEDS: APIXABAN 2.5 MG TAB PO SCH ×2 (10:54→22:03)
[2023-04-02] MEDS: AMIODARONE HCL 200 MG TAB PO SCH (10:54)
[2023-04-02] MEDS: amLODIPine BESYLATE 5 MG TAB PO SCH (10:54)
[2023-04-03] VITALS (7 sets, daily range): BP systolic 117–152; BP diastolic 61–80; PULSE 56–65; RESP 18–20; TEMP 97.6–98.6; O2SAT 93–99
[2023-04-03 06:57] LABS: Chloride 106 mmol/L (98-107); Sodium 138 mmol/L (136-145)
[2023-04-03 06:58] LABS: Anion Gap 7 (5-15); Carbon Dioxide 25 mmol/L (20-30)
[2023-04-03 06:59] LABS: Calcium 8.6 mg/dL (8.7-10.4)
[2023-04-03 07:03] LABS: BUN/Creatinine Ratio 10.6 (10.0-20.0); Blood Urea Nitrogen 9 mg/dL (9-23); Glucose 97 mg/dL (74-106)
[2023-04-03 07:07] LABS: Basophils # (auto) 0.1 10 ^3/uL (0-0.2); Eosinophils # (auto) 0.6 10 ^3/uL (0-0.8); Lymphocytes # (auto) 2.4 10 ^3/uL (0.4-5.4); Mean Corpuscular Hemoglobin 29.3 pg (28.0-32.0); Mean Corpuscular Volume 88.9 fL (80.0-100.0); Monocytes # (auto) 0.7 10 ^3/uL (0-1.3); Neutrophils # (auto) 7.6 10 ^3/uL (1.6-8.6); Red Cell Distribution Width 15.9 % (11.8-14.3)
[2023-04-03 07:09] LABS: Basophils % (auto) 0.6 % (0.0-2.0); Eosinophils % (auto) 5.7 % (0.0-7.0); Hematocrit 29.2 % (41.0-53.0); Hemoglobin 9.6 g/dL (13.5-17.5); Lymphocytes % (auto) 21.1 % (10.0-50.0); Mean Corpuscular Hgb Conc. 32.9 g/dL (32.0-36.0); Monocytes % (auto) 6.4 % (0.0-12.0); Neutrophils % (auto) 66.2 % (37.0-80.0); Red Blood Cells 3.29 10^6/uL (4.5-5.90); White Blood Cell 11.4 10^3/uL (4.4-10.8)
[2023-04-03] MEDS: FLUCONAZOLE 200MG/100ML 100 ML IV SCH (09:15)
[2023-04-03] MEDS: METOPROLOL TARTRATE 25 MG TAB PO SCH ×2 (09:15→22:10)
[2023-04-03] MEDS: APIXABAN 2.5 MG TAB PO SCH ×2 (09:15→22:10)
[2023-04-03] MEDS: AMIODARONE HCL 200 MG TAB PO SCH (09:16)
[2023-04-03] MEDS: amLODIPine BESYLATE 5 MG TAB PO SCH (09:16)
[2023-04-04] VITALS (7 sets, daily range): BP systolic 100–139; BP diastolic 60–86; PULSE 56–65; RESP 17–22; TEMP 97.3–98.3; O2SAT 96–98
[2023-04-04 07:05] LABS: Basophils # (auto) 0.1 10 ^3/uL (0-0.2); Basophils % (auto) 1.1 % (0.0-2.0); Eosinophils # (auto) 0.6 10 ^3/uL (0-0.8); Eosinophils % (auto) 4.5 % (0.0-7.0); Hematocrit 31.2 % (41.0-53.0); Hemoglobin 10.3 g/dL (13.5-17.5); Lymphocytes # (auto) 2.4 10 ^3/uL (0.4-5.4); Lymphocytes % (auto) 18.4 % (10.0-50.0); Mean Corpuscular Hemoglobin 29.6 pg (28.0-32.0); Monocytes # (auto) 0.9 10 ^3/uL (0-1.3); Monocytes % (auto) 6.9 % (0.0-12.0); Neutrophils # (auto) 9.2 10 ^3/uL (1.6-8.6); Neutrophils % (auto) 69.1 % (37.0-80.0); Red Blood Cells 3.47 10^6/uL (4.5-5.90); Red Cell Distribution Width 15.7 % (11.8-14.3); White Blood Cell 13.3 10^3/uL (4.4-10.8)
[2023-04-04] MEDS: AMIODARONE HCL 200 MG TAB PO SCH (08:21)
[2023-04-04] MEDS: METOPROLOL TARTRATE 25 MG TAB PO SCH ×2 (08:21→21:57)
[2023-04-04] MEDS: amLODIPine BESYLATE 5 MG TAB PO SCH (08:22)
[2023-04-04] MEDS: APIXABAN 2.5 MG TAB PO SCH ×2 (08:22→21:56)
[2023-04-04] MEDS: FLUCONAZOLE 200MG/100ML 100 ML IV SCH (08:22)
[2023-04-04 08:32] LABS: Anion Gap 4 (5-15); Calcium 8.8 mg/dL (8.5-10.1); Carbon Dioxide 27 mmol/L (20-30); Chloride 107 mmol/L (98-107); Potassium 4.8 mmol/L (3.5-5.1); Sodium 138 mmol/L (136-145)
[2023-04-04 08:37] LABS: BUN/Creatinine Ratio 11.9 (10.0-20.0); Blood Urea Nitrogen 13 mg/dL (9-23); Glucose 86 mg/dL (74-106)
[2023-04-05] VITALS (7 sets, daily range): BP systolic 124–141; BP diastolic 60–81; PULSE 54–64; RESP 17–22; TEMP 97.3–97.9; O2SAT 94–99
[2023-04-05] MEDS: APIXABAN 2.5 MG TAB PO SCH ×2 (08:25→21:53)
[2023-04-05] MEDS: AMIODARONE HCL 200 MG TAB PO SCH (08:25)
[2023-04-05] MEDS: FLUCONAZOLE 200MG/100ML 100 ML IV SCH (08:25)
[2023-04-05] MEDS: METOPROLOL TARTRATE 25 MG TAB PO SCH ×3 (08:26→21:53)
[2023-04-05] MEDS: amLODIPine BESYLATE 5 MG TAB PO SCH (08:26)
[2023-04-05 12:56] LABS: Anion Gap 7 (5-15); Carbon Dioxide 22 mmol/L (20-30); Chloride 106 mmol/L (98-107); Potassium 4.9 mmol/L (3.5-5.1); Sodium 135 mmol/L (136-145)
[2023-04-05 12:57] LABS: Calcium 8.9 mg/dL (8.5-10.1)
[2023-04-05 13:02] LABS: BUN/Creatinine Ratio 14.1 (10.0-20.0); Blood Urea Nitrogen 13 mg/dL (9-23); Glucose 105 mg/dL (74-106)
[2023-04-05 13:12] LABS: Basophils # (auto) 0.2 10 ^3/uL (0-0.2); Eosinophils # (auto) 0.7 10 ^3/uL (0-0.8); Hemoglobin 10.6 g/dL (13.5-17.5)
[2023-04-05 13:13] LABS: Basophils % (auto) 1.3 % (0.0-2.0); Eosinophils % (auto) 3.8 % (0.0-7.0); Hematocrit 32.3 % (41.0-53.0); Lymphocytes % (auto) 17.5 % (10.0-50.0); Mean Corpuscular Hgb Conc. 32.9 g/dL (32.0-36.0); Mean Corpuscular Volume 91.3 fL (80.0-100.0); Monocytes # (auto) 1.3 10 ^3/uL (0-1.3); Monocytes % (auto) 7.2 % (0.0-12.0); Neutrophils # (auto) 12.2 10 ^3/uL (1.6-8.6); Neutrophils % (auto) 70.2 % (37.0-80.0); Red Blood Cells 3.54 10^6/uL (4.5-5.90); Red Cell Distribution Width 15.8 % (11.8-14.3); White Blood Cell 17.4 10^3/uL (4.4-10.8)
[2023-04-06 05:00] VITALS: BP 128/68; PULSE 111; RESP 20; TEMP 98.8; O2SAT 97
[2023-04-06 07:36] VITALS: PULSE 133
[2023-04-06 08:00] VITALS: PULSE 128; RESP 17
[2023-04-06 08:24] LABS: Basophils # (auto) 0.3 10 ^3/uL (0-0.2); Basophils % (auto) 1.3 % (0.0-2.0); Eosinophils # (auto) 0.8 10 ^3/uL (0-0.8); Eosinophils % (auto) 3.7 % (0.0-7.0); Hematocrit 35.6 % (41.0-53.0); Hemoglobin 11.7 g/dL (13.5-17.5); Lymphocytes # (auto) 3.9 10 ^3/uL (0.4-5.4); Lymphocytes % (auto) 18.8 % (10.0-50.0); Mean Corpuscular Hemoglobin 29.8 pg (28.0-32.0); Mean Corpuscular Hgb Conc. 32.8 g/dL (32.0-36.0); Mean Corpuscular Volume 90.7 fL (80.0-100.0); Monocytes # (auto) 1.2 10 ^3/uL (0-1.3); Monocytes % (auto) 5.7 % (0.0-12.0); Neutrophils # (auto) 14.5 10 ^3/uL (1.6-8.6); Neutrophils % (auto) 70.5 % (37.0-80.0); Red Blood Cells 3.92 10^6/uL (4.5-5.90); Red Cell Distribution Width 15.8 % (11.8-14.3); White Blood Cell 20.5 10^3/uL (4.4-10.8)
[2023-04-06] MEDS: METOPROLOL TARTRATE 25 MG TAB PO SCH (08:44)
[2023-04-06 08:48] LABS: Alanine Aminotransferase 20 U/L (7-40); Alkaline Phosphatase 133 U/L (46-116); Anion Gap 7 (5-15); Aspartate Aminotransferase 44 U/L (13-40); BUN/Creatinine Ratio 16.4 (10.0-20.0); Bilirubin, Total 0.6 mg/dL (0.2-1.0); Blood Urea Nitrogen 18 mg/dL (9-23); Calcium 9.3 mg/dL (8.5-10.1); Carbon Dioxide 23 mmol/L (20-30); Chloride 106 mmol/L (98-107); Glucose 111 mg/dL (74-106); Potassium 4.6 mmol/L (3.5-5.1); Sodium 136 mmol/L (136-145); Total Protein 7.2 g/dL (5.7-8.2)
[2023-04-06] MEDS: AMIODARONE HCL 200 MG TAB PO SCH (08:49)
[2023-04-06] MEDS: FLUCONAZOLE 200MG/100ML 100 ML IV SCH (09:35)
[2023-04-06] MEDS: APIXABAN 2.5 MG TAB PO SCH (09:39)
[2023-04-06] MEDS: amLODIPine BESYLATE 5 MG TAB PO SCH (09:39)
[2023-04-06 09:41] VITALS: BP 104/82; PULSE 78; RESP 17; TEMP 98.9; O2SAT 99
[2023-04-06 14:51] VITALS: BP 124/78; PULSE 73; RESP 18; TEMP 97.8; O2SAT 96
[2023-04-06 14:55] VITALS: BP 104/69; PULSE 108; RESP 17; TEMP 98.9; O2SAT 99
== END 2023-04-06 15:30 | disposition home or self-care (01) | DRG 710 ==
LOC: ER 17:54 → EDBD 17:54 → OVERFLOW 03-24 06:28 → EAST 03-24 19:19 → ICU WEST 03-27 19:00 → TELE-EAST 03-31 23:17
PROVIDERS: ADMIT Internal Medicine Pulmonary Disease; ATTEND Student in an Organized Health Care Education/Training Program
PROC: 05HB33Z Insertion of Infusion Device into Right Basilic Vein, Percutaneous Approach (ICD-10-PCS; 2023-03-27)
PROC: B54MZZA Ultrasonography of Right Upper Extremity Veins, Guidance (ICD-10-PCS; 2023-03-27)
PROC: 0FT40ZZ Resection of Gallbladder, Open Approach (ICD-10-PCS; 2023-03-27)
PROC: 0FJ44ZZ Inspection of Gallbladder, Percutaneous Endoscopic Approach (ICD-10-PCS; 2023-03-27)
PROC: 0DNU4ZZ Release Omentum, Percutaneous Endoscopic Approach (ICD-10-PCS; principal; 2023-03-27 14:15)
PROC: 30233N1 Transfusion of Nonautologous Red Blood Cells into Peripheral Vein, Percutaneous Approach (ICD-10-PCS; 2023-03-30)
PROC: 0TCB8ZZ Extirpation of Matter from Bladder, Via Natural or Artificial Opening Endoscopic (ICD-10-PCS; 2023-03-31)
PROC: 0T5B8ZZ Destruction of Bladder, Via Natural or Artificial Opening Endoscopic (ICD-10-PCS; 2023-03-31)
DX: A41.9 Sepsis, unspecified organism (principal); K65.1 Peritoneal abscess; C79.9 Secondary malignant neoplasm of unspecified site; I13.2 Hypertensive heart and chronic kidney disease with heart failure and with stage 5 chronic kidney disease, or end stage renal disease; K81.0 Acute cholecystitis; D62 Acute posthemorrhagic anemia; D63.8 Anemia in other chronic diseases classified elsewhere; K82.A1 Gangrene of gallbladder in cholecystitis; N36.5 Urethral false passage; C61 Malignant neoplasm of prostate; I48.0 Paroxysmal atrial fibrillation; E11.22 Type 2 diabetes mellitus with diabetic chronic kidney disease; I50.32 Chronic diastolic (congestive) heart failure; R31.0 Gross hematuria; F19.10 Other psychoactive substance abuse, uncomplicated; N40.0 Benign prostatic hyperplasia without lower urinary tract symptoms; K82.8 Other specified diseases of gallbladder; B95.2 Enterococcus as the cause of diseases classified elsewhere; E66.01 Morbid (severe) obesity due to excess calories; F10.20 Alcohol dependence, uncomplicated; K66.0 Peritoneal adhesions (postprocedural) (postinfection); N11.9 Chronic tubulo-interstitial nephritis, unspecified; N13.6 Pyonephrosis; Z16.21 Resistance to vancomycin; Z59.00 Homelessness unspecified; Z71.3 Dietary counseling and surveillance; Z68.37 Body mass index [BMI] 37.0-37.9, adult; Z79.01 Long term (current) use of anticoagulants; Z83.3 Family history of diabetes mellitus; Z90.79 Acquired absence of other genital organ(s); Z91.199 Patient's noncompliance with other medical treatment and regimen due to unspecified reason; Z99.2 Dependence on renal dialysis; Z53.31 Laparoscopic surgical procedure converted to open procedure; E78.5 Hyperlipidemia, unspecified; F17.210 Nicotine dependence, cigarettes, uncomplicated
CPT/HCPCS: 36415; 71045; 74176; 74181; 76775; 78226; 80048; 80053; 80320; 81001; 83605; 83735; 85014; 85018; 85025; 85610; 85730; 86850; 86900; 86901; 86920; 87040; 87081; 87086; 93005; 93971; 96361; 96365; 96367; 97110; 97116; 97163; 97530; A4565; G0378; J0131; J0330; J1450; J1956; J2001; J2250; J2405; J2543; J2704; J3490

== ENCOUNTER 2023-05-16 17:22 | Emergency (ER) | payer MEDICAID ==
[~2023-05-16] VITALS: Ht 180.3 cm; Wt 104.6 kg
[~2023-05-16 17:22] MED LIST changes: -CEFA500C PO; -CIPR-173 PO; -FLUC200T PO; -NAP500T PO; -NAPR-746 PO
[2023-05-16 19:57] LABS: Basophils # (auto) 0.1 10 ^3/uL (0-0.2); Basophils % (auto) 0.8 % (0.0-2.0); Eosinophils # (auto) 0.2 10 ^3/uL (0-0.8); Eosinophils % (auto) 2.6 % (0.0-7.0); Hemoglobin 12.3 g/dL (13.5-17.5); Lymphocytes # (auto) 2.6 10 ^3/uL (0.4-5.4); Lymphocytes % (auto) 29.6 % (10.0-50.0); Mean Corpuscular Hgb Conc. 31.5 g/dL (32.0-36.0); Mean Corpuscular Volume 88.9 fL (80.0-100.0); Monocytes # (auto) 0.6 10 ^3/uL (0-1.3); Neutrophils # (auto) 5.3 10 ^3/uL (1.6-8.6); Nucleated Red Blood Cells % 0.1 %; Red Blood Cells 4.38 10^6/uL (4.5-5.90); Red Cell Distribution Width 16.1 % (11.8-14.3); White Blood Cell 8.8 10^3/uL (4.4-10.8)
[2023-05-16 20:06] LABS: Alanine Aminotransferase 43 U/L (7-40); Albumin 4.6 g/dL (3.2-4.8); Alkaline Phosphatase 112 U/L (46-116); Anion Gap 7 (5-15); Aspartate Aminotransferase 55 U/L (13-40); BUN/Creatinine Ratio 9.2 (10.0-20.0); Bilirubin, Total 1.2 mg/dL (0.2-1.0); Blood Urea Nitrogen 12 mg/dL (9-23); Calcium 9.5 mg/dL (8.7-10.4); Carbon Dioxide 24 mmol/L (20-30); Chloride 109 mmol/L (98-107); Glucose 87 mg/dL (74-106); Potassium 4.1 mmol/L (3.5-5.1); Sodium 140 mmol/L (136-145); Total Protein 7.1 g/dL (5.7-8.2)
[2023-05-16] MEDS ORDERED: CEPH500C PO (20:59)
[2023-05-16 21:45] VITALS: BP 160/95; PULSE 73; RESP 18; TEMP 98.2; O2SAT 96
== END 2023-05-16 21:48 | disposition home or self-care (01) ==
LOC: ER 17:22
DX: L08.89 Other specified local infections of the skin and subcutaneous tissue (principal); I13.0 Hypertensive heart and chronic kidney disease with heart failure and stage 1 through stage 4 chronic kidney disease, or unspecified chronic kidney disease; N18.9 Chronic kidney disease, unspecified; I50.9 Heart failure, unspecified; I48.91 Unspecified atrial fibrillation; F32.9 Major depressive disorder, single episode, unspecified; E78.5 Hyperlipidemia, unspecified; I25.2 Old myocardial infarction; F17.210 Nicotine dependence, cigarettes, uncomplicated; F15.90 Other stimulant use, unspecified, uncomplicated; Z48.00 Encounter for change or removal of nonsurgical wound dressing; Z98.890 Other specified postprocedural states; Z79.899 Other long term (current) drug therapy
CPT/HCPCS: 36415; 80053; 83605; 85025; 87040

== ENCOUNTER 2023-08-20 10:02 | Inpatient (IN) | payer MEDICAID ==
[~2023-08-20] VITALS: Ht 185.4 cm; Wt 108.0 kg
[~2023-08-20 10:02] MED LIST changes: +CEPH500C PO
[2023-08-20 11:25] LABS: Alanine Aminotransferase 22 U/L (7-40); Albumin 4.8 g/dL (3.2-4.8); Alkaline Phosphatase 131 U/L (46-116); Anion Gap 10 (5-15); Aspartate Aminotransferase 25 U/L (13-40); BUN/Creatinine Ratio 21.1 (10.0-20.0); Bilirubin, Total 3.7 mg/dL (0.2-1.0); Blood Urea Nitrogen 26 mg/dL (9-23); Calcium 10.1 mg/dL (8.5-10.1); Carbon Dioxide 21 mmol/L (20-30); Chloride 109 mmol/L (98-107); Glucose 93 mg/dL (74-106); Potassium 4.3 mmol/L (3.5-5.1); Sodium 140 mmol/L (136-145); Total Protein 7.1 g/dL (5.7-8.2)
[2023-08-20 11:28] LABS: Basophils # (auto) 0.1 10 ^3/uL (0-0.2); Basophils % (auto) 0.8 % (0.0-2.0); Eosinophils # (auto) 0.1 10 ^3/uL (0-0.8); Eosinophils % (auto) 0.8 % (0.0-7.0); Hematocrit 42.1 % (41.0-53.0); Hemoglobin 13.4 g/dL (13.5-17.5); Lymphocytes # (auto) 1.9 10 ^3/uL (0.4-5.4); Lymphocytes % (auto) 17.1 % (10.0-50.0); Mean Corpuscular Hemoglobin 27.5 pg (28.0-32.0); Mean Corpuscular Hgb Conc. 31.7 g/dL (32.0-36.0); Mean Corpuscular Volume 86.6 fL (80.0-100.0); Monocytes # (auto) 0.6 10 ^3/uL (0-1.3); Monocytes % (auto) 5.5 % (0.0-12.0); Neutrophils # (auto) 8.2 10 ^3/uL (1.6-8.6); Neutrophils % (auto) 75.8 % (37.0-80.0); Nucleated Red Blood Cells % 0.1 %; Red Blood Cells 4.86 10^6/uL (4.5-5.90); Red Cell Distribution Width 19.2 % (11.8-14.3); White Blood Cell 10.8 10^3/uL (4.4-10.8)
[2023-08-20] MEDS: cefTRIAXone 1GM/50ML D5W 50 ML IV ONE (16:30)
[2023-08-20] MEDS: FUROSEMIDE 100 MG/10ML VIAL IV ONE (16:30)
[2023-08-20] MEDS: FUROSEMIDE 40 MG/4 ML VIAL IV SCH (20:46)
[2023-08-20] MEDS: ENOXAPARIN SOD 40 MG/0.4 ML SYRINGE SC SCH (20:53)
[2023-08-20] MEDS: HYDROcodone-ACET 5/325MG TAB PO ONE (20:53)
[2023-08-20 21:42] LABS: INR 1.17 (0.9-1.15); Prothrombin Time 12.2 sec (9.3-11.8)
[2023-08-20] MEDS ORDERED: ATORVASTATIN 20 MG TAB PO SCH (22:00)
[2023-08-20] MEDS: GABAPENTIN 100 MG CAP PO SCH (23:34)
[2023-08-20] MEDS: APIXABAN 5 MG TAB PO SCH (23:34)
[2023-08-20] MEDS: METOPROLOL TARTRATE 50 MG TAB PO SCH (23:35)
[2023-08-20] MEDS: ATORVASTATIN 20 MG TAB PO SCH (23:35)
[2023-08-21] VITALS (8 sets, daily range): BP systolic 109–152; BP diastolic 63–99; PULSE 80–110; RESP 16–20; TEMP 96.1–98.6; O2SAT 91–99
[2023-08-21 04:38] LABS: Basophils # (auto) 0.1 10 ^3/uL (0-0.2); Basophils % (auto) 0.9 % (0.0-2.0); Eosinophils # (auto) 0.3 10 ^3/uL (0-0.8); Eosinophils % (auto) 2.2 % (0.0-7.0); Hematocrit 43.9 % (41.0-53.0); Hemoglobin 13.9 g/dL (13.5-17.5); Lymphocytes # (auto) 2.7 10 ^3/uL (0.4-5.4); Lymphocytes % (auto) 24.2 % (10.0-50.0); Mean Corpuscular Hemoglobin 27.1 pg (28.0-32.0); Mean Corpuscular Hgb Conc. 31.6 g/dL (32.0-36.0); Mean Corpuscular Volume 85.8 fL (80.0-100.0); Monocytes # (auto) 0.8 10 ^3/uL (0-1.3); Monocytes % (auto) 6.8 % (0.0-12.0); Neutrophils # (auto) 7.5 10 ^3/uL (1.6-8.6); Neutrophils % (auto) 65.9 % (37.0-80.0); Nucleated Red Blood Cells % 0.5 %; Red Blood Cells 5.12 10^6/uL (4.5-5.90); Red Cell Distribution Width 18.9 % (11.8-14.3); White Blood Cell 11.4 10^3/uL (4.4-10.8)
[2023-08-21 04:55] LABS: Alanine Aminotransferase 25 U/L (7-40); Albumin 4.8 g/dL (3.2-4.8); Alkaline Phosphatase 137 U/L (46-116); Anion Gap 11 (5-15); Aspartate Aminotransferase 25 U/L (13-40); BUN/Creatinine Ratio 12.5 (10.0-20.0); Blood Urea Nitrogen 18 mg/dL (9-23); Calcium 10.3 mg/dL (8.5-10.1); Carbon Dioxide 25 mmol/L (20-30); Chloride 105 mmol/L (98-107); Glucose 99 mg/dL (74-106); Potassium 4.5 mmol/L (3.5-5.1); Sodium 141 mmol/L (136-145)
[2023-08-21 04:56] LABS: Bilirubin, Total 4.1 mg/dL (0.2-1.0); Total Protein 7.5 g/dL (5.7-8.2)
[2023-08-21] MEDS: AMIODARONE HCL 200 MG TAB PO SCH (09:49)
[2023-08-21] MEDS: THIAMINE HCL 100 MG TAB PO SCH (09:49)
[2023-08-21] MEDS: amLODIPine BESYLATE 5 MG TAB PO SCH (09:51)
[2023-08-21] MEDS ORDERED: TAMS0.4C36 PO (10:48)
[2023-08-21] MEDS ORDERED: METOPROLOL TARTRATE 1MG/1ML-5ML VIAL IV PRN (13:45)
[2023-08-22 05:00] VITALS: BP 146/99; PULSE 98; RESP 18; TEMP 97.9; O2SAT 97
[2023-08-22 09:27] VITALS: BP 141/87; PULSE 66; RESP 20; TEMP 97.7; O2SAT 98
[2023-08-22] MEDS: MULTIPLE VITAMIN TAB PO SCH (10:11)
[2023-08-22] MEDS: EMPAGLIFLOZIN 10 MG TAB PO SCH (10:11)
[2023-08-22 12:54] LABS: Amphetamine Screen, Urine Pos (NEGATIVE); Barbiturate Scree,Urine Neg (NEGATIVE); Benzodiazephine Screen, Urine Neg (NEGATIVE); Cocaine Screen, Urine Neg (NEGATIVE); Opiate Scree,Urine Neg (NEGATIVE)
[2023-08-22 12:55] LABS: Cannabinoid Screen, Urine Pos (NEGATIVE); Phencyclidine Screen, Urine Neg (NEGATIVE)
[2023-08-22 13:00] VITALS: BP 134/80; PULSE 68; RESP 18; TEMP 98; O2SAT 98
[2023-08-22 13:06] LABS: Urine Bacteria NONE SEEN /hpf (None Seen); Urine Blood Negative /uL (Negative); Urine Clarity Clear (Clear); Urine Color Yellow (Yellow); Urine Protein, UAD TRACE (Negative); Urine Specific Gravity 1.021 (1.001-1.035); Urine WBC 2 /hpf (0 - 3); Urine pH 6.5 (5.0-8.0)
[2023-08-22 14:34] LABS: Basophils # (auto) 0.1 10 ^3/uL (0-0.2); Basophils % (auto) 1.2 % (0.0-2.0); Eosinophils # (auto) 0.3 10 ^3/uL (0-0.8); Eosinophils % (auto) 2.7 % (0.0-7.0); Hematocrit 43.3 % (41.0-53.0); Hemoglobin 13.9 g/dL (13.5-17.5); Lymphocytes % (auto) 17.8 % (10.0-50.0); Mean Corpuscular Hemoglobin 27.4 pg (28.0-32.0); Mean Corpuscular Hgb Conc. 32.1 g/dL (32.0-36.0); Mean Corpuscular Volume 85.6 fL (80.0-100.0); Monocytes # (auto) 0.9 10 ^3/uL (0-1.3); Neutrophils # (auto) 7.8 10 ^3/uL (1.6-8.6); Neutrophils % (auto) 70.3 % (37.0-80.0); Nucleated Red Blood Cells % 0.2 %; Red Blood Cells 5.06 10^6/uL (4.5-5.90); Red Cell Distribution Width 18.6 % (11.8-14.3)
[2023-08-22 14:46] LABS: Alkaline Phosphatase 129 U/L (46-116)
[2023-08-22 14:47] LABS: Alanine Aminotransferase 29 U/L (7-40); Albumin 4.5 g/dL (3.2-4.8); Anion Gap 9 (5-15); Aspartate Aminotransferase 38 U/L (13-40); BUN/Creatinine Ratio 16.7 (10.0-20.0); Bilirubin, Total 2.8 mg/dL (0.2-1.0); Blood Urea Nitrogen 21 mg/dL (9-23); Calcium 10.1 mg/dL (8.5-10.1); Carbon Dioxide 26 mmol/L (20-30); Chloride 105 mmol/L (98-107); Glucose 103 mg/dL (74-106); Potassium 4.3 mmol/L (3.5-5.1); Sodium 140 mmol/L (136-145); Total Protein 7.3 g/dL (5.7-8.2)
[2023-08-22 16:12] VITALS: BP 134/88; PULSE 73; RESP 20; TEMP 98.5; O2SAT 96
[2023-08-22 20:00] VITALS: PULSE 61
[2023-08-22] MEDS: SACUBITRIL-VALSARTAN 24mg/26mg TAB PO SCH (21:36)
[2023-08-23 08:00] VITALS: BP 122/88; PULSE 60; PULSE 69; RESP 18; TEMP 98.7; O2SAT 93
[2023-08-23 08:56] VITALS: BP 122/88; PULSE 69; RESP 18; TEMP 98.7; O2SAT 96
[2023-08-23 13:00] VITALS: BP 124/80; PULSE 66; RESP 18; TEMP 98; O2SAT 95
[2023-08-23 16:46] VITALS: BP 146/94; PULSE 89; RESP 18; TEMP 98.4; O2SAT 95
[2023-08-23 17:00] VITALS: BP 146/94; PULSE 63; RESP 18; TEMP 98.4; O2SAT 95
== END 2023-08-23 17:20 | disposition home or self-care (01) | DRG 194 ==
LOC: ER 10:02 → TELE 16:14 → TELE-WESTW 08-21 12:11
PROVIDERS: ADMIT Nurse Practitioner Family; ATTEND Nurse Practitioner Acute Care
DX: I13.0 Hypertensive heart and chronic kidney disease with heart failure and stage 1 through stage 4 chronic kidney disease, or unspecified chronic kidney disease (principal); N17.9 Acute kidney failure, unspecified; Z79.01 Long term (current) use of anticoagulants; E66.9 Obesity, unspecified; E78.5 Hyperlipidemia, unspecified; F15.10 Other stimulant abuse, uncomplicated; I50.43 Acute on chronic combined systolic (congestive) and diastolic (congestive) heart failure; F17.210 Nicotine dependence, cigarettes, uncomplicated; N40.0 Benign prostatic hyperplasia without lower urinary tract symptoms; F32.A Depression, unspecified; Y90.9 Presence of alcohol in blood, level not specified; F10.20 Alcohol dependence, uncomplicated; I48.0 Paroxysmal atrial fibrillation; N18.9 Chronic kidney disease, unspecified; Z91.199 Patient's noncompliance with other medical treatment and regimen due to unspecified reason; Z90.49 Acquired absence of other specified parts of digestive tract; Z83.3 Family history of diabetes mellitus; Z91.128 Patient's intentional underdosing of medication regimen for other reason; Z68.31 Body mass index [BMI] 31.0-31.9, adult
CPT/HCPCS: 36415; 71045; 80053; 80307; 80320; 81001; 83880; 84484; 85025; 85610; 87081; 93005; 93306; G0378

== ENCOUNTER 2023-09-13 11:19 | Inpatient (IN) | payer MEDICAID ==
[~2023-09-13] VITALS: Ht 180.3 cm; Wt 102.4 kg
[~2023-09-13 11:19] MED LIST changes: -CEPH500C PO; +TAMS0.4C36 PO
[2023-09-13 13:03] LABS: Basophils # (auto) 0.1 10 ^3/uL (0-0.2); Basophils % (auto) 0.8 % (0.0-2.0); Eosinophils # (auto) 0.2 10 ^3/uL (0-0.8); Eosinophils % (auto) 2.1 % (0.0-7.0); Hemoglobin 12.7 g/dL (13.5-17.5); Lymphocytes # (auto) 1.8 10 ^3/uL (0.4-5.4); Mean Corpuscular Hemoglobin 27.3 pg (28.0-32.0); Mean Corpuscular Hgb Conc. 31.6 g/dL (32.0-36.0); Mean Corpuscular Volume 86.4 fL (80.0-100.0); Monocytes # (auto) 0.6 10 ^3/uL (0-1.3); Neutrophils % (auto) 74.1 % (37.0-80.0); Red Blood Cells 4.64 10^6/uL (4.5-5.90); Red Cell Distribution Width 18.5 % (11.8-14.3); White Blood Cell 10.8 10^3/uL (4.4-10.8)
[2023-09-13 13:25] LABS: Alanine Aminotransferase 25 U/L (7-40); Albumin 4.3 g/dL (3.2-4.8); Alkaline Phosphatase 149 U/L (46-116); Anion Gap 8 (5-15); Aspartate Aminotransferase 26 U/L (13-40); BUN/Creatinine Ratio 17.3 (10.0-20.0); Bilirubin, Direct 0.7 mg/dL (<0.3); Bilirubin, Total 4.7 mg/dL (0.2-1.0); Blood Urea Nitrogen 17 mg/dL (9-23); Calcium 9.4 mg/dL (8.5-10.1); Carbon Dioxide 20 mmol/L (20-30); Chloride 113 mmol/L (98-107); Glucose 124 mg/dL (74-106); Sodium 141 mmol/L (136-145); Total Protein 6.6 g/dL (5.7-8.2)
[2023-09-13 13:43] LABS: Lipase 40 U/L (12-53)
[2023-09-13 13:56] LABS: Triglycerides 74 mg/dL (< 150)
[2023-09-13 13:57] LABS: LDL Cholesterol 104 mg/dL (< 100)
[2023-09-13 13:58] LABS: Cholesterol 147 mg/dL (< 200); HDL Cholesterol 35 mg/dL (40-59)
[2023-09-13] MEDS ORDERED: MORPHINE SULFATE INJ 2 MG/ml SYRG IV PRN (14:00)
[2023-09-13] MEDS ORDERED: ACETAMINOPHEN 325 MG TAB PO PRN (14:00)
[2023-09-13] MEDS ORDERED: NITROGLYCERIN 0.4 MG SL TAB SL PRN (14:00)
[2023-09-13 14:11] VITALS: BP 167/113; PULSE 112; RESP 24; TEMP 97.6; O2SAT 97
[2023-09-13] MEDS: IOHEXOL 350 MG/ML 100ML IJ ONE ×3 (18:12→23:25)
[2023-09-13] MEDS: cefTRIAXone 1GM/50ML D5W 50 ML IV ONE (18:25)
[2023-09-13 18:31] VITALS: PULSE 108; RESP 18; O2SAT 95
[2023-09-13] MEDS: FUROSEMIDE 40 MG/4 ML VIAL IV ONE (18:36)
[2023-09-13] MEDS: AZITHROMYCIN 500MG/ 250ML 250 ML IV ONE (19:20)
[2023-09-13] MEDS: hydrALAZINE HCL 20 MG/ML VL IV PRN (19:55)
[2023-09-13 20:00] LABS: Urine Bacteria NONE SEEN /hpf (None Seen); Urine Blood Negative /uL (Negative); Urine Clarity Clear (Clear); Urine Color Colorless (Yellow); Urine Protein, UAD Negative (Negative); Urine Specific Gravity 1.005 (1.001-1.035); Urine Urobilinogen Normal (Negative); Urine WBC <1 /hpf (0 - 3)
[2023-09-13 20:10] LABS: Amphetamine Screen, Urine Pos (NEGATIVE)
[2023-09-13 20:11] LABS: Barbiturate Scree,Urine Neg (NEGATIVE); Benzodiazephine Screen, Urine Neg (NEGATIVE); Cocaine Screen, Urine Neg (NEGATIVE); Opiate Scree,Urine Neg (NEGATIVE); Phencyclidine Screen, Urine Neg (NEGATIVE)
[2023-09-13 20:30] LABS: Rapid Influenza A Negative (Negative); Rapid Influenza B Negative (Negative)
[2023-09-13 20:31] LABS: COVID19 ANTIGEN SOFIA FIA NEGATIVE (NEGATIVE)
[2023-09-13 21:00] VITALS: RESP 16; O2SAT 93
[2023-09-13 21:34] LABS: Cannabinoid Screen, Urine Neg (NEGATIVE)
[2023-09-14] VITALS (9 sets, daily range): BP systolic 130–142; BP diastolic 82–92; PULSE 74–97; RESP 17–22; TEMP 97.3–98; O2SAT 92–98
[2023-09-14 05:39] LABS: Basophils # (auto) 0.1 10 ^3/uL (0-0.2); Basophils % (auto) 0.8 % (0.0-2.0); Eosinophils # (auto) 0.3 10 ^3/uL (0-0.8); Eosinophils % (auto) 3.6 % (0.0-7.0); Hematocrit 39.9 % (41.0-53.0); Lymphocytes # (auto) 2.2 10 ^3/uL (0.4-5.4); Lymphocytes % (auto) 23.4 % (10.0-50.0); Mean Corpuscular Hemoglobin 28.1 pg (28.0-32.0); Mean Corpuscular Hgb Conc. 32.6 g/dL (32.0-36.0); Mean Corpuscular Volume 86.3 fL (80.0-100.0); Monocytes # (auto) 0.6 10 ^3/uL (0-1.3); Monocytes % (auto) 6.5 % (0.0-12.0); Neutrophils # (auto) 6.1 10 ^3/uL (1.6-8.6); Neutrophils % (auto) 65.7 % (37.0-80.0); Nucleated Red Blood Cells % 0.1 %; Red Blood Cells 4.63 10^6/uL (4.5-5.90); Red Cell Distribution Width 18.6 % (11.8-14.3); White Blood Cell 9.3 10^3/uL (4.4-10.8)
[2023-09-14 05:56] LABS: Alanine Aminotransferase 20 U/L (7-40); Albumin 4.3 g/dL (3.2-4.8); Alkaline Phosphatase 134 U/L (46-116); Anion Gap 10 (5-15); Aspartate Aminotransferase 34 U/L (13-40); BUN/Creatinine Ratio 12.6 (10.0-20.0); Bilirubin, Total 4.3 mg/dL (0.2-1.0); Blood Urea Nitrogen 16 mg/dL (9-23); Calcium 9.9 mg/dL (8.7-10.4); Carbon Dioxide 22 mmol/L (20-30); Chloride 108 mmol/L (98-107); Glucose 101 mg/dL (74-106); Potassium 4.2 mmol/L (3.5-5.1); Sodium 140 mmol/L (136-145); Total Protein 7.1 g/dL (5.7-8.2)
[2023-09-14] MEDS: FUROSEMIDE 20 MG/2 ML VIAL IV SCH ×2 (10:34→12:08)
[2023-09-14] MEDS: ENOXAPARIN SOD 40 MG/0.4 ML SYRINGE SC SCH (10:34)
[2023-09-14] MEDS: cefTRIAXone 1GM/50ML D5W 50 ML IV SCH (10:34)
[2023-09-14] MEDS: ALBUTEROL SULF 2.5 MG/0.5ML(0.5%) NEB SOLN NEB PRN (10:35)
[2023-09-14] MEDS: AZITHROMYCIN 500MG/ 250ML 250 ML IV SCH (10:35)
[2023-09-14] MEDS: ALBUTEROL SULF 2.5 MG/0.5ML(0.5%) NEB SOLN NEB ONE (10:35)
[2023-09-14] MEDS: IPRATROPIUM BROM 0.5 MG/2.5ML INH SOL NEB ONE (10:35)
[2023-09-14] MEDS: METOPROLOL TARTRATE 50 MG TAB PO SCH (12:09)
[2023-09-14] MEDS: amLODIPine BESYLATE 5 MG TAB PO SCH (12:10)
[2023-09-14] MEDS: IPRATROPIUM BROM 0.5 MG/2.5ML INH SOL NEB SCH (14:00)
[2023-09-14] MEDS: ALBUTEROL SULF 2.5 MG/0.5ML(0.5%) NEB SOLN NEB SCH (14:00)
[2023-09-14] MEDS: SPIRONOLACTONE 25 MG TAB PO SCH (20:43)
[2023-09-14] MEDS: ATORVASTATIN 20 MG TAB PO SCH (21:19)
[2023-09-14] MEDS: APIXABAN 5 MG TAB PO SCH (21:19)
[2023-09-15] VITALS (17 sets, daily range): BP systolic 132–166; BP diastolic 86–105; PULSE 60–95; RESP 14–20; TEMP 97.3–98; O2SAT 92–100
[2023-09-15] MEDS: FUROSEMIDE 40 MG/4 ML VIAL IV SCH (05:44)
[2023-09-15 06:56] LABS: Basophils # (auto) 0.1 10 ^3/uL (0-0.2); Basophils % (auto) 0.8 % (0.0-2.0); Eosinophils # (auto) 0.4 10 ^3/uL (0-0.8); Eosinophils % (auto) 3.2 % (0.0-7.0); Hematocrit 42.8 % (41.0-53.0); Hemoglobin 13.6 g/dL (13.5-17.5); Lymphocytes # (auto) 1.7 10 ^3/uL (0.4-5.4); Lymphocytes % (auto) 14.9 % (10.0-50.0); Mean Corpuscular Hgb Conc. 31.9 g/dL (32.0-36.0); Mean Corpuscular Volume 87.9 fL (80.0-100.0); Monocytes # (auto) 0.8 10 ^3/uL (0-1.3); Monocytes % (auto) 6.9 % (0.0-12.0); Neutrophils # (auto) 8.4 10 ^3/uL (1.6-8.6); Neutrophils % (auto) 74.2 % (37.0-80.0); Red Blood Cells 4.87 10^6/uL (4.5-5.90); Red Cell Distribution Width 18.3 % (11.8-14.3); White Blood Cell 11.4 10^3/uL (4.4-10.8)
[2023-09-15 07:22] LABS: Alanine Aminotransferase 18 U/L (7-40); Albumin 4.6 g/dL (3.2-4.8); Alkaline Phosphatase 149 U/L (46-116); Anion Gap 9 (5-15); Aspartate Aminotransferase 22 U/L (13-40); Bilirubin, Total 4.6 mg/dL (0.2-1.0); Blood Urea Nitrogen 18 mg/dL (9-23); Calcium 9.9 mg/dL (8.5-10.1); Carbon Dioxide 24 mmol/L (20-30); Chloride 107 mmol/L (98-107); Glucose 99 mg/dL (74-106); Potassium 4.2 mmol/L (3.5-5.1); Sodium 140 mmol/L (136-145); Total Protein 7.3 g/dL (5.7-8.2)
[2023-09-15] MEDS ORDERED: FUROSEMIDE 40 MG/4 ML VIAL IV SCH (10:00)
[2023-09-16] VITALS (11 sets, daily range): BP systolic 139–158; BP diastolic 86–99; PULSE 70–78; RESP 18–20; TEMP 37; O2SAT 95–100
[2023-09-16] MEDS ORDERED: ATOR20TA50 PO (11:13)
[2023-09-16] MEDS ORDERED: SPIR25TA PO (11:13)
[2023-09-16 12:59] LABS: Basophils # (auto) 0.1 10 ^3/uL (0-0.2); Eosinophils # (auto) 0.5 10 ^3/uL (0-0.8); Eosinophils % (auto) 4.7 % (0.0-7.0); Hematocrit 46.9 % (41.0-53.0); Hemoglobin 14.9 g/dL (13.5-17.5); Lymphocytes # (auto) 1.5 10 ^3/uL (0.4-5.4); Lymphocytes % (auto) 14.7 % (10.0-50.0); Mean Corpuscular Hemoglobin 27.6 pg (28.0-32.0); Mean Corpuscular Hgb Conc. 31.8 g/dL (32.0-36.0); Mean Corpuscular Volume 86.7 fL (80.0-100.0); Monocytes # (auto) 0.8 10 ^3/uL (0-1.3); Monocytes % (auto) 7.8 % (0.0-12.0); Neutrophils # (auto) 7.6 10 ^3/uL (1.6-8.6); Neutrophils % (auto) 71.8 % (37.0-80.0); Red Blood Cells 5.41 10^6/uL (4.5-5.90); Red Cell Distribution Width 18.6 % (11.8-14.3); White Blood Cell 10.5 10^3/uL (4.4-10.8)
[2023-09-16 13:21] LABS: Alanine Aminotransferase 20 U/L (7-40); Albumin 4.8 g/dL (3.2-4.8); Alkaline Phosphatase 154 U/L (46-116); Anion Gap 11 (5-15); Aspartate Aminotransferase 25 U/L (13-40); BUN/Creatinine Ratio 18.3 (10.0-20.0); Blood Urea Nitrogen 26 mg/dL (9-23); Calcium 10.2 mg/dL (8.7-10.4); Carbon Dioxide 26 mmol/L (20-30); Chloride 102 mmol/L (98-107); Glucose 84 mg/dL (74-106); Potassium 4.6 mmol/L (3.5-5.1); Sodium 139 mmol/L (136-145)
[2023-09-16 13:22] LABS: Bilirubin, Total 4.1 mg/dL (0.2-1.0); Total Protein 7.9 g/dL (5.7-8.2)
== END 2023-09-16 15:50 | disposition home or self-care (01) | DRG 133 ==
LOC: ER 11:19 → TELE 13:48 → TELE-CENTR 09-14 17:36
PROVIDERS: ADMIT Internal Medicine Pulmonary Disease; ATTEND Internal Medicine Pulmonary Disease
DX: J96.01 Acute respiratory failure with hypoxia (principal); N17.0 Acute kidney failure with tubular necrosis; I50.23 Acute on chronic systolic (congestive) heart failure; I13.0 Hypertensive heart and chronic kidney disease with heart failure and stage 1 through stage 4 chronic kidney disease, or unspecified chronic kidney disease; E66.01 Morbid (severe) obesity due to excess calories; Z68.31 Body mass index [BMI] 31.0-31.9, adult; E78.5 Hyperlipidemia, unspecified; F15.90 Other stimulant use, unspecified, uncomplicated; Z20.822 Contact with and (suspected) exposure to COVID-19; F17.210 Nicotine dependence, cigarettes, uncomplicated; R74.8 Abnormal levels of other serum enzymes; F32.A Depression, unspecified; I48.91 Unspecified atrial fibrillation; N18.9 Chronic kidney disease, unspecified
CPT/HCPCS: 36415; 71045; 71275; 76705; 80048; 80053; 80061; 80076; 80307; 80320; 81001; 83690; 83880; 84443; 84484; 85025; 85379; 87070; 87205; 87426; 87804; 93005; 94640; 96374; G0378

== ENCOUNTER 2023-12-03 18:03 | Inpatient (IN) | payer MEDICAID ==
[~2023-12-03] VITALS: Ht 180.3 cm; Wt 103.1 kg
[~2023-12-03 18:03] MED LIST changes: -ACET-1882 PO; +AMIO200T33 PO; -AMIO200T43 PO; -AML5T PO; -APIX5TAB PO; +ATOR20TA50 PO; +LISI20TA56 PO; -MET50T PO; +METO-289 PO; +SPIR25TA PO
[2023-12-03] MEDS: KETOROLAC TROMETH 60MG/2ML VIAL IM ONE (19:28)
[2023-12-03 20:25] LABS: Urine Blood 3+ /uL (Negative); Urine Protein, UAD 2+ (Negative); Urine Urobilinogen Normal (Negative)
[2023-12-03 20:26] LABS: Urine Clarity TURBID (Clear); Urine Color RED (Yellow); Urine Specific Gravity 1.021 (1.001-1.035)
[2023-12-03 20:28] LABS: Urine Bacteria MANY /hpf (None Seen)
[2023-12-03 20:29] LABS: Urine WBC FEW /hpf (0 - 3)
[2023-12-03] MEDS: HYDROcodone-ACET 10/325MG TAB PO ONE (21:48)
[2023-12-03 21:54] LABS: Alanine Aminotransferase 48 U/L (7-40); Albumin 4.9 g/dL (3.2-4.8); Alkaline Phosphatase 192 U/L (46-116); Anion Gap 8 (5-15); Aspartate Aminotransferase 46 U/L (13-40); BUN/Creatinine Ratio 17.4 (10.0-20.0); Bilirubin, Total 1.3 mg/dL (0.2-1.0); Blood Urea Nitrogen 32 mg/dL (9-23); Carbon Dioxide 25 mmol/L (20-30); Chloride 105 mmol/L (98-107); Glucose 97 mg/dL (74-106); Potassium 4.1 mmol/L (3.5-5.1); Sodium 138 mmol/L (136-145)
[2023-12-03 22:02] LABS: Basophils # (auto) 0.1 10 ^3/uL (0-0.2); Basophils % (auto) 1.2 % (0.0-2.0); Eosinophils # (auto) 0.3 10 ^3/uL (0-0.8); Hematocrit 35.4 % (41.0-53.0); Hemoglobin 11.7 g/dL (13.5-17.5); Lymphocytes # (auto) 1.7 10 ^3/uL (0.4-5.4); Lymphocytes % (auto) 16.3 % (10.0-50.0); Mean Corpuscular Hemoglobin 29.7 pg (28.0-32.0); Mean Corpuscular Volume 89.9 fL (80.0-100.0); Monocytes # (auto) 0.8 10 ^3/uL (0-1.3); Monocytes % (auto) 7.5 % (0.0-12.0); Neutrophils # (auto) 7.6 10 ^3/uL (1.6-8.6); Red Blood Cells 3.94 10^6/uL (4.5-5.90); Red Cell Distribution Width 17.4 % (11.8-14.3); White Blood Cell 10.6 10^3/uL (4.4-10.8)
[2023-12-03] MEDS ORDERED: ACETAMINOPHEN 325 MG TAB PO PRN ×2 (22:45)
[2023-12-03] MEDS ORDERED: ONDANSETRON HCL 4 MG/2 ML VIAL IV PRN (22:45)
[2023-12-03] MEDS ORDERED: HYDROcodone-ACET 5/325MG TAB PO PRN (22:45)
[2023-12-03] MEDS ORDERED: MORPHINE SULFATE INJ 2 MG/ml SYRG IV PRN ×2 (22:45)
[2023-12-03] MEDS ORDERED: NITROGLYCERIN 0.4 MG SL TAB SL PRN (22:45)
[2023-12-03 23:19] LABS: INR 1.08 (0.9-1.15); Partial Thromboplastin Time 24.1 SEC (24.5-34.5); Prothrombin Time 11.4 sec (9.3-11.8)
[2023-12-04 00:56] LABS: Hematocrit 31.6 % (41.0-53.0); Hemoglobin 10.2 g/dL (13.5-17.5)
[2023-12-04] MEDS: LORazepam 2MG/ML-1ML VIAL IV ONE (03:14)
[2023-12-04 04:40] VITALS: PULSE 73; RESP 21; O2SAT 95
[2023-12-04] MEDS: GABAPENTIN 100 MG CAP PO SCH (06:33)
[2023-12-04] MEDS: FUROSEMIDE 40 MG TAB PO SCH (06:56)
[2023-12-04 07:35] VITALS: BP 115/70; PULSE 62; RESP 16; TEMP 97.9; O2SAT 94
[2023-12-04 09:50] LABS: Hematocrit 30.5 % (41.0-53.0); Hemoglobin 9.7 g/dL (13.5-17.5)
[2023-12-04 09:51] LABS: Basophils # (auto) 0.1 10 ^3/uL (0-0.2); Basophils % (auto) 1.4 % (0.0-2.0); Eosinophils # (auto) 0.5 10 ^3/uL (0-0.8); Hematocrit 29.9 % (41.0-53.0); Hemoglobin 9.6 g/dL (13.5-17.5); Lymphocytes # (auto) 1.9 10 ^3/uL (0.4-5.4); Lymphocytes % (auto) 25.6 % (10.0-50.0); Mean Corpuscular Hemoglobin 29.6 pg (28.0-32.0); Mean Corpuscular Hgb Conc. 32.3 g/dL (32.0-36.0); Mean Corpuscular Volume 91.6 fL (80.0-100.0); Monocytes # (auto) 0.9 10 ^3/uL (0-1.3); Monocytes % (auto) 11.8 % (0.0-12.0); Neutrophils # (auto) 4.2 10 ^3/uL (1.6-8.6); Neutrophils % (auto) 55.2 % (37.0-80.0); Nucleated Red Blood Cells % 0.1 %; Red Blood Cells 3.26 10^6/uL (4.5-5.90); Red Cell Distribution Width 17.7 % (11.8-14.3); White Blood Cell 7.6 10^3/uL (4.4-10.8)
[2023-12-04] MEDS: POTASSIUM CHL 20 Meq TABLET PO SCH (10:00)
[2023-12-04] MEDS: FOLIC ACID 1 MG TAB PO SCH (10:00)
[2023-12-04] MEDS: THIAMINE HCL 100 MG TAB PO SCH (10:00)
[2023-12-04] MEDS: METOPROLOL SUCCINATE XL 50 MG TAB PO SCH (10:00)
[2023-12-04] MEDS: AMIODARONE HCL 200 MG TAB PO SCH (10:00)
[2023-12-04 10:05] LABS: Alanine Aminotransferase 37 U/L (7-40); Albumin 3.9 g/dL (3.2-4.8); Alkaline Phosphatase 152 U/L (46-116); Anion Gap 4 (5-15); Aspartate Aminotransferase 35 U/L (13-40); BUN/Creatinine Ratio 16.8 (10.0-20.0); Blood Urea Nitrogen 29 mg/dL (9-23); Calcium 9.3 mg/dL (8.5-10.1); Carbon Dioxide 25 mmol/L (20-30); Chloride 109 mmol/L (98-107); Glucose 89 mg/dL (74-106); Potassium 4.4 mmol/L (3.5-5.1); Sodium 138 mmol/L (136-145)
[2023-12-04 10:06] LABS: Bilirubin, Total 1.3 mg/dL (0.2-1.0); Total Protein 6.4 g/dL (5.7-8.2)
[2023-12-04] MEDS: SODIUM CHLORIDE 0.9% 1,000 ML IV SCH (10:30)
[2023-12-04] MEDS ORDERED: TAMSULOSIN HYDROCHLORIDE 0.4 MG CAP PO SCH (18:00)
[2023-12-04] MEDS ORDERED: FERROUS SULFATE 325mg EC TAB PO SCH (18:00)
== END 2023-12-04 11:57 | disposition left against medical advice (07) | DRG 500 ==
LOC: EDBD 18:03 → ER 18:03 → EDUNIT# 18:03 → TELE 22:47
PROVIDERS: ADMIT Registered Nurse; ATTEND Internal Medicine
DX: C61 Malignant neoplasm of prostate (principal); D62 Acute posthemorrhagic anemia; N17.9 Acute kidney failure, unspecified; I48.91 Unspecified atrial fibrillation; G62.9 Polyneuropathy, unspecified; D63.0 Anemia in neoplastic disease; I13.0 Hypertensive heart and chronic kidney disease with heart failure and stage 1 through stage 4 chronic kidney disease, or unspecified chronic kidney disease; I50.22 Chronic systolic (congestive) heart failure; E78.5 Hyperlipidemia, unspecified; F15.10 Other stimulant abuse, uncomplicated; N48.89 Other specified disorders of penis; N43.3 Hydrocele, unspecified; N18.32 Chronic kidney disease, stage 3b; R74.01 Elevation of levels of liver transaminase levels; N32.9 Bladder disorder, unspecified; Z53.29 Procedure and treatment not carried out because of patient's decision for other reasons; F32.A Depression, unspecified; Z91.148 Patient's other noncompliance with medication regimen for other reason; Z79.899 Other long term (current) drug therapy; Z87.891 Personal history of nicotine dependence; Z90.49 Acquired absence of other specified parts of digestive tract; Z91.199 Patient's noncompliance with other medical treatment and regimen due to unspecified reason; Z83.3 Family history of diabetes mellitus; Z82.49 Family history of ischemic heart disease and other diseases of the circulatory system; R31.9 Hematuria, unspecified
CPT/HCPCS: 36415; 74176; 80053; 81001; 85014; 85018; 85025; 85610; 85730; G0378; J1885

== ENCOUNTER 2023-12-05 20:05 | Inpatient (IN) | payer MEDICAID ==
[~2023-12-05] VITALS: Ht 172.7 cm; Wt 88.0 kg
[2023-12-05] MEDS: HYDROcodone-ACET 10/325MG TAB PO ONE (20:30)
[2023-12-05 20:53] LABS: Basophils # (auto) 0.1 10 ^3/uL (0-0.2); Basophils % (auto) 0.9 % (0.0-2.0); Eosinophils # (auto) 0.2 10 ^3/uL (0-0.8); Eosinophils % (auto) 1.5 % (0.0-7.0); Hematocrit 30.7 % (41.0-53.0); Hemoglobin 9.9 g/dL (13.5-17.5); Lymphocytes # (auto) 1.5 10 ^3/uL (0.4-5.4); Lymphocytes % (auto) 13.5 % (10.0-50.0); Mean Corpuscular Hemoglobin 29.2 pg (28.0-32.0); Mean Corpuscular Hgb Conc. 32.4 g/dL (32.0-36.0); Mean Corpuscular Volume 90.2 fL (80.0-100.0); Monocytes # (auto) 0.7 10 ^3/uL (0-1.3); Neutrophils # (auto) 8.8 10 ^3/uL (1.6-8.6); Neutrophils % (auto) 78.1 % (37.0-80.0); Red Cell Distribution Width 17.2 % (11.8-14.3); White Blood Cell 11.3 10^3/uL (4.4-10.8)
[2023-12-05 21:09] LABS: Alanine Aminotransferase 44 U/L (7-40); Albumin 4.5 g/dL (3.2-4.8); Alkaline Phosphatase 159 U/L (46-116); Anion Gap 9 (5-15); Aspartate Aminotransferase 37 U/L (13-40); BUN/Creatinine Ratio 21.9 (10.0-20.0); Blood Urea Nitrogen 35 mg/dL (9-23); Calcium 9.9 mg/dL (8.7-10.4); Carbon Dioxide 24 mmol/L (20-30); Chloride 108 mmol/L (98-107); Glucose 109 mg/dL (74-106); Lipase 74 U/L (12-53); Potassium 3.7 mmol/L (3.5-5.1); Sodium 141 mmol/L (136-145)
[2023-12-05 21:10] LABS: Bilirubin, Total 1.2 mg/dL (0.2-1.0); Total Protein 7.4 g/dL (5.7-8.2)
[2023-12-05] MEDS: SODIUM CHLORIDE 0.9% 1,000 ML IV ONE (22:30)
[2023-12-05] MEDS: IOHEXOL 300 MG/ML 100ML BOTTLE IJ ONE (23:35)
[2023-12-06 00:30] VITALS: PULSE 135; RESP 20; O2SAT 94
[2023-12-06] MEDS ORDERED: ACETAMINOPHEN 325 MG TAB PO PRN (01:30)
[2023-12-06] MEDS ORDERED: ONDANSETRON HCL 4 MG/2 ML VIAL IV PRN (01:30)
[2023-12-06] MEDS: cefTRIAXone 1GM/50ML D5W 50 ML IV ONE (02:11)
[2023-12-06] MEDS: LORazepam 2MG/ML-1ML VIAL IV ONE (02:24)
[2023-12-06] MEDS: diphenhdrAMINE HCL 50 MG/1 ML VL IV ONE (02:24)
[2023-12-06] MEDS: cefTRIAXone 1GM/50ML D5W 50 ML IV SCH (02:26)
[2023-12-06] MEDS: SOD CHL 0.45% 1,000 ML IV SCH (03:18)
[2023-12-06] MEDS ORDERED: NITROGLYCERIN 0.4 MG SL TAB SL PRN (03:45)
[2023-12-06] MEDS ORDERED: MORPHINE SULFATE INJ 2 MG/ml SYRG IV PRN (03:45)
[2023-12-06] MEDS: dilTIAZem 25 MG/5 ML VIAL IV ONE ×2 (03:55→05:15)
[2023-12-06] MEDS: dilTIAZem HCL 60 MG TAB PO ONE (06:04)
[2023-12-06 06:49] LABS: Basophils # (auto) 0.1 10 ^3/uL (0-0.2); Eosinophils # (auto) 0.1 10 ^3/uL (0-0.8); Eosinophils % (auto) 1.1 % (0.0-7.0); Hematocrit 25.3 % (41.0-53.0); Hemoglobin 8.4 g/dL (13.5-17.5); Monocytes # (auto) 0.6 10 ^3/uL (0-1.3); Nucleated Red Blood Cells % 0.1 %; Red Blood Cells 2.85 10^6/uL (4.5-5.90); White Blood Cell 9.9 10^3/uL (4.4-10.8)
[2023-12-06 06:50] LABS: Lymphocytes # (auto) 2.1 10 ^3/uL (0.4-5.4); Lymphocytes % (auto) 21.6 % (10.0-50.0); Mean Corpuscular Hemoglobin 29.4 pg (28.0-32.0); Mean Corpuscular Hgb Conc. 33.1 g/dL (32.0-36.0); Mean Corpuscular Volume 88.7 fL (80.0-100.0); Monocytes % (auto) 6.4 % (0.0-12.0); Neutrophils # (auto) 6.9 10 ^3/uL (1.6-8.6); Neutrophils % (auto) 69.9 % (37.0-80.0); Red Cell Distribution Width 16.9 % (11.8-14.3)
[2023-12-06 07:11] LABS: Alanine Aminotransferase 34 U/L (7-40); Albumin 3.9 g/dL (3.2-4.8); Alkaline Phosphatase 130 U/L (46-116); Anion Gap 6 (5-15); Aspartate Aminotransferase 26 U/L (13-40); BUN/Creatinine Ratio 20.1 (10.0-20.0); Blood Urea Nitrogen 27 mg/dL (9-23); Calcium 9.3 mg/dL (8.7-10.4); Carbon Dioxide 23 mmol/L (20-30); Chloride 109 mmol/L (98-107); Potassium 3.9 mmol/L (3.5-5.1); Sodium 138 mmol/L (136-145); Total Protein 6.3 g/dL (5.7-8.2)
[2023-12-06 07:50] VITALS: PULSE 123; RESP 16; O2SAT 96
[2023-12-06 08:12] LABS: Glucose 112 mg/dL (74-106)
[2023-12-06] MEDS: SODIUM CHLORIDE 0.9% 1,000 ML IV SCH (09:45)
[2023-12-06] MEDS: APIXABAN 5 MG TAB PO SCH (10:00)
[2023-12-06] MEDS: METOPROLOL TARTRATE 25 MG TAB PO SCH (10:00)
[2023-12-06] MEDS: DIGOXIN (250MCG/ML) 2 ML AMPULE IV ONE ×2 (12:59→23:10)
[2023-12-06] MEDS: HYDROcodone-ACET 5/325MG TAB PO PRN (18:28)
[2023-12-06 18:36] LABS: Hematocrit 21.3 % (41.0-53.0)
[2023-12-06 19:10] VITALS: RESP 16; O2SAT 96
[2023-12-06 21:30] VITALS: BP 93/53; PULSE 138; RESP 20; TEMP 98
[2023-12-06 21:45] VITALS: BP 106/64; PULSE 114; RESP 25; TEMP 98
[2023-12-06] MEDS: ATORVASTATIN 20 MG TAB PO SCH (22:42)
[2023-12-07] VITALS (10 sets, daily range): BP systolic 95–129; BP diastolic 56–85; PULSE 60–131; RESP 17–21; TEMP 97.1–98.7; O2SAT 91–100
[2023-12-07 06:44] LABS: Basophils # (auto) 0.1 10 ^3/uL (0-0.2); Basophils % (auto) 1.2 % (0.0-2.0); Eosinophils # (auto) 0.3 10 ^3/uL (0-0.8); Eosinophils % (auto) 4.1 % (0.0-7.0); Hematocrit 26.6 % (41.0-53.0); Hemoglobin 8.6 g/dL (13.5-17.5); Lymphocytes # (auto) 2.5 10 ^3/uL (0.4-5.4); Lymphocytes % (auto) 30.4 % (10.0-50.0); Mean Corpuscular Hemoglobin 29.2 pg (28.0-32.0); Mean Corpuscular Hgb Conc. 32.3 g/dL (32.0-36.0); Mean Corpuscular Volume 90.4 fL (80.0-100.0); Monocytes # (auto) 0.4 10 ^3/uL (0-1.3); Monocytes % (auto) 4.9 % (0.0-12.0); Neutrophils # (auto) 4.9 10 ^3/uL (1.6-8.6); Neutrophils % (auto) 59.4 % (37.0-80.0); Nucleated Red Blood Cells % 0.1 %; Red Blood Cells 2.94 10^6/uL (4.5-5.90); Red Cell Distribution Width 16.9 % (11.8-14.3); White Blood Cell 8.2 10^3/uL (4.4-10.8)
[2023-12-07 06:54] LABS: Alanine Aminotransferase 26 U/L (7-40); Albumin 3.4 g/dL (3.2-4.8); Alkaline Phosphatase 108 U/L (46-116); Anion Gap 4 (5-15); Aspartate Aminotransferase 21 U/L (13-40); BUN/Creatinine Ratio 16.8 (10.0-20.0); Bilirubin, Total 0.8 mg/dL (0.2-1.0); Blood Urea Nitrogen 19 mg/dL (9-23); Calcium 8.8 mg/dL (8.5-10.1); Carbon Dioxide 26 mmol/L (20-30); Chloride 110 mmol/L (98-107); Glucose 90 mg/dL (74-106); Potassium 4.4 mmol/L (3.5-5.1); Sodium 140 mmol/L (136-145); Total Protein 5.5 g/dL (5.7-8.2)
[2023-12-07] MEDS: DOCUSATE SOD 100 MG CAP PO PRN (10:33)
[2023-12-07] MEDS: DIGOXIN 0.125 MG TAB PO SCH (10:33)
[2023-12-07] MEDS: EMPAGLIFLOZIN 10 MG TAB PO SCH (10:34)
[2023-12-07] MEDS: LIDOCAINE 2% JELLY 11ml (GLYDO) UR ONE (15:30)
[2023-12-07] MEDS: HYDROmorphone HCL 2 MG/ML VL/or syr IV ONE (17:17)
[2023-12-08] VITALS (8 sets, daily range): BP systolic 107–133; BP diastolic 49–72; PULSE 76–117; RESP 17–19; TEMP 97.6–98.4; O2SAT 94–100
[2023-12-08 15:00] LABS: Basophils # (auto) 0.1 10 ^3/uL (0-0.2); Hemoglobin 8.3 g/dL (13.5-17.5); Lymphocytes # (auto) 1.2 10 ^3/uL (0.4-5.4); Monocytes # (auto) 0.6 10 ^3/uL (0-1.3); Neutrophils # (auto) 7.2 10 ^3/uL (1.6-8.6); White Blood Cell 9.4 10^3/uL (4.4-10.8)
[2023-12-08 15:02] LABS: Eosinophils # (auto) 0.2 10 ^3/uL (0-0.8); Eosinophils % (auto) 2.7 % (0.0-7.0); Hematocrit 25.3 % (41.0-53.0); Lymphocytes % (auto) 13.1 % (10.0-50.0); Mean Corpuscular Hemoglobin 29.3 pg (28.0-32.0); Mean Corpuscular Hgb Conc. 32.8 g/dL (32.0-36.0); Mean Corpuscular Volume 89.4 fL (80.0-100.0); Monocytes % (auto) 5.9 % (0.0-12.0); Neutrophils % (auto) 77.3 % (37.0-80.0); Red Blood Cells 2.83 10^6/uL (4.5-5.90); Red Cell Distribution Width 16.6 % (11.8-14.3)
[2023-12-08 15:13] LABS: Chloride 106 mmol/L (98-107); Potassium 4.6 mmol/L (3.5-5.1); Sodium 138 mmol/L (136-145)
[2023-12-08 15:14] LABS: Anion Gap 4 (5-15); Carbon Dioxide 28 mmol/L (20-30)
[2023-12-08 15:15] LABS: Calcium 9.2 mg/dL (8.5-10.1)
[2023-12-08 15:19] LABS: BUN/Creatinine Ratio 12.1 (10.0-20.0); Blood Urea Nitrogen 13 mg/dL (9-23); Glucose 86 mg/dL (74-106)
[2023-12-09] VITALS (9 sets, daily range): BP systolic 95–128; BP diastolic 53–81; PULSE 72–134; RESP 18–20; TEMP 97.5–98.6; O2SAT 95–100
[2023-12-09] MEDS: HYDROcodone-ACET 5/325MG TAB PO PRN ×2 (14:16→20:18)
[2023-12-09 23:32] LABS: Urine Bacteria None Seen /hpf (None Seen)
[2023-12-10] VITALS (7 sets, daily range): BP systolic 97–130; BP diastolic 62–94; PULSE 52–93; RESP 17–18; TEMP 97.2–98.8; O2SAT 92–100
[2023-12-10 00:05] LABS: Urine Blood 2+ /uL (Negative); Urine Clarity Clear (Clear); Urine Color Light-Yellow (Yellow); Urine Protein, UAD TRACE (Negative); Urine Specific Gravity 1.013 (1.001-1.035); Urine Urobilinogen Normal (Negative); Urine WBC 17 /hpf (0 - 3); Urine pH 5.5 (5.0-9.0)
[2023-12-10] MEDS: METOPROLOL SUCCINATE XL 50 MG TAB PO ONE (10:50)
[2023-12-10] MEDS: METOPROLOL SUCCINATE XL 50 MG TAB PO SCH (11:01)
[2023-12-10 14:38] LABS: INR 1.03 (0.9-1.15); Partial Thromboplastin Time 23.1 SEC (24.5-34.5); Prothrombin Time 10.9 sec (9.3-11.8)
[2023-12-11] VITALS (7 sets, daily range): BP systolic 100–140; BP diastolic 60–86; PULSE 67–96; RESP 16–18; TEMP 97.7–98.7; O2SAT 96–100
[2023-12-11] MEDS: MORPHINE SULFATE INJ 2 MG/ml SYRG IV PRN (22:13)
[2023-12-12] VITALS (8 sets, daily range): BP systolic 101–127; BP diastolic 59–93; PULSE 71–97; RESP 10–18; TEMP 97.3–98; O2SAT 97–100
[2023-12-12] MEDS ORDERED: fentaNYL CITRATE 100 MCG/2 ML VL ONE (08:47)
[2023-12-12] MEDS ORDERED: PROPOFOL 10 MG/ML 20 ML IV ONE (08:47)
[2023-12-12] MEDS ORDERED: LIDOCAINE 2% JELLY 11ml (GLYDO) ONE (08:55)
[2023-12-12] MEDS: ceFAZolin 2 GM/D5W50ml 50 ML IV ONE (09:09)
[2023-12-12] MEDS: BACITRACIN TOP OINT 1 UD PKG TOP ONE (09:09)
[2023-12-12] MEDS ORDERED: PHENYLEPHRINE HCL 10 MG/ML VL ONE (09:21)
[2023-12-12] MEDS ORDERED: ePHEDrine SULFATE 50 MG/ML AMP ONE (09:23)
[2023-12-12] MEDS ORDERED: MEPERIDINE HCL (50 MG/ML) 1 ML VIAL ONE (09:54)
[2023-12-12] MEDS: LIDOCAINE W/ EPINEPHRINE 1% 20ML VIAL ONE (10:01)
[2023-12-12] MEDS ORDERED: MEPERIDINE HCL (25 MG/ML) 1ML VIAL IV PRN (11:00)
[2023-12-12] MEDS ORDERED: ONDANSETRON HCL 4 MG/2 ML VIAL IV ONE (11:00)
[2023-12-12] MEDS ORDERED: HYDROmorphone HCL 2 MG/ML VL/or syr IV PRN (11:00)
[2023-12-12 23:23] LABS: Basophils # (auto) 0.1 10 ^3/uL (0-0.2); Eosinophils # (auto) 0.1 10 ^3/uL (0-0.8); Monocytes # (auto) 0.7 10 ^3/uL (0-1.3); White Blood Cell 10.3 10^3/uL (4.4-10.8)
[2023-12-12 23:24] LABS: Basophils % (auto) 1.1 % (0.0-2.0); Eosinophils % (auto) 0.9 % (0.0-7.0); Hematocrit 25.1 % (41.0-53.0); Hemoglobin 8.1 g/dL (13.5-17.5); Lymphocytes # (auto) 1.2 10 ^3/uL (0.4-5.4); Mean Corpuscular Hgb Conc. 32.3 g/dL (32.0-36.0); Neutrophils # (auto) 8.1 10 ^3/uL (1.6-8.6); Red Blood Cells 2.79 10^6/uL (4.5-5.90); Red Cell Distribution Width 16.3 % (11.8-14.3)
[2023-12-12 23:45] LABS: Alanine Aminotransferase 35 U/L (7-40); Alkaline Phosphatase 171 U/L (46-116); Anion Gap 2 (5-15); Aspartate Aminotransferase 36 U/L (13-40); Blood Urea Nitrogen 17 mg/dL (9-23); Calcium 9.2 mg/dL (8.5-10.1); Carbon Dioxide 28 mmol/L (20-30); Chloride 106 mmol/L (98-107); Glucose 95 mg/dL (74-106); Magnesium 1.8 mg/dL (1.6-2.6); Potassium 4.8 mmol/L (3.5-5.1); Sodium 136 mmol/L (136-145)
[2023-12-12 23:46] LABS: Albumin 3.8 g/dL (3.2-4.8); Bilirubin, Total 0.7 mg/dL (0.2-1.0)
[2023-12-13] VITALS (7 sets, daily range): BP systolic 83–108; BP diastolic 47–61; PULSE 53–81; RESP 16–20; TEMP 97.5–98.6; O2SAT 91–100
[2023-12-13 09:44] LABS: Basophils # (auto) 0.1 10 ^3/uL (0-0.2); Basophils % (auto) 0.6 % (0.0-2.0); Eosinophils # (auto) 0.1 10 ^3/uL (0-0.8); Eosinophils % (auto) 0.7 % (0.0-7.0); Hematocrit 25.7 % (41.0-53.0); Hemoglobin 8.5 g/dL (13.5-17.5); Lymphocytes # (auto) 1.1 10 ^3/uL (0.4-5.4); Mean Corpuscular Hemoglobin 29.1 pg (28.0-32.0); Mean Corpuscular Hgb Conc. 33.2 g/dL (32.0-36.0); Mean Corpuscular Volume 87.6 fL (80.0-100.0); Monocytes # (auto) 0.6 10 ^3/uL (0-1.3); Monocytes % (auto) 6.1 % (0.0-12.0); Neutrophils # (auto) 8.2 10 ^3/uL (1.6-8.6); Neutrophils % (auto) 81.6 % (37.0-80.0); Nucleated Red Blood Cells % 0.3 %; Red Blood Cells 2.94 10^6/uL (4.5-5.90); Red Cell Distribution Width 16.4 % (11.8-14.3); White Blood Cell 10.1 10^3/uL (4.4-10.8)
[2023-12-13 09:51] LABS: Chloride 107 mmol/L (98-107); Potassium 4.3 mmol/L (3.5-5.1); Sodium 137 mmol/L (136-145)
[2023-12-13 09:52] LABS: Anion Gap 4 (5-15); Calcium 9.4 mg/dL (8.5-10.1); Carbon Dioxide 26 mmol/L (20-30)
[2023-12-13 09:57] LABS: BUN/Creatinine Ratio 21.2 (10.0-20.0); Blood Urea Nitrogen 21 mg/dL (9-23); Glucose 124 mg/dL (74-106); Magnesium 1.8 mg/dL (1.6-2.6)
[2023-12-14 08:00] VITALS: PULSE 54
[2023-12-14 09:00] VITALS: BP 113/68; PULSE 57; RESP 18; TEMP 98.4; O2SAT 92
[2023-12-14] MEDS ORDERED: DIGO1TAB48 PO (12:03)
[2023-12-14] MEDS ORDERED: AUG875T PO (12:03)
[2023-12-14 13:00] VITALS: BP 106/74; PULSE 56; RESP 18; TEMP 97.6; O2SAT 95
[2023-12-14 13:35] VITALS: BP 114/64; PULSE 57; TEMP 36.9
== END 2023-12-14 17:25 | disposition home or self-care (01) | DRG 483 ==
LOC: EDBD 20:05 → ER 20:05 → TELE 12-06 03:41 → TELE-WESTW 12-06 23:20
PROVIDERS: ADMIT Internal Medicine; ATTEND Internal Medicine
PROC: 30233N1 Transfusion of Nonautologous Red Blood Cells into Peripheral Vein, Percutaneous Approach (ICD-10-PCS; 2023-12-06)
PROC: 0VTC0ZZ Resection of Bilateral Testes, Open Approach (ICD-10-PCS; principal; 2023-12-12 09:09)
PROC: 0TJB8ZZ Inspection of Bladder, Via Natural or Artificial Opening Endoscopic (ICD-10-PCS; 2023-12-12 09:09)
DX: C61 Malignant neoplasm of prostate (principal); N17.0 Acute kidney failure with tubular necrosis; E87.20 Acidosis, unspecified; I50.23 Acute on chronic systolic (congestive) heart failure; I42.9 Cardiomyopathy, unspecified; I13.0 Hypertensive heart and chronic kidney disease with heart failure and stage 1 through stage 4 chronic kidney disease, or unspecified chronic kidney disease; D50.0 Iron deficiency anemia secondary to blood loss (chronic); E11.22 Type 2 diabetes mellitus with diabetic chronic kidney disease; F10.20 Alcohol dependence, uncomplicated; N13.8 Other obstructive and reflux uropathy; F19.10 Other psychoactive substance abuse, uncomplicated; D72.829 Elevated white blood cell count, unspecified; N18.2 Chronic kidney disease, stage 2 (mild); R74.01 Elevation of levels of liver transaminase levels; E66.9 Obesity, unspecified; I48.0 Paroxysmal atrial fibrillation; N40.1 Benign prostatic hyperplasia with lower urinary tract symptoms; E78.5 Hyperlipidemia, unspecified; Z91.199 Patient's noncompliance with other medical treatment and regimen due to unspecified reason; Z79.01 Long term (current) use of anticoagulants; Z82.49 Family history of ischemic heart disease and other diseases of the circulatory system; Z83.3 Family history of diabetes mellitus; Z79.899 Other long term (current) drug therapy; Z79.84 Long term (current) use of oral hypoglycemic drugs; Z87.891 Personal history of nicotine dependence; Z90.49 Acquired absence of other specified parts of digestive tract; Z68.29 Body mass index [BMI] 29.0-29.9, adult; Y90.0 Blood alcohol level of less than 20 mg/100 ml
CPT/HCPCS: 36415; 71045; 74176; 80048; 80053; 80320; 81001; 82728; 83540; 83550; 83605; 83690; 83735; 83880; 85014; 85018; 85025; 85610; 85730; 86850; 86900; 86901; 86920; 96361; 96374; 96375; 97110; 97116; 97163; 97530; G0378; J2704

== ENCOUNTER 2025-01-29 18:49 | Inpatient (IN) | payer MEDICAID ==
[~2025-01-29] VITALS: Ht 167.6 cm; Wt 97.6 kg
[~2025-01-29 18:49] MED LIST changes: +AUG875T PO; -TAMS0.4C36 PO; +TAMS0.4C39 PO
--- NOTE | 2025-01-29 19:07 | ECG ---
[facility] Test Date: 2025-01-29 Test Time: 18:50:48 Pat Name: PRICE LYON Department: ED Room: 0223 Gender: M Interventional Pain Physician: LEYLA : 1965 Requested By: ANDRE GORE Order Number: [id number] Reading MD: Nino Mattson Measurements Intervals [place] Rate: 117 P: 0 MO: 0 QRS: -67 QRSD: 95 T: 88 QT: 344 QTc: 480 Interpretive Statements Atrial fibrillation Left anterior fascicular block Consider right ventricular hypertrophy Borderline prolonged QT interval Electronically Signed On 02-01-2025 17:49:00 PDT by Nino Mattson Please click the below link to view image of tracing.
[2025-01-29 19:31] LABS: Hematocrit 42.8 % (41.0-53.0); Hemoglobin 13.7 g/dL (13.5-17.5); Mean Corpuscular Hemoglobin 32.0 pg (28.0-32.0); Mean Corpuscular Volume 99.9 fL (80.0-100.0); Nucleated Red Blood Cells % 0.1 %
[2025-01-29 19:39] LABS: Alanine Aminotransferase 20 U/L (7-40); Albumin 4.2 g/dL (3.2-4.8); Anion Gap 14 (5-15); BUN/Creatinine Ratio 14.6 (10.0-20.0); Blood Urea Nitrogen 14 mg/dL (9-23); Calcium 9.2 mg/dL (8.7-10.4); Glucose 100 mg/dL (74-106); Lipase 34 U/L (12-53); Potassium 4.0 mmol/L (3.5-5.1); Sodium 143 mmol/L (136-145); Total Protein 6.3 g/dL (5.7-8.2)
[2025-01-29 19:46] LABS: Lactic Acid w/Reflex 2.2 mmol/L (0.4-2.0)
[2025-01-29 19:49] LABS: Alkaline Phosphatase 139 U/L (46-116); Bilirubin, Total 2.7 mg/dL (0.2-1.0); Carbon Dioxide 19 mmol/L (20-31); Chloride 110 mmol/L (98-107)
[2025-01-29] MEDS: SODIUM CHLORIDE 0.9% 1,000 ML IV ONE (20:03)
[2025-01-29] MEDS: METOPROLOL TARTRATE 1MG/1ML-5ML VIAL IV SCH (20:03)
[2025-01-29 20:52] VITALS: PULSE 119; RESP 23; O2SAT 97
[2025-01-29] MEDS: AMIODARONE 360mg/200mL PREMIX 200 ML IV ONE (20:57)
[2025-01-29] MEDS: FUROSEMIDE 100 MG/10ML VIAL IV ONE (23:30)
[2025-01-30] VITALS (8 sets, daily range): BP systolic 137–161; BP diastolic 83–105; PULSE 54–120; RESP 16–29; TEMP 98.1–98.8; O2SAT 95–97
--- NOTE | 2025-01-30 01:18 | DVH ---
CHEST RADIOGRAPH Indication: Shortness of breath Technique: Single frontal view of the chest was obtained COMPARISON: XY CHEST PORTABLE on DOS: 12/06/23, XY CHEST XRAY 1 VIEW on DOS: 11/25/23, XY CHEST XRAY 1 V IEW on DOS: 11/23/23, XY CHEST PORTABLE on DOS: 11/22/23, XY CHEST XRAY 1 VIEW on DOS: 11/21/23 FINDINGS: Lines and Tubes: None Lungs: Moderate interstitial pulmonary edema Pleura: No effusion. No pneumothorax. Cardiomediastinal contours: Cardiomegaly Bones: Unremarkable IMPRESSION: 1. Moderate interstitial pulmonary edema.
[2025-01-30 01:28] LABS: Urine Protein, UAD 1+ (Negative)
[2025-01-30] MEDS: ALBUTEROL SULF 2.5 MG/0.5ML(0.5%) NEB SOLN NEB ONE (01:28)
[2025-01-30] MEDS: IPRATROPIUM BROM 0.5 MG/2.5ML INH SOL NEB ONE (01:28)
[2025-01-30 01:37] LABS: Amphetamine Screen, Urine Pos (NEGATIVE); Barbiturate Scree,Urine Neg (NEGATIVE); Benzodiazephine Screen, Urine Neg (NEGATIVE); Cannabinoid Screen, Urine Pos (NEGATIVE); Cocaine Screen, Urine Neg (NEGATIVE); Opiate Scree,Urine Neg (NEGATIVE); Phencyclidine Screen, Urine Neg (NEGATIVE)
--- NOTE | 2025-01-30 01:40 | ED.PDOC ---
HPI Comments This patient is a homeless in morbidly obese 59-year-old male who was brought in by EMS today due to complaints of shortness a breath for the past few days. Patient has a history of shortness a breath concerns as well as a history of AFib. Patient is noncompliant with medications hand may be intoxicated on some level illicit drug use or alcohol. Patient is not well kempt and appears weathered. Patient appears to be in poor overall health. Patient is a extremely hypertensive, hypoxic and tachypneic at arrival. Chief Complaint: Shortness of Breath Time Seen by MD: 18:53 Primary Care Provider: NONE Reviewed Notes: Nurses Notes, River Captain Notes Allergies: Coded Allergies: NO KNOWN ALLERGIES (Unverified , 03/17/17) Home Meds Active Scripts Amoxicillin & Pot Clavulanate (AUGMENTIN TABLET) 875 Mg Tb, 875 MG PO BID for 7 Days, #14 TAB Prov:EMY MALONE RESIDENT 12/14/23 Lisinopril (Lisinopril) 20 Mg Tab, 1 TAB PO DAILY, #30 TAB 3 Refills Prov:KYLEIGH RENDON RESIDENT 12/01/23 Metoprolol Succinate (Metoprolol Succinate Er) 50 Mg Tab, 1 TAB PO DAILY, #30 T AB 3 Refills Prov:KYLEIGH RENDON RESIDENT 12/01/23 Amiodarone Hcl (Amiodarone Hcl) 200 Mg Tab, 200 MG PO BID for 30 Days, #60 TAB 3 Refills Prov:KYLEIGH RENDON RESIDENT 12/01/23 Atorvastatin Calcium (ATORVASTATIN CALCIUM) 20 Mg Tab, 40 MG PO HS for 20 Days, #40 TAB 5 Refills Prov:EMY MALONE RESIDENT 09/16/23 Spironolactone (Aldactone) 25 Mg Tab, 25 MG PO DAILY for 20 Days, #20 TAB 4 Refills Prov:EMY MALONE RESIDENT 09/16/23 Gabapentin (Gabapentin) 100 Mg Cap, 100 MG PO TID, #90 CAP 2 Refills Prov:ROSARIO CAMPOS MD 04/24/22 Potassium Chloride (Potassium Chloride ER) 20 Meq Tab, 20 MEQ PO DAILY for 30 Days, #30 TAB 3 Refills Prov:STACEY JAVIER MD 01/29/22 Furosemide (Lasix) 40 Mg Tab, 40 MG PO QAM for 30 Days, #30 TAB 3 Refills Prov:STACEY JAVIER MD 01/29/22 Albuterol Sulfate (VENTOLIN MDI) 90 Mcg Ih, 90 MCG IN Q4HR, #1 INH Prov:CIRO MCCOY MD 01/17/22 Folic Acid (Folic Acid) 1 Mg Tab, 1 MG PO DAILY, #30 TAB Prov:CIRO MCCOY MD 01/15/22 Thiamine Hcl (Thiamine Hcl) 100 Mg Tab, 1 TAB PO DAILY, #30 TAB 3 Refills Prov:CIRO MCCOY MD 01/15/22 Reported Medications Tamsulosin Hcl (Tamsulosin Hcl) 0.4 Mg Cap, 0.8 MG PO QPM for 30 Days, MG 08/21/23 Information Source: Patient, Emergency Med Personnel Mode of Arrival: EMS Severity: Moderate Timing: Days Duration: Since onset Prehospital treatment: None Location: Chest (R), Chest (L), Substernal Quality: Crushing, Tightness Onset: At Rest Cardiac Risk Factors: HTN History of: Similar pain in past Associated Signs and Symptoms: SOB Past Medical History PAST MEDICAL HISTORY: AFIB, CHF, CKF, Depression, High Lipids, HTN, ME Surgical History: Cholecystectomy, Tonsillectomy Family History Family History: Reviewed,noncontributory to illness Social History Smoker: Quit Greater Than 1 Year, Cigarettes Alcohol: Occasionally Drugs: Marijuana, Methamphetamine Lives In: Home Constitutional: reports: weakness; denies: chills, diaphoresis, fatigue, fever, malaise, sweats, others EENTM: denies: blurred vision, double vision, ear bleeding, ear discharge, ear drainage, ear pain, ear ringing, eye pain, eye redness, hearing loss, mouth pain, mouth swelling, nasal discharge, nose bleeding, nose congestion, nose pain, photophobia, tearing, throat pain, throat swelling, voice changes, others Respiratory: reports: SOB at rest; denies: cough, hemoptysis, orthopnea, shortness of breath, SOB with excertion, stridor, wheezing, others Cardiovascular: denies: chest pain, dizzy spells, diaphoresis, Dyspnea on exertion, edema, irregular heart beat, left arm pain, lightheadedness, palpitations, PND, syncope, others Gastrointestinal: denies: abdomen distended, abdominal pain, blood streaked bowels, constipated, diarrhea, dysphagia, difficulty swallowing, hematemesis, melena, nausea, poor appetite, poor fluid intake, rectal bleeding, rectal pain, vomiting, others Genitourinary: denies: burning, dysuria, flank pain, frequency, hematuria, incontinence, penile discharge, penile sore, pain, testicle pain, testicle swelling, urgency, others Neurological: denies: dizziness, fainting, headache, left sided numbness, left sided weakness, numbness, paresthesia, pre-existing deficit, right sided numbness, right sided weakness, seizure, speech problems, tingling, tremors, weakness, others Musculoskeletal: denies: back pain, gout, joint pain, joint swelling, muscle pain, muscle stiffness, neck pain, others Integumetry: denies: bruises, change in color, change in hair/nails, dryness, laceration, lesions, lumps, rash, wounds, others Allergic/Immunocompromised: denies: Difficulty Healing, Frequent Infections, Hives, Itching, others Hematologic/Lymphatic: denies: anemia, blood clots, easy bleeding, easy bruising, swollen glands, others Endocrine: denies: excessive hunger, excessive sweating, excessive thirst, excessive urination, flushing, intolerance to cold, intolerance to heat, unexplained weight gain, unexplained weight loss, others Psychiatric: reports: depression; denies: anxiety, bipolar disorder, hopeless, panic disorder, schizophrenia, sleepless, suicidal, others Physical Exam General Appearance: Moderate Distress (Moderate distress due to shortness a breath concerns.), Obese HEENT: Normal ENT Inspection, Pharynx Normal, TMs Normal Neck: Full Range of Motion, Non-Tender, Normal, Normal Inspection Respiratory: Other (Rhonchi appreciated with patchy wheezing in global bilateral lung richard. No accessory muscle use.) Cardiovascular: Irregular, No Edema, No JVD, No Murmur, No Gallop, Normal Peripheral Pulses, Tachycardia Breast Exam: Deferred Gastrointestinal: No Organomegaly, Non Tender, No Pulsatile Mass, Normal Bowel Sounds, Soft Genitalia: Deferred Pelvic: Deferred Rectal: Deferred Extremities: Normal capillary refill, Normal range of motion Neurologic: Alert Cerebellar Function: NOT DONE Reflexes: NOT DONE Skin: Dry, Normal Color, Warm Lymphatic: No Adenopathy Was a procedure done? Was a procedure done?: No CP Differential Dx Differential Diagnosis: A-fib, A-Flutter, Anxiety / Panic Attack, Atrial Dysrhythmia, AV Block 1st Degree, Heart Failure, ME Differential Diagnosis: CHF, HTN Essential Differential Diagnosis: Angina, Pneumonia, Pneumothorax X-Ray, Labs, Meds, VS Vital Signs Date Time Temp Pulse Resp B/P (MAP) Pulse Ox O2 Delivery O2 Flow Rate FiO2 01/30/25 01:28 24 97 Simple Mask* 10 99 01/30/25 00:00 113 26 156/111 (126) 97 01/29/25 23:30 156/111 01/29/25 21:40 102 29 127/79 (95) 91 01/29/25 20:52 119 23 97 Nasal Cannula* 4 36 01/29/25 20:51 119 25 178/145 (156) 97 01/29/25 20:49 128 184/131 01/29/25 20:30 142 165/105 01/29/25 20:03 115 164/105 01/29/25 19:30 98.1 115 27 164/105 (124) 93 98.1 01/29/25 18:55 98.8 126 16 150/111 (124) 92 98.8 01/29/25 18:55 92 Room Air* 0 21 01/29/25 18:50 117 Lab Test 01/30/25 00:21 01/30/25 00:18 01/29/25 20:53 01/29/25 19:15 Range/Units Lactic Acid Level 1.8 2.2 *H 0.4-2.0 mmol/L Troponin I High Sensitivity 236 *H 275 *H 257 *H </=54 ng/L Urine Color Yellow Yellow Urine Clarity Clear Clear Urine pH 5.5 5.0-9.0 Urine Specific [place] 1.022 1.001-1.035 Urine Protein 1+ H Negative Urine Ketones Negative Negative Urine Blood Negative Negative /uL Urine Nitrite Negative Negative Urine Bilirubin Negative Negative Urine Urobilinogen 2 H Negative mg/dL Urine Leukocyte Esterase Negative Negative /uL Urine RBC 6 0 - 3 /hpf Urine Microscopic WBC 1 0-3 /HPF Urine Squamous Epithelial Cells Few <5 /hpf Urine Bacteria None seen None Seen /hpf Urine Mucus Few None Seen Urine Glucose Normal Normal mg/dL Urine Opiates Screen Neg NEGATIVE Urine Fentanyl Screen Neg NEGATIVE Urine Barbiturates Screen Neg NEGATIVE Urine Phencyclidine Screen Neg NEGATIVE Urine Amphetamines Screen Pos NEGATIVE Urine Benzodiazepines Screen Neg NEGATIVE Urine Cocaine Screen Neg NEGATIVE Urine Cannabinoids Screen Pos NEGATIVE White Blood Count 8.0 4.4-10.8 10^3/uL Red Blood Count 4.28 L 4.5-5.90 10^6/uL Hemoglobin 13.7 13.5-17.5 g/dL Hematocrit 42.8 41.0-53.0 % Mean Corpuscular Volume 99.9 80.0-100.0 fL Mean Corpuscular Hemoglobin 32.0 28.0-32.0 pg Mean Corpuscular Hemoglobin Concent 32.0 32.0-36.0 g/dL Red Cell Distribution Width 17.6 H 11.8-14.3 % Platelet Count 183 140-450 10^3/uL Mean Platelet Volume 8.9 6.9-10.8 fL Neutrophils (%) (Auto) 67.5 37.0-80.0 % Lymphocytes (%) (Auto) 23.1 10.0-50.0 % Monocytes (%) (Auto) 6.9 0.0-12.0 % Eosinophils (%) (Auto) 1.9 0.0-7.0 % Basophils (%) (Auto) 0.6 0.0-2.0 % Neutrophils # (Auto) 5.4 1.6-8.6 10 ^3/uL Lymphocytes # (Auto) 1.8 0.4-5.4 10 ^3/uL Monocytes # (Auto) 0.5 0-1.3 10 ^3/uL Eosinophils # (Auto) 0.2 0-0.8 10 ^3/uL Basophils # (Auto) 0 0-0.2 10 ^3/uL Nucleated Red Blood Cells 0.1 % D-Dimer, Quantitative 0.86 H 0.0-0.49 mg/L FEU Sodium Level 143 136-145 mmol/L Potassium Level 4.0 3.5-5.1 mmol/L Chloride Level 110 H 98-107 mmol/L Carbon Dioxide Level 19 L 20-31 mmol/L Anion Gap 14 5-15 Blood Urea Nitrogen 14 9-23 mg/dL Creatinine 0.96 0.700-1.30 mg/dL Glomerular Filtration Rate Calc 90 >90 mL/min BUN/Creatinine Ratio 14.6 10.0-20.0 Serum Glucose 100 74-106 mg/dL Calcium Level 9.2 8.7-10.4 mg/dL Total Bilirubin 2.7 H 0.2-1.0 mg/dL Aspartate Amino Transferase (AST) 35 13-40 U/L Alanine Aminotransferase (ALT) 20 7-40 U/L Alkaline Phosphatase 139 H 46-116 U/L B-Type Natriuretic Peptide 322.37 0-100 pg/mL Total Protein 6.3 5.7-8.2 g/dL Albumin 4.2 3.2-4.8 g/dL Lipase 34 12-53 U/L Current Medications Medications (Trade) Dose Ordered Sig/Vu Route Start Time Stop Time Status Last Admin Metoprolol Tartrate (Lopressor) 5 mg Q5M IV 01/29/25 19:00 01/29/25 20:49 Sodium Chloride 1,000 ml @ 150 mls/hr Q6H40M ONCE IV 01/29/25 19:00 01/30/25 01:39 DC 01/29/25 20:03 Furosemide (Lasix Injection) 60 mg ONCE ONCE IV 01/29/25 23:30 01/29/25 23:31 DC 01/29/25 23:30 Albuterol (Ventolin Medneb) 5 mg ONCE ONCE NEB 01/30/25 01:15 01/30/25 01:16 DC 01/30/25 01:28 Ipratropium [place] (Atrovent Medneb) 0.5 mg ONCE ONCE NEB 01/30/25 01:15 01/30/25 01:16 DC 01/30/25 01:28 X-Ray, Labs, Meds, VS Comment This patient is not septic. Patient is an illicit drug user and is medication noncompliant. Patient's white blood cell count was 8 and current concerns are cardiac related only. All studies performed the ED were evaluated by me personally. Serum studies revealed an acute CHF exacerbation as well as elev ated troponins and a mild D-dimer elevation. EKG showed an atrial fibrillation with a rate of 117. Left anterior fascicular block was noted as well as right ventricular hypertrophy and borderline prolonged QT interval. QT interval was 344. Chest x-ray revealed a moderate interstitial pulmonary edema. We attempted to convert the AFib initially with metoprolol given him three rounds. Patient's AFib continued. I decided to with the patient on a amiodarone drip and patient was still tachycardic at time of this note. Patient will remain on the drip until conversion is achieved. Patient's elevated D-dimer all have to be addressed once the patient's cardiac event has been managed. Prophylactic Lovenox has been started. Patient will require a cardiac consultation. Time of 1ST Reevaluation: 01:38 Reevaluation 1ST: Improved Consultation: PCP, Cardiology Patient Education/Counseling: Diagnosis, Treatment Family Education/Counseling: Diagnosis, Treatment SEPSIS Sepsis Screen Date sepsis recognized/suspect: Jan 29, 2025 Time Sepsis recognized/suspect: 2053 Recent Procedure: No On Antibiotic Therapy: No Respiratory Rate >20: Yes Heart Rate >90: Yes Temp<36 C (96.8 F) or >38.3 C: No SBP <90 or MAP <65 mmHG: No New Acute Mental Status Change: No Is the patient on CPAP, BIPAP,: No Physician Orders Metoprolol Inj (Lopressor) (01/29/25 19:00) Blood Culture (01/29/25 18:55) Continuous Ekg Monitoring 08,12,16,20,00,04 (01/29/25 18:55) Heplock Iv (01/29/25 ) Amiodarone 360mg/200ml Premix (Nexterone (01/29/25 21:15) Chest Portable (01/30/25 00:54) Vital Signs Date Time Temp Pulse Resp B/P (MAP) Pulse Ox O2 Delivery O2 Flow Rate FiO2 01/30/25 01:28 24 97 Simple Mask* 10 99 01/30/25 00:00 113 26 156/111 (126) 97 01/29/25 23:30 156/111 01/29/25 21:40 102 29 127/79 (95) 91 01/29/25 20:52 119 23 97 Nasal Cannula* 4 36 01/29/25 20:51 119 25 178/145 (156) 97 01/29/25 20:49 128 184/131 01/29/25 20:30 142 165/105 01/29/25 20:03 115 164/105 01/29/25 19:30 98.1 115 27 164/105 (124) 93 98.1 01/29/25 18:55 98.8 126 16 150/111 (124) 92 98.8 01/29/25 18:55 92 Room Air* 0 21 01/29/25 18:50 117 Laboratory Tests Test 01/29/25 19:15 01/30/25 00:21 Lactic Acid Level 2.2 mmol/L (0.4-2.0) *H 1.8 mmol/L (0.4-2.0) White Blood Count 8.0 10^3/uL (4.4-10.8) Medications Medications Dose Ordered Sig/Vu Route Start Time Stop Time Status Last Admin Dose Admin Albuterol 5 mg ONCE ONCE NEB 01/30/25 01:15 01/30/25 01:16 DC 01/30/25 01:28 Furosemide 60 mg ONCE ONCE IV 01/29/25 23:30 01/29/25 23:31 DC 01/29/25 23:30 Ipratropium [place] 0.5 mg ONCE ONCE NEB 01/30/25 01:15 01/30/25 01:16 DC 01/30/25 01:28 Metoprolol Tartrate 5 mg Q5M IV 01/29/25 19:00 01/29/25 20:49 Sodium Chloride 1,000 ml @ 150 mls/hr Q6H40M ONCE IV 01/29/25 19:00 01/30/25 01:39 DC 01/29/25 20:03 Departure 1 Departure Time of Disposition: 01:38 Impression: Primary Impression: Atrial fibrillation Additional Impressions: Elevated troponin I level Acute exacerbation of CHF (congestive heart failure) Elevated d-dimer Disposition: ADMITTED INPATIENT Condition: Fair Discharged With: Self Critical Care Note Critical Care Time?: No Stability Stability form required: No Heart Score Heart Score: Heart Score Response (Comments) Value History Slightly Suspicious 0 EKG Repolarization Disturb 1 Age 45-64 1 Risk Factors >3 or Hx ASHD 2 Troponin >3 x's Normal limit 2 Total 6 ANDRE GORE PAC Jan 30, 2025 01:40
[2025-01-30] MEDS ORDERED: NITROGLYCERIN 0.4 MG SL TAB SL PRN (02:15)
[2025-01-30] MEDS ORDERED: ACETAMINOPHEN 325 MG TAB PO PRN (02:15)
[2025-01-30] MEDS ORDERED: MORPHINE SULFATE INJ 2 MG/ml SYRG IV PRN (02:15)
--- NOTE | 2025-01-30 02:24 | DVHHPRES ---
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 The patient could not provide any history due to altered mental status. Review of Systems Respiratory: Shortness of breath Allergies: Coded Allergies: NO KNOWN ALLERGIES (Unverified , 03/17/17) Medications Current Medications Medications Dose Ordered Sig/Vu Route Start Time Stop Time Status Last Admin Dose Admin Metoprolol Tartrate 5 mg Q5M IV 01/29/25 19:00 01/29/25 20:49 5 MG Acetaminophen 650 mg Q6HP PRN PO 01/30/25 02:15 Nitroglycerin 0.4 mg Q5MINP PRN SL 01/30/25 02:15 UNV Morphine Sulfate 2 mg Q30M PRN IV 01/30/25 02:15 UNV Exam Vital Signs Vital Signs Date Time Temp Pulse Resp B/P (MAP) Pulse Ox O2 Delivery O2 Flow Rate FiO2 01/30/25 01:28 24 97 Simple Mask* 10 99 01/30/25 00:00 113 156/111 (126) 01/29/25 19:30 98.1 98.1 Exam Pt is lying on bed General Appearance: Alert, Oriented X3, Cooperative, Mild distress HEENT: Eyes red and congested, Atraumatic, Mucous membranes moist/pink Respiratory: Oxygen mask in place, crackles present over right lung richard. Normal air movement, No added sounds Cardiovascular: Regular rate, Normal S1, Normal S2, No murmurs Abdominal/ : Active bowel sounds, Soft, no distention, no tenderness Extremities: 1+ edema, Normal pulses, No tenderness/swelling Skin: No Significant rash, except past surgical scars Neuro: Normal speech, sensorimotor deficits none Psych/Mental Status: Mental status NL, Mood NL Nurse was there as clinical social work aide during examination Labs/Xrays Labs Test 01/30/25 00:21 01/30/25 00:18 01/29/25 19:15 Range/Units Lactic Acid Level 1.8 0.4-2.0 mmol/L Troponin I High Sensitivity 236 *H </=54 ng/L Urine Color Yellow Yellow Urine Clarity Clear Clear Urine pH 5.5 5.0-9.0 Urine Specific [place] 1.022 1.001-1.035 Urine Protein 1+ H Negative Urine Ketones Negative Negative Urine Blood Negative Negative /uL Urine Nitrite Negative Negative Urine Bilirubin Negative Negative Urine Urobilinogen 2 H Negative mg/dL Urine Leukocyte Esterase Negative Negative /uL Urine RBC 6 0 - 3 /hpf Urine Microscopic WBC 1 0-3 /HPF Urine Squamous Epithelial Cells Few <5 /hpf Urine Bacteria None seen None Seen /hpf Urine Mucus Few None Seen Urine Glucose Normal Normal mg/dL Urine Opiates Screen Neg NEGATIVE Urine Fentanyl Screen Neg NEGATIVE Urine Barbiturates Screen Neg NEGATIVE Urine Phencyclidine Screen Neg NEGATIVE Urine Amphetamines Screen Pos NEGATIVE Urine Benzodiazepines Screen Neg NEGATIVE Urine Cocaine Screen Neg NEGATIVE Urine Cannabinoids Screen Pos NEGATIVE White Blood Count 8.0 4.4-10.8 10^3/uL Red Blood Count 4.28 L 4.5-5.90 10^6/uL Hemoglobin 13.7 13.5-17.5 g/dL Hematocrit 42.8 41.0-53.0 % Mean Corpuscular Volume 99.9 80.0-100.0 fL Mean Corpuscular Hemoglobin 32.0 28.0-32.0 pg Mean Corpuscular Hemoglobin Concent 32.0 32.0-36.0 g/dL Red Cell Distribution Width 17.6 H 11.8-14.3 % Platelet Count 183 140-450 10^3/uL Mean Platelet Volume 8.9 6.9-10.8 fL Neutrophils (%) (Auto) 67.5 37.0-80.0 % Lymphocytes (%) (Auto) 23.1 10.0-50.0 % Monocytes (%) (Auto) 6.9 0.0-12.0 % Eosinophils (%) (Auto) 1.9 0.0-7.0 % Basophils (%) (Auto) 0.6 0.0-2.0 % Neutrophils # (Auto) 5.4 1.6-8.6 10 ^3/uL Lymphocytes # (Auto) 1.8 0.4-5.4 10 ^3/uL Monocytes # (Auto) 0.5 0-1.3 10 ^3/uL Eosinophils # (Auto) 0.2 0-0.8 10 ^3/uL Basophils # (Auto) 0 0-0.2 10 ^3/uL Nucleated Red Blood Cells 0.1 % D-Dimer, Quantitative 0.86 H 0.0-0.49 mg/L FEU Sodium Level 143 136-145 mmol/L Potassium Level 4.0 3.5-5.1 mmol/L Chloride Level 110 H 98-107 mmol/L Carbon Dioxide Level 19 L 20-31 mmol/L Anion Gap 14 5-15 Blood Urea Nitrogen 14 9-23 mg/dL Creatinine 0.96 0.700-1.30 mg/dL Glomerular Filtration Rate Calc 90 >90 mL/min BUN/Creatinine Ratio 14.6 10.0-20.0 Serum Glucose 100 74-106 mg/dL Calcium Level 9.2 8.7-10.4 mg/dL Total Bilirubin 2.7 H 0.2-1.0 mg/dL Aspartate Amino Transferase (AST) 35 13-40 U/L Alanine Aminotransferase (ALT) 20 7-40 U/L Alkaline Phosphatase 139 H 46-116 U/L B-Type Natriuretic Peptide 322.37 0-100 pg/mL Total Protein 6.3 5.7-8.2 g/dL Albumin 4.2 3.2-4.8 g/dL Lipase 34 12-53 U/L SEPSIS Sepsis Screen Date sepsis recognized/suspect: Jan 29, 2025 Time Sepsis recognized/suspect: 2053 Recent Procedure: No On Antibiotic Therapy: No Respiratory Rate >20: Yes Heart Rate >90: Yes Temp<36 C (96.8 F) or >38.3 C: No SBP <90 or MAP <65 mmHG: No New Acute Mental Status Change: No Is the patient on CPAP, BIPAP,: No Physician Orders Metoprolol Inj (Lopressor) (01/29/25 19:00) Blood Culture (01/29/25 18:55) Continuous Ekg Monitoring 08,12,16,20,00,04 (01/29/25 18:55) Heplock Iv (01/29/25 ) Amiodarone 360mg/200ml Premix (Nexterone (01/29/25 21:15) Chest Portable (01/30/25 00:54) Admit (01/30/25 02:13) Allergies (01/30/25 02:13) Code Status (01/30/25 02:13) Oxygen Per Hour (01/30/25 02:13) Cardiac Diet-2gna,Lofat,Lochol (01/30/25 Breakfast) Echo 2d Mode Cardiac Dop (01/30/25 02:13) Acetaminophen Tablet (Tylenol Tablet) (01/30/25 02:15) Nitroglycerin Sublingual (Ntrostat Subli (01/30/25 02:15) Morphine Sulfate Injection (01/30/25 02:15) Oxygen By Nasal Cannula (01/30/25 02:13) Stat Ekg For Chest Pain (01/30/25 02:13) Notify Of Changes From Base (01/30/25 02:13) Emergency Dysrhythmia Protocol (01/30/25 02:13) Rhythm Strips Once Every Shift (01/30/25 02:13) Vital Signs Date Time Temp Pulse Resp B/P (MAP) Pulse Ox O2 Delivery O2 Flow Rate FiO2 01/30/25 01:28 24 97 Simple Mask* 10 99 01/30/25 00:00 113 26 156/111 (126) 97 01/29/25 23:30 156/111 01/29/25 21:40 102 29 127/79 (95) 91 01/29/25 20:52 119 23 97 Nasal Cannula* 4 36 01/29/25 20:51 119 25 178/145 (156) 97 01/29/25 20:49 128 184/131 01/29/25 20:30 142 165/105 01/29/25 20:03 115 164/105 01/29/25 19:30 98.1 115 27 164/105 (124) 93 98.1 01/29/25 18:55 98.8 126 16 150/111 (124) 92 98.8 01/29/25 18:55 92 Room Air* 0 21 01/29/25 18:50 117 Laboratory Tests Test 01/29/25 19:15 01/30/25 00:21 Lactic Acid Level 2.2 mmol/L (0.4-2.0) *H 1.8 mmol/L (0.4-2.0) White Blood Count 8.0 10^3/uL (4.4-10.8) Medications Medications Dose Ordered Sig/Vu Route Start Time Stop Time Status Last Admin Dose Admin Albuterol 5 mg ONCE ONCE NEB 01/30/25 01:15 01/30/25 01:16 DC 01/30/25 01:28 5 MG Furosemide 60 mg ONCE ONCE IV 01/29/25 23:30 01/29/25 23:31 DC 01/29/25 23:30 60 MG Ipratropium [place] 0.5 mg ONCE ONCE NEB 01/30/25 01:15 01/30/25 01:16 DC 01/30/25 01:28 0.5 MG Metoprolol Tartrate 5 mg Q5M IV 01/29/25 19:00 01/29/25 20:49 5 MG Sodium Chloride 1,000 ml @ 150 mls/hr Q6H40M ONCE IV 01/29/25 19:00 01/30/25 01:39 DC 01/29/25 20:03 150 MLS/HR Assessment/Plan Assessment/Plan # shortness of breaths due to CHF ? Likely methamphetamine induced #Pneumonia due to gram positive/negative organism? -Lasix 60 mg once and Lasix 40 mg IV b.i.d. ordered -CXR: Pulmonary edema -EKG -echo 2D ordered, pending -morphine, nitroglycerin and oxygen mask -metoprolol discontinued -Covid-19 and rapid flu test ordered. # amphetamines and cannabinoid use disorder Counseling regarding cessation of drug abuse GI prophylaxis: Pantoprazole DVT prophylaxis: Lovenox Diet: Cardiac Goals of care discussed with the patient for more than 27 minutes: Full code status Case discussed with Dr. Pierson , patient and RN Plan discussed with: Patient, Other (RN) My Orders Orders - MAGGIE LUNA RESIDENT Procedure Category Date Status Time Admit ADMIT 01/30/25 Transmitted 02:13 Allergies JESSE 01/30/25 In Process 02:13 Code Status CODE 01/30/25 Transmitted 02:13 Oxygen Per Hour RT 01/30/25 Transmitted 02:13 Cardiac DIET 01/30/25 Transmitted Diet-2gna,Lofat,Lochol Breakfast Echo 2d Mode Cardiac US 01/30/25 Logged DOP 02:13 Acetaminophen Tablet PHA 01/30/25 Logged (Tylenol Tablet) 02:15 Nitroglycerin PHA 01/30/25 Logged Sublingual (Ntrostat 02:15 Morphine Sulfate PHA 01/30/25 Logged Injection 02:15 Oxygen By Nasal RT 01/30/25 Transmitted Cannula 02:13 Stat Ekg For Chest JESSE 01/30/25 In Process Pain 02:13 Notify Of Changes JESSE 01/30/25 In Process From Base 02:13 Emergency Dysrhythmia JESSE 01/30/25 In Process Protocol 02:13 Rhythm Strips Once JESSE 01/30/25 In Process Every Shift 02:13 Date of Service: Jan 30, 2025 Billing Provider: ELIDA PIERSON MD Common Visit Codes: [id number] INP/OBS CARE (HIGH) Secondary Visit Codes: [id number] CARE PLAN 30 MINUTES MAGGIE LUNA RESIDENT Jan 30, 2025 02:24 GRECIA BARRERA RESIDENT Jan 30, 2025 04:55
[2025-01-30] MEDS ORDERED: FUROSEMIDE 40 MG/4 ML VIAL IV ONE (02:30)
[2025-01-30 04:20] LABS: Hematocrit 41.8 % (41.0-53.0); Hemoglobin 13.9 g/dL (13.5-17.5); Mean Corpuscular Hemoglobin 31.6 pg (28.0-32.0); Mean Corpuscular Volume 94.9 fL (80.0-100.0); Nucleated Red Blood Cells % 0.1 %
[2025-01-30 04:22] LABS: Alanine Aminotransferase 17 U/L (7-40); Albumin 4.1 g/dL (3.2-4.8); BUN/Creatinine Ratio 14.4 (10.0-20.0); Blood Urea Nitrogen 14 mg/dL (9-23); Calcium 9.1 mg/dL (8.7-10.4); Potassium 4.0 mmol/L (3.5-5.1); Sodium 142 mmol/L (136-145); Total Protein 6.7 g/dL (5.7-8.2)
[2025-01-30 04:38] LABS: Alkaline Phosphatase 139 U/L (46-116); Bilirubin, Total 2.3 mg/dL (0.2-1.0); Chloride 109 mmol/L (98-107); Glucose 111 mg/dL (74-106)
[2025-01-30 04:46] LABS: Anion Gap 12 (5-15); Carbon Dioxide 21 mmol/L (20-31)
[2025-01-30 05:15] LABS: COVID19 ANTIGEN SOFIA FIA NEGATIVE (NEGATIVE)
[2025-01-30] MEDS: GABAPENTIN 100 MG CAP PO SCH (06:00)
[2025-01-30] MEDS: FUROSEMIDE 40 MG/4 ML VIAL IV SCH (09:51)
[2025-01-30] MEDS: PANTOPRAZOLE 40 MG/10 ML VIAL INJ IV SCH (09:51)
[2025-01-30] MEDS: LISINOPRIL 20 MG TAB PO SCH (09:52)
[2025-01-30] MEDS: AMIODARONE HCL 200 MG TAB PO SCH (09:53)
[2025-01-30] MEDS: ENOXAPARIN SOD 40 MG/0.4 ML SYRINGE SC SCH (09:54)
[2025-01-30] MEDS: SPIRONOLACTONE 25 MG TAB PO SCH (09:54)
[2025-01-30 10:27] LABS: Triglycerides 83 mg/dL (< 150)
[2025-01-30 10:29] LABS: Cholesterol 164 mg/dL (< 200); HDL Cholesterol 35 mg/dL (40-59)
--- NOTE | 2025-01-30 12:30 | DVH ---
Bilateral lower extremity venous Doppler INDICATION: high d-dimer and lower extremity pain TECHNIQUE: Duplex venous sonography was performed with real-time and flow sensitive images submitted for evaluation. FINDINGS: Normal phasic venous flow. Veins are fully compressible. No filling defects. IMPRESSION: 1. No evidence of deep vein thrombosis.
--- NOTE | 2025-01-30 14:24 | DVHSR ---
APPROVED REPORT EXAM: LIMITED Two-dimensional echocardiogram. Blood Pressure: 144/106 mmHg INDICATION SOB RISK FACTORS Obesity: Height: 5'6, Weight: 225 DIMENSIONS LVDd4.5 (3.8-5.7cm)LA (2D) (1.9-4.0cm)Aortic Root (2.0-3.7cm) LVDs3.8 (2.5-4.0cm)LA (MM) (1.9-4.0cm)Aortic Cusp Exc (1.5-2.0cm) EF (%) 29.0 (55-70%)Rt. Atrium (1.9-4.0cm)Asc. Aorta cm IVSd1.7 (0.7-1.1cm)RV (D) (1.8-2.4cm) PWd1.2 (0.7-1.1cm) Mitral Valve MitralMitral Stenosis E/A ratio0.02D MVAcm2 Aortic Valve Aortic ValveAortic Stenosis LVOT Diameter2.1 (1.8-2.4cm)Doppler AVAcm2 Other Information Quality : LimitedRhythm : Technically limited study due to Pt refused exam and yelled at tech to leave room. Conclusion only 3 image s obtained, pt yelled at tech lvef is <40% , LVH is noted trivial to small pericardial effusion noted L sided pleural effusion suspected incomplete study
--- NOTE | 2025-01-30 15:25 | DVHPNRES ---
Progress Note Date Seen: Jan 30, 2025 Resident Creating Document: DOMINIQUE LARA RESIDENT Medical Necessity Reason Pt with a Central, PICC or Fol: No Subjective Review of Systems 59-year-old male with past history of atrial fibrillation, hypertension, CHF came to the emergency yesterday with complaints of severe shortness of breath. Patient was unable to speak in full sentences yesterday. Reports that he was walking yesterday when he felt short of breath and had to sit down. when the shortness of breath continued even on sitting down 911 was called and he was brought to the hospital. He says that this is not the 1st time it has happened that he has had shortness of breath from time to time. On inquiry he says that he has not been entirely compliant with the medications he has received because it makes him pee a lot. he denies any chest pain, dizziness, headache, nausea or vomiting. Patient also complains of watering of the eyes for the past week end of congestion. On inquiry he reports that the left eye is glued in the morning when he wakes up. There is no itchiness either eye. ROS 01/30/2025: The patient was seen and examined by me in the bedside. Overnight events were reviewed. Patient reports that he is feeling much better than yesterday and the shortness of breath has decreased. He is still on 4 L of oxygen via nasal cannula. He has no other active complaints. Rest of the ROS is negative. Since his D-dimer was slightly elevated 0.86, venous Doppler has been ordered. We have also consulted cardio since patient never had LHC in his CHADS-VASc score is 2. We started the patient on enoxaparin 100 mg subcutaneously Q 12 . we resumed his metoprolol. We repeated an EKG. Objective vital signs Vital Sign Date Time Temp Pulse Resp B/P (MAP) Pulse Ox O2 Delivery O2 Flow Rate FiO2 01/30/25 13:00 98.1 100 18 137/105 (116) 96 98.1 01/30/25 08:45 Nasal Cannula* 4 36 Total Intake and Output 01/29/25 01/29/25 01/30/25 15:00 23:00 07:00 Output Total 1300 ml Balance -1300 ml medications Current Medications Medications Dose Ordered Sig/Vu Route Start Time Stop Time Status Last Admin Dose Admin Acetaminophen 650 mg Q6HP PRN PO 01/30/25 02:15 Nitroglycerin 0.4 mg Q5MINP PRN SL 01/30/25 02:15 Morphine Sulfate 2 mg Q30M PRN IV 01/30/25 02:15 Furosemide 40 mg BID IV 01/30/25 10:00 01/30/25 09:51 40 MG Amiodarone HCl 200 mg BID PO 01/30/25 10:00 01/30/25 09:53 200 MG Atorvastatin Calcium 40 mg HS PO 01/30/25 22:00 Gabapentin 100 mg TID PO 01/30/25 06:00 Lisinopril 20 mg DAILY PO 01/30/25 10:00 01/30/25 09:52 20 MG Spironolactone 25 mg DAILY PO 01/30/25 10:00 01/30/25 09:54 25 MG Tamsulosin HCl 0.8 mg QPM PO 01/30/25 18:00 Pantoprazole Sodium 40 mg DAILY IV 01/30/25 10:00 01/30/25 09:51 40 MG Metoprolol Tartrate 12.5 mg BID PO 01/30/25 22:00 Enoxaparin Sodium 100 mg Q12HR SC 01/30/25 22:00 Examination Pt is lying on bed General Appearance: Alert, Oriented X3, Cooperative, Mild distress on 4 L of oxygen via nasal cannula HEENT: Eyes red and congested, Slight tearing, Atraumatic, Mucous membranes moist/pink Respiratory: mild bibasal crackles present. Normal air movement in bilateral lungs Cardiovascular: Regular rate, Normal S1, Normal S2, No murmurs Abdominal/ : Active bowel sounds, Soft, no distention, no tenderness Extremities: 1+ pitting edema in bilateral limbs, Normal pulses, No tenderness/swelling Skin: No significant rash, except past surgical scars Neuro: Normal speech, no sensorimotor deficits Psych/Mental Status: Mental status NL, Mood NL Nurse was there as purchasing assistant during examination laboratory and microbiology Laboratory Tests 01/30/25 03:56 Test 01/30/25 03:56 Range/Units Serum Glucose 111 H 74-106 mg/dL Labs and/or images reviewed: Labs reviewed by me, Image(s) reviewed by me Problem List/Assessment/Plan Problem List/Assessment/Plan # Shortness of breaths due to acute on chronic CHF exacerbation, Likely methamphetamine induced and noncompliance of medication # Acute hypoxic respiratory failure secondary to above # lactic acidosis- resolved # congestive hepatopathy secondary to above # AFib with RVR; CHADVAS score 2, #HFrEF 40% -Hx of direct current cardioversion -Lasix 60 mg once and Lasix 40 mg IV b.i.d. ordered -CXR: Pulmonary edema -nebulization ipratropium bromide, albuterol -flu/COVID negative -EKG showed AF with RVR -echo 2D showed EF of less than 40%; incomplete as patient didnt comply -morphine, nitroglycerin and oxygen nasal cannula -metoprolol discontinued; started again on 01/22/2025 -Repeat EKG -spironolactone -monitor input and output -cardiac consult suggested I/O charting, maintain fluid restriction, Lovenox inpatient and and switch to direct oral anticoagulants outpatient, beta-blockers for rate control # NSTEMI, type 2 -trop 257>275>236 -monitor labs # Polysubstance abuse (amphetamines and cannabinoid) -As seen in urine toxicology -Counseling regarding cessation of drug abuse # unspecified thyroid disorder -TSH low -Free T4, total T3, pending GI prophylaxis: Protonix 40 mg IV daily DVT prophylaxis: Lovenox 40 mg subcutaneous daily Diet: cardiac diet Goals of care discussed with the patient for more than 27 minutes: Full code status Case discussed with Dr. Yates, patient and nurse. Plan discussed with: Patient, Other (rn) My Orders My Orders Orders - DOMINIQUE LARA Procedure Category Date Status Time Bilat Lower Dvt US 01/30/25 Resulted 11:45 Date of Service: Jan 30, 2025 Billing Provider: ALDAIR SMITH MD Common Visit Codes: [id number] INP/OBS CARE(HIGH) DOMINIQUE LARA Jan 30, 2025 15:25 ALDAIR SMITH MD Feb 01, 2025 01:55
--- NOTE | 2025-01-30 15:30 | ECG ---
[facility] Test Date: 2025-01-30 Test Time: 14:38:48 Pat Name: PRICE LYON Department: Room: 0223 Gender: M Out Patient Therapist: buddy : [id number] Requested By: JERRELL HILL Order Number: [id number] Reading MD: Nino Mattson Measurements Intervals [place] Rate: 101 P: 0 [place]: 0 QRS: -11 QRSD: 112 T: 59 QT: 388 QTc: 503 Interpretive Statements Atrial fibrillation Ventricular premature complex Borderline intraventricular conduction delay Abnormal R-wave progression, late transition Borderline T abnormalities, anterior leads Prolonged QT interval Electronically Signed On 02-01-2025 13:53:51 PDT by Nino Mattson Please click the below link to view image of tracing.
[2025-01-30] MEDS: METOPROLOL TARTRATE 25 MG TAB PO ONE (15:57)
--- NOTE | 2025-01-30 16:38 | DVHINCON2 ---
Date Seen: Jan 30, 2025 Referring Physician MD Mayur resident Reason for Consultation Ischemic workup, AFib RVR History of Present Illness This is a 59-year-old male patient who presents to emergency room with worsening shortness of breath for one day. Cardiology has been consulted at this time for AFib RVR and possible ischemic workup. Initial twelve lead electrocardiogram reveals atrial fibrillation with rapid ventricular response. Initial troponin level of 257ng/L with flat trend thereafter. Significant past medical history includes congestive heart failure, atrial fibrillation/atrial flutter status post DCCV, hypertension, hyperlipidemia, myocardial infarction, BPH, prostate cancer status post TURP, alcohol use/methamphetamine use, and obesity. The patient is noncompliant and does not follow up with a records section supervisor in the outpatient setting. The patient also admits to dietary indiscretions and medical noncompliance. Past Medical History Past medical history reviewed. No other significant than mentioned above. Past Surgical History TURP Family History: Diabetes mellitus G8 FATHER, Onset:Unknown FH: congestive heart failure G8 FATHER, Onset:Unknown Family History Family history reviewed. Social History Patient admits to recent methamphetamine use, toxicology screen positive for amphetamines on this admission Patient has a 30 pack-year history, quit smoking approximately 10 years ago Patient admits to 2-3 alcoholic drinks per day Allergies: Coded Allergies: NO KNOWN ALLERGIES (Unverified , 03/17/17) Home Meds Active Scripts Amoxicillin & Pot Clavulanate (AUGMENTIN TABLET) 875 Mg Tb, 875 MG PO BID for 7 Days, #14 TAB Prov:EMY MALONE RESIDENT 12/14/23 Lisinopril (Lisinopril) 20 Mg Tab, 1 TAB PO DAILY, #30 TAB 3 Refills Prov:KYLEIGH RENDON RESIDENT 12/01/23 Metoprolol Succinate (Metoprolol Succinate Er) 50 Mg Tab, 1 TAB PO DAILY, #30 TAB 3 Refills Prov:KYLEIGH RENDON RESIDENT 12/01/23 Amiodarone Hcl (Amiodarone Hcl) 200 Mg Tab, 200 MG PO BID for 30 Days, #60 TAB 3 Refills Prov:KYLEIGH RENDON RESIDENT 12/01/23 Atorvastatin Calcium (ATORVASTATIN CALCIUM) 20 Mg Tab, 40 MG PO HS for 20 Days, #40 TAB 5 Refills Prov:EMY MALONE RESIDENT 09/16/23 Spironolactone (Aldactone) 25 Mg Tab, 25 MG PO DAILY for 20 Days, #20 TAB 4 Refills Prov:EMY MALONE RESIDENT 09/16/23 Gabapentin (Gabapentin) 100 Mg Cap, 100 MG PO TID, #90 CAP 2 Refills Prov:ROSARIO CAMPOS MD 04/24/22 Potassium Chloride (Potassium Chloride ER) 20 Meq Tab, 20 MEQ PO DAILY for 30 Days, #30 TAB 3 Refills Prov:STACEY JAVIER MD 01/29/22 Furosemide (Lasix) 40 Mg Tab, 40 MG PO QAM for 30 Days, #30 TAB 3 Refills Prov:STACEY JAVIER MD 01/29/22 Albuterol Sulfate (VENTOLIN MDI) 90 Mcg Ih, 90 MCG IN Q4HR, #1 INH Prov:CIRO MCCOY MD 01/17/22 Folic Acid (Folic Acid) 1 Mg Tab, 1 MG PO DAILY, #30 TAB Prov:CIRO MCCOY MD 01/15/22 Thiamine Hcl (Thiamine Hcl) 100 Mg Tab, 1 TAB PO DAILY, #30 TAB 3 Refills Prov:CIRO MCCOY MD 01/15/22 Reported Medications Tamsulosin Hcl (Tamsulosin Hcl) 0.4 Mg Cap, 0.8 MG PO QPM for 30 Days, MG 08/21/23 Home Meds Home medications reviewed. Current Medications Current Medications Medications (Trade) Dose Ordered Sig/Vu Route PRN Reason Start Time Stop Time Status Last Admin Metoprolol Tartrate (Lopressor) 5 mg Q5M IV 01/29/25 19:00 01/30/25 03:02 DC 01/29/25 20:49 Acetaminophen (Tylenol Tablet) 650 mg Q6HP PRN PO PAIN SCALE 1-3 OR TEMP>100.4 01/30/25 02:15 Nitroglycerin (Ntrostat Sublingual) 0.4 mg Q5MINP PRN SL FOR CHEST PAIN 01/30/25 02:15 Morphine Sulfate 2 mg Q30M PRN IV FOR CHEST PAIN 01/30/25 02:15 Furosemide (Lasix Injection) 40 mg BID IV 01/30/25 10:00 01/30/25 09:51 Amiodarone HCl (Cordarone Tablet) 200 mg BID PO 01/30/25 10:00 01/30/25 09:53 Atorvastatin Calcium (Lipitor) 40 mg HS PO 01/30/25 22:00 Gabapentin (Neurontin Capsule) 100 mg TID PO 01/30/25 06:00 Lisinopril (Zestril Tablet) 20 mg DAILY PO 01/30/25 10:00 01/30/25 09:52 Spironolactone (Aldactone) 25 mg DAILY PO 01/30/25 10:00 01/30/25 09:54 Tamsulosin HCl (Flomax) 0.8 mg QPM PO 01/30/25 18:00 Pantoprazole Sodium (Protonix) 40 mg DAILY IV 01/30/25 10:00 01/30/25 09:51 Enoxaparin Sodium (Lovenox) 40 mg DAILY SC 01/30/25 10:00 01/30/25 15:04 DC 01/30/25 09:54 Metoprolol Tartrate (Lopressor Tablet) 12.5 mg BID PO 01/30/25 22:00 Enoxaparin Sodium (Lovenox) 100 mg Q12HR SC 01/30/25 22:00 Review of Systems Constitutional: No symptom reported Ears, Nose, & Throat: No symptom reported Eyes: No symptom reported Neurological: No symptoms reported Pulmonary/Respiratory: Shortness of breath Cardiovascular: No symptom reported Gastrointestinal: No symptom reported Genitourinary: No symptom reported Musculoskeletal: No symptom reported Skin: No symptom reported Psychiatric: No symptom reported Endocrine: No symptom reported Hematologic/Lymphatic: No symptom reported Vital Signs Vital Signs Date Time Temp Pulse Resp B/P (MAP) Pulse Ox O2 Delivery O2 Flow Rate FiO2 01/30/25 15:57 103 136/72 01/30/25 13:00 98.1 18 96 98.1 01/30/25 08:45 Nasal Cannula* 4 36 Physical Exam General Appearance: Cooperative. Unkempt. Obese Pulmonary/Respiratory: Clear, bilateral breaths sounds. Cardiovascular/Chest: Irregularly irregular rate and rhythm. Peripheral Pulses: 2+ Radial (R). 2+ Radial (L). Abdominal Exam: Normal bowel sounds. Ankle Exam: 1+ pitting edema Lower extremities: 1+ pitting edema Neuro/Mental Status: A/OX4, coherent. Thoughts/Psych: Normal thought pattern. Appropriate mood and affect. Good judgment and insight. Appearance: No acute distress. Skin Exam: Normal inspection. Normal color. Warm and dry. Labs/Diagnostic Data Labs Test 01/30/25 04:00 01/30/25 03:56 01/30/25 00:21 01/30/25 00:18 Range/Units Influenza Type A Antigen Negative Negative Influenza Type B Antigen Negative Negative SARS-CoV-2 Antigen (Rapid) Negative NEGATIVE White Blood Count 9.1 4.4-10.8 10^3/uL Red Blood Count 4.41 L 4.5-5.90 10^6/uL Hemoglobin 13.9 13.5-17.5 g/dL Hematocrit 41.8 41.0-53.0 % Mean Corpuscular Volume 94.9 # 80.0-100.0 fL Mean Corpuscular Hemoglobin 31.6 28.0-32.0 pg Mean Corpuscular Hemoglobin Concent 33.3 32.0-36.0 g/dL Red Cell Distribution Width 17.4 H 11.8-14.3 % Platelet Count 222 140-450 10^3/uL Mean Platelet Volume 8.7 6.9-10.8 fL Neutrophils (%) (Auto) 73.9 37.0-80.0 % Lymphocytes (%) (Auto) 16.6 10.0-50.0 % Monocytes (%) (Auto) 6.8 0.0-12.0 % Eosinophils (%) (Auto) 2.1 0.0-7.0 % Basophils (%) (Auto) 0.6 0.0-2.0 % Neutrophils # (Auto) 6.8 1.6-8.6 10 ^3/uL Lymphocytes # (Auto) 1.5 0.4-5.4 10 ^3/uL Monocytes # (Auto) 0.6 0-1.3 10 ^3/uL Eosinophils # (Auto) 0.2 0-0.8 10 ^3/uL Basophils # (Auto) 0.1 0-0.2 10 ^3/uL Nucleated Red Blood Cells 0.1 % Sodium Level 142 136-145 mmol/L Potassium Level 4.0 3.5-5.1 mmol/L Chloride Level 109 H 98-107 mmol/L Carbon Dioxide Level 21 20-31 mmol/L Anion Gap 12 5-15 Blood Urea Nitrogen 14 9-23 mg/dL Creatinine 0.97 0.700-1.30 mg/dL Glomerular Filtration Rate Calc 89 >90 mL/min BUN/Creatinine Ratio 14.4 10.0-20.0 Serum Glucose 111 H 74-106 mg/dL Calcium Level 9.1 8.7-10.4 mg/dL Magnesium Level 1.9 1.6-2.6 mg/dL Total Bilirubin 2.3 H 0.2-1.0 mg/dL Aspartate Amino Transferase (AST) 31 13-40 U/L Alanine Aminotransferase (ALT) 17 7-40 U/L Alkaline Phosphatase 139 H 46-116 U/L Total Protein 6.7 5.7-8.2 g/dL Albumin 4.1 3.2-4.8 g/dL Triglycerides Level 83 < 150 mg/dL Cholesterol Level 164 < 200 mg/dL LDL Cholesterol 125 H < 100 mg/dL HDL Cholesterol 35 L 40-59 mg/dL Thyroid Stimulating Hormone (TSH) 0.17 L 0.55-4.78 uIU/mL Lactic Acid Level 1.8 0.4-2.0 mmol/L Troponin I High Sensitivity 236 *H </=54 ng/L Urine Color Yellow Yellow Urine Clarity Clear Clear Urine pH 5.5 5.0-9.0 Urine Specific [place] 1.022 1.001-1.035 Urine Protein 1+ H Negative Urine Ketones Negative Negative Urine Blood Negative Negative /uL Urine Nitrite Negative Negative Urine Bilirubin Negative Negative Urine Urobilinogen 2 H Negative mg/dL Urine Leukocyte Esterase Negative Negative /uL Urine RBC 6 0 - 3 /hpf Urine Microscopic WBC 1 0-3 /HPF Urine Squamous Epithelial Cells Few <5 /hpf Urine Bacteria None seen None Seen /hpf Urine Mucus Few None Seen Urine Glucose Normal Normal mg/dL Urine Opiates Screen Neg NEGATIVE Urine Fentanyl Screen Neg NEGATIVE Urine Barbiturates Screen Neg NEGATIVE Urine Phencyclidine Screen Neg NEGATIVE Urine Amphetamines Screen Pos NEGATIVE Urine Benzodiazepines Screen Neg NEGATIVE Urine Cocaine Screen Neg NEGATIVE Urine Cannabinoids Screen Pos NEGATIVE Test 01/29/25 19:15 Range/Units D-Dimer, Quantitative 0.86 H 0.0-0.49 mg/L FEU B-Type Natriuretic Peptide 322.37 0-100 pg/mL Lipase 34 12-53 U/L Assessment Atrial fibrillation with rapid ventricular response Acute on chronic decompensated HFrEF, NYHA class III History of direct current cardioversion Hypertension Hyperlipidemia History myocardial infarction Polysubstance use Obesity Medical noncompliance Plan/Recommendation We will continue with the following plan/recommendations (Dr. Simms): * Transthoracic echocardiogram reveals an EF of less than 40% * This was an incomplete echocardiogram since patient yelled at automotive glass technician to leave the room * Initiate guideline directed medical therapy for CHF as tolerated * Diuresis as tolerated * Strict intake and output, daily weights, maintain fluid restriction * [id number] VASc score: 4 points, HAS-BLED: 1 point * Therapeutic Lovenox while inpatient, transition to NOAC prior to discharge * Beta-paolo for rate control * Close Cardiac surveillance Case discussed with . Given the patient's medical noncompliance and active illicit drug use, the patient is not a candidate for invasive cardiac workup. At this time we will proceed with medical management. Thank you for allowing us to care for this patient. Please call with any questions or concerns. Critical care time spent: 44 minutes This medical document was created using an electronic medical record system with voice recognition software and computerized dictation system. Although this document has been carefully reviewed, there might still be some phonetic and typographical errors. Occasional wrong-word or ``sound-alike substitutions may have occurred due to the inherent limitations of voice recognition software. These areas are purely typographical due to imperfections of the software programs and do not reflect any compromise in the patient's medical care. Please read the chart carefully and recognize, using context, where these substitutions have occurred. Plan discussed with: Patient NYHA Physical activity limitations: Class3(Marked) ordinary (activity causes symtoms) Date of Service: Jan 30, 2025 Billing Provider: ROBERTO TEJADA Cardiology Common Codes: [id number] INP/OBS CARE (High) Cardiology Consultation Codes: [id number] CONSULT <45MIN ROBERTO TEJADA Jan 30, 2025 16:38
[2025-01-30] MEDS: MAGNESIUM SULFATE 1GM/100ML 100 ML IV ONE (18:01)
[2025-01-30] MEDS: TAMSULOSIN HYDROCHLORIDE 0.4 MG CAP PO SCH (18:02)
[2025-01-30] MEDS: ATORVASTATIN 20 MG TAB PO SCH (21:57)
[2025-01-30] MEDS: METOPROLOL TARTRATE 25 MG TAB PO SCH (21:57)
[2025-01-30] MEDS: ENOXAPARIN SOD 100 MG/1 ML SYRINGE SC SCH (21:58)
[2025-01-31] VITALS (7 sets, daily range): BP systolic 94–135; BP diastolic 73–98; PULSE 67–107; RESP 16–21; TEMP 97.3–98; O2SAT 92–97
[2025-01-31] MEDS: EMPAGLIFLOZIN 10 MG TAB PO SCH (09:12)
[2025-01-31 14:38] LABS: Alanine Aminotransferase 14 U/L (7-40); Albumin 4.4 g/dL (3.2-4.8); Anion Gap 9 (5-15); BUN/Creatinine Ratio 19.8 (10.0-20.0); Calcium 10.2 mg/dL (8.7-10.4); Carbon Dioxide 26 mmol/L (20-31); Chloride 104 mmol/L (98-107); Potassium 4.1 mmol/L (3.5-5.1); Sodium 139 mmol/L (136-145); Total Protein 6.7 g/dL (5.7-8.2)
[2025-01-31 14:42] LABS: Alkaline Phosphatase 148 U/L (46-116); Bilirubin, Total 3.1 mg/dL (0.2-1.0); Blood Urea Nitrogen 23 mg/dL (9-23); Glucose 106 mg/dL (74-106)
[2025-01-31 14:49] LABS: Free T3 3.84 pg/mL (2.3-4.2); Free T4 (Free Thyroxine) 1.47 ng/dL (0.89-1.76)
--- NOTE | 2025-01-31 17:08 | DVHPNRES ---
Progress Note Date Seen: Jan 31, 2025 Resident Creating Document: DOMINIQUE LARA RESIDENT Medical Necessity Reason Pt with a Central, PICC or Fol: No Subjective Review of Systems 59-year-old male with past history of atrial fibrillation, hypertension, CHF came to the emergency yesterday with complaints of severe shortness of breath. Patient was unable to speak in full sentences yesterday. Reports that he was walking yesterday when he felt short of breath and had to sit down. when the shortness of breath continued even on sitting down 911 was called and he was brought to the hospital. He says that this is not the 1st time it has happened that he has had shortness of breath from time to time. On inquiry he says that he has not been entirely compliant with the medications he has received because it makes him pee a lot. he denies any chest pain, dizziness, headache, nausea or vomiting. Patient also complains of watering of the eyes for the past week end of congestion. On inquiry he reports that the left eye is glued in the morning when he wakes up. There is no itchiness either eye. ROS 01/30/2025: The patient was seen and examined by me in the bedside. Overnight events were reviewed. Patient reports that he is feeling much better than yesterday and the shortness of breath has decreased. He is still on 4 L of oxygen via nasal cannula. He has no other active complaints. Rest of the ROS is negative. Since his D-dimer was slightly elevated 0.86, venous Doppler has been ordered. We have also consulted cardio since patient never had LHC in his CHADS-VASc score is 2. We started the patient on enoxaparin 100 mg subcutaneously Q 12 vu. we resumed his metoprolol. We repeated an EKG. 01/31/2025: Patient was seen and examined by me at the bedside. Overnight events were reviewed. patient reports since shortness of breath has decreased and he is no longer on nasal cannula oxygen. He reports he is feeling better. Today Lovenox was Stopped, Eliquis 5 mg daily begun. Objective vital signs Vital Sign Date Time Temp Pulse Resp B/P (MAP) Pulse Ox O2 Delivery O2 Flow Rate FiO2 01/31/25 13:00 97.5 73 18 135/98 (110) 97 97.5 01/31/25 08:00 Nasal Cannula* 4 36 Total Intake and Output 01/30/25 01/30/25 01/31/25 15:00 23:00 07:00 Intake Total 2080 ml 575 ml Output Total 1400 ml 2175 ml Balance 680 ml -1600 ml medications Current Medications Medications Dose Ordered Sig/Vu Route Start Time Stop Time Status Last Admin Dose Admin Acetaminophen 650 mg Q6HP PRN PO 01/30/25 02:15 Nitroglycerin 0.4 mg Q5MINP PRN SL 01/30/25 02:15 Morphine Sulfate 2 mg Q30M PRN IV 01/30/25 02:15 Furosemide 40 mg BID IV 01/30/25 10:00 01/31/25 09:14 40 MG Amiodarone HCl 200 mg BID PO 01/30/25 10:00 01/31/25 09:13 200 MG Atorvastatin Calcium 40 mg HS PO 01/30/25 22:00 01/30/25 21:57 40 MG Gabapentin 100 mg TID PO 01/30/25 06:00 01/31/25 14:21 100 MG Lisinopril 20 mg DAILY PO 01/30/25 10:00 01/31/25 09:12 20 MG Spironolactone 25 mg DAILY PO 01/30/25 10:00 01/31/25 09:12 25 MG Tamsulosin HCl 0.8 mg QPM PO 01/30/25 18:00 01/30/25 18:02 0.8 MG Pantoprazole Sodium 40 mg DAILY IV 01/30/25 10:00 01/31/25 09:10 40 MG Metoprolol Tartrate 12.5 mg BID PO 01/30/25 22:00 01/31/25 09:13 12.5 MG Empaglifozin 10 mg DAILY PO 01/31/25 10:00 01/31/25 09:12 10 MG Aspirin 81 mg DAILY PO 01/31/25 10:00 01/31/25 10:24 81 MG Apixaban 5 mg BID PO 01/31/25 22:00 Examination Pt is lying on bed General Appearance: Alert, Oriented X3, Cooperative, Mild distress on 4 L of oxygen via nasal cannula HEENT: Eyes red and congested, Slight tearing, Atraumatic, Mucous membranes moist/pink Respiratory: Normal air movement in bilateral lungs, no added sounds heard Cardiovascular: Regular rate, Normal S1, Normal S2, No murmurs Abdominal/ : Active bowel sounds, Soft, no distention, no tenderness Extremities: 1+ pitting edema in Left more than right leg, Normal pulses, No tenderness/swelling Skin: No significant rash, except past surgical scars Neuro: Normal speech, no sensorimotor deficits Psych/Mental Status: Mental status NL, Mood NL Nurse was there as seasonal clerk during examination laboratory and microbiology Laboratory Tests 01/31/25 13:55 01/30/25 03:56 Test 01/31/25 13:55 Range/Units Serum Glucose 106 74-106 mg/dL Microbiology Date/Time Source Procedure Growth Status 01/29/25 19:15 Blood Blood Culture - Preliminary NO GROWTH AFTER 24 HOURS OF INCUBATION. Resulted Labs and/or images reviewed: Labs reviewed by me, Image(s) reviewed by me Problem List/Assessment/Plan Problem List/Assessment/Plan # Shortness of breaths due to acute on chronic CHF exacerbation, Likely methamphetamine induced and noncompliance of medication # Acute hypoxic respiratory failure secondary to above # lactic acidosis- resolved # congestive hepatopathy secondary to above # AFib with RVR; CHADVAS score 2, # HFrEF 40% -Hx of direct current cardioversion -Lasix 60 mg once and Lasix 40 mg IV b.i.d. ordered -CXR: Pulmonary edema -nebulization ipratropium bromide, albuterol -Flu/COVID negative -EKG showed AF with RVR -echo 2D showed EF of less than 40%; incomplete as patient didnt comply -morphine, nitroglycerin and oxygen nasal cannula -metoprolol discontinued; started again on 01/22/2025 -Repeat EKG -spironolactone -monitor input and output -cardiac consult suggested I/O charting, maintain fluid restriction, Lovenox inpatient and and switch to direct oral anticoagulants outpatient, beta-blockers for rate control -Lovenox stopped, Eliquis 5 mg begun - D-dimer 0.86, venous Doppler- No evidence of deep vein thrombosis. # NSTEMI, type 2 -trop 257>275>236 -monitor labs # Polysubstance abuse (amphetamines and cannabinoid) -As seen in urine toxicology -Counseling regarding cessation of drug abuse # unspecified thyroid disorder -TSH low -Free T4, total T3- 1.47, 3.84 GI prophylaxis: Protonix 40 mg IV daily Diet: cardiac diet Goals of care discussed with the patient for more than 27 minutes: Full code status Case discussed with Dr. Yates, patient and nurse. Plan discussed with: Patient, Other (rn) My Orders My Orders Orders - DOMINIQUE LARA Procedure Category Date Status Time Transfer Orders XFER 01/31/25 Transmitted 16:43 Discontinue Tele JESSE 01/31/25 In Process 16:43 Date of Service: Jan 31, 2025 Billing Provider: ALDAIR SMIHT MD Common Visit Codes: [id number] INP/OBS CARE(HIGH) DOMINIQUE LARA Jan 31, 2025 17:08 ALDAIR SMITH MD Feb 01, 2025 02:04
[2025-01-31] MEDS: APIXABAN 5 MG TAB PO SCH (21:58)
[2025-02-01 08:00] VITALS: O2SAT 96
[2025-02-01 09:00] VITALS: BP 157/109; PULSE 62; RESP 18; TEMP 98.6; O2SAT 97
--- NOTE | 2025-02-01 11:09 | DVHDSRES ---
Discharge Summary Date of Admission Resident Creating Document: DOMINIQUE LARA RESIDENT Jan 30, 2025 at 02:52 Date of Discharge: Feb 01, 2025 Admitting Diagnosis # Shortness of breaths due to acute on chronic CHF exacerbation, Likely methamphetamine induced and noncompliance of medication Labs/Diagnostic Data: Laboratory Results Test 01/31/25 13:55 01/30/25 04:00 01/30/25 03:56 01/30/25 00:21 Sodium Level 139 mmol/L (136-145) Potassium Level 4.1 mmol/L (3.5-5.1) Chloride Level 104 mmol/L (98-107) Carbon Dioxide Level 26 mmol/L (20-31) Anion Gap 9 (5-15) Blood Urea Nitrogen 23 mg/dL (9-23) Creatinine 1.16 mg/dL (0.700-1.30) Glomerular Filtration Rate Calc 72 mL/min (>90) BUN/Creatinine Ratio 19.8 (10.0-20.0) Serum Glucose 106 mg/dL (74-106) Calcium Level 10.2 mg/dL (8.7-10.4) Total Bilirubin 3.1 mg/dL (0.2-1.0) Aspartate Amino Transferase (AST) 25 U/L (13-40) Alanine Aminotransferase (ALT) 14 U/L (7-40) Alkaline Phosphatase 148 U/L (46-116) Total Protein 6.7 g/dL (5.7-8.2) Albumin 4.4 g/dL (3.2-4.8) Free Thyroxine (T4) Calculated 1.47 ng/dL (0.89-1.76) Free Triiodothyronine (T3) pg/mL 3.84 pg/mL (2.3-4.2) Total Triiodothyronine (TT3) 1.48 ng/mL (0.60-1.81) Influenza Type A Antigen Negative (Negative) Influenza Type B Antigen Negative (Negative) SARS-CoV-2 Antigen (Rapid) Negative (NEGATIVE) White Blood Count 9.1 10^3/uL (4.4-10.8) Red Blood Count 4.41 10^6/uL (4.5-5.90) Hemoglobin 13.9 g/dL (13.5-17.5) Hematocrit 41.8 % (41.0-53.0) Mean Corpuscular Volume 94.9 fL (80.0-100.0) Mean Corpuscular Hemoglobin 31.6 pg (28.0-32.0) Mean Corpuscular Hemoglobin Concent 33.3 g/dL (32.0-36.0) Red Cell Distribution Width 17.4 % (11.8-14.3) Platelet Count 222 10^3/uL (140-450) Mean Platelet Volume 8.7 fL (6.9-10.8) Neutrophils (%) (Auto) 73.9 % (37.0-80.0) Lymphocytes (%) (Auto) 16.6 % (10.0-50.0) Monocytes (%) (Auto) 6.8 % (0.0-12.0) Eosinophils (%) (Auto) 2.1 % (0.0-7.0) Basophils (%) (Auto) 0.6 % (0.0-2.0) Neutrophils # (Auto) 6.8 10 ^3/uL (1.6-8.6) Lymphocytes # (Auto) 1.5 10 ^3/uL (0.4-5.4) Monocytes # (Auto) 0.6 10 ^3/uL (0-1.3) Eosinophils # (Auto) 0.2 10 ^3/uL (0-0.8) Basophils # (Auto) 0.1 10 ^3/uL (0-0.2) Nucleated Red Blood Cells 0.1 % Magnesium Level 1.9 mg/dL (1.6-2.6) Triglycerides Level 83 mg/dL (< 150) Cholesterol Level 164 mg/dL (< 200) LDL Cholesterol 125 mg/dL (< 100) HDL Cholesterol 35 mg/dL (40-59) Thyroid Stimulating Hormone (TSH) 0.17 uIU/mL (0.55-4.78) Lactic Acid Level 1.8 mmol/L (0.4-2.0) Troponin I High Sensitivity 236 ng/L (</=54) Test 01/30/25 00:18 01/29/25 19:15 Urine Color Yellow (Yellow) Urine Clarity Clear (Clear) Urine pH 5.5 (5.0-9.0) Urine Specific [place] 1.022 (1.001-1.035) Urine Protein 1+ (Negative) Urine Ketones Negative (Negative) Urine Blood Negative /uL (Negative) Urine Nitrite Negative (Negative) Urine Bilirubin Negative (Negative) Urine Urobilinogen 2 mg/dL (Negative) Urine Leukocyte Esterase Negative /uL (Negative) Urine RBC 6 /hpf (0 - 3) Urine Microscopic WBC 1 /HPF (0-3) Urine Squamous Epithelial Cells Few /hpf (<5) Urine Bacteria None seen /hpf (None Seen) Urine Mucus Few (None Seen) Urine Glucose Normal mg/dL (Normal) Urine Opiates Screen Neg (NEGATIVE) Urine Fentanyl Screen Neg (NEGATIVE) Urine Barbiturates Screen Neg (NEGATIVE) Urine Phencyclidine Screen Neg (NEGATIVE) Urine Amphetamines Screen Pos (NEGATIVE) Urine Benzodiazepines Screen Neg (NEGATIVE) Urine Cocaine Screen Neg (NEGATIVE) Urine Cannabinoids Screen Pos (NEGATIVE) D-Dimer, Quantitative 0.86 mg/L FEU (0.0-0.49) B-Type Natriuretic Peptide 322.37 pg/mL (0-100) Lipase 34 U/L (12-53) Other Laboratory Tests 01/31/25 13:55 01/30/25 03:56 Brief Hx & Hospital Course: 59-year-old male with past history of atrial fibrillation, hypertension, CHF came to the emergency yesterday with complaints of severe shortness of breath. Patient was unable to speak in full sentences yesterday. Reports that he was walking yesterday when he felt short of breath and had to sit down. when the shortness of breath continued even on sitting down 911 was called and he was brought to the hospital. He says that this is not the 1st time it has happened that he has had shortness of breath from time to time. On inquiry he says that he has not been entirely compliant with the medications he has received because it makes him pee a lot. he denies any chest pain, dizziness, headache, nausea or vomiting. Patient also complains of watering of the eyes for the past week end of congestion. On inquiry he reports that the left eye is glued in the morning when he wakes up. There is no itchiness either eye. Brief history of hospitalization: Patient came in for Shortness of breaths due to acute on chronic CHF exacerbation, Likely methamphetamine induced and noncompliance of medication. He had Acute hypoxic respiratory failure secondary to above. patient also had lactic acidosis that was resolved. Patient also had congestive hepatopathy secondary to above and atrial fibrillation with RVR with a CHADS-VASc score of 2. He also had HFrEF 40% With history of diarrhea current cardioversion. We gave the patient Lasix 60 mg once and Lasix 40 mg IV b.i.d. then onwards. Chest x-ray showed pulmonary edema. We start nebulization of ipratropium bromide, albuterol. Flu COVID test came out negative. EKG showed AFib with RVR. An echo was done which showed ejection fraction less than 40%, incomplete as patient did not comply. We gave morphine, nitroglycerin oxygen via nasal cannula. metoprolol was discontinued and started again on 2024. We gave him spironolactone. We monitored input and output and cardiac consult suggested input-output charting, maintaining the patient on restriction, beta-blockers for rate control. Lovenox was given inpatient and we stopped it on 01/31/2025 and began Eliquis 5 mg. Patient had a high D-dimer of 0.86 and a venous Doppler was done to rule out DVT which the patient did not have. For patient's NSTEMI type 2 we monitored labs. For patient's polysubstance abuse of amphetamine and cannabinoids seen in urine toxicology we counseled regarding cessation of drug abuse. For unspecified thyroid disorder with a low TSH and normal T4, T3 we monitored labs. Patient is now stable for discharge. We have counseled him regarding continuation of home medications and compliance. We have added Eliquis 5 mg per orally daily and asked the patient to take it as well. He is communicated understanding. Pt is lying on bed General Appearance: Alert, Oriented X3, Cooperative, Mild distress on 4 L of oxygen via nasal cannula HEENT: Eyes red and congested, Slight tearing, Atraumatic, Mucous membranes moist/pink Respiratory: Normal air movement in bilateral lungs, no added sounds heard Cardiovascular: Regular rate, Normal S1, Normal S2, No murmurs Abdominal/ : Active bowel sounds, Soft, no distention, no tenderness Extremities: 1+ pitting edema in Left more than right leg, Normal pulses, No tenderness/swelling Skin: No significant rash, except past surgical scars Neuro: Normal speech, no sensorimotor deficits Psych/Mental Status: Mental status NL, Mood NL Nurse was there as frame opener during examination Instructions Follow up with PCP in 1 week Follow up in discharge clinic within a week Eliquis 5 mg per oral daily Reconciled home medications Operations or Procedures CHEST RADIOGRAPH IMPRESSION: Moderate interstitial pulmonary edema. PROCEDURE(s): BLDVT - BiLat Lower DVT REASON: high d-dimer and lower extremity pain IMPRESSION: No evidence of deep vein thrombosis. Condition at Discharge: Stable Final Diagnosis/Problems List # Shortness of breaths due to acute on chronic CHF exacerbation, Likely methamphetamine induced and noncompliance of medication # Acute hypoxic respiratory failure secondary to above # lactic acidosis- resolved # congestive hepatopathy secondary to above # AFib with RVR; CHADVAS score 2, # HFrEF 40% # NSTEMI, type 2 # Polysubstance abuse (amphetamines and cannabinoid) # unspecified thyroid disorder Discharge Disposition: Home Discharge Instruct/Medications Diet: Consistent carbohydrate, Cardiac 2g Na,low cholest Activity: No Restrictions, As Tolerated Follow Up/Referral: Follow up with PCP in 2 weeks Follow up in discharge clinic within a week Medications: Reconcile home medication Eliquis 5 mg per oral daily Scheduled Albuterol Sulfate (Ventolin Mdi), 90 MCG IN Q4HR Amiodarone Hcl (Amiodarone Hcl), 200 MG PO BID Apixaban Base (Eliquis), 5 MG PO BID Aspirin (Aspirin Low Dose), 81 MG PO DAILY Atorvastatin Calcium (Atorvastatin Calcium), 40 MG PO HS Empagliflozin (Jardiance), 10 MG PO DAILY Folic Acid (Folic Acid), 1 MG PO DAILY Furosemide (Lasix), 40 MG PO QAM Gabapentin (Gabapentin), 100 MG PO TID Lisinopril (Lisinopril), 1 TAB PO DAILY Metoprolol Tartrate (Lopressor), 12.5 MG PO BID Spironolactone (Aldactone), 25 MG PO DAILY Tamsulosin Hcl (Flomax), 0.8 MG PO QPM Thiamine Hcl (Thiamine Hcl), 1 TAB PO DAILY Discontinued Medications Amoxicillin & Pot Clavulanate (Augmentin Tablet), 875 MG PO BID Metoprolol Succinate (Metoprolol Succinate Er), 1 TAB PO DAILY Potassium Chloride (Potassium Chloride ER), 20 MEQ PO DAILY Spironolactone (Aldactone), 25 MG PO DAILY Tamsulosin Hcl (Tamsulosin Hcl), 0.8 MG PO QPM, (Reported) Discharge Statement: "Patient was advised to return to the ER or call 911 if any headaches, dizziness, shortness of breath, chest pain, abdominal pain, bleeding, fevers, or worsening of medical condition. Patient was counseled about treatment plan, medications, possible side effects, patientverbalized understanding. All questions were answered to the best of my ability. This discharge took greater then 30 minutes in planning, reviewing documentation, counseling the patient, and discussing with other team members." ASSESSMENT ASSESSMENT Assessment Shortness of breadth due to acute on chronic CHF exacerbation, likely methamphetamine induced and noncompliance with medication Acute hypoxic respiratory failure secondary to above Lactic acidosis resolved Congestive hepatopathy secondary to above AFib with RVR; CHADSVAS score 2 HFrEF 40% NSTEMI type 2 Polysubstance abuse Unspecified thyroid disorder DOMINIQUE LARA RESIDENT Feb 01, 2025 11:09
[2025-02-01] MEDS ORDERED: SPIR25TA PO (11:57)
[2025-02-01] MEDS ORDERED: APIX5TAB PO (11:57)
[2025-02-01] MEDS ORDERED: MET25T PO (11:57)
[2025-02-01] MEDS ORDERED: ASPI-325 PO (11:57)
[2025-02-01] MEDS ORDERED: EMPA1TAB PO (11:57)
[2025-02-01] MEDS ORDERED: TAMS-35 PO (11:57)
[2025-02-01 13:00] VITALS: BP 139/116; PULSE 90; RESP 20; TEMP 98.3; O2SAT 93
[2025-02-01 13:24] VITALS: BP 140/67; PULSE 68; RESP 18; TEMP 37
== END 2025-02-01 14:30 | disposition home or self-care (01) | DRG 133 ==
LOC: ER 18:49 → EDBD 18:49 → OVERFLOW 01-30 02:52 → TELE-WESTW 01-30 08:47 → WEST WING 01-31 17:28 → CENTRAL 01-31 17:40
PROVIDERS: ADMIT Student in an Organized Health Care Education/Training Program; ATTEND Student in an Organized Health Care Education/Training Program
DX: J96.01 Acute respiratory failure with hypoxia (principal); I21.A1 Myocardial infarction type 2; I50.23 Acute on chronic systolic (congestive) heart failure; E87.20 Acidosis, unspecified; I11.0 Hypertensive heart disease with heart failure; I48.91 Unspecified atrial fibrillation; E78.5 Hyperlipidemia, unspecified; Z20.822 Contact with and (suspected) exposure to COVID-19; E66.9 Obesity, unspecified; E07.9 Disorder of thyroid, unspecified; T43.655A Adverse effect of methamphetamines, initial encounter; Z91.148 Patient's other noncompliance with medication regimen for other reason; Z79.2 Long term (current) use of antibiotics; Z90.49 Acquired absence of other specified parts of digestive tract; Z87.891 Personal history of nicotine dependence; Z79.899 Other long term (current) drug therapy; I25.2 Old myocardial infarction; Z71.51 Drug abuse counseling and surveillance of drug abuser; Z83.3 Family history of diabetes mellitus; Z82.49 Family history of ischemic heart disease and other diseases of the circulatory system; Y92.89 Other specified places as the place of occurrence of the external cause; Z68.36 Body mass index [BMI] 36.0-36.9, adult
CPT/HCPCS: 36415; 71045; 80053; 80061; 80307; 81001; 83605; 83690; 83735; 83880; 84439; 84443; 84480; 84481; 84484; 85025; 85379; 87040; 87426; 87804; 93005; 93306; 93970; 94640; 96361; 96374; G0378; J2470

== ENCOUNTER 2025-03-01 18:06 | Emergency (ER) | payer MEDICAID ==
[~2025-03-01] VITALS: Ht 177.8 cm; Wt 100.0 kg
[~2025-03-01 18:06] MED LIST changes: +APIX5TAB PO; +ASPI-325 PO; -AUG875T PO; +EMPA1TAB PO; +MET25T PO; -METO-289 PO; -POTA-180 PO; +TAMS-35 PO; -TAMS0.4C39 PO
[2025-03-01] MEDS ORDERED: ASPI-316 PO (19:15)
[2025-03-01] MEDS ORDERED: LISI20TA56 PO (19:15)
[2025-03-01] MEDS ORDERED: APIX5TAB PO (19:15)
[2025-03-01] MEDS ORDERED: AMIO200T33 PO (19:15)
[2025-03-01] MEDS ORDERED: EMPA1TAB PO (19:15)
[2025-03-01] MEDS ORDERED: SPIR25TA8 PO (19:15)
[2025-03-01] MEDS ORDERED: FURO1TAB33 PO (19:15)
[2025-03-01] MEDS ORDERED: METO25TA93 PO (19:15)
[2025-03-01] MEDS ORDERED: MUPI2CRE17 EX (19:17)
[2025-03-01] MEDS ORDERED: AUG875T PO (19:17)
--- NOTE | 2025-03-01 19:27 | ED.PDOC ---
History of Present Illness HPI Comments 59 year old male presents to the ED with a chief complaint of wound check. Patient states he has been experiencing wound to RT forearm for a few days, noticed yellow drainage with surrounding erythema, tender to touch. Patient also came to ED, states he was recently discharged from this ED lost all his medic ation. Was discharged on 02/01/25, was admitted due to CHF exacerbation. PMHx a- fib, CHF, CKF, depression, HLD, HTN, [place]. Denies dizziness, nausea, vomiting, fever, chills, numbness/tingling, chest pain, shortness of breath, nausea, vomiting. No other symptoms or modifying factors present at this time. Chief Complaint: Wound Check Time Seen by MD: 19:00 Primary Care Provider: NONE Reviewed Notes: Medications, Allergies Allergies: Coded Allergies: NO KNOWN ALLERGIES (Unverified , 03/17/17) Home Meds Active Scripts Mupirocin Calcium (Topical) (MUPIROCIN) 2 % Cre, 2 % EX BID, #90 CRE Prov:HEMA PAYTON MD 03/01/25 Amoxicillin & Pot Clavulanate (AUGMENTIN TABLET) 875 Mg Tb, 875 MG PO BID for 10 Days, #20 TAB Prov:HEMA PAYTON MD 03/01/25 Empagliflozin (Jardiance) 10 Mg Tab, 10 MG PO DAILY, #90 TAB 3 Refills Prov:HEMA PAYTON MD 03/01/25 Aspirin (Aspirin EC Adult Low Dose) 81 Mg Tab, 81 MG PO DAILY, #90 TAB 5 Refills Prov:HEMA PAYTON MD 03/01/25 Spironolactone (Spironolactone) 25 Mg Tab, 1 TAB PO DAILY, #90 TAB 3 Refills Prov:HEMA PAYTON MD 03/01/25 Metoprolol Succinate (Metoprolol Succinate Er) 25 Mg Tab, 1 TAB PO DAILY, #90 TAB 3 Refills Prov:HEMA PAYTON MD 03/01/25 Lisinopril (Lisinopril) 20 Mg Tab, 1 TAB PO DAILY, #90 TAB 5 Refills Prov:HEMA PAYTON MD 03/01/25 Furosemide (Lasix) 20 Mg Tb, 1 TAB PO BID, #90 TAB 5 Refills Prov:HEMA PAYTON MD 03/01/25 Amiodarone Hcl (Amiodarone Hcl) 200 Mg Tab, 200 MG PO BID for 90 Days, #180 TAB 3 Refills Prov:HEMA PAYTON MD 03/01/25 Apixaban Base (ELIQUIS) 5 Mg Tab, 5 MG PO BID for 90 Days, #180 TAB 3 Refills Prov:HEMA PAYTON MD 03/01/25 Tamsulosin Hcl (Flomax) 0.4 Mg Cap, 0.8 MG PO QPM for 30 Days, #30 CAP Prov:[facility] 02/01/25 Spironolactone (Aldactone) 25 Mg Tab, 25 MG PO DAILY for 30 Days, #30 TAB Prov:[facility] 02/01/25 Metoprolol Tartrate (Lopressor) 25 Mg Tb, 12.5 MG PO BID for 30 Days, #30 TAB Prov:[facility] 02/01/25 Empagliflozin (Jardiance) 10 Mg Tab, 10 MG PO DAILY for 30 Days, #30 TAB Prov:[facility] 02/01/25 Aspirin (Aspirin Low Dose) 81 Mg Tab, 81 MG PO DAILY for 30 Days, #30 TAB Prov:[facility] 02/01/25 Apixaban Base (ELIQUIS) 5 Mg Tab, 5 MG PO BID for 30 Days, #60 TAB Prov:[facility] 02/01/25 Lisinopril (Lisinopril) 20 Mg Tab, 1 TAB PO DAILY, #30 TAB 3 Refills Prov:KYLEIGH RENDON [facility] 12/01/23 Amiodarone Hcl (Amiodarone Hcl) 200 Mg Tab, 200 MG PO BID for 30 Days, #60 TAB 3 Refills Prov:KYLEIGH RENDON [facility] 12/01/23 Atorvastatin Calcium (ATORVASTATIN CALCIUM) 20 Mg Tab, 40 MG PO HS for 20 Days, #40 TAB 5 Refills Prov:EMY MALONE [facility] 09/16/23 Gabapentin (Gabapentin) 100 Mg Cap, 100 MG PO TID, #90 CAP 2 Refills Prov:ROSARIO CAMPOS MD 04/24/22 Furosemide (Lasix) 40 Mg Tab, 40 MG PO QAM for 30 Days, #30 TAB 3 Refills Prov:STACEY JAVIER MD 01/29/22 Albuterol Sulfate (VENTOLIN I) 90 Mcg Ih, 90 MCG IN Q4HR, #1 INH Prov:CIRO MCCOY MD 01/17/22 Folic Acid (Folic Acid) 1 Mg Tab, 1 MG PO DAILY, #30 TAB Prov:CIRO MCCOY MD 01/15/22 Thiamine Hcl (Thiamine Hcl) 100 Mg Tab, 1 TAB PO DAILY, #30 TAB 3 Refills Prov:CIRO MCCOY MD 01/15/22 Information Source: Patient Mode of Arrival: Wheelchair Severity: Moderate Timing: Hours Duration: Since onset Prehospital treatment: None Medication Refill: Lost Medication Past Medical History PAST MEDICAL HISTORY: AFIB, CHF, CKF, Depression, High Lipids, HTN, [place] Surgical History: Cholecystectomy, Tonsillectomy Family History Family History: Reviewed,noncontributory to illness Social History Smoker: Quit Greater Than 1 Year, Cigarettes Alcohol: Occasionally Drugs: Marijuana, Methamphetamine Lives In: Homeless Constitutional: denies: chills, diaphoresis, fatigue, fever, malaise, sweats, weakness, others EENTM: denies: blurred vision, double vision, ear bleeding, ear discharge, ear drainage, ear pain, ear ringing, eye pain, eye redness, hearing loss, mouth pain, mouth swelling, nasal discharge, nose bleeding, nose congestion, nose pain, photophobia, tearing, throat pain, throat swelling, voice changes, others Respiratory: denies: cough, hemoptysis, orthopnea, SOB at rest, shortness of breath, SOB with excertion, stridor, wheezing, others Cardiovascular: denies: chest pain, dizzy spells, diaphoresis, Dyspnea on exe rtion, edema, irregular heart beat, left arm pain, lightheadedness, palpitations, PND, syncope, others Gastrointestinal: denies: abdomen distended, abdominal pain, blood streaked bowels, constipated, diarrhea, dysphagia, difficulty swallowing, hematemesis, melena, nausea, poor appetite, poor fluid intake, rectal bleeding, rectal pain, vomiting, others Genitourinary: denies: burning, dysuria, flank pain, frequency, hematuria, incontinence, penile discharge, penile sore, pain, testicle pain, testicle swelling, urgency, others Neurological: denies: dizziness, fainting, headache, left sided numbness, left sided weakness, numbness, paresthesia, pre-existing deficit, right sided numbness, right sided weakness, seizure, speech problems, tingling, tremors, weakness, others Musculoskeletal: denies: back pain, gout, joint pain, joint swelling, muscle pain, muscle stiffness, neck pain, others Integumetry: reports: wounds (Rt forearm); denies: bruises, change in color, change in hair/nails, dryness, laceration, lesions, lumps, rash, others Allergic/Immunocompromised: denies: Difficulty Healing, Frequent Infections, Hives, Itching, others Hematologic/Lymphatic: denies: anemia, blood clots, easy bleeding, easy bruising, swollen glands, others Endocrine: denies: excessive hunger, excessive sweating, excessive thirst, excessive urination, flushing, intolerance to cold, intolerance to heat, unexplained weight gain, unexplained weight loss, others Psychiatric: denies: anxiety, bipolar disorder, depression, hopeless, panic disorder, schizophrenia, sleepless, suicidal, others All Other Systems: Reviewed and Negative Physical Exam General Appearance: No Apparent Distress, Normal HEENT: Normal ENT Inspection, Pharynx Normal, TMs Normal Neck: Full Range of Motion, Non-Tender, Normal, Normal Inspection Respiratory: Chest Non-Tender, Lungs Clear, No Accessory Muscle Use, No Respiratory Distress, Normal Breath Sounds Cardiovascular: No Edema, No JVD, No Murmur, No Gallop, Normal Peripheral Pulses, Regular Rate/Rhythm Breast Exam: Deferred Gastrointestinal: No Organomegaly, Non Tender, No Pulsatile Mass, Normal Bowel Sounds, Soft Genitalia: Deferred Pelvic: Deferred Rectal: Deferred Extremities: No calf tenderness, Normal capillary refill, Normal inspection, Normal range of motion, Non-tender, No pedal edema Musculoskeletal : Apperance: Normal 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 Was a procedure done?: No Differential Dx Considerations may include: Differential diagnosis includes but not limited to: Abscess, cellulitis, erysipelas, impetigo, allergic reaction and others X-Ray, Labs, Meds, VS Vital Signs Date Time Temp Pulse Resp B/P (MAP) Pulse Ox O2 Delivery O2 Flow Rate FiO2 03/02/25 00:01 97.4 96 18 157/98 (117) 98 97.4 03/02/25 00:01 Room Air* 0 21 03/02/25 00:01 157/98 03/01/25 23:30 97.3 95 16 176/122 (140) 98 97.3 03/01/25 23:01 173/129 03/01/25 18:14 98.2 108 20 161/114 96 98.2 Current Medications Medications (Trade) Dose Ordered Sig/Vu Route Start Time Stop Time Status Last Admin Amoxicillin/ Clavulanate Potassium (Augmentin Tablet) 875 mg ONCE ONCE PO 03/01/25 19:15 03/01/25 19:16 DC 03/01/25 23:01 Clonidine HCl (Catapres Tablet) 0.2 mg ONCE ONCE PO 03/01/25 19:15 03/01/25 19:16 DC 03/01/25 23:01 Time of 1ST Reevaluation: 19:30 Reevaluation 1ST: Unchanged Patient Education/Counseling: Diagnosis, Treatment Family Education/Counseling: No Family Present SEPSIS Sepsis Screen Date sepsis recognized/suspect: Mar 01, 2025 Time Sepsis recognized/suspect: 1813 Recent Procedure: No On Antibiotic Therapy: No Respiratory Rate >20: No Heart Rate >90: Yes Temp<36 C (96.8 F) or >38.3 C: No SBP <90 or MAP <65 mmHG: No New Acute Mental Status Change: No Is the patient on CPAP, BIPAP,: No Vital Signs Date Time Temp Pulse Resp B/P (MAP) Pulse Ox O2 Delivery O2 Flow Rate FiO2 03/02/25 00:01 97.4 96 18 157/98 (117) 98 97.4 03/02/25 00:01 Room Air* 0 21 03/02/25 00:01 157/98 03/01/25 23:30 97.3 95 16 176/122 (140) 98 97.3 03/01/25 23:01 173/129 03/01/25 18:14 98.2 108 20 161/114 96 98.2 Medications Medications Dose Ordered Sig/Vu Route Start Time Stop Time Status Last Admin Dose Admin Amoxicillin/ Clavulanate Potassium 875 mg ONCE ONCE PO 03/01/25 19:15 03/01/25 19:16 DC 03/01/25 23:01 Clonidine HCl 0.2 mg ONCE ONCE PO 03/01/25 19:15 03/01/25 19:16 DC 03/01/25 23:01 Departure 1 Departure Time of Disposition: 21:00 Impression: Primary Impression: Hypertension Additional Impressions: Erysipelas Skin infection Disposition: HOME / SELF CARE / HOMELESS Condition: Stable Additional Instructions: Follow up with your primary physician Return to the Emergency Department for any worsening symptoms or concerns e-Prescriptions Mupirocin Calcium (Topical) (MUPIROCIN) 2 % Cre 2 % EX BID, #90 CRE Prov: HEMA PAYTON MD 03/01/25 Amoxicillin & Pot Clavulanate (AUGMENTIN TABLET) 875 Mg Tb 875 MG PO BID for 10 Days, #20 TAB Prov: HEMA PAYTON MD 03/01/25 Empagliflozin (Jardiance) 10 Mg Tab 10 MG PO DAILY, #90 TAB 3 Refills Prov: HEMA PAYTON MD 03/01/25 Aspirin (Aspirin EC Adult Low Dose) 81 Mg Tab 81 MG PO DAILY, #90 TAB 5 Refills Prov: HEMA PAYTON MD 03/01/25 Spironolactone (Spironolactone) 25 Mg Tab 1 TAB PO DAILY, #90 TAB 3 Refills Prov: HEMA PAYTON MD 03/01/25 Metoprolol Succinate (Metoprolol Succinate Er) 25 Mg Tab 1 TAB PO DAILY, #90 TAB 3 Refills Prov: HEMA PAYTON MD 03/01/25 Lisinopril (Lisinopril) 20 Mg Tab 1 TAB PO DAILY, #90 TAB 5 Refills Prov: HEMA PAYTON MD 03/01/25 Furosemide (Lasix) 20 Mg Tb 1 TAB PO BID, #90 TAB 5 Refills Prov: HEMA PAYTON MD 03/01/25 Amiodarone Hcl (Amiodarone Hcl) 200 Mg Tab 200 MG PO BID for 90 Days, #180 TAB 3 Refills Prov: HEMA PAYTON MD 03/01/25 Apixaban Base (ELIQUIS) 5 Mg Tab 5 MG PO BID for 90 Days, #180 TAB 3 Refills Prov: HEMA PAYTON MD 03/01/25 Discharged With: Self Critical Care Note Critical Care Time?: No Stability Stability form required: No I personally scribed for HEMA PAYTON MD ([email or web address]) on 03/01/25 at 19:27. Electronically submitted by Magdalena Parada ([email or web address]). HEMA PAYTON MD Mar 01, 2025 19:27
[2025-03-01] MEDS: AMOXICILLIN/CLAVUL 875 MG TAB PO ONE (23:01)
[2025-03-02 00:01] VITALS: BP 157/98; PULSE 96; RESP 18; TEMP 97.4; O2SAT 98
== END 2025-03-02 00:20 | disposition home or self-care (01) ==
LOC: ER 18:06
DX: L08.9 Local infection of the skin and subcutaneous tissue, unspecified (principal); A46 Erysipelas; I13.0 Hypertensive heart and chronic kidney disease with heart failure and stage 1 through stage 4 chronic kidney disease, or unspecified chronic kidney disease; N18.9 Chronic kidney disease, unspecified; I50.9 Heart failure, unspecified; E78.5 Hyperlipidemia, unspecified; I25.2 Old myocardial infarction; I48.91 Unspecified atrial fibrillation; F10.90 Alcohol use, unspecified, uncomplicated; F12.90 Cannabis use, unspecified, uncomplicated; F19.90 Other psychoactive substance use, unspecified, uncomplicated; Z87.891 Personal history of nicotine dependence; Z79.899 Other long term (current) drug therapy; Z79.82 Long term (current) use of aspirin; Z79.01 Long term (current) use of anticoagulants; Z59.00 Homelessness unspecified; Z79.84 Long term (current) use of oral hypoglycemic drugs; Z90.49 Acquired absence of other specified parts of digestive tract; Z90.89 Acquired absence of other organs; Y90.9 Presence of alcohol in blood, level not specified

== ENCOUNTER 2025-03-15 07:10 | Inpatient (IN) | payer MEDICAID ==
[~2025-03-15] VITALS: Ht 182.9 cm; Wt 98.5 kg
[~2025-03-15 07:10] MED LIST changes: +ASPI-316 PO; +AUG875T PO; +FURO1TAB33 PO; +METO25TA93 PO; +MUPI2CRE17 EX; +SPIR25TA8 PO
--- NOTE | 2025-03-15 07:45 | ED.PDOC ---
SOB-HPI HPI Comments This is a 59 year old male presenting to the ED with chief complaint of SOB. Patient reports that he has been experiencing SOB since this morning. Patient relays that he has lost all of his medication for CHF, A-Fib, and HTN. Patient denies any chest pain, dizziness, headache, syncope, fever, or chills. Chief Complaint: Shortness of Breath Time Seen by MD: 07:43 Primary Care Provider: NONE Reviewed notes: Nurses Notes, Medications, Allergies Information Source: Patient Mode of Arrival: Ambulatory Severity: Moderate Timing: Hours Duration: Since onset Context: At Rest PE Risk Factors: None History of: CHF Modifying Factors: Nothing Associated Signs and Symptoms: None Past Medical History PAST MEDICAL HISTORY: AFIB, CHF, CKF, Depression, High Lipids, HTN, [place] Surgical History: Cholecystectomy, Tonsillectomy Family History Family History: Reviewed,noncontributory to illness Social History Smoker: Quit Greater Than 1 Year, Cigarettes Alcohol: Occasionally Drugs: Marijuana, Methamphetamine Lives In: Homeless Constitutional: denies: chills, diaphoresis, fatigue, fever, malaise, sweats, weakness, others EENTM: denies: blurred vision, double vision, ear bleeding, ear discharge, ear drainage, ear pain, ear ringing, eye pain, eye redness, hearing loss, mouth pain, mouth swelling, nasal discharge, nose bleeding, nose congestion, nose pain, photophobia, tearing, throat pain, throat swelling, voice changes, others Respiratory: reports: shortness of breath; denies: cough, hemoptysis, orthopnea, SOB at rest, SOB with excertion, stridor, wheezing, others Cardiovascular: denies: chest pain, dizzy spells, diaphoresis, Dyspnea on exertion, edema, irregular heart beat, left arm pain, lightheadedness, palpitations, PND, syncope, others Gastrointestinal: denies: abdomen distended, abdominal pain, blood streaked bowels, constipated, diarrhea, dysphagia, difficulty swallowing, hematemesis, melena, nausea, poor appetite, poor fluid intake, rectal bleeding, rectal pain, vomiting, others Genitourinary: denies: burning, dysuria, flank pain, frequency, hematuria, incontinence, penile discharge, penile sore, pain, testicle pain, testicle swelling, urgency, others Neurological: denies: dizziness, fainting, headache, left sided numbness, left sided weakness, numbness, paresthesia, pre-existing deficit, right sided numbness, right sided weakness, seizure, speech problems, tingling, tremors, weakness, others Musculoskeletal: denies: back pain, gout, joint pain, joint swelling, muscle pain, muscle stiffness, neck pain, others Integumetry: denies: bruises, change in color, change in hair/nails, dryness, laceration, lesions, lumps, rash, wounds, others Allergic/Immunocompromised: denies: Difficulty Healing, Frequent Infections, Hives, Itching, others Hematologic/Lymphatic: denies: anemia, blood clots, easy bleeding, easy bruising, swollen glands, others Endocrine: denies: excessive hunger, excessive sweating, excessive thirst, excessive urination, flushing, intolerance to cold, intolerance to heat, unexp lained weight gain, unexplained weight loss, others Psychiatric: denies: anxiety, bipolar disorder, depression, hopeless, panic disorder, schizophrenia, sleepless, suicidal, others All Other Systems: Reviewed and Negative Physical Exam General Appearance: Moderate Distress, Normal HEENT: Normal ENT Inspection, Pharynx Normal, TMs Normal Neck: Full Range of Motion, Non-Tender, Normal, Normal Inspection Respiratory: Chest Non-Tender, Lungs Clear, No Accessory Muscle Use, No Respiratory Distress, Normal Breath Sounds Cardiovascular: No Edema, No JVD, No Murmur, No Gallop, Normal Peripheral Pulses, Regular Rate/Rhythm Breast Exam: Deferred Gastrointestinal: No Organomegaly, Non Tender, No Pulsatile Mass, Normal Bowel Sounds, Soft Genitalia: Deferred Pelvic: Deferred Rectal: Deferred Extremities: No calf tenderness, Normal capillary refill, Normal inspection, Normal range of motion, Non-tender, No pedal edema Musculoskeletal : Apperance: Normal 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 Was a procedure done?: No Differential Dx Differential Diagnosis: Anxiety, Asthma, Bronchitis, CHF, COPD, Pneumonia X-Ray, Labs, Meds, VS Vital Signs Date Time Temp Pulse Resp B/P (MAP) Pulse Ox O2 Delivery O2 Flow Rate FiO2 03/15/25 07:45 127 03/15/25 07:25 127 03/15/25 07:12 98.9 69 24 177/113 100 98.9 03/15/25 07:12 100 Room Air* 0 [address] [place] [address] Ph: [phone] DIAGNOSTIC IMAGING Diagnostic Imaging Report : [id number] Signed PATIENT: PRICE LYON ACCT: [id number] UNIT: [id number] : 1965 LOC: ER ROOM / BED: / AGE / SEX: 59 / M ADM STATUS: REG ER SERVICE 4 ORDERING PHYSICIAN: HERI BERRY MD PROCEDURE(s): CXRP - CHEST PORTABLE REASON: sob ORDER NUMBER(s): [id number], ACCESSION NUMBER(s): [id number] EXAM: XY CHEST PORTABLE Indication: sob Technique: Single frontal view of the chest was obtained Comparison: XY CHEST PORTABLE on DOS: 01/30/25, XY CHEST PORTABLE on DOS: 12/06/23, XY CHEST XRAY 1 VIEW on DOS: 11/25/23, XY CHEST XRAY 1 VIEW on DOS: 11/23/23, XY CHEST PORTABLE on DOS: 11/22/23 FINDINGS: Lines and Tubes: None Lungs: No focal consolidation. Pleura: No effusion. No pneumothorax. Cardiomediastinal contours: Unremarkable. Atherosclerotic vascular calcifications of the thoracic aorta are noted. Bones: No acute osseous abnormality. IMPRESSION: No acute cardiopulmonary disease. ATED BY: ARAMIS DE LA GARZA MD DICTATED DATE/TIME: 03/15/25835 SIGNED BY: ARAMSI DE LA GARZA MD SIGNED DATE/TIME: 03/15/25835 CC: Patient alert. Came in because of shortness a breath. He does not want any tests done. Vitals stable. Answering questions Chest x-ray reviewed does not show any acute changes. Was given Lasix. Blood pressure elevated. Was given labetalol. Explained to the patient. Continue monitoring. Time of 1ST Reevaluation: 08:42 Reevaluation 1ST: Unchanged Patient Education/Counseling: Diagnosis, Treatment Family Education/Counseling: No Family Present SEPSIS Sepsis Screen Date sepsis recognized/suspect: Mar 15, 2025 Time Sepsis recognized/suspect: 711 Recent Procedure: No On Antibiotic Therapy: No Respiratory Rate >20: Yes Heart Rate >90: No Temp<36 C (96.8 F) or >38.3 C: No SBP <90 or MAP <65 mmHG: No New Acute Mental Status Change: No Is the patient on CPAP, BIPAP,: No Physician Orders Electrocardigram (03/15/25 07:30) Chest Portable (03/15/25 07:45) Urinalysis (03/15/25 07:45) Vital Signs Date Time Temp Pulse Resp B/P (MAP) Pulse Ox O2 Delivery O2 Flow Rate FiO2 03/15/25 07:45 127 03/15/25 07:25 127 03/15/25 07:12 98.9 69 24 177/113 100 98.9 03/15/25 07:12 100 Room Air* 0 21 Departure 1 Departure Time of Disposition: 09:16 Impression: Primary Impression: CHF exacerbation Qualified Codes: I50.43 - Acute on chronic combined systolic (congestive) and diastolic (congestive) heart failure Additional Impression: Hypertensive urgency Disposition: ADMITTED INPATIENT Admit to: Med Surg Condition: Guarded Critical Care Note Critical Care Time?: No Stability Stability form required: No Heart Score Heart Score: Heart Score Response (Comments) Value History N/A 0 EKG N/A 0 Age N/A 0 Risk Factors N/A 0 Troponin N/A 0 Total 0 I personally scribed for HERI BERRY MD ([email or web address]) on 03/15/25 at 07:45. Electronically submitted by Felice Ventura ([email or web address]). I personally scribed for HERI BERRY MD ([email or web address]) on 03/15/25 at 09:11. Electronically submitted by Felice Ventura ([email or web address]). HERI BERRY MD Mar 15, 2025 07:45
--- NOTE | 2025-03-15 08:38 | DVH ---
EXAM: XY CHEST PORTABLE Indication: sob Technique: Single frontal view of the chest was obtained Comparison: XY CHEST PORTABLE on DOS: 01/30/25, XY CHEST PORTABLE on DOS: 12/06/23, XY CHEST XRAY 1 VIEW on DOS: 11/25/23, XY CHEST XRAY 1 VIEW on DOS: 11/23/23, XY CHEST PORTABLE on DOS: 11/22/23 FINDINGS: Lines and Tubes: None Lungs: No focal consolidation. Pleura: No effusion. No pneumothorax. Cardiomediastinal contours: Unremarkable. Atherosclerotic vascular calcifications of the thoracic ao rta are noted. Bones: No acute osseous abnormality. IMPRESSION: No acute cardiopulmonary disease.
[2025-03-15 09:26] LABS: Urine Protein, UAD 1+ (Negative)
[2025-03-15] MEDS: FUROSEMIDE 40 MG/4 ML VIAL IV ONE (12:10)
[2025-03-15] MEDS: LABETALOL HCL 20 MG/4 ML VL IV ONE ×2 (12:10→18:55)
[2025-03-15] MEDS ORDERED: ONDANSETRON HCL 4 MG/2 ML VIAL IV PRN (13:45)
[2025-03-15] MEDS ORDERED: ENOXAPARIN SOD 100 MG/1 ML SYRINGE SC ONE (15:45)
[2025-03-15] MEDS: hydrALAZINE HCL 20 MG/ML VL IV ONE (16:56)
[2025-03-15 17:15] VITALS: BP 159/107; PULSE 125; PULSE 64; RESP 22; TEMP 98.2; O2SAT 98
--- NOTE | 2025-03-15 17:22 | DVHHP2 ---
History of Present Illness History of Present Illness This is a 59-year-old male with past medical history of AFib on Eliquis, CHF with HFrEF, anemia, prostate cancer, polysubstance abuse came to ER with a complaint of shortness of breaths for 1 week. As per patient, he is homeless and lost his back of medicine week earlier, since then she is not taking any medication. Patient shortness of breaths is worsen day by day associated with bilateral lower leg swelling. As per patient, never done angiogram. Patient also feeling occasional palpitation, orthopnea, paroxysmal nocturnal dyspnea. Patient evaluated in ER, currently denies any chest pain, headache, cough, abdominal pain, dysuria or any other acute distress. PAST MEDICAL HISTORY: AFIB, CHF, CKF, Depression, High Lipids, HTN, [place] Surgical History: Cholecystectomy, Tonsillectomy Family History: noncontributory Social History: Smoker: Quit Greater Than 1 Year, marijuana daily and methamphetamine, last use 2 days earlier Alcohol: daily and last drink yesterday Lives In: Homeless PCP: Dr. Yoder [place] medication: Amiodarone 20 mg, aspirin 81 mg, atorvastatin 40 mg, Jardiance 10 mg, metoprolol 12.5 mg, lisinopril 20 mg, tamsulosin 0.4 mg, finasteride 5 mg. Review of Systems Constitutional: Yes: Malaise, Other (Bilateral lower extremity edema) Cardiovascular: Palpitations, Orthopnea, Paroxysmal Noc. Dyspnea, Edema Allergies: Coded Allergies: NO KNOWN ALLERGIES (Unverified , 03/17/17) Medications Current Medications Medications Dose Ordered Sig/Vu Route Start Time Stop Time Status Last Admin Dose Admin Ondansetron HCl 4 mg Q4HP PRN IV 03/15/25 13:45 Morphine Sulfate 2 mg Q4HPRN PRN IV 03/15/25 13:45 Amiodarone HCl 200 mg BID PO 03/15/25 22:00 Aspirin 81 mg DAILY PO 03/16/25 10:00 Atorvastatin Calcium 40 mg HS PO 03/15/25 22:00 Empaglifozin 10 mg DAILY PO 03/16/25 10:00 Gabapentin 100 mg TID PO 03/15/25 22:00 Lisinopril 20 mg DAILY PO 03/16/25 10:00 Metoprolol Tartrate 12.5 mg BID PO 03/15/25 22:00 Spironolactone 25 mg DAILY PO 03/16/25 10:00 Tamsulosin HCl 0.8 mg QPM PO 03/15/25 18:00 Thiamine HCl 100 mg DAILY PO 03/16/25 10:00 Patient Own Medication 1 mg DAILY PO 03/16/25 10:00 UNV Enoxaparin Sodium 100 mg Q12HR SC 03/15/25 22:00 Folic Acid 1 mg DAILY PO 03/16/25 10:00 Exam Vital Signs Vital Signs Date Time Temp Pulse Resp B/P (MAP) Pulse Ox O2 Delivery O2 Flow Rate FiO2 03/15/25 16:56 194/113 03/15/25 16:15 61 16 94 03/15/25 07:12 98.9 98.9 03/15/25 07:12 Room Air* 0 21 General Appearance: Alert, Oriented X3, Cooperative, mild distress HEENT: Atraumatic, PERRLA, EOMI Respiratory: Clear to auscultation, Normal air movement Cardiovascular: Regular rate, Normal S1, Normal S2, No murmurs Abdominal: Normal bowel sounds, Soft, No tenderness, No hepatospenomegaly Extremities: No clubbing, No cyanosis, Other (Dot extremity 2+ edema) Skin: No rashes, No breakdown Neuro: Normal gait, Normal speech, Strength at 5/5 X4 ext, Sensation intact Labs/Xrays Labs Test 03/15/25 08:40 Range/Units Urine Color Yellow Yellow Urine Clarity Clear Clear Urine pH 5.5 5.0-9.0 Urine Specific Joseph 1.022 1.001-1.035 Urine Protein 1+ H Negative Urine Ketones Negative Negative Urine Blood Trace H Negative /uL Urine Nitrite Negative Negative Urine Bilirubin Negative Negative Urine Urobilinogen Normal Negative mg/dL Urine Leukocyte Esterase 2+ Negative /uL Urine RBC 2 0 - 3 /hpf Urine Microscopic WBC 53 H 0-3 /HPF Urine Squamous Epithelial Cells Few <5 /hpf Urine Bacteria Mod H None Seen /hpf Urine Mucus Few None Seen Urine Glucose Normal Normal mg/dL SEPSIS Sepsis Screen Date sepsis recognized/suspect: Mar 15, 2025 Time Sepsis recognized/suspect: 711 Recent Procedure: No On Antibiotic Therapy: No Respiratory Rate >20: Yes Heart Rate >90: No Temp<36 C (96.8 F) or >38.3 C: No SBP <90 or MAP <65 mmHG: No New Acute Mental Status Change: No Is the patient on CPAP, BIPAP,: No Physician Orders Admit (03/15/25:) Code Status (03/15/25) Vital Signs .PER UNIT PROTOCOL (03/15/25:) Review Orders With Adm.Md (03/15/25:) Notify Md Of Changes From Base (03/15/25:) Advance Directive (03/15/25) Urinalysis (03/15/25:) Patient Condition (03/15/25) Allergies (03/15/25:) Ondansetron Hcl (Zofran) (03/15/25 13:45) Drug Screen (03/15/25) Morphine Sulfate Injection (03/15/25:45) Oxygen By Nasal Cannula (03/15/25:) Stat Ekg For Chest Pain (03/15/25:) Notify Md Of Changes From Base (03/15/25) Graphics Software Engineer For 24 Hours (03/15/25:) Emergency Dysrhythmia Protocol (03/15/25:) Rhythm Strips Once Every Shift (03/15/25:) Cardiac Diet-2gna,Lofat,Lochol (03/15/25 Dinner) Amiodarone Tablet (Cordarone Tablet) (03/15/25 22:00) Aspirin Enteric Coated Tablet (Ecotrin E (03/16/25 10:00) Atorvastatin (Lipitor) (03/15/25 22:00) Empagliflozin (Jardiance) (03/16/25 10:00) Gabapentin Capsule (Neurontin Capsule) (03/15/25 22:00) Lisinopril Tablet (Zestril Tablet) (03/16/25 10:00) Metoprolol Tartrate Tablet (Lopressor Ta (03/15/25 22:00) Spironolactone (Aldactone) (03/16/25 10:00) Tamsulosin Hydrochloride (Flomax) (03/15/25 18:00) Thiamine Tab (03/16/25 10:00) Enoxaparin Sodium (Lovenox) (03/15/25 22:00) Folic Acid Tablet (03/16/25 10:00) Vital Signs Date Time Temp Pulse Resp B/P (MAP) Pulse Ox O2 Delivery O2 Flow Rate FiO2 03/15/25 16:56 194/113 03/15/25 16:15 61 16 194/113 (140) 94 03/15/25 12:11 51 18 160/107 (124) 93 03/15/25 12:10 160/107 03/15/25 12:10 51 160/107 Medications Medications Dose Ordered Sig/Vu Route Start Time Stop Time Status Last Admin Dose Admin Furosemide 40 mg ONCE ONCE IV 03/15/25 09:30 03/15/25 09:31 DC 03/15/25 12:10 40 MG Hydralazine HCl 10 mg ONCE ONCE IV 03/15/25 16:22 03/15/25 16:52 DC 03/15/25 16:56 10 MG Assessment/Plan Assessment/Plan Atrial fibrillation with rapid ventricular rate, on Eliquis. Acute on chronic decompensated HFrEF, NYHA III Atrial fibrillation with rapid ventricular rate, on Eliquis. Biventricular heart failure. Recent echo 01/22/2025 shows left ventricular ejection fraction less than 40%( incomplete study) Patient optimize CDMT Empagliflozin 10 mg Lisinopril 20 mg Metoprolol 12.5 mg Spironolactone 25 mg amiodarone 200 mg Aspirin 81 mg Complicated cystitis with hematuria UA shows blood trace, leukocyte esterase 2+, WBC 53 and bacteria moderate Encouraged oral fluid intake urine culture Anemia of chronic disease no signs symptoms of active bleeding. Nonmetastatic aggressive prostate cancer. Tamsulosin Hyperlipidemia Atorvastatin Polysubstance abuse/alcohol use disorder # amphetamines and cannabinoid use disorder Counseling regarding cessation of drug abuse >13 spent Folic acid Multivitamin Thiamine Urine drug screen positive for cannabis and amphetamine blood alcohol level-pending Medical noncompliance/nonadherence. Patient refused lab in ER. Counseling patient and agree with lab draw. Patient noncompliance medication Patient lost his medication week. Current living status homeless Social workers consult for recuperative care. Obesity, BMI 31.9 Lifestyle modification Goals of care discussions. More than 26 minute spent with patient. Full code status. Case discussed with Dr. Smith Plan discussed with: Patient, Other (Nurse) My Orders Orders - LOVE MARTINEZ RESIDENT Procedure Category Date Status Time Folic Acid Tablet PHA 03/16/25 In Process 10:00 Date of Service: Mar 15, 2025 Billing Provider: TAWANA SMITH MD Common Visit Codes: [id number] INP/OBS CARE (HIGH) Secondary Visit Codes: [id number] CARE PLAN 30 MINUTES LOVE MARTINEZ RESIDENT Mar 15, 2025 17:22
--- NOTE | 2025-03-15 18:27 | ECG ---
[facility] Test Date: 2025-03-15 Test Time: 07:25:03 Pat Name: PRICE LYON Department: ED Room: 0292T A Gender: M Cargo Bracer: DEMI : 1965 Requested By: HERI BERRY Order Number: [id number] Reading MD: Nino Mattson Measurements Intervals [place] Rate: 127 P: 0 OH: 0 QRS: -37 QRSD: 91 T: 89 QT: 346 QTc: 504 Interpretive Statements Atrial fibrillation Left axis deviation Borderline repolarization abnormality Baseline wander in lead(s) II,III,aVF,V1,V2,V3 Electronically Signed On 03-21-2025 19:07:38 PDT by Nino Mattson Please click the below link to view image of tracing.
[2025-03-15] MEDS: MORPHINE SULFATE INJ 2 MG/ml SYRG IV PRN (18:52)
--- NOTE | 2025-03-15 19:02 | DVH ---
US KIDNEY HISTORY: Hematuria COMPARISON: US KIDNEY RETROPERITONEUM on DOS: 04/11/23 TECHNIQUE: Sonographic grayscale and color doppler evaluation of the kidneys and urinary bladder was performed. FINDINGS: RIGHT: 10.5 cm. Normal cortical echogenicity and normal contour. No hydronephrosis. No focal renal m ass lesion or shadowing stone LEFT: 10.9 cm. Normal cortical echogenicity and normal contour. No hydronephrosis. No focal renal mas s lesion or shadowing stone BLADDER: Prevoid bladder volume measures 36.7 mL. OTHER: None IMPRESSION: 1. Unremarkable retroperitoneal ultrasound without evidence for hydronephrosis.
[2025-03-15] MEDS: TAMSULOSIN HYDROCHLORIDE 0.4 MG CAP PO SCH (19:48)
[2025-03-15 20:00] VITALS: PULSE 105; RESP 20; O2SAT 97
[2025-03-15 20:47] LABS: Cannabinoid Screen, Urine Pos (NEGATIVE)
[2025-03-15 20:48] LABS: Amphetamine Screen, Urine Pos (NEGATIVE); Barbiturate Scree,Urine Neg (NEGATIVE); Benzodiazephine Screen, Urine Neg (NEGATIVE); Cocaine Screen, Urine Neg (NEGATIVE); Opiate Scree,Urine Neg (NEGATIVE); Phencyclidine Screen, Urine Neg (NEGATIVE)
[2025-03-15 21:00] VITALS: BP 147/96; PULSE 105; RESP 17; TEMP 97.3; O2SAT 99
[2025-03-15 21:21] LABS: Urine Amorphous Crystal FEW /hpf (None Seen); Urine Protein, UAD 1+ (Negative); Urine WBC Clumps PRESENT /hpf (None Seen)
[2025-03-15] MEDS: ATORVASTATIN 20 MG TAB PO SCH (21:46)
[2025-03-15] MEDS: AMIODARONE HCL 200 MG TAB PO SCH (21:47)
[2025-03-15] MEDS: METOPROLOL TARTRATE 25 MG TAB PO SCH (21:47)
[2025-03-15] MEDS: GABAPENTIN 100 MG CAP PO SCH (21:47)
[2025-03-15] MEDS: ENOXAPARIN SOD 100 MG/1 ML SYRINGE SC SCH (21:48)
[2025-03-15] MEDS ORDERED: APIXABAN 5 MG TAB PO SCH (22:00)
[2025-03-16 05:00] VITALS: BP 134/102; PULSE 74; RESP 20; TEMP 97.3; O2SAT 98
[2025-03-16 07:19] LABS: Anion Gap 12 (5-15); Carbon Dioxide 24 mmol/L (20-31); Chloride 106 mmol/L (98-107); Potassium 4.2 mmol/L (3.5-5.1); Sodium 142 mmol/L (136-145)
[2025-03-16 07:20] LABS: Calcium 10.0 mg/dL (8.7-10.4)
[2025-03-16 07:25] LABS: BUN/Creatinine Ratio 16.8 (10.0-20.0); Blood Urea Nitrogen 19 mg/dL (9-23); Glucose 84 mg/dL (74-106)
[2025-03-16 07:30] LABS: Hematocrit 46.4 % (41.0-53.0); Hemoglobin 15.9 g/dL (13.5-17.5); Mean Corpuscular Hemoglobin 32.8 pg (28.0-32.0); Mean Corpuscular Volume 95.8 fL (80.0-100.0); Nucleated Red Blood Cells % 0.0 %
[2025-03-16 08:00] VITALS: PULSE 101; PULSE 89; RESP 20; O2SAT 98
[2025-03-16 09:00] VITALS: BP 146/93; PULSE 100; RESP 18; TEMP 97.9; O2SAT 96
[2025-03-16] MEDS: SPIRONOLACTONE 25 MG TAB PO SCH (09:39)
[2025-03-16] MEDS: THIAMINE HCL 100 MG TAB PO SCH (09:39)
[2025-03-16] MEDS: ASPirin-EC 81 mg tab PO SCH (09:40)
[2025-03-16] MEDS: LISINOPRIL 20 MG TAB PO SCH (09:40)
[2025-03-16] MEDS: EMPAGLIFLOZIN 10 MG TAB PO SCH (09:41)
[2025-03-16] MEDS ORDERED: PATIENTS OWN MEDICATION (Folic Acid 1 MG) PO SCH (10:00)
[2025-03-16] MEDS ORDERED: FOLIC ACID 1 MG TAB PO SCH (10:00)
[2025-03-16] MEDS ORDERED: ENOXAPARIN SOD 40 MG/0.4 ML SYRINGE SC SCH (10:00)
[2025-03-16 16:42] VITALS: BP 148/90; PULSE 96; RESP 19; TEMP 98; O2SAT 93
--- NOTE | 2025-03-16 19:43 | DVHPNRES ---
Progress Note Date Seen: Mar 16, 2025 Resident Creating Document: LOVE MARTINEZ RESIDENT Medical Necessity Reason Pt with a Central, PICC or Fol: No Subjective Review of Systems This is a 59-year-old male with past medical history of AFib on Eliquis, CHF with HFrEF, anemia, prostate cancer, polysubstance abuse came to ER with a complaint of shortness of breaths for 1 week. As per patient, he is homeless and lost his bag of medicine week earlier, since then she is not taking any medication. Patient shortness of breaths is worsen day by day associated with bilateral lower leg swelling. As per patient, never done angiogram. Patient also feeling occasional palpitation, orthopnea, paroxysmal nocturnal dyspnea. Patient evaluated in ER, currently denies any chest pain, headache, cough, abdominal pain, dysuria or any other acute distress. PAST MEDICAL HISTORY: paroxysmal AFIB (chads Vasc 2) with electrical cardioversion in 2023, HFrEF, CKF, Depression, High Lipids, HTN, [place], prostate cancer s/p prostatectomy and bilateral orchidectomy, polysubstance abuse Surgical History: Cholecystectomy, Tonsillectomy, TURP, prostatectomy, bilateral orchiectomy Family History: noncontributory Social History: Smoker: Quit Greater Than 1 Year, marijuana daily and methamphetamine, last use 2 days earlier Alcohol: daily and last drink yesterday Lives In: Homeless PCP: Dr. Yoder Patient seen and evaluated in bedside. Patient became tachycardic overnight , labetalol given and currently stable. Patient current status homeless, social worker delinquency prevention consulted. Recuperative care placement. Patient refused lab test during admission, discussed the side effects are not complains of medical treatment. Objective vital signs Vital Sign Date Time Temp Pulse Resp B/P (MAP) Pulse Ox O2 Delivery O2 Flow Rate FiO2 03/16/25 16:42 98.0 96 19 148/90 (109) 93 98.0 03/16/25 08:00 Room Air* 0 21 Total Intake and Output 03/15/25 03/15/25 03/16/25 15:00 23:00 07:00 Intake Total 50 ml 350 ml Balance 50 ml 350 ml medications Current Medications Medications Dose Ordered Sig/Vu Route Start Time Stop Time Status Last Admin Dose Admin Ondansetron HCl 4 mg Q4HP PRN IV 03/15/25 13:45 Morphine Sulfate 2 mg Q4HPRN PRN IV 03/15/25 13:45 03/15/25 18:52 2 MG Amiodarone HCl 200 mg BID PO 03/15/25 22:00 03/16/25 09:39 200 MG Aspirin 81 mg DAILY PO 03/16/25 10:00 03/16/25 09:40 81 MG Atorvastatin Calcium 40 mg HS PO 03/15/25 22:00 03/15/25 21:46 40 MG Empaglifozin 10 mg DAILY PO 03/16/25 10:00 03/16/25 09:41 10 MG Gabapentin 100 mg TID PO 03/15/25 22:00 03/16/25 14:00 100 MG Lisinopril 20 mg DAILY PO 03/16/25 10:00 03/16/25 09:40 20 MG Metoprolol Tartrate 12.5 mg BID PO 03/15/25 22:00 03/16/25 09:41 12.5 MG Spironolactone 25 mg DAILY PO 03/16/25 10:00 03/16/25 09:39 25 MG Tamsulosin HCl 0.8 mg QPM PO 03/15/25 18:00 03/16/25 18:00 0.8 MG Thiamine HCl 100 mg DAILY PO 03/16/25 10:00 03/16/25 09:39 100 MG Patient Own Medication 1 mg DAILY PO 03/16/25 10:00 UNV Enoxaparin Sodium 100 mg Q12HR SC 03/15/25 22:00 03/16/25 09:39 100 MG Ceftriaxone Sodium 50 ml @ 100 mls/hr DAILY@09 IV 03/16/25 09:00 03/16/25 09:00 100 MLS/HR Examination General Appearance: Alert, Oriented X3, Cooperative, mild distress HEENT: Atraumatic, PERRLA, EOMI Respiratory: Clear to auscultation, Normal air movement Cardiovascular: Regular rate, Normal S1, Normal S2, No murmurs Abdominal: Normal bowel sounds, Soft, No tenderness, No hepatospenomegaly Extremities: No clubbing, No cyanosis, bilateral leg edema Skin: No rashes, No breakdown Neuro: Normal gait, Normal speech, Strength at 5/5 X4 ext, Sensation intact laboratory and microbiology Laboratory Tests 03/16/25 06:21 Test 03/16/25 06:21 Range/Units Serum Glucose 84 74-106 mg/dL Microbiology Date/Time Source Procedure Growth Status 03/15/25 20:00 Other Urine Culture - Preliminary Resulted Problem List/Assessment/Plan Problem List/Assessment/Plan Atrial fibrillation with rapid ventricular rate, on Eliquis. Acute on chronic systolic decompensated HFrEF (40%), NYHA III Atrial fibrillation with rapid ventricular rate, on Eliquis. Biventricular heart failure. Recent echo 01/22/2025 shows left ventricular ejection fraction less than 40%( incomplete study) Optimize CDMT medication- Empagliflozin 10 mg Lisinopril 20 mg Metoprolol 12.5 mg Spironolactone 25 mg Amiodarone 200 mg Aspirin 81 mg Complicated cystitis with hematuria UA shows blood trace, leukocyte esterase 2+, WBC 53 and bacteria moderate(on admission) Encouraged oral fluid intake Ceftriaxone IV antibiotic Preliminary urine [id number] bacteria Anemia of chronic disease no signs symptoms of active bleeding. H/O Nonmetastatic aggressive prostate cancer - s/p prostatectomy and bilateral orchiectomy Tamsulosin Outpatient urology follow up Hyperlipidemia Atorvastatin Polysubstance abuse/alcohol use disorder # amphetamines and cannabinoid use disorder Counseling regarding cessation of drug abuse >13 spent Multivitamin Thiamine Urine drug screen positive for cannabis and amphetamine blood alcohol level-pending Medical noncompliance/nonadherence. Patient refused lab in ER. Counseling patient and agree with lab draw. Patient noncompliance medication Patient lost his medication week. Current living status homeless Patient wants to go his friend house for short time. Obesity, BMI 31.9 Lifestyle modification Goals of care discussions. More than 19minute spent with patient. Full code status. Case discussed with Dr. Terrell Plan discussed with: Patient, Other (Nurse) My Orders My Orders Orders - LOVE MARTINEZ Procedure Category Date Status Time * Water Treatment Technician CONS 03/15/25 Transmitted Consult 21:55 Date of Service: Mar 16, 2025 Billing Provider: TAWANA TERRELL MD Common Visit Codes: [id number] INP/OBS CARE(HIGH) LOVE MARTINEZ Mar 16, 2025 19:43 PAUL GILES RESIDENT Mar 19, 2025 08:55 TAWANA TERRELL MD Mar 19, 2025 10:33
[2025-03-16 20:00] VITALS: PULSE 97; PULSE 99; RESP 19; O2SAT 96
[2025-03-16 21:00] VITALS: BP 132/106; PULSE 87; RESP 19; TEMP 96.5; O2SAT 98
[2025-03-17] VITALS (8 sets, daily range): BP systolic 102–136; BP diastolic 49–106; PULSE 66–97; RESP 16–21; TEMP 96.9–98.9; O2SAT 91–99
[2025-03-17 12:30] LABS: Hematocrit 43.2 % (41.0-53.0); Hemoglobin 14.8 g/dL (13.5-17.5); Mean Corpuscular Hemoglobin 32.6 pg (28.0-32.0); Mean Corpuscular Volume 94.9 fL (80.0-100.0); Nucleated Red Blood Cells % 0.1 %
[2025-03-17 12:38] LABS: Anion Gap 11 (5-15); Carbon Dioxide 21 mmol/L (20-31); Chloride 106 mmol/L (98-107); Potassium 4.7 mmol/L (3.5-5.1); Sodium 138 mmol/L (136-145)
[2025-03-17 12:39] LABS: Calcium 9.5 mg/dL (8.7-10.4)
[2025-03-17 12:44] LABS: BUN/Creatinine Ratio 14.7 (10.0-20.0); Blood Urea Nitrogen 15 mg/dL (9-23); Glucose 87 mg/dL (74-106)
[2025-03-17 12:45] LABS: Magnesium 2.0 mg/dL (1.6-2.6)
[2025-03-17] MEDS ORDERED: MET25T PO (14:55)
[2025-03-17] MEDS ORDERED: CEPH250C PO (14:55)
--- NOTE | 2025-03-17 16:17 | DVHDSRES ---
Discharge Summary Date of Admission Resident Creating Document: LOVE MARTINEZ RESIDENT Mar 15, 2025 at 13:31 Date of Discharge: Mar 17, 2025 Labs/Diagnostic Data: Laboratory Results Test 03/17/25 12:01 03/16/25 06:21 03/15/25 20:00 White Blood Count 8.7 10^3/uL (4.4-10.8) Red Blood Count 4.55 10^6/uL (4.5-5.90) Hemoglobin 14.8 g/dL (13.5-17.5) Hematocrit 43.2 % (41.0-53.0) Mean Corpuscular Volume 94.9 fL (80.0-100.0) Mean Corpuscular Hemoglobin 32.6 pg (28.0-32.0) Mean Corpuscular Hemoglobin Concent 34.4 g/dL (32.0-36.0) Red Cell Distribution Width 16.6 % (11.8-14.3) Platelet Count 222 10^3/uL (140-450) Mean Platelet Volume 9.3 fL (6.9-10.8) Neutrophils (%) (Auto) 72.2 % (37.0-80.0) Lymphocytes (%) (Auto) 16.7 % (10.0-50.0) Monocytes (%) (Auto) 6.8 % (0.0-12.0) Eosinophils (%) (Auto) 2.9 % (0.0-7.0) Basophils (%) (Auto) 1.4 % (0.0-2.0) Neutrophils # (Auto) 6.3 10 ^3/uL (1.6-8.6) Lymphocytes # (Auto) 1.5 10 ^3/uL (0.4-5.4) Monocytes # (Auto) 0.6 10 ^3/uL (0-1.3) Eosinophils # (Auto) 0.3 10 ^3/uL (0-0.8) Basophils # (Auto) 0.1 10 ^3/uL (0-0.2) Nucleated Red Blood Cells 0.1 % Sodium Level 138 mmol/L (136-145) Potassium Level 4.7 mmol/L (3.5-5.1) Chloride Level 106 mmol/L (98-107) Carbon Dioxide Level 21 mmol/L (20-31) Anion Gap 11 (5-15) Blood Urea Nitrogen 15 mg/dL (9-23) Creatinine 1.02 mg/dL (0.700-1.30) Glomerular Filtration Rate Calc 84 mL/min (>90) BUN/Creatinine Ratio 14.7 (10.0-20.0) Serum Glucose 87 mg/dL (74-106) Calcium Level 9.5 mg/dL (8.7-10.4) Magnesium Level 2.0 mg/dL (1.6-2.6) Vitamin B12 Level 289 pg/mL (211-911) Vitamin D 25-Hydroxy 31.1 ng/mL (30.0-100) Urine Color Brown (Yellow) Urine Clarity Ex.turbid (Clear) Urine pH 5.5 (5.0-9.0) Urine Specific Andrews 1.021 (1.001-1.035) Urine Protein 1+ (Negative) Urine Ketones Negative (Negative) Urine Blood Trace /uL (Negative) Urine Nitrite Negative (Negative) Urine Bilirubin Negative (Negative) Urine Urobilinogen Normal mg/dL (Negative) Urine Leukocyte Esterase 2+ /uL (Negative) Urine RBC None seen /hpf (0 - 3) Urine WBC Clumps Present /hpf (None Seen) Urine Microscopic WBC 87 /HPF (0-3) Urine Squamous Epithelial Cells None seen /hpf (<5) Urine Amorphous Crystals Few /hpf (None Seen) Urine Bacteria None seen /hpf (None Seen) Urine Mucus Few (None Seen) Urine Glucose Normal mg/dL (Normal) Urine Opiates Screen Neg (NEGATIVE) Urine Fentanyl Screen Neg (NEGATIVE) Urine Barbiturates Screen Neg (NEGATIVE) Urine Phencyclidine Screen Neg (NEGATIVE) Urine Amphetamines Screen Pos (NEGATIVE) Urine Benzodiazepines Screen Neg (NEGATIVE) Urine Cocaine Screen Neg (NEGATIVE) Urine Cannabinoids Screen Pos (NEGATIVE) Other Laboratory Tests 03/17/25 12:01 Brief Hx & Hospital Course: This is a 59-year-old male with past medical history of AFib on Eliquis, CHF with HFrEF, anemia, prostate cancer, polysubstance abuse came to ER with a complaint of shortness of breaths for 1 week. As per patient, he is homeless and lost his back of medicine week earlier, since then she is not taking any medication. Patient shortness of breaths is worsen day by day associated with bilateral lower leg swelling. As per patient, never done angiogram. Patient also feeling occasional palpitation, orthopnea, paroxysmal nocturnal dyspnea. Patient evaluated in ER, currently denies any chest pain, headache, cough, abdominal pain, dysuria or any other acute distress. PAST MEDICAL HISTORY: AFIB, CHF, CKF, Depression, High Lipids, HTN, [place] Surgical History: Cholecystectomy, Tonsillectomy Family History: noncontributory Social History: Smoker: Quit Greater Than 1 Year, marijuana daily and methamphetamine, last use 2 days earlier Alcohol: daily and last drink yesterday Lives In: Homeless PCP: Dr. Yoder [facility] Hospital course: This is a 59-year-old male admitted due to acute on chronic decompensated heart failure. On admission patient became tachypneic, bilateral lower extremity swelling, exertional shortness of breaths. Patient treated with IV diuretics and symptoms significantly improved. His home medication started as well as GDMT medicine optimized. Patient recent echocardiogram on shows left ventricular ejection fraction less than 40% incomplete due to noncompliance with the patient. During admission, patient treated both acute and chronic condition. Lab shows complicated cystitis with hematuria and treated with IV antibiotic. H/O polysubstance abuse and drug screen showed positive for cannabis and amphetamine, counseling regarding cessation of substance abuse done during discharge planning. Patient noncompliance with medication and discussed the side effect of nonadherence of medication including exacerbation of current disease even . Patient verbally understand whatever discussed. patient discharged with p.o. cephalexin for 5 days and sent to pharmacy. Patient is hemodynamically stable for discharge. The patient has received maximum benefits from inpatient treatment. Time was given to answer patient/ parents questions and concerns in Layman terms. patient verbalized understanding and agree with treatment and follow-up. Patient was recommended to return to the ED if she experiences any worsening symptoms such as, but not limited to current symptoms. Continue current home medication. follow-up with PCP, discharge Clinic within 2 weeks on Thursday morning. 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 Patient educated and advised to resume home medication. Constitutional: No: Fever, Chills, Sweats, Weakness, Malaise Eyes: No: Pain, Vision change, Conjunctivae inflammation, Eyelid inflammation ENT: No: Ear pain, Ear discharge, Nose pain, Nose discharge, Nose congestion, Mouth pain, Mouth swelling, Throat pain, Throat swelling Respiratory: Shortness of breath; No: Cough, Dry, SOB with excertion, Wheezing, Hemoptysis, Pleuritic Pain, Sputum, Wheezing Cardiovascular: No: Chest Pain, Palpitations, Orthopnea, Paroxysmal Noc. Dyspnea, Edema, Lt Headedness Gastrointestinal: No: Nausea, Vomiting, Abdominal Pain, Diarrhea, Constipation, Melena, Hematochezia Genitourinary: No Dysuria, No Frequency, No Incontinence, No Hematuria, No Retention Musculoskeletal: No: other, neck pain, shoulder pain, arm pain, back pain, hand pain, leg pain, foot pain Skin: No: Rash, Lesions, Jaundice, Bruising Neurological: No: Weakness, Numbness, Incoordination, Change in speech, Confusion, Seizures Discussed with Dr. Terrell and Nurse. Operations or Procedures ORDERING PHYSICIAN: HERI BERRY MD PROCEDURE(s): CXRP - CHEST PORTABLE REASON: sob ORDER NUMBER(s): [id number], ACCESSION NUMBER(s): [id number] EXAM: XY CHEST PORTABLE Indication: sob Technique: Single frontal view of the chest was obtained Comparison: XY CHEST PORTABLE on DOS: 01/30/25, XY CHEST PORTABLE on DOS: 12/06/23, XY CHEST XRAY 1 VIEW on DOS: 11/25/23, XY CHEST XRAY 1 VIEW on DOS: 11/23/23, XY CHEST PORTABLE on DOS: 11/22/23 FINDINGS: Lines and Tubes: None Lungs: No focal consolidation. Pleura: No effusion. No pneumothorax. Cardiomediastinal contours: Unremarkable. Atherosclerotic vascular calcifications of the thoracic aorta are noted. Bones: No acute osseous abnormality. IMPRESSION: No acute cardiopulmonary disease. ATED BY: ARAMIS DE LA GARZA MD DICTATED DATE/TIME: 03/15/25 0836 ORDERING PHYSICIAN: LOVE MARTINEZ PROCEDURE(s): KIDUS - KIDNEY REASON: Hematuria ORDER NUMBER(s): [id number], ACCESSION NUMBER(s): [id number] US KIDNEY HISTORY: Hematuria COMPARISON: US KIDNEY RETROPERITONEUM on DOS: 04/11/23 TECHNIQUE: Sonographic grayscale and color doppler evaluation of the kidneys and urinary bladder was performed. FINDINGS: RIGHT: 10.5 cm. Normal cortical echogenicity and normal contour. No hydronephrosis. No focal renal mass lesion or shadowing stone LEFT: 10.9 cm. Normal cortical echogenicity and normal contour. No hydronephrosis. No focal renal mass lesion or shadowing stone BLADDER: Prevoid bladder volume measures 36.7 mL. OTHER: None IMPRESSION: 1. Unremarkable retroperitoneal ultrasound without evidence for hydronephrosis. ATED BY: AMPARO CARO MD DICTATED DATE/TIME: 03/15/25 1900 Condition at Discharge: Stable Final Diagnosis/Problems List Acute on chronic systolic CHF (methamphetamine) Atrial fibrillation with rapid ventricular rate, on Eliquis. Acute on chronic systolic decompensated HFrEF (LVEF <40%), NYHA III Biventricular heart failure. Complicated cystitis with hematuria Anemia of chronic disease H/O Nonmetastatic aggressive prostate cancer - s/p prostatectomy and bilateral orchiectomy Hyperlipidemia Polysubstance abuse/alcohol use disorder Medical noncompliance/nonadherence. Obesity, BMI 31.9 Discharge Disposition: Home Discharge Instruct/Medications Diet: Cardiac 2g Na,low cholest Activity: No Restrictions, As Tolerated Follow Up/Referral: PCP Cardiology DC clinic Medications: Continue GDMT and rest of home meds Scheduled Albuterol Sulfate (Ventolin i), 90 MCG IN Q4HR Amiodarone Hcl (Amiodarone Hcl), 200 MG PO BID Apixaban Base (Eliquis), 5 MG PO BID Atorvastatin Calcium (Atorvastatin Calcium), 40 MG PO HS Cephalexin (Keflex Capsule), 1 CAP PO QID Empagliflozin (Jardiance), 10 MG PO DAILY Folic Acid (Folic Acid), 1 MG PO DAILY Furosemide (Lasix), 40 MG PO QAM Gabapentin (Gabapentin), 100 MG PO TID Lisinopril (Lisinopril), 1 TAB PO DAILY Metoprolol Tartrate (Lopressor), 12.5 MG PO BID Spironolactone (Aldactone), 25 MG PO DAILY Tamsulosin Hcl (Flomax), 0.8 MG PO QPM Discontinued Medications Amiodarone Hcl (Amiodarone Hcl), 200 MG PO BID Amoxicillin & Pot Clavulanate (Augmentin Tablet), 875 MG PO BID Apixaban Base (Eliquis), 5 MG PO BID Aspirin (Aspirin Low Dose), 81 MG PO DAILY Aspirin (Aspirin EC Adult Low Dose), 81 MG PO DAILY Empagliflozin (Jardiance), 10 MG PO DAILY Furosemide (Lasix), 1 TAB PO BID Lisinopril (Lisinopril), 1 TAB PO DAILY Metoprolol Succinate (Metoprolol Succinate Er), 1 TAB PO DAILY Metoprolol Tartrate (Lopressor), 12.5 MG PO BID Mupirocin Calcium (Topical) (Mupirocin), 2 % EX BID Spironolactone (Spironolactone), 1 TAB PO DAILY Thiamine Hcl (Thiamine Hcl), 1 TAB PO DAILY Discharge Statement: "Patient was advised to return to the ER or call 911 if any headaches, dizziness, shortness of breath, chest pain, abdominal pain, bleeding, fevers, or worsening of medical condition. Patient was counseled about treatment plan, medications, possible side effects, patientverbalized understanding. All questions were answered to the best of my ability. This discharge took greater then 30 minutes in planning, reviewing documentation, counseling the patient, and discussing with other team members." ASSESSMENT ASSESSMENT Assessment Acute on chronic systolic CHF (methamphetamine) Date of Service: Mar 17, 2025 Billing Provider: TAWANA TERRELL MD Common Visit Codes: 85766-BIZ/OBS DISCH DAY >30min LOVE MARTINEZ RESIDENT Mar 17, 2025 16:17 PAUL GILES RESIDENT Mar 19, 2025 08:56 TAWANA TERRELL MD Mar 19, 2025 10:46
== END 2025-03-17 21:19 | disposition home or self-care (01) | DRG 194 ==
LOC: ER 07:10 → OVERFLOW 13:31 → TELE-WESTW 17:26
PROVIDERS: ADMIT Student in an Organized Health Care Education/Training Program; ATTEND Emergency Medicine
DX: I11.0 Hypertensive heart disease with heart failure (principal); D63.8 Anemia in other chronic diseases classified elsewhere; Z79.01 Long term (current) use of anticoagulants; N30.81 Other cystitis with hematuria; Z59.00 Homelessness unspecified; I50.23 Acute on chronic systolic (congestive) heart failure; I16.0 Hypertensive urgency; I48.91 Unspecified atrial fibrillation; E66.9 Obesity, unspecified; I50.82 Biventricular heart failure; F19.10 Other psychoactive substance abuse, uncomplicated; Z68.31 Body mass index [BMI] 31.0-31.9, adult; E78.5 Hyperlipidemia, unspecified; F10.90 Alcohol use, unspecified, uncomplicated; F12.90 Cannabis use, unspecified, uncomplicated; Z53.20 Procedure and treatment not carried out because of patient's decision for unspecified reasons; B96.89 Other specified bacterial agents as the cause of diseases classified elsewhere; I25.2 Old myocardial infarction; Z90.89 Acquired absence of other organs; Z91.148 Patient's other noncompliance with medication regimen for other reason; Z87.891 Personal history of nicotine dependence; Z85.46 Personal history of malignant neoplasm of prostate; Z79.84 Long term (current) use of oral hypoglycemic drugs
CPT/HCPCS: 36415; 71045; 76775; 80048; 80307; 81001; 82306; 82607; 83735; 85025; 87086; 87088; 87186; 93005; 96374; 96375; G0378

== ENCOUNTER 2025-04-02 18:41 | Inpatient (IN) | payer MEDICAID ==
[~2025-04-02] VITALS: Ht 177.8 cm; Wt 96.9 kg
[~2025-04-02 18:41] MED LIST changes: -ASPI-316 PO; -ASPI-325 PO; -AUG875T PO; +CEPH250C PO; -FURO1TAB33 PO; -METO25TA93 PO; -MUPI2CRE17 EX; -SPIR25TA8 PO; -THIA100T5 PO
--- NOTE | 2025-04-02 18:56 | ED.PDOC ---
History of Present Illness HPI Comments 59 y/o homeless M presents with c/c nonradiating, substernal chest pain and dyspnea. Significant history for AFib, CHF, CKF, HLD, HTN, CT, cholecystectomy, polysubstance abuse, and homelessness. Patient endorses on sudden, unprovoked, and atraumatic onset of persisting symptoms, earlier, today. He comments on running out of his medications after becoming homeless, recently. Patient also reports associated noticeable swelling to his lower extremities. Denial of any nausea, vomiting, sputum production, fever, chills, or further associated symptoms. Chief Complaint: Chest Pain Time Seen by MD: 18:45 Primary Care Provider: NONE Reviewed Notes: Nurses Notes, Medications, Allergies Allergies: Coded Allergies: NO KNOWN ALLERGIES (Unverified , 03/17/17) Home Meds Active Scripts Cephalexin (KEFLEX CAPSULE) 250 Mg Cp, 1 CAP PO QID for 5 Days, #28 CAP Prov:PAUL GILES [facility] 03/17/25 Metoprolol Tartrate (Lopressor) 25 Mg Tb, 12.5 MG PO BID for 30 Days, #30 TAB Prov:PAUL GILES RESIDENT 03/17/25 Tamsulosin Hcl (Flomax) 0.4 Mg Cap, 0.8 MG PO QPM for 30 Days, #30 CAP Prov:JERRELL HILL [facility] 02/01/25 Spironolactone (Aldactone) 25 Mg Tab, 25 MG PO DAILY for 30 Days, #30 TAB Prov:JERRELL HILL [facility] 02/01/25 Empagliflozin (Jardiance) 10 Mg Tab, 10 MG PO DAILY for 30 Days, #30 TAB Prov:JERRELL HILL [facility] 02/01/25 Apixaban Base (ELIQUIS) 5 Mg Tab, 5 MG PO BID for 30 Days, #60 TAB Prov:JERRELL HILL [facility] 02/01/25 Lisinopril (Lisinopril) 20 Mg Tab, 1 TAB PO DAILY, #30 TAB 3 Refills Prov:KYLEIGH RENDON [facility] 12/01/23 Amiodarone Hcl (Amiodarone Hcl) 200 Mg Tab, 200 MG PO BID for 30 Days, #60 TAB 3 Refills Prov:KYLEIGH RENDON RESIDENT 12/01/23 Atorvastatin Calcium (ATORVASTATIN CALCIUM) 20 Mg Tab, 40 MG PO HS for 20 Days, #40 TAB 5 Refills Prov:MEY MALONE 09/16/23 Gabapentin (Gabapentin) 100 Mg Cap, 100 MG PO TID, #90 CAP 2 Refills Prov:ROSARIO CAMPOS MD 04/24/22 Furosemide (Lasix) 40 Mg Tab, 40 MG PO QAM for 30 Days, #30 TAB 3 Refills Prov:STACEY JAVIER MD 01/29/22 Albuterol Sulfate (VENTOLIN MDI) 90 Mcg Ih, 90 MCG IN Q4HR, #1 INH Prov:CIRO MCCOY MD 01/17/22 Folic Acid (Folic Acid) 1 Mg Tab, 1 MG PO DAILY, #30 TAB Prov:CIRO MCCOY MD 01/15/22 Information Source: Patient Mode of Arrival: Ambulatory Severity: Moderate Timing: Hours Duration: Since onset Prehospital treatment: None Past Medical History PAST MEDICAL HISTORY: AFIB, CHF, CKF, Depression, High Lipids, HTN, CT Surgical History: Cholecystectomy, Tonsillectomy Family History Family History: Reviewed,noncontributory to illness Social History Smoker: Quit Greater Than 1 Year, Cigarettes Alcohol: Occasionally Drugs: Marijuana, Methamphetamine Lives In: Homeless All Other Systems: Reviewed and Negative (Comprehensive review of systems are negative unless stated in HPI) Physical Exam General Appearance: No Apparent Distress, Obese HEENT: Normal ENT Inspection, Pharynx Normal, TMs Normal Neck: Full Range of Motion, Non-Tender, Normal, Normal Inspection Respiratory: Chest Non-Tender, Lungs Clear, No Accessory Muscle Use, No Respiratory Distress, Normal Breath Sounds Cardiovascular: Irregular (rhythm ), No Edema, No JVD, No Murmur, No Gallop, Normal Peripheral Pulses, Tachycardia (rate) Breast Exam: Deferred Gastrointestinal: No Organomegaly, Non Tender, No Pulsatile Mass, Normal Bowel Sounds, Soft Genitalia: Deferred Pelvic: Deferred Rectal: Deferred Extremities: Leg edema (bilateral lower extremities ), No calf tenderness, Normal capillary refill, Normal range of motion, Non-tender, Swelling (bilateral lower extremities ) Musculoskeletal : Apperance: Normal Neurologic: Alert, color specialist II-XII nml as Tested, No Motor Deficits, Normal Affect, Normal Mood, No Sensory Deficits Cerebellar Function: Normal Reflexes: Normal Skin: Dry, Normal Color, Warm Lymphatic: No Adenopathy Was a procedure done? Was a procedure done?: No EKG EKG : Pulse Rate (adult): 173 [place]: Normal Cardiac Rhythm: Afib Block: None Hypertrophy: None ST: Normal Differential Dx Considerations may include: AFib, noncompliance, electrolyte imbalance, arrhythmia, CT, PE, ACS, angina, among others X-Ray, Labs, Meds, VS Vital Signs Date Time Temp Pulse Resp B/P (MAP) Pulse Ox O2 Delivery O2 Flow Rate FiO2 04/02/25 21:00 127 28 113/87 (96) 93 04/02/25 20:34 130 132/99 04/02/25 19:05 98.1 140 25 150/91 (110) 95 98.1 04/02/25 19:05 140 25 95 Room Air* 0 21 04/02/25 19:00 173 152/104 04/02/25 18:56 173 04/02/25 18:44 173 04/02/25 18:43 98.0 173 24 152/104 93 98.0 Lab Test 04/02/25 20:16 04/02/25 19:19 Range/Units Troponin I High Sensitivity Pending 36 </=54 ng/L White Blood Count 9.3 4.4-10.8 10^3/uL Red Blood Count 5.01 4.5-5.90 10^6/uL Hemoglobin 16.3 13.5-17.5 g/dL Hematocrit 48.4 41.0-53.0 % Mean Corpuscular Volume 96.6 80.0-100.0 fL Mean Corpuscular Hemoglobin 32.6 H 28.0-32.0 pg Mean Corpuscular Hemoglobin Concent 33.7 32.0-36.0 g/dL Red Cell Distribution Width 16.9 H 11.8-14.3 % Platelet Count 255 140-450 10^3/uL Mean Platelet Volume 8.6 6.9-10.8 fL Neutrophils (%) (Auto) 66.2 37.0-80.0 % Lymphocytes (%) (Auto) 22.4 10.0-50.0 % Monocytes (%) (Auto) 5.9 0.0-12.0 % Eosinophils (%) (Auto) 4.3 0.0-7.0 % Basophils (%) (Auto) 1.2 0.0-2.0 % Neutrophils # (Auto) 6.2 1.6-8.6 10 ^3/uL Lymphocytes # (Auto) 2.1 0.4-5.4 10 ^3/uL Monocytes # (Auto) 0.5 0-1.3 10 ^3/uL Eosinophils # (Auto) 0.4 0-0.8 10 ^3/uL Basophils # (Auto) 0.1 0-0.2 10 ^3/uL Nucleated Red Blood Cells 0.2 % Prothrombin Time 11.2 9.3-11.8 sec Prothrombin Time INR 1.06 0.9-1.15 Activated Partial Thromboplast Time 27.7 24.5-34.5 SEC Sodium Level 138 136-145 mmol/L Potassium Level 4.1 3.5-5.1 mmol/L Chloride Level 103 98-107 mmol/L Carbon Dioxide Level 24 20-31 mmol/L Anion Gap 11 5-15 Blood Urea Nitrogen 12 9-23 mg/dL Creatinine 1.02 0.700-1.30 mg/dL Glomerular Filtration Rate Calc 84 >90 mL/min BUN/Creatinine Ratio 11.8 10.0-20.0 Serum Glucose 73 L 74-106 mg/dL Calcium Level 10.0 8.7-10.4 mg/dL Magnesium Level 1.7 1.6-2.6 mg/dL Total Bilirubin 3.1 H 0.2-1.0 mg/dL Aspartate Amino Transferase (AST) 28 13-40 U/L Alanine Aminotransferase (ALT) 21 7-40 U/L Alkaline Phosphatase 141 H 46-116 U/L B-Type Natriuretic Peptide 548.96 0-100 pg/mL Total Protein 8.0 5.7-8.2 g/dL Albumin 5.0 H 3.2-4.8 g/dL Thyroid Stimulating Hormone (TSH) 1.10 0.55-4.78 uIU/mL Current Medications Medications (Trade) Dose Ordered Sig/Vu Route Start Time Stop Time Status Last Admin Aspirin 162 mg ONCE ONCE PO 04/02/25 19:00 04/02/25 19:01 DC 04/02/25 18:58 Metoprolol Tartrate (Lopressor) 5 mg Q15M ONCE IV 04/02/25 19:00 04/02/25 19:01 DC 04/02/25 19:00 Lorazepam (Ativan Inj) 1 mg ONCE ONCE IV 04/02/25 21:00 04/02/25 21:01 DC 04/02/25 20:56 [place] [id number] Ph: [phone] DIAGNOSTIC IMAGING Diagnostic Imaging Report : [id number] Signed PATIENT: PRICE LYON ACCT: [id number] UNIT: [id number] : 1965 LOC: ER ROOM / BED: / AGE / SEX: 59 / M ADM STATUS: REG ER SERVICE 48 ORDERING PHYSICIAN: HEMA PAYTON MD PROCEDURE(s): CXRP - CHEST PORTABLE REASON: chest pain ORDER NUMBER(s): [id number], ACCESSION NUMBER(s): [id number] EXAM: XY CHEST PORTABLE HISTORY: chest pain TECHNIQUE: 1 view of the chest COMPARISON: XY CHEST PORTABLE on DOS: 03/15/25 FINDINGS/IMPRESSION: LUNGS: Small left-sided pleural effusion. volume overload. Central pulmonary vascular congestion MEDIASTINUM: Mild cardiomegaly BONES: No acute osseous abnormality. OTHER: None. ATED BY: AMPARO CARO MD DICTATED DATE/TIME: 04/02/252000 SIGNED BY: AMPARO CARO MD SIGNED DATE/TIME: 04/02/252000 CC: Time of 1ST Reevaluation: 19:15 Reevaluation 1ST: Unchanged Patient Education/Counseling: Diagnosis, Treatment, Need For Follow Up Family Education/Counseling: No Family Present SEPSIS Sepsis Screen Date sepsis recognized/suspect: Apr 02, 2025 Time Sepsis recognized/suspect: 1841 Recent Procedure: No On Antibiotic Therapy: No Respiratory Rate >20: No Heart Rate >90: Yes Temp<36 C (96.8 F) or >38.3 C: No SBP <90 or MAP <65 mmHG: No New Acute Mental Status Change: No Is the patient on CPAP, BIPAP,: No Physician Orders Chest Portable (04/02/25 18:49) Electrocardigram (04/02/25 18:49) Troponin-I Hs (04/02/25 19:49) Troponin-I Hs (04/02/25 21:49) Urinalysis (04/02/25 20:40) Drug Screen (04/02/25 20:40) Amiodarone 360mg/200ml Premix (Nexterone (04/02/25 21:00) Amiodarone 360mg/200ml Premix (Nexterone (04/03/25 03:00) Vital Signs Date Time Temp Pulse Resp B/P (MAP) Pulse Ox O2 Delivery O2 Flow Rate FiO2 04/02/25 21:00 127 28 113/87 (96) 93 04/02/25 20:34 130 132/99 04/02/25 19:05 98.1 140 25 150/91 (110) 95 98.1 04/02/25 19:05 140 25 95 Room Air* 0 21 04/02/25 19:00 173 152/104 04/02/25 18:56 173 04/02/25 18:44 173 04/02/25 18:43 98.0 173 24 152/104 93 98.0 Laboratory Tests Test 04/02/25 19:19 White Blood Count 9.3 10^3/uL (4.4-10.8) Medications Medications Dose Ordered Sig/Vu Route Start Time Stop Time Status Last Admin Dose Admin Aspirin 162 mg ONCE ONCE PO 04/02/25 19:00 04/02/25 19:01 DC 04/02/25 18:58 Lorazepam 1 mg ONCE ONCE IV 04/02/25 21:00 04/02/25 21:01 DC 04/02/25 20:56 Metoprolol Tartrate 5 mg Q15M ONCE IV 04/02/25 19:00 04/02/25 19:01 DC 04/02/25 19:00 Departure 1 Departure Time of Disposition: 21:22 Impression: Primary Impression: Atrial fibrillation with rapid ventricular response Additional Impression: Acute coronary syndrome Disposition: ADMITTED INPATIENT Admit to: Tele Condition: Guarded Discharged With: Self Comments 59-year-old male with a history of atrial fibrillation and noncompliance and methamphetamine abuse now with atrial fibrillation with rapid ventricular response and chest pain. His rate did not improve with Lopressor. Patient was started on amiodarone drip. Patient was given aspirin. Initial troponin is within normal limits. Patient will need to be admitted for rate control and further cardiac workup. Critical Care Note Critical Care Time?: Yes (35 min-critical care time only) Critical care comment: Total critical care time: Approximately 36 minutes Due to a high probability of clinically significant, life threatening deterioration, the patient required my highest level of preparedness to intervene emergently and I personally spent this critical care time directly and personally managing the patient. This critical care time included obtaining a history; examining the patient; pulse oximetry; ordering and review of studies; arranging urgent treatment with development of a management plan; evaluation of patient's response to treatment; frequent reassessment; and, discussions with other providers. This critical care time was performed to assess and manage the high probability of imminent, life-threatening deterioration that could result in multi-organ failure. It was exclusive of separately billable procedures and treating other patients. Stability Stability form required: No Heart Score Heart Score: Heart Score Response (Comments) Value History Highly Suspicious 2 EKG Repolarization Disturb 1 Age 45-64 1 Risk Factors >3 or Hx ASHD 2 Troponin Normal limit 0 Total 6 I personally scribed for HEMA PAYTON MD ([email or web address]) on 04/02/25 at 18:56. Electronically submitted by Kenn Aguilar ([email or web address]). I personally scribed for HEMA PAYTON MD ([email or web address]) on 04/02/25 at 21:04. Electronically submitted by Kenn Aguilar ([email or web address]). HEMA PAYTON MD Apr 02, 2025 18:56
[2025-04-02] MEDS: METOPROLOL TARTRATE 1MG/1ML-5ML VIAL IV ONE ×2 (19:00→23:53)
[2025-04-02 19:05] VITALS: PULSE 140; RESP 25; O2SAT 95
[2025-04-02 19:29] LABS: Hematocrit 48.4 % (41.0-53.0); Hemoglobin 16.3 g/dL (13.5-17.5); Mean Corpuscular Hemoglobin 32.6 pg (28.0-32.0); Mean Corpuscular Volume 96.6 fL (80.0-100.0); Nucleated Red Blood Cells % 0.2 %
[2025-04-02 19:48] LABS: Alanine Aminotransferase 21 U/L (7-40); Anion Gap 11 (5-15); BUN/Creatinine Ratio 11.8 (10.0-20.0); Blood Urea Nitrogen 12 mg/dL (9-23); Calcium 10.0 mg/dL (8.7-10.4); Carbon Dioxide 24 mmol/L (20-31); Chloride 103 mmol/L (98-107); Magnesium 1.7 mg/dL (1.6-2.6); Potassium 4.1 mmol/L (3.5-5.1); Sodium 138 mmol/L (136-145); Total Protein 8.0 g/dL (5.7-8.2)
[2025-04-02 19:51] LABS: Albumin 5.0 g/dL (3.2-4.8); Alkaline Phosphatase 141 U/L (46-116); Bilirubin, Total 3.1 mg/dL (0.2-1.0); Glucose 73 mg/dL (74-106)
[2025-04-02 19:52] LABS: INR 1.06 (0.9-1.15); Partial Thromboplastin Time 27.7 SEC (24.5-34.5); Prothrombin Time 11.2 sec (9.3-11.8)
--- NOTE | 2025-04-02 20:03 | DVH ---
EXAM: XY CHEST PORTABLE HISTORY: chest pain TECHNIQUE: 1 view of the chest COMPARISON: XY CHEST PORTABLE on DOS: 03/15/25 FINDINGS/IMPRESSION: LUNGS: Small left-sided pleural effusion. volume overload. Central pulmonary vascular congestion MEDIASTINUM: Mild cardiomegaly BONES: No acute osseous abnormality. OTHER: None.
[2025-04-02] MEDS: LORazepam 2MG/ML-1ML VIAL IV ONE (20:56)
[2025-04-02] MEDS: AMIODARONE BOLUS KIT 100 ML IV ONE (22:24)
[2025-04-02] MEDS: AMIODARONE 360mg/200mL PREMIX 200 ML IV ONE (22:35)
--- NOTE | 2025-04-02 23:44 | DVHHP2 ---
History of Present Illness Reason for Visit: Chest pain History of Present Illness 59-year-old male presents for evaluation of chest pain. Patient reports a one day history of chest pain with associated shortness for breath and palpitations. Patient reports not being able to refill his medications since he is homeless. Denies fever or chills. Past Medical History AFib, CHF, chronic kidney disease, dyslipidemia, hypertension, mi Past Surgical History Tonsillectomy, cholecystectomy Family History Noncontributory Smoke: Quit ALCOHOL: occassional Drugs: None, Marijuana, Other (Methamphetamine) Review of Systems Review of Systems Review of systems are currently negative otherwise addressed in HPI. Allergies: Coded Allergies: NO KNOWN ALLERGIES (Unverified , 03/17/17) Medications Current Medications Medications Dose Ordered Sig/Vu Route Start Time Stop Time Status Last Admin Dose Admin Amiodarone HCL/ Dextrose 200 ml @ 16.66 mls/ hr Q12H IV 04/03/25 03:00 Exam Vital Signs Vital Signs Date Time Temp Pulse Resp B/P (MAP) Pulse Ox O2 Delivery O2 Flow Rate FiO2 04/02/25 22:22 120 04/02/25 21:00 28 113/87 (96) 93 04/02/25 19:05 98.1 98.1 04/02/25 19:05 Room Air* 0 21 Exam Gen: 59-year-old male in mild distress Skin: Warm, dry, normal color and texture, no rash. HEENT: Normocephalic atraumatic, mucous membranes moist and pink. Neck: Cervical and supraclavicular nodes normal without enlargement, trachea is midline, thyroid gland is normal without masses. Pulmonary: Clear to auscultation and percussion bilaterally. Cardiac: Irregular rhythm Abdomen: Soft, nontender, nondistended, bowel sounds present all 4 quadrants, no guarding, no rigidity, no organomegaly. Extremities: No cyanosis, clubbing, no edema Neuro: Cranial nerves II through XII grossly intact, normal affect and speech, no focal motor deficits. Labs/Xrays ORDERING PHYSICIAN: MAGGIE LUNA RESIDENT PROCEDURE(s): ECIDC - ECHO 2D MODE CARDIAC DOP REASON: SOB ORDER NUMBER(s): [id number], ACCESSION NUMBER(s): [id number] APPROVED REPORT EXAM: LIMITED Two-dimensional echocardiogram. Blood Pressure: 144/106 mmHg INDICATION SOB RISK FACTORS Obesity: Height: 5'6, Weight: 225 DIMENSIONS LVDd 4.5 (3.8-5.7cm) LA (2D) (1.9-4.0cm) Aortic Root (2.0-3.7cm) LVDs 3.8 (2.5-4.0cm) LA (MM) (1.9-4.0cm) Aortic Cusp Exc (1.5- 2.0cm) EF (%) 29.0 (55-70%) Rt. Atrium (1.9-4.0cm) Asc. Aorta cm IVSd 1.7 (0.7-1.1cm) RV (D) (1.8-2.4cm) PWd 1.2 (0.7-1.1cm) Mitral Valve Mitral Mitral Stenosis E/A ratio 0.0 2D MVA cm2 Aortic Valve Aortic Valve Aortic Stenosis LVOT Diameter 2.1 (1.8-2.4cm) Doppler ROBY cm2 Other Information Quality : Limited Rhythm : Technically limited study due to Pt refused exam and yelled at tech to leave room. Conclusion only 3 image s obtained, pt yelled at tech lvef is <40% , LVH is noted trivial to small pericardial effusion noted L sided pleural effusion suspected incomplete study SIGNED BY: KAYE PEÑA MD SIGNED DATE/TIME: 01/30/25 6944 ORDERING PHYSICIAN: HEMA PAYTON MD PROCEDURE(s): CXRP - CHEST PORTABLE REASON: chest pain ORDER NUMBER(s): [id number], ACCESSION NUMBER(s): [id number] EXAM: XY CHEST PORTABLE HISTORY: chest pain TECHNIQUE: 1 view of the chest COMPARISON: XY CHEST PORTABLE on DOS: 03/15/25 FINDINGS/IMPRESSION: LUNGS: Small left-sided pleural effusion. volume overload. Central pulmonary vascular congestion MEDIASTINUM: Mild cardiomegaly BONES: No acute osseous abnormality. OTHER: None. Labs Test 04/02/25 22:10 04/02/25 19:19 Range/Units Troponin I High Sensitivity 31 </=54 ng/L White Blood Count 9.3 4.4-10.8 10^3/uL Red Blood Count 5.01 4.5-5.90 10^6/uL Hemoglobin 16.3 13.5-17.5 g/dL Hematocrit 48.4 41.0-53.0 % Mean Corpuscular Volume 96.6 80.0-100.0 fL Mean Corpuscular Hemoglobin 32.6 H 28.0-32.0 pg Mean Corpuscular Hemoglobin Concent 33.7 32.0-36.0 g/dL Red Cell Distribution Width 16.9 H 11.8-14.3 % Platelet Count 255 140-450 10^3/uL Mean Platelet Volume 8.6 6.9-10.8 fL Neutrophils (%) (Auto) 66.2 37.0-80.0 % Lymphocytes (%) (Auto) 22.4 10.0-50.0 % Monocytes (%) (Auto) 5.9 0.0-12.0 % Eosinophils (%) (Auto) 4.3 0.0-7.0 % Basophils (%) (Auto) 1.2 0.0-2.0 % Neutrophils # (Auto) 6.2 1.6-8.6 10 ^3/uL Lymphocytes # (Auto) 2.1 0.4-5.4 10 ^3/uL Monocytes # (Auto) 0.5 0-1.3 10 ^3/uL Eosinophils # (Auto) 0.4 0-0.8 10 ^3/uL Basophils # (Auto) 0.1 0-0.2 10 ^3/uL Nucleated Red Blood Cells 0.2 % Prothrombin Time 11.2 9.3-11.8 sec Prothrombin Time INR 1.06 0.9-1.15 Activated Partial Thromboplast Time 27.7 24.5-34.5 SEC Sodium Level 138 136-145 mmol/L Potassium Level 4.1 3.5-5.1 mmol/L Chloride Level 103 98-107 mmol/L Carbon Dioxide Level 24 20-31 mmol/L Anion Gap 11 5-15 Blood Urea Nitrogen 12 9-23 mg/dL Creatinine 1.02 0.700-1.30 mg/dL Glomerular Filtration Rate Calc 84 >90 mL/min BUN/Creatinine Ratio 11.8 10.0-20.0 Serum Glucose 73 L 74-106 mg/dL Calcium Level 10.0 8.7-10.4 mg/dL Magnesium Level 1.7 1.6-2.6 mg/dL Total Bilirubin 3.1 H 0.2-1.0 mg/dL Aspartate Amino Transferase (AST) 28 13-40 U/L Alanine Aminotransferase (ALT) 21 7-40 U/L Alkaline Phosphatase 141 H 46-116 U/L B-Type Natriuretic Peptide 548.96 0-100 pg/mL Total Protein 8.0 5.7-8.2 g/dL Albumin 5.0 H 3.2-4.8 g/dL Thyroid Stimulating Hormone (TSH) 1.10 0.55-4.78 uIU/mL SEPSIS Sepsis Screen Date sepsis recognized/suspect: Apr 02, 2025 Time Sepsis recognized/suspect: 1907 Recent Procedure: No On Antibiotic Therapy: No Respiratory Rate >20: Yes Heart Rate >90: Yes Temp<36 C (96.8 F) or >38.3 C: No SBP <90 or MAP <65 mmHG: No New Acute Mental Status Change: No Is the patient on CPAP, BIPAP,: No Physician Orders Chest Portable (04/02/25 18:49) Electrocardigram (04/02/25 18:49) Urinalysis (04/02/25 20:40) Drug Screen (04/02/25 20:40) Amiodarone 360mg/200ml Premix (Nexterone (04/02/25 21:00) Amiodarone 360mg/200ml Premix (Nexterone (04/03/25 03:00) Metoprolol Inj (Lopressor) (04/02/25 23:45) Albuterol Medneb (Ventolin Medneb) (04/02/25 23:45) Atorvastatin (Lipitor) (04/03/25 22:00) Apixaban (Eliquis) (04/03/25 10:00) Vital Signs Date Time Temp Pulse Resp B/P (MAP) Pulse Ox O2 Delivery O2 Flow Rate FiO2 04/02/25 22:22 120 04/02/25 21:00 127 28 113/87 (96) 93 04/02/25 20:34 130 132/99 04/02/25 19:05 98.1 140 25 150/91 (110) 95 98.1 04/02/25 19:05 140 25 95 Room Air* 0 21 04/02/25 19:00 173 152/104 04/02/25 18:56 173 04/02/25 18:44 173 04/02/25 18:43 98.0 173 24 152/104 93 98.0 Laboratory Tests Test 04/02/25 19:19 White Blood Count 9.3 10^3/uL (4.4-10.8) Medications Medications Dose Ordered Sig/Vu Route Start Time Stop Time Status Last Admin Dose Admin Amiodarone HCl 100 ml @ 600 mls/hr ONCE ONCE IV 04/02/25 20:45 04/02/25 20:54 DC 04/02/25 22:24 600 MLS/HR Amiodarone HCL/ Dextrose 200 ml @ 33.33 mls/ hr ONCE ONCE IV 04/02/25 21:00 04/03/25 03:00 04/02/25 22:35 33.33 MLS/HR Aspirin 162 mg ONCE ONCE PO 04/02/25 19:00 04/02/25 19:01 DC 04/02/25 18:58 162 MG Lorazepam 1 mg ONCE ONCE IV 04/02/25 21:00 04/02/25 21:01 DC 04/02/25 20:56 1 MG Metoprolol Tartrate 5 mg Q15M ONCE IV 04/02/25 19:00 04/02/25 19:01 DC 04/02/25 19:00 5 MG Assessment/Plan Assessment/Plan Assessment AFib with RVR Hypertension History of VT Congestive heart failure Plan Admit the patient to telemetry to the hospitalist Continue amiodarone drip Resume home medications Continue treatment per orders. Plan discussed with: Patient My Orders Orders - STACEY CORONA Procedure Category Date Status Time Albuterol Medneb PHA 04/02/25 Verified (Ventolin Medneb) 23:45 Atorvastatin (Lipitor) PHA 04/03/25 Verified 22:00 Apixaban (Eliquis) PHA 04/03/25 Verified 10:00 Date of Service: Apr 02, 2025 Billing Provider: STACEY CORONA Common Visit Codes: [id number] INP/OBS CARE (HIGH) STACEY CORONA Apr 02, 2025 23:44
[2025-04-02] MEDS ORDERED: ONDANSETRON HCL 4 MG/2 ML VIAL IV PRN (23:45)
[2025-04-02] MEDS ORDERED: ALBUTEROL SULF 2.5 MG/0.5ML(0.5%) NEB SOLN NEB PRN (23:45)
[2025-04-02] MEDS ORDERED: NITROGLYCERIN 0.4 MG SL TAB SL PRN (23:45)
[2025-04-02] MEDS ORDERED: MORPHINE SULFATE INJ 2 MG/ml SYRG IV PRN (23:45)
[2025-04-02] MEDS ORDERED: ACETAMINOPHEN 325 MG TAB PO PRN (23:45)
[2025-04-02] MEDS ORDERED: TEMAZEPAM 15 MG CAP PO PRN (23:45)
[2025-04-02] MEDS: METOPROLOL TARTRATE 25 MG TAB PO ONE (23:53)
[2025-04-03] VITALS (13 sets, daily range): BP systolic 113–153; BP diastolic 87–100; PULSE 63–120; RESP 17–22; TEMP 97.3–98.1; O2SAT 94–100
--- NOTE | 2025-04-03 02:33 | ECG ---
[facility] Test Date: 2025-04-02 Test Time: 18:44:29 Pat Name: PRICE LYON Department: Room: 0288T Gender: M Medical Videographer: FAROOQ : 1965 Requested By: HEMA PAYTON Order Number: [id number] Reading MD: Nino Mattson Measurements Intervals [place] Rate: 173 P: 0 MS: 0 QRS: 54 QRSD: 87 T: 53 QT: 306 QTc: 519 Interpretive Statements Atrial fibrillation with rapid V-rate Consider right ventricular hypertrophy Electronically Signed On 04-06-2025 22:03:13 PDT by Nino Mattson Please click the below link to view image of tracing.
[2025-04-03] MEDS: AMIODARONE 360mg/200mL PREMIX 200 ML IV SCH (03:00)
[2025-04-03 05:02] LABS: Urine Protein, UAD TRACE (Negative)
[2025-04-03 05:40] LABS: Amphetamine Screen, Urine Pos (NEGATIVE); Barbiturate Scree,Urine Neg (NEGATIVE); Benzodiazephine Screen, Urine Neg (NEGATIVE); Cannabinoid Screen, Urine Pos (NEGATIVE); Cocaine Screen, Urine Neg (NEGATIVE); Opiate Scree,Urine Neg (NEGATIVE); Phencyclidine Screen, Urine Neg (NEGATIVE)
[2025-04-03] MEDS: GABAPENTIN 100 MG CAP PO SCH (06:16)
[2025-04-03 07:46] LABS: Potassium 4.8 mmol/L (3.5-5.1); Sodium 139 mmol/L (136-145)
[2025-04-03 07:47] LABS: Anion Gap 10 (5-15); Calcium 9.1 mg/dL (8.7-10.4); Carbon Dioxide 22 mmol/L (20-31)
[2025-04-03 07:48] LABS: Chloride 107 mmol/L (98-107); Hematocrit 43.3 % (41.0-53.0); Hemoglobin 14.6 g/dL (13.5-17.5); Mean Corpuscular Hemoglobin 32.8 pg (28.0-32.0); Mean Corpuscular Volume 96.9 fL (80.0-100.0); Nucleated Red Blood Cells % 0.1 %
[2025-04-03 07:52] LABS: BUN/Creatinine Ratio 12.5 (10.0-20.0); Blood Urea Nitrogen 12 mg/dL (9-23); Glucose 78 mg/dL (74-106)
--- NOTE | 2025-04-03 09:44 | DVHINCON2 ---
Date Seen: Apr 03, 2025 Referring Physician KENNEDY Euceda Reason for Consultation A-fib with RVR History of Present Illness This is a 59-year-old man who presented to the emergency room with a chief complaint of shortness of breath for two days. At time of assessment, the patient was found to be extremely somnolent. Stated he presented with a chief complaint of shortness of breath for two days. He underwent multiple 12 lead electrocardiograms x2 revealing an atrial fibrillation rhythm with rapid ventricular rate up to 173 bpm. Serial troponin levels are negative. Unable to retrieve any further history. Significant medical history includes unspecified atrial fibrillation on Eliquis (questionable compliance), congestive heart failure with an EF of <40%, hypertension, dyslipidemia, nonmetastatic aggressive prostate cancer, history of bladder mass/blood clots, benign prostatic hyperplasia, methamphetamine abuse, cannabinoid use, alcoholism, tobacco abuse, and obesity. Past Medical History Past medical history reviewed. No other significant than mentioned above. Past Surgical History Cholecystectomy Family History: Diabetes mellitus G8 FATHER, Onset:Unknown FH: congestive heart failure G8 FATHER, Onset:Unknown Family History Unable to retrieve family history at this time. Social History Pertinent for tobacco, amphetamines, and alcoholism. Allergies: Coded Allergies: NO KNOWN ALLERGIES (Unverified , 03/17/17) Home Meds Active Scripts Cephalexin (KEFLEX CAPSULE) 250 Mg Cp, 1 CAP PO QID for 5 Days, #28 CAP Prov:PAUL GILES RESIDENT 03/17/25 Metoprolol Tartrate (Lopressor) 25 Mg Tb, 12.5 MG PO BID for 30 Days, #30 TAB Prov:PAUL GILES RESIDENT 03/17/25 Tamsulosin Hcl (Flomax) 0.4 Mg Cap, 0.8 MG PO QPM for 30 Days, #30 CAP Prov:JERRELL HILL 02/01/25 Spironolactone (Aldactone) 25 Mg Tab, 25 MG PO DAILY for 30 Days, #30 TAB Prov:JERRELL HILL 02/01/25 Empagliflozin (Jardiance) 10 Mg Tab, 10 MG PO DAILY for 30 Days, #30 TAB Prov:JERRELL HILL 02/01/25 Apixaban Base (ELIQUIS) 5 Mg Tab, 5 MG PO BID for 30 Days, #60 TAB Prov:JERRELL HILL 02/01/25 Lisinopril (Lisinopril) 20 Mg Tab, 1 TAB PO DAILY, #30 TAB 3 Refills Prov:KYLEIGH RENDON RESIDENT 12/01/23 Amiodarone Hcl (Amiodarone Hcl) 200 Mg Tab, 200 MG PO BID for 30 Days, #60 TAB 3 Refills Prov:KYLEIGH RENDON RESIDENT 12/01/23 Atorvastatin Calcium (ATORVASTATIN CALCIUM) 20 Mg Tab, 40 MG PO HS for 20 Days, #40 TAB 5 Refills Prov:EMY MALONE RESIDENT 09/16/23 Gabapentin (Gabapentin) 100 Mg Cap, 100 MG PO TID, #90 CAP 2 Refills Prov:ROSARIO CAMPOS MD 04/24/22 Furosemide (Lasix) 40 Mg Tab, 40 MG PO QAM for 30 Days, #30 TAB 3 Refills Prov:STACEY JAVIER MD 01/29/22 Albuterol Sulfate (VENTOLIN MDI) 90 Mcg Ih, 90 MCG IN Q4HR, #1 INH Prov:CIRO MCCOY MD 01/17/22 Folic Acid (Folic Acid) 1 Mg Tab, 1 MG PO DAILY, #30 TAB Prov:CIRO MCCOY MD 01/15/22 Home Meds Home medications reviewed. Current Medications Current Medications Medications (Trade) Dose Ordered Sig/Vu Route PRN Reason Start Time Stop Time Status Last Admin Amiodarone HCL/ Dextrose 200 ml @ 16.66 mls/ hr Q12H IV 04/03/25 03:00 04/03/25 03:00 Albuterol (Ventolin Medneb) 2.5 mg Q6HPRN PRN NEB SHORTNESS OF BREATH 04/02/25 23:45 Atorvastatin Calcium (Lipitor) 40 mg HS PO 04/03/25 22:00 Apixaban (Eliquis) 5 mg BID PO 04/03/25 10:00 04/03/25 08:39 DC Empaglifozin (Jardiance) 10 mg DAILY PO 04/03/25 10:00 Furosemide (Lasix Tablet) 40 mg DAILY PO 04/03/25 10:00 Gabapentin (Neurontin Capsule) 100 mg TID PO 04/03/25 06:00 04/03/25 06:16 Lisinopril (Zestril Tablet) 20 mg DAILY PO 04/03/25 10:00 Metoprolol Tartrate (Lopressor Tablet) 12.5 mg BID PO 04/03/25 10:00 Spironolactone (Aldactone) 25 mg DAILY PO 04/03/25 10:00 Temazepam (Restoril) 15 mg QHSP PRN PO FOR INSOMNIA 04/02/25 23:45 Ondansetron HCl (Zofran) 4 mg Q4HP PRN IV NAUSEA / VOMITING 04/02/25 23:45 Acetaminophen (Tylenol Tablet) 650 mg Q6HP PRN PO PAIN SCALE 1-3 OR TEMP>100.4 04/02/25 23:45 Nitroglycerin (Ntrostat Sublingual) 0.4 mg Q5MINP PRN SL FOR CHEST PAIN 04/02/25 23:45 Morphine Sulfate 2 mg Q30M PRN IV FOR CHEST PAIN 04/02/25 23:45 Enoxaparin Sodium (Lovenox) 100 mg Q12HR SC 04/03/25 10:00 UNV Review of Systems Constitutional: No symptom reported Ears, Nose, & Throat: No symptom reported Eyes: No symptom reported Neurological: No symptoms reported Pulmonary/Respiratory: SOB Cardiovascular: No symptom reported Gastrointestinal: No symptom reported Genitourinary: No symptom reported Musculoskeletal: No symptom reported Skin: No symptom reported Psychiatric: No symptom reported Endocrine: No symptom reported Hemotologic/Lymphatic: No symptom reported Vital Signs Vital Signs Date Time Temp Pulse Resp B/P (MAP) Pulse Ox O2 Delivery O2 Flow Rate FiO2 04/03/25 08:00 78 04/03/25 07:03 99 Nasal Cannula 2.0 04/03/25 07:03 28 04/03/25 06:00 23 168/133 (145) 04/03/25 00:00 98.1 98.1 Physical Exam General Appearance: Cooperative. Unkept. Disheveled. Somnolent. Obese. Mild respiratory distress Head Exam: Normal inspection Neck Exam: Normal inspection. Normal alignment Pulmonary/Respiratory: Crackles to bilateral breath sounds. Snoring while asleep with associated O2Sats <90% Cardiovascular/Chest: Irregularly irregular rate and rhythm. A-Fib, controlled rate.. No murmurs. No JVD. Peripheral Pulses: 2+ Radial (R). 2+ Radial (L). 2+ Pedal (R). 2+ Pedal (L) Abdominal Exam: Normal bowel sounds. Soft. Ankle Exam: Negative ankle edema Lower extremities: Negative lower extremity edema Neuro/Mental Status: A&O x3. Coherent, extremely somnolent Thoughts/Psych: Normal thought pattern Appearance: Mild acute respiratory distress Skin Exam: Normal inspection. Normal color. Warm. Dry Labs/Diagnostic Data Labs Test 04/03/25 07:22 04/03/25 04:50 04/02/25 22:10 04/02/25 20:16 Range/Units White Blood Count 8.3 4.4-10.8 10^3/uL Red Blood Count 4.47 L 4.5-5.90 10^6/uL Hemoglobin 14.6 13.5-17.5 g/dL Hematocrit 43.3 # 41.0-53.0 % Mean Corpuscular Volume 96.9 80.0-100.0 fL Mean Corpuscular Hemoglobin 32.8 H 28.0-32.0 pg Mean Corpuscular Hemoglobin Concent 33.8 32.0-36.0 g/dL Red Cell Distribution Width 16.9 H 11.8-14.3 % Platelet Count 218 140-450 10^3/uL Mean Platelet Volume 8.9 6.9-10.8 fL Neutrophils (%) (Auto) 66.4 37.0-80.0 % Lymphocytes (%) (Auto) 19.1 10.0-50.0 % Monocytes (%) (Auto) 8.5 0.0-12.0 % Eosinophils (%) (Auto) 5.3 0.0-7.0 % Basophils (%) (Auto) 0.7 0.0-2.0 % Neutrophils # (Auto) 5.5 1.6-8.6 10 ^3/uL Lymphocytes # (Auto) 1.6 0.4-5.4 10 ^3/uL Monocytes # (Auto) 0.7 0-1.3 10 ^3/uL Eosinophils # (Auto) 0.4 0-0.8 10 ^3/uL Basophils # (Auto) 0.1 0-0.2 10 ^3/uL Nucleated Red Blood Cells 0.1 % Sodium Level 139 136-145 mmol/L Potassium Level 4.8 3.5-5.1 mmol/L Chloride Level 107 98-107 mmol/L Carbon Dioxide Level 22 20-31 mmol/L Anion Gap 10 5-15 Blood Urea Nitrogen 12 9-23 mg/dL Creatinine 0.96 0.700-1.30 mg/dL Glomerular Filtration Rate Calc 90 >90 mL/min BUN/Creatinine Ratio 12.5 10.0-20.0 Serum Glucose 78 74-106 mg/dL Calcium Level 9.1 8.7-10.4 mg/dL Urine Color Yellow Yellow Urine Clarity Clear Clear Urine pH 5.0 5.0-9.0 Urine Specific [place] 1.014 1.001-1.035 Urine Protein Trace H Negative Urine Ketones Negative Negative Urine Blood Negative Negative /uL Urine Nitrite Negative Negative Urine Bilirubin Negative Negative Urine Urobilinogen Normal Negative mg/dL Urine Leukocyte Esterase Negative Negative /uL Urine RBC 1 0 - 3 /hpf Urine Microscopic WBC < 1 0-3 /HPF Urine Squamous Epithelial Cells Few <5 /hpf Urine Bacteria None seen None Seen /hpf Urine Glucose Normal Normal mg/dL Urine Opiates Screen Neg NEGATIVE Urine Fentanyl Screen Neg NEGATIVE Urine Barbiturates Screen Neg NEGATIVE Urine Phencyclidine Screen Neg NEGATIVE Urine Amphetamines Screen Pos NEGATIVE Urine Benzodiazepines Screen Neg NEGATIVE Urine Cocaine Screen Neg NEGATIVE Urine Cannabinoids Screen Pos NEGATIVE Troponin I High Sensitivity 31 </=54 ng/L Thyroid Stimulating Hormone (TSH) 0.84 0.55-4.78 uIU/mL Test 04/02/25 19:19 Range/Units Prothrombin Time 11.2 9.3-11.8 sec Prothrombin Time INR 1.06 0.9-1.15 Activated Partial Thromboplast Time 27.7 24.5-34.5 SEC Magnesium Level 1.7 1.6-2.6 mg/dL Total Bilirubin 3.1 H 0.2-1.0 mg/dL Aspartate Amino Transferase (AST) 28 13-40 U/L Alanine Aminotransferase (ALT) 21 7-40 U/L Alkaline Phosphatase 141 H 46-116 U/L B-Type Natriuretic Peptide 548.96 0-100 pg/mL Total Protein 8.0 5.7-8.2 g/dL Albumin 5.0 H 3.2-4.8 g/dL Assessment Atrial fibrillation with rapid ventricular response, likely Stage IIIb (?on eliquis) Acute on chronic decompensated HFrEF, NYHA class III History of failed direct current cardioversion Nonmetastatic aggressive prostate cancer Hypertension Hyperlipidemia Polysubstance use (+methamphetamines/cannabinoids) Medical noncompliance/nonadherence Highly-suspected PAWAN Obesity Plan/Recommendation (Dr. Simms) Recent transthoracic echocardiogram revealed LVEF <40%. Continue GDMT for HFrEF. Continue rate control with metoprolol, titrate as tolerated. Discontinue antiarrhythmic therapy as the patient has very poor medical compliance and unknown onset of a-fib. Continue therapeutic Lovenox and transition to DOAC therapy prior to discharge ([id number] VASc score: 4 points, HAS-BLED: 1 point). Highly suspected for PAWAN, the patient can benefit from a sleep study as outpatient. Strongly counseled on medical compliance and drug abuse cessation. Kindly call if in need of further recommendations. Signing off at this time. Thank you for allowing us to participate in this patient's care. This medical document was created using an electronic medical record system with voice recognition software and computerized dictation system. Although this document has been carefully reviewed, there might still be some phonetic and typographical errors. Occasional wrong-word or ``sound-alike substitutions may have occurred due to the inherent limitations of voice recognition software. These areas are purely typographical due to imperfections of the software programs and do not reflect any compromise in the patient's medical care. Please read the chart carefully and recognize, using context, where these substitutions have occurred. Plan discussed with: Patient, Other NYHA Physical activity limitations: Class3(Marked) ordinary (activity causes symtoms) Date of Service: Apr 03, 2025 Billing Provider: ARYAN TOURE Cardiology Common Codes: [id number] INP/OBS CARE (High) ARAYN TOURE Apr 03, 2025 09:44
[2025-04-03] MEDS ORDERED: APIXABAN 5 MG TAB PO SCH (10:00)
[2025-04-03] MEDS ORDERED: METOPROLOL TARTRATE 25 MG TAB PO SCH (10:00)
[2025-04-03] MEDS ORDERED: FUROSEMIDE 40 MG TAB PO SCH (10:00)
--- NOTE | 2025-04-03 10:24 | DVHPNRES ---
Progress Note Date Seen: Apr 03, 2025 Resident Creating Document: JEREMYMAGGIE RESIDENT Medical Necessity Reason Pt with a Central, PICC or Fol: No Subjective Review of Systems 59-year-old male presents for evaluation of chest pain. Patient reports a one day history of chest pain with associated shortness for breath and palpitations. Patient reports not being able to refill his medications since he is homeless. Denies fever or chills. Past Medical History AFib, CHF with ejection fraction less than 40%, chronic kidney disease, dyslipidemia, hypertension, mi Past Surgical History Tonsillectomy, cholecystectomy Family History Noncontributory Smoke: Quit ALCOHOL: occassional Drugs: None, Marijuana, Other (Methamphetamine) The patient was seen and examined at bedside. Overnight events were reviewed. However, the patient was very difficult to arouse. He was somnolent, probably due to alcohol withdrawal. He barely confirmed his name and could vaguely mention that he has chest pain and shortness of breaths. Dr. Merlos and multiple team members attempted to take full history, however, was not obtained fully due to patient's status. We continued patient care via physical examination and lab and imaging findings. Detailed HPI will be taken once the patient's mental condition improves. Objective vital signs Vital Sign Date Time Temp Pulse Resp B/P (MAP) Pulse Ox O2 Delivery O2 Flow Rate FiO2 04/03/25 08:00 78 04/03/25 07:03 99 Nasal Cannula 2.0 04/03/25 07:03 28 04/03/25 06:00 23 168/133 (145) 04/03/25 00:00 98.1 98.1 Total Intake and Output 04/02/25 04/02/25 04/03/25 15:00 23:00 07:00 Intake Total 133.32 ml Balance 133.32 ml medications Current Medications Medications Dose Ordered Sig/Vu Route Start Time Stop Time Status Last Admin Dose Admin Atorvastatin Calcium 40 mg HS PO 04/03/25 22:00 Empaglifozin 10 mg DAILY PO 04/03/25 10:00 Gabapentin 100 mg TID PO 04/03/25 06:00 04/03/25 06:16 100 MG Lisinopril 20 mg DAILY PO 04/03/25 10:00 Spironolactone 25 mg DAILY PO 04/03/25 10:00 Ondansetron HCl 4 mg Q4HP PRN IV 04/02/25 23:45 Acetaminophen 650 mg Q6HP PRN PO 04/02/25 23:45 Nitroglycerin 0.4 mg Q5MINP PRN SL 04/02/25 23:45 Morphine Sulfate 2 mg Q30M PRN IV 04/02/25 23:45 Enoxaparin Sodium 100 mg Q12HR SC 04/03/25 10:00 Furosemide 40 mg BIDD IV 04/03/25 18:00 Metoprolol Tartrate 25 mg BID PO 04/03/25 10:00 Levalbuterol HCl 0.625 mg Q6HR NEB 04/03/25 12:00 Ipratropium Maud 0.5 mg Q6HR NEB 04/03/25 12:00 Examination Pt is lying on bed General Appearance: Somnolent, Non-cooperative, Mild distress HEENT: Atraumatic, Mucous membranes moist/pink Respiratory: Mild bilateral crackles, Normal air movement, No added sounds Cardiovascular: Regular rate, Normal S1, Normal S2, No murmurs Abdominal/ : Active bowel sounds, Soft, no distention, no tenderness Extremities: No edema, Normal pulses, No tenderness/swelling Skin: No Significant rash, except past surgical scars Neuro: Normal speech, sensorimotor deficits none Psych/Mental Status: Mental status NL, Mood NL Nurse was there as freelance displayer during examination laboratory and microbiology Laboratory Tests 04/03/25 07:22 Test 04/03/25 07:22 Range/Units Serum Glucose 78 74-106 mg/dL Labs and/or images reviewed: Labs reviewed by me, Image(s) reviewed by me Problem List/Assessment/Plan Problem List/Assessment/Plan Atrial fibrillation with RVR (CHADS-VASc score 4, HASBLED 1) Systolic heart failure with reduced ejection fraction (less than 40%) Pulmonary edema due to systolic heart failure exacerbation ACS ruled out Therapeutic Lovenox continued Continue GDM T including empagliflozin, spironolactone Lasix 40 mg IV BID Continue atorvastatin Morphine and nitroglycerin for chest pain Ondansetron 4 vomiting. Transition to DOAC therapy for AFib with RVR on discharge. Discontinue amiodarone antiarrhythmic therapy, given poor medication compliance an unknown onset of AFib. Obstructive sleep apnea Outpatient follow-up for sleep study Peripheral neuropathy Gabapentin Acute toxic encephalopathy due to polysubstance abuse Treated with lorazepam and multivitamins including folic acid, B12, B6, thiamine due to alcohol withdrawal Marijuana and methamphetamine use Consider counseling upon patient's mental status improvement. Medication noncompliance We will high school guidance counselor regarding compliance on patient's mental status improvement However, Cardiology team counseled patient is on drug cessation and medication compliance. GI prophylaxis: Pantoprazole DVT prophylaxis: Lovenox Diet: Cardiac Goals of care discussed with the patient for more than 27 minutes: Full code status Case discussed with , patient and RN Plan discussed with: Other (RN) Date of Service: Apr 03, 2025 Billing Provider: TY MERLOS MD Common Visit Codes: [id number] INP/OBS CARE(HIGH) Secondary Visit Codes: [id number] CARE PLAN 30 MINUTES MAGGIE LUNA RESIDENT Apr 03, 2025 10:24 TY MERLOS MD Apr 04, 2025 19:18
[2025-04-03] MEDS: FUROSEMIDE 40 MG/4 ML VIAL IV ONE (10:33)
[2025-04-03] MEDS: EMPAGLIFLOZIN 10 MG TAB PO SCH (10:33)
[2025-04-03] MEDS: ENOXAPARIN SOD 100 MG/1 ML SYRINGE SC SCH (10:33)
[2025-04-03] MEDS: LISINOPRIL 20 MG TAB PO SCH (10:34)
[2025-04-03] MEDS: SPIRONOLACTONE 25 MG TAB PO SCH (10:34)
[2025-04-03] MEDS: METOPROLOL TARTRATE 25 MG TAB PO SCH (10:34)
[2025-04-03] MEDS: LEVALBUTEROL HCL 1.25 MG/3 ML NEB NEB SCH (11:27)
[2025-04-03] MEDS: IPRATROPIUM BROM 0.5 MG/2.5ML INH SOL NEB SCH (11:27)
[2025-04-03] MEDS ORDERED: AMIODARONE HCL 200 MG TAB PO ONE (12:45)
[2025-04-03] MEDS: LISINOPRIL 5 MG TAB PO ONE (17:09)
[2025-04-03] MEDS: FUROSEMIDE 40 MG/4 ML VIAL IV SCH (18:59)
[2025-04-03] MEDS: THIAMINE HCL 100 MG TAB PO ONE (19:00)
[2025-04-03] MEDS ORDERED: MORPHINE SULFATE 4 MG/ML SYR/VIAL IV PRN (19:00)
[2025-04-03] MEDS ORDERED: LORazepam 2MG/ML-1ML VIAL IV PRN (19:00)
[2025-04-03] MEDS: PYRIDOXINE HCL 50 MG TAB PO ONE (19:00)
[2025-04-03] MEDS: FOLIC ACID 1 MG TAB PO ONE (19:00)
[2025-04-03] MEDS ORDERED: AMIODARONE HCL 200 MG TAB PO SCH (22:00)
[2025-04-03] MEDS: ATORVASTATIN 20 MG TAB PO SCH (22:17)
[2025-04-03] MEDS ORDERED: ENALAPRILAT 1.25 MG/ML-1ML VIAL IV PRN (23:00)
[2025-04-04] VITALS (15 sets, daily range): BP systolic 102–155; BP diastolic 72–115; PULSE 53–107; RESP 14–22; TEMP 97.2–98.8; O2SAT 93–100
[2025-04-04] MEDS: CARVEDILOL 12.5 MG TAB PO ONE (00:09)
[2025-04-04] MEDS: PYRIDOXINE HCL 50 MG TAB PO SCH (09:47)
[2025-04-04] MEDS: FOLIC ACID 1 MG TAB PO SCH (09:47)
[2025-04-04] MEDS: THIAMINE HCL 100 MG TAB PO SCH (09:48)
[2025-04-04] MEDS: LISINOPRIL 20 MG TAB PO SCH (09:49)
[2025-04-04] MEDS: CARVEDILOL 12.5 MG TAB PO SCH ×2 (09:50→22:16)
--- NOTE | 2025-04-04 12:34 | DVH ---
INDICATION: sob TECHNIQUE: Frontal view of the chest. COMPARISON: XY CHEST PORTABLE on DOS: 04/02/25, XY CHEST PORTABLE on DOS: 03/15/25, XY CHEST PORTABLE o n DOS: 01/30/25, XR CHEST 2 VIEWS on DOS: 10/11/24, XR CHEST 2 VIEWS on DOS: 05/15/24 FINDINGS: . The heart and mediastinal contours are grossly unremarkable. There is no evidence of pleural disea se. The lungs are clear. The bony structures of the chest are intact without fracture. IMPRESSION: 1. No evidence of acute disease.
[2025-04-04] MEDS ORDERED: LISI20TA56 PO (16:08)
[2025-04-04] MEDS ORDERED: EMPA1TAB PO (16:08)
[2025-04-04] MEDS ORDERED: APIX5TAB PO (16:08)
[2025-04-04] MEDS ORDERED: FURO1TAB31 PO (16:08)
[2025-04-04] MEDS ORDERED: FOLI-119 PO (16:08)
[2025-04-04] MEDS ORDERED: CARV6.2551 PO (16:08)
[2025-04-04] MEDS ORDERED: SPIR25TA PO (16:08)
[2025-04-04] MEDS ORDERED: ALBUAER3 IN (16:08)
[2025-04-04] MEDS ORDERED: ATOR40TA52 PO (16:08)
--- NOTE | 2025-04-04 17:29 | DVHDSRES ---
Discharge Summary Date of Admission Resident Creating Document: MAGGIE LUNA Apr 02, 2025 at 23:36 Date of Discharge: Apr 04, 2025 Admitting Diagnosis AFib with RVR Labs/Diagnostic Data: Laboratory Results Test 04/03/25 07:22 04/03/25 04:50 04/02/25 22:10 04/02/25 20:16 White Blood Count 8.3 10^3/uL (4.4-10.8) Red Blood Count 4.47 10^6/uL (4.5-5.90) Hemoglobin 14.6 g/dL (13.5-17.5) Hematocrit 43.3 % (41.0-53.0) Mean Corpuscular Volume 96.9 fL (80.0-100.0) Mean Corpuscular Hemoglobin 32.8 pg (28.0-32.0) Mean Corpuscular Hemoglobin Concent 33.8 g/dL (32.0-36.0) Red Cell Distribution Width 16.9 % (11.8-14.3) Platelet Count 218 10^3/uL (140-450) Mean Platelet Volume 8.9 fL (6.9-10.8) Neutrophils (%) (Auto) 66.4 % (37.0-80.0) Lymphocytes (%) (Auto) 19.1 % (10.0-50.0) Monocytes (%) (Auto) 8.5 % (0.0-12.0) Eosinophils (%) (Auto) 5.3 % (0.0-7.0) Basophils (%) (Auto) 0.7 % (0.0-2.0) Neutrophils # (Auto) 5.5 10 ^3/uL (1.6-8.6) Lymphocytes # (Auto) 1.6 10 ^3/uL (0.4-5.4) Monocytes # (Auto) 0.7 10 ^3/uL (0-1.3) Eosinophils # (Auto) 0.4 10 ^3/uL (0-0.8) Basophils # (Auto) 0.1 10 ^3/uL (0-0.2) Nucleated Red Blood Cells 0.1 % Sodium Level 139 mmol/L (136-145) Potassium Level 4.8 mmol/L (3.5-5.1) Chloride Level 107 mmol/L (98-107) Carbon Dioxide Level 22 mmol/L (20-31) Anion Gap 10 (5-15) Blood Urea Nitrogen 12 mg/dL (9-23) Creatinine 0.96 mg/dL (0.700-1.30) Glomerular Filtration Rate Calc 90 mL/min (>90) BUN/Creatinine Ratio 12.5 (10.0-20.0) Serum Glucose 78 mg/dL (74-106) Calcium Level 9.1 mg/dL (8.7-10.4) Urine Color Yellow (Yellow) Urine Clarity Clear (Clear) Urine pH 5.0 (5.0-9.0) Urine Specific [place] 1.014 (1.001-1.035) Urine Protein Trace (Negative) Urine Ketones Negative (Negative) Urine Blood Negative /uL (Negative) Urine Nitrite Negative (Negative) Urine Bilirubin Negative (Negative) Urine Urobilinogen Normal mg/dL (Negative) Urine Leukocyte Esterase Negative /uL (Negative) Urine RBC 1 /hpf (0 - 3) Urine Microscopic WBC < 1 /HPF (0-3) Urine Squamous Epithelial Cells Few /hpf (<5) Urine Bacteria None seen /hpf (None Seen) Urine Glucose Normal mg/dL (Normal) Urine Opiates Screen Neg (NEGATIVE) Urine Fentanyl Screen Neg (NEGATIVE) Urine Barbiturates Screen Neg (NEGATIVE) Urine Phencyclidine Screen Neg (NEGATIVE) Urine Amphetamines Screen Pos (NEGATIVE) Urine Benzodiazepines Screen Neg (NEGATIVE) Urine Cocaine Screen Neg (NEGATIVE) Urine Cannabinoids Screen Pos (NEGATIVE) Troponin I High Sensitivity 31 ng/L (</=54) Thyroid Stimulating Hormone (TSH) 0.84 uIU/mL (0.55-4.78) Test 04/02/25 19:19 Prothrombin Time 11.2 sec (9.3-11.8) Prothrombin Time INR 1.06 (0.9-1.15) Activated Partial Thromboplast Time 27.7 SEC (24.5-34.5) Magnesium Level 1.7 mg/dL (1.6-2.6) Total Bilirubin 3.1 mg/dL (0.2-1.0) Aspartate Amino Transferase (AST) 28 U/L (13-40) Alanine Aminotransferase (ALT) 21 U/L (7-40) Alkaline Phosphatase 141 U/L (46-116) B-Type Natriuretic Peptide 548.96 pg/mL (0-100) Total Protein 8.0 g/dL (5.7-8.2) Albumin 5.0 g/dL (3.2-4.8) Other Laboratory Tests 04/03/25 07:22 Brief Hx & Hospital Course: 59-year-old male presents for evaluation of chest pain. Patient reports a one day history of chest pain with associated shortness for breath and palpitations. Patient reports not being able to refill his medications since he is homeless. Denies fever or chills. Past Medical History AFib, CHF with ejection fraction less than 40%, chronic kidney disease, dyslipidemia, hypertension, mi Past Surgical History Tonsillectomy, cholecystectomy Family History Noncontributory Smoke: Quit ALCOHOL: occassional Drugs: None, Marijuana, Other (Methamphetamine) The patient was treated with therapeutic Lovenox due to his AFib with RVR (CHADS-VASc score fall, HASBLED 1). Continued GD MT including empagliflozin and spironolactone due to his systolic heart failure with reduced ejection fraction which is less than 40%. For his shortness of breaths due to exacerbation of systolic heart failure gave him Lasix 40 mg IV b.i.d.. Laser atorvastatin was continued. Morphine and nitroglycerin was given for chest pain. ACS was ruled out by serial EKGs and troponins. Due to obstructive sleep apnea patient was advised to follow up outpatient. The patient was treated with lorazepam and multivitamins due to alcohol withdrawal. Patient was counseled on cessation of marijuana. On the day of discharge, patient was hemodynamically stable, alert, oriented and verbalized understanding of the treatment plan. She has a consult was done to place the patient on board and Care. Patient agreed and was discharged with GDM T, Eliquis, atorvastatin. The patient was advised regarding medication compliance, Examination Pt is lying on bed General Appearance: Alert oriented, cooperative, Mild distress HEENT: Atraumatic, Mucous membranes moist/pink Respiratory: Bilaterally clear to auscultation, Normal air movement, No added sounds Cardiovascular: Regular rate, Normal S1, Normal S2, No murmurs Abdominal/ : Active bowel sounds, Soft, no distention, no tenderness Extremities: No edema, Normal pulses, No tenderness/swelling Skin: No Significant rash, except past surgical scars Neuro: Normal speech, sensorimotor deficits none Psych/Mental Status: Mental status NL, Mood NL Nurse was there as singer back tender during examination Discussed with Dr. Merlos, Dr. Lundberg, , RN and patient. Operations or Procedures PATIENT: PRICE LYON ACCT: [id number] UNIT: [id number] : 1965 [facility] AGE / SEX: 59 / M ADM STATUS: ADM IN SERVICE 7 ORDERING PHYSICIAN: SAM WISE RESIDENT PROCEDURE(s): CXRP - CHEST PORTABLE REASON: sob ORDER NUMBER(s): [id number], ACCESSION NUMBER(s): [id number] INDICATION: sob TECHNIQUE: Frontal view of the chest. COMPARISON: XY CHEST PORTABLE on DOS: 04/02/25, XY CHEST PORTABLE on DOS: 03/15/25, XY CHEST PORTABLE on DOS: 01/30/25, XR CHEST 2 VIEWS on DOS: 10/11/24, XR CHEST 2 VIEWS on DOS: 05/15/24 FINDINGS: . The heart and mediastinal contours are grossly unremarkable. There is no evidence of pleural disease. The lungs are clear. The bony structures of the chest are intact without fracture. IMPRESSION: 1. No evidence of acute disease. ATED BY: MERRILL CARO MD DICTATED DATE/TIME: 04/04/25 1232 SIGNED BY: MERRILL CARO MD SIGNED DATE/TIME: 04/04/25 1232 EKG:Atrial fibrillation with rapid V-rate Consider right ventricular hypertrophy Condition at Discharge: Stable Final Diagnosis/Problems List Acute hypoxic respiratory failure due to exacerbation of systolic heart failure Atrial fibrillation unknown stage, with RVR (CHADS-VASc score 4, HASBLED 1) Systolic heart failure with reduced ejection fraction (less than 40%) Pulmonary edema due to systolic heart failure exacerbation ACS ruled out Hypertension Obstructive sleep apnea Peripheral neuropathy Acute toxic encephalopathy due to polysubstance abuse Marijuana and methamphetamine use Medication noncompliance Alcohol withdrawal Ruled out ACS Discharge Disposition: Snf Discharge Instruct/Medications Diet: Cardiac 2g Na,low cholest Diet comment: Salt restricted diet Activity: No Restrictions, As Tolerated Follow Up/Referral: Follow up with the PCP and Cardiology in 2 weeks Medications: Eliquis 5 mg b.i.d. Lisinopril 40 mg daily Carvedilol 6.25 twice daily Lasix 40 mg daily Spironolactone 25 mg daily Scheduled Apixaban Base (Eliquis), 5 MG PO BID Atorvastatin Calcium (Atorvastatin Calcium), 40 MG PO HS Carvedilol (Carvedilol), 6.25 MG PO BID Empagliflozin (Jardiance), 10 MG PO DAILY Folic Acid (Folic Acid), 1 MG PO DAILY Furosemide (Lasix), 40 MG PO DAILY Gabapentin (Gabapentin), 100 MG PO TID Lisinopril (Lisinopril), 40 MG PO DAILY Spironolactone (Aldactone), 25 MG PO DAILY Scheduled PRN Albuterol Sulfate (Ventolin Mdi), 2 PUFF IN Q6HP PRN Discontinued Medications Amiodarone Hcl (Amiodarone Hcl), 200 MG PO BID Atorvastatin Calcium (Atorvastatin Calcium), 40 MG PO HS Cephalexin (Keflex Capsule), 1 CAP PO QID Lisinopril (Lisinopril), 1 TAB PO DAILY Metoprolol Tartrate (Lopressor), 12.5 MG PO BID Tamsulosin Hcl (Flomax), 0.8 MG PO QPM Discharge Statement: "Patient was advised to return to the ER or call 911 if any headaches, dizziness, shortness of breath, chest pain, abdominal pain, bleeding, fevers, or worsening of medical condition. Patient was counseled about treatment plan, medications, possible side effects, patientverbalized understanding. All questions were answered to the best of my ability. This discharge took greater then 30 minutes in planning, reviewing documentation, counseling the patient, and discussing with other team members." ASSESSMENT ASSESSMENT Assessment AFib with RVR, unknown stage Acute hypoxic respiratory failure due to exacerbation of systolic heart failure Hypertension Alcohol withdrawal Ruled out ACS Date of Service: Apr 04, 2025 Billing Provider: TY MERLOS MD Common Visit Codes: 23785-AIU/OBS DISCH DAY >30min JEREMYMAGGIE Apr 04, 2025 17:29 TY MERLOS MD Apr 04, 2025 19:19
[2025-04-05 00:33] VITALS: BP 119/80; PULSE 74; RESP 18; TEMP 98.1; O2SAT 95
[2025-04-05 04:54] VITALS: BP_SYST 100; BP_SYST 105; BP_DIAS 70; BP_DIAS 72; PULSE 49; PULSE 58; RESP 16; RESP 18; TEMP 96.9; TEMP 97.8; O2SAT 95; O2SAT 99
[2025-04-05 08:00] VITALS: PULSE 76; PULSE 82; RESP 14; O2SAT 98
--- NOTE | 2025-04-05 08:55 | DVHPNRES ---
Progress Note Date Seen: Apr 05, 2025 Resident Creating Document: MAGGIE LUNA RESIDENT Medical Necessity Reason Pt with a Central, PICC or Fol: No Subjective Review of Systems 59-year-old male presents for evaluation of chest pain. Patient reports a one day history of chest pain with associated shortness for breath and palpitations. Patient reports not being able to refill his medications since he is homeless. Denies fever or chills. Past Medical History AFib, CHF with ejection fraction less than 40%, chronic kidney disease, dyslipidemia, hypertension, mi Past Surgical History Tonsillectomy, cholecystectomy Family History Noncontributory Smoke: Quit ALCOHOL: occassional Drugs: None, Marijuana, Other (Methamphetamine) The patient was seen and examined at bedside today. Overnight events were reviewed reviewed. He denies any chest pain, shortness of breath, nausea, vomiting, abdominal pain or any other complaints today. Objective vital signs Vital Sign Date Time Temp Pulse Resp B/P (MAP) Pulse Ox O2 Delivery O2 Flow Rate FiO2 04/05/25 08:00 76 14 98 Room Air* 0 21 04/05/25 05:40 100/70 04/05/25 04:54 96.9 96.9 Total Intake and Output 04/04/25 04/04/25 04/05/25 15:00 23:00 07:00 Intake Total 480 ml 860 ml 550 ml Output Total 1900 ml 1680 ml Balance 480 ml -1040 ml -1130 ml medications Current Medications Medications Dose Ordered Sig/Vu Route Start Time Stop Time Status Last Admin Dose Admin Atorvastatin Calcium 40 mg HS PO 04/03/25 22:00 04/04/25 22:16 40 MG Empaglifozin 10 mg DAILY PO 04/03/25 10:00 04/04/25 09:47 10 MG Gabapentin 100 mg TID PO 04/03/25 06:00 04/05/25 05:40 100 MG Spironolactone 25 mg DAILY PO 04/03/25 10:00 04/04/25 09:48 25 MG Ondansetron HCl 4 mg Q4HP PRN IV 04/02/25 23:45 Acetaminophen 650 mg Q6HP PRN PO 04/02/25 23:45 Nitroglycerin 0.4 mg Q5MINP PRN SL 04/02/25 23:45 Enoxaparin Sodium 100 mg Q12HR SC 04/03/25 10:00 04/04/25 09:50 100 MG Furosemide 40 mg BIDD IV 04/03/25 18:00 04/05/25 05:40 40 MG Levalbuterol HCl 0.625 mg Q6HR NEB 04/03/25 12:00 04/04/25 18:43 0.625 MG Ipratropium [place] 0.5 mg Q6HR NEB 04/03/25 12:00 04/04/25 18:44 0.5 MG Lisinopril 40 mg DAILY PO 04/04/25 10:00 04/04/25 09:49 40 MG Folic Acid 1 mg DAILY PO 04/04/25 10:00 04/04/25 09:47 1 MG Pyridoxine HCl 50 mg DAILY PO 04/04/25 10:00 04/04/25 09:47 50 MG Morphine Sulfate 2 mg Q30M PRN IV 04/03/25 19:00 Thiamine HCl 100 mg DAILY PO 04/04/25 10:00 04/04/25 09:48 100 MG Lorazepam 1 mg Q2HP PRN IV 04/03/25 19:00 Carvedilol 6.25 mg Q12HR PO 04/04/25 22:00 04/04/25 22:16 6.25 MG Examination Pt is lying on bed General Appearance: Cooperative, alert , oriented, Mild distress HEENT: Atraumatic, Mucous membranes moist/pink Respiratory: Mild bilateral crackles, Normal air movement, No added sounds Cardiovascular: Regular rate, Normal S1, Normal S2, No murmurs Abdominal/ : Active bowel sounds, Soft, no distention, no tenderness Extremities: No edema, Normal pulses, No tenderness/swelling Skin: No Significant rash, except past surgical scars Neuro: Normal speech, sensorimotor deficits none Psych/Mental Status: Mental status NL, Mood NL Nurse was there as glass cutting machine operator during examination laboratory and microbiology Laboratory Tests 04/03/25 07:22 Test 04/03/25 07:22 Range/Units Serum Glucose 78 74-106 mg/dL Labs and/or images reviewed: Labs reviewed by me, Image(s) reviewed by me Problem List/Assessment/Plan Problem List/Assessment/Plan Atrial fibrillation with RVR (CHADS-VASc score 4, HASBLED 1) Systolic heart failure with reduced ejection fraction (less than 40%) Pulmonary edema due to systolic heart failure exacerbation ACS ruled out Therapeutic Lovenox continued Continue GDM T including empagliflozin, spironolactone Lasix 40 mg IV BID Continue atorvastatin Morphine and nitroglycerin for chest pain Ondansetron 4 vomiting. Transition to DOAC therapy for AFib with RVR on discharge. Discontinue amiodarone antiarrhythmic therapy, given poor medication compliance an unknown onset of AFib. Obstructive sleep apnea Outpatient follow-up for sleep study Peripheral neuropathy Gabapentin Acute toxic encephalopathy due to polysubstance abuse Treated with lorazepam and multivitamins including folic acid, B12, B6, thiamine due to alcohol withdrawal Counseled regarding the side effect of alcohol abuse for more than 40 minutes. Marijuana and methamphetamine use Counseled regarding cessation of drug abuse for more than 15 minutes Medication noncompliance Counseled regarding the importance of compliance to medications for more than 10 minutes Homelessness The patient was discharged yesterday, awaiting acceptance to recuperative care. GI prophylaxis: Pantoprazole DVT prophylaxis: Lovenox Diet: Cardiac Goals of care discussed with the patient for more than 27 minutes: Full code status Case discussed with , patient and RN Plan discussed with: Patient, Other (RN) My Orders My Orders Orders - MAGGIE LUNA Procedure Category Date Status Time * Facility Assistant CONS 04/04/25 Transmitted Consult Discharge DISCHARGE 04/04/25 Transmitted 14:38 MAGGIE LUNA Apr 05, 2025 08:55
[2025-04-05 09:00] VITALS: BP 129/98; PULSE 49; RESP 20; TEMP 97.8; O2SAT 97
[2025-04-05 10:00] VITALS: O2SAT 97; O2SAT 98
[2025-04-05 12:44] VITALS: BP 109/87; PULSE 60; RESP 18; TEMP 97.8; O2SAT 100
[2025-04-06] MEDS ORDERED: FUROSEMIDE 40 MG/4 ML VIAL IV SCH (10:00)
== END 2025-04-05 14:45 | disposition home or self-care (01) | DRG 194 ==
LOC: ER 18:41 → OVERFLOW 23:36 → TELE-WESTW 04-03 18:06
PROVIDERS: ADMIT Internal Medicine Geriatric Medicine; ATTEND Internal Medicine Geriatric Medicine
DX: I13.0 Hypertensive heart and chronic kidney disease with heart failure and stage 1 through stage 4 chronic kidney disease, or unspecified chronic kidney disease (principal); G92.8 Other toxic encephalopathy; J96.01 Acute respiratory failure with hypoxia; Z59.00 Homelessness unspecified; I48.91 Unspecified atrial fibrillation; G62.9 Polyneuropathy, unspecified; C61 Malignant neoplasm of prostate; I50.23 Acute on chronic systolic (congestive) heart failure; E66.9 Obesity, unspecified; E78.5 Hyperlipidemia, unspecified; N18.9 Chronic kidney disease, unspecified; F10.20 Alcohol dependence, uncomplicated; T50.995A Adverse effect of other drugs, medicaments and biological substances, initial encounter; G47.33 Obstructive sleep apnea (adult) (pediatric); Z90.49 Acquired absence of other specified parts of digestive tract; Z87.891 Personal history of nicotine dependence; Z68.31 Body mass index [BMI] 31.0-31.9, adult; I25.2 Old myocardial infarction; Z83.3 Family history of diabetes mellitus; Z82.49 Family history of ischemic heart disease and other diseases of the circulatory system; Z91.199 Patient's noncompliance with other medical treatment and regimen due to unspecified reason; Y92.89 Other specified places as the place of occurrence of the external cause; Y90.9 Presence of alcohol in blood, level not specified
CPT/HCPCS: 36415; 71045; 80048; 80053; 80307; 81001; 83735; 83880; 84443; 84484; 85025; 85610; 85730; 93005; 94640; 96365; 96375; 99291; 99292; G0378

== ENCOUNTER 2025-04-16 17:11 | Emergency (ER) | payer MEDICAID ==
[~2025-04-16] VITALS: Ht 177.8 cm; Wt 99.4 kg
[~2025-04-16 17:11] MED LIST changes: -AMIO200T33 PO; -ATOR20TA50 PO; +ATOR40TA52 PO; +CARV6.2551 PO; -CEPH250C PO; -MET25T PO; -TAMS-35 PO
[2025-04-16] MEDS ORDERED: FURO1TAB33 PO (18:22)
[2025-04-16] MEDS ORDERED: CARV12.544 PO (18:22)
[2025-04-16] MEDS ORDERED: APIX5TAB PO (18:22)
[2025-04-16] MEDS ORDERED: SPIR25TA8 PO (18:22)
[2025-04-16] MEDS ORDERED: ALBU108A5 IN (18:22)
[2025-04-16] MEDS ORDERED: LISI20TA56 PO (18:22)
--- NOTE | 2025-04-16 18:56 | ED.PDOC ---
SOB-HPI HPI Comments 59-year-old male with a history of hypertension and asthma states that sometimes he feels short of breath and needs his inhaler but he ran out. Patient denies any significant shortness of breath at this time. Patient also is requesting refill on his cardiac medications Chief Complaint: Shortness of Breath Time Seen by MD: 17:51 Primary Care Provider: NONE Reviewed notes: Nurses Notes Information Source: Patient Mode of Arrival: Ambulatory Severity: Mild Timing: Days Duration: Intermittent Context: At Rest History of: Asthma Past Medical History PAST MEDICAL HISTORY: AFIB, Asthma, CHF, CKF, Depression, High Lipids, HTN, AR Surgical History: Cholecystectomy, Tonsillectomy Family History Family History: Reviewed,noncontributory to illness Social History Smoker: Quit Greater Than 1 Year, Cigarettes Alcohol: Occasionally Drugs: Marijuana, Methamphetamine Lives In: Homeless Constitutional: reports: fatigue All Other Systems: Reviewed and Negative Physical Exam General Appearance: No Apparent Distress, Normal HEENT: Normal ENT Inspection, Pharynx Normal, TMs Normal Neck: Full Range of Motion, Non-Tender, Normal, Normal Inspection Respiratory: Chest Non-Tender, Lungs Clear, No Accessory Muscle Use, No Respiratory Distress, Normal Breath Sounds Cardiovascular: No Edema, No JVD, No Murmur, No Gallop, Normal Peripheral Pulses, Regular Rate/Rhythm Breast Exam: Deferred Gastrointestinal: No Organomegaly, Non Tender, No Pulsatile Mass, Normal Bowel Sounds, Soft Genitalia: Deferred Pelvic: Deferred Rectal: Deferred Extremities: No calf tenderness, Normal capillary refill, Normal inspection, Normal range of motion, Non-tender, No pedal edema Musculoskeletal : Apperance: Normal Neurologic: Alert, finisher denture II-XII nml as Tested, No Motor Deficits, Normal Affect, Normal Mood, No Sensory Deficits Cerebellar Function: Normal Reflexes: Normal Skin: Dry, Normal Color, Warm Lymphatic: No Adenopathy Was a procedure done? Was a procedure done?: No Differential Dx Differential Diagnosis: Anxiety, Asthma, Bronchitis, CHF, COPD, Hypertension, Pneumonia, URI, Other X-Ray, Labs, Meds, VS Vital Signs Date Time Temp Pulse Resp B/P (MAP) Pulse Ox O2 Delivery O2 Flow Rate FiO2 04/16/25 17:14 97.6 63 18 127/86 94 97.6 Time of 1ST Reevaluation: 18:00 Reevaluation 1ST: Improved Patient Education/Counseling: Diagnosis, Treatment Family Education/Counseling: No Family Present SEPSIS Sepsis Screen Date sepsis recognized/suspect: Apr 16, 2025 Time Sepsis recognized/suspect: 1717 Recent Procedure: No (T) On Antibiotic Therapy: No Respiratory Rate >20: No Heart Rate >90: No Temp<36 C (96.8 F) or >38.3 C: No SBP <90 or MAP <65 mmHG: No New Acute Mental Status Change: No Is the patient on CPAP, BIPAP,: No Vital Signs Date Time Temp Pulse Resp B/P (MAP) Pulse Ox O2 Delivery O2 Flow Rate FiO2 04/16/25 17:14 97.6 63 18 127/86 94 97.6 Departure 1 Departure Time of Disposition: 18:55 Impression: Primary Impression: Dyspnea Additional Impressions: Hypertension Alcohol abuse Disposition: HOME / SELF CARE / HOMELESS Condition: Stable Additional Instructions: Follow up with your primary physician Return to the Emergency Department for any worsening symptoms or concerns e-Prescriptions Spironolactone (Spironolactone) 25 Mg Tab 1 TAB PO DAILY for 90 Days, #90 TAB 3 Refills Prov: HEMA PAYTON MD 04/16/25 Lisinopril (Lisinopril) 20 Mg Tab 1 TAB PO DAILY for 90 Days, #90 TAB 5 Refills Prov: HEMA PAYTON MD 04/16/25 Furosemide (Lasix) 20 Mg Tb 1 TAB PO BID for 90 Days, #180 TAB 3 Refills Prov: HEMA PAYTON MD 04/16/25 Carvedilol (Carvedilol) 12.5 Mg Tab 0.5 TAB PO BID for 90 Days, #90 TAB 3 Refills Prov: HEMA PAYTON MD 04/16/25 Apixaban Base (ELIQUIS) 5 Mg Tab 5 MG PO BID, #60 TAB 5 Refills Prov: HEMA PAYTON MD 04/16/25 Albuterol Sulfate (Albuterol Sulfate Hfa) 108 Mcg/Act Aer 108 MCG IN Q6HP PRN, #1 AER 5 Refills Prov: HEMA PAYTON MD 04/16/25 Discharged With: Self Critical Care Note Critical Care Time?: No Stability Stability form required: No Heart Score Heart Score: Heart Score Response (Comments) Value History N/A 0 EKG N/A 0 Age N/A 0 Risk Factors N/A 0 Troponin N/A 0 Total 0 HEMA PAYTON MD Apr 16, 2025 18:56
[2025-04-16 19:58] VITALS: BP 149/124; PULSE 99; RESP 16; TEMP 97.8; O2SAT 98
== END 2025-04-16 19:58 | disposition home or self-care (01) ==
LOC: ER 17:11
DX: R06.00 Dyspnea, unspecified (principal); I11.0 Hypertensive heart disease with heart failure; I50.9 Heart failure, unspecified; F10.10 Alcohol abuse, uncomplicated; I48.91 Unspecified atrial fibrillation; J45.909 Unspecified asthma, uncomplicated; Z90.49 Acquired absence of other specified parts of digestive tract; Z90.89 Acquired absence of other organs; Y90.9 Presence of alcohol in blood, level not specified

== ENCOUNTER 2025-05-19 19:37 | Inpatient (IN) | payer MEDICAID ==
[~2025-05-19] VITALS: Ht 180.3 cm; Wt 94.0 kg
[~2025-05-19 19:37] MED LIST changes: +ALBU108A5 IN; +AMIO200T13 PO; +CARV12.544 PO; +FURO1TAB33 PO; +MET25T PO; +SPIR25TA8 PO
--- NOTE | 2025-05-19 20:03 | ED.PDOC ---
SOB-HPI HPI Comments JUSTIN LYON CHF, ATRIAL FIBRILLATION, HAS NOT SHORTNESS OF BREATH, NOT TAKING ANY OF HIS MEDICINE HOMELESS, METHAMPHETAMINE HPI: Poor Historian. Patient discharged here last April 05, 2025 diagnosed with Acute hypoxic respiratory failure due to exacerbation of systolic heart failure Atrial fibrillation unknown stage, with RVR (CHADS-VASc score 4, HASBLED 1) Systolic heart failure with reduced ejection fraction (less than 40%) Pulmonary edema due to systolic heart failure exacerbation ACS ruled out Hypertension Obstructive sleep apnea Peripheral neuropathy Acute toxic encephalopathy due to polysubstance abuse Marijuana and methamphetamine use Medication noncompliance Alcohol withdrawal Ruled out ACS Patient coming in for shortness of breath. Has been out of his medications, and was only able to refill it about an hour ago Past Medical History: Hypertension, AFib, congestive heart failure Past Surgical History: Denies REVIEW OF SYSTEMS: CONSTITUTIONAL: Denies acute: fever, diaphoresis, chills, HEAD: Denies acute: headache, photophobia Eyes: Denies acute: Double vision, vision loss, eye pain, EARS: Denies acute: tinnitus, hearing loss, ear discharge, ear pain, THROAT: Denies acute: sore throat, swelling, difficulty swallowing , pain with swallowing, change in voice. NECK: Denies acute: neck pain, neck swelling, stiff neck. HEART: Denies acute : chest pain, palpitations, LUNGS: Denies acute: , wheezing, cough, hemoptysis ABDOMEN: Denies acute: abdominal pain, Nausea, Vomiting, diarrhea, melena , hematemesis, hematochezia SKIN: Denies acute: rash, redness, lesions, itchiness. EXTREMITIES: Denies acute: calf pain, numbness, tingling, weakness, denies pain in extremity. Denies acute: Low back pain. Neuro: Denies acute: focal neurological deficit, motor or sensory focal neurological deficit, tremors, seizure like activity, confusion, dizziness, change in mental status, loss of bowel or bladder function, cauda equina like symptoms. : Denies acute: dysuria, hematuria, flank pain, increase in urinary frequency. PSYCH: Denies acute: hallucination, suicidal ideation, homicidal ideation. PHYSICAL EXAM: General: ---moderate-----acute distress, awake and alert. Head: normocephalic, atraumatic. No raccoon's eyes, no weller sign. Neck: supple, trachea is midline, no swelling. Throat: Normal phonation. Eyes:, no erythema, no purulent discharge, no proptosis, no icterus. Heart: Irregular rate and rhythm consistent with atrial fibrillation with RVR, no significant murmur appreciated. Lungs: Moderate respiratory distress, No wheezing, no rhonchi, no crackles. No stridors Abdomen: non tender to palpation, non distended, soft, no guarding, no rebound, + bowel sounds. Neuro: Awake, Alert, oriented to name, self, situation, follows commands GCS=15. Speech is normal. Skin: no petechia, no purpura, no cyanosis, non-pale, not jaundice. Lower extremities: --trace bilateral- Pitting edema no deformity, no focal swelling, no calf TTP. Makes eye contact. moves all four extremities. Face: no apparent facial droop. Ambulating in the ED independently. ED COURSE: DISCLAIMER: This medical document was created using an electronic medical record system with voice recognition software and computerized dictation system. Although this document has been carefully reviewed, there might still be some phonetic and typographical errors. Occasional wrong-word or "sound-alike" substitutions may have occurred due to the inherent limitations of voice recognition software. These areas are purely typographical due to imperfections of the software programs and do not reflect any compromise in the patient's medical care. Please read the chart carefully and recognize, using context, where these substitutions have occurred. Chief Complaint: Shortness of Breath Time Seen by MD: 19:52 Primary Care Provider: NONE Reviewed notes: Allergies Information Source: Patient Mode of Arrival: Ambulatory Past Medical History PAST MEDICAL HISTORY: AFIB, Asthma, CHF, CKF, Depression, High Lipids, HTN, OK Surgical History: Cholecystectomy, Tonsillectomy Family History Family History: Reviewed,noncontributory to illness Social History Smoker: Quit Greater Than 1 Year, Cigarettes Alcohol: Occasionally Drugs: Marijuana, Methamphetamine Lives In: Homeless Was a procedure done? Was a procedure done?: No Differential Dx Differential Diagnosis: Other (DDx include ACS, unstable angina, anxiety, PE, pneumothroax, neoplasm, cardiac ischemia, COPD, asthma, CHF, pleural effusion, tobacco abuse, pneumonia, hypoxia, hypercapnia, anemia., infection/sepsis., pulmonary edema. Asthma, Cardiac tamponade, infection.) X-Ray, Labs, Meds, VS Vital Signs Date Time Temp Pulse Resp B/P (MAP) Pulse Ox O2 Delivery O2 Flow Rate FiO2 05/19/25 22:01 167/120 05/19/25 20:33 Room Air* 0 21 05/19/25 20:33 97.8 106 19 154/91 (112) 97 97.8 05/19/25 19:48 122 05/19/25 19:41 97.7 65 18 151/104 96 97.7 Lab Test 05/19/25 23:13 05/19/25 21:45 05/19/25 20:03 Range/Units Urine Color Colorless Yellow Urine Clarity Clear Clear Urine pH 5.0 5.0-9.0 Urine Specific [place] 1.006 1.001-1.035 Urine Protein Negative Negative Urine Ketones Negative Negative Urine Blood Negative Negative /uL Urine Nitrite Negative Negative Urine Bilirubin Negative Negative Urine Urobilinogen Normal Negative mg/dL Urine Leukocyte Esterase Negative Negative /uL Urine RBC None seen 0 - 3 /hpf Urine Microscopic WBC < 1 0-3 /HPF Urine Squamous Epithelial Cells None seen <5 /hpf Urine Bacteria None seen None Seen /hpf Urine Glucose Normal Normal mg/dL Urine Opiates Screen Neg NEGATIVE Urine Fentanyl Screen Neg NEGATIVE Urine Barbiturates Screen Neg NEGATIVE Urine Phencyclidine Screen Neg NEGATIVE Urine Amphetamines Screen Pos NEGATIVE Urine Benzodiazepines Screen Neg NEGATIVE Urine Cocaine Screen Neg NEGATIVE Urine Cannabinoids Screen Neg NEGATIVE White Blood Count 7.9 4.4-10.8 10^3/uL Red Blood Count 4.67 4.5-5.90 10^6/uL Hemoglobin 14.8 13.5-17.5 g/dL Hematocrit 44.8 41.0-53.0 % Mean Corpuscular Volume 96.0 80.0-100.0 fL Mean Corpuscular Hemoglobin 31.7 28.0-32.0 pg Mean Corpuscular Hemoglobin Concent 33.0 32.0-36.0 g/dL Red Cell Distribution Width 15.5 H 11.8-14.3 % Platelet Count 237 140-450 10^3/uL Mean Platelet Volume 9.0 6.9-10.8 fL Neutrophils (%) (Auto) 66.1 37.0-80.0 % Lymphocytes (%) (Auto) 24.6 10.0-50.0 % Monocytes (%) (Auto) 6.7 0.0-12.0 % Eosinophils (%) (Auto) 1.9 0.0-7.0 % Basophils (%) (Auto) 0.7 0.0-2.0 % Neutrophils # (Auto) 5.3 1.6-8.6 10 ^3/uL Lymphocytes # (Auto) 2.0 0.4-5.4 10 ^3/uL Monocytes # (Auto) 0.5 0-1.3 10 ^3/uL Eosinophils # (Auto) 0.2 0-0.8 10 ^3/uL Basophils # (Auto) 0.1 0-0.2 10 ^3/uL Nucleated Red Blood Cells 0.0 % B-Type Natriuretic Peptide 315.52 0-100 pg/mL Sodium Level 142 136-145 mmol/L Potassium Level 4.3 3.5-5.1 mmol/L Chloride Level 109 H 98-107 mmol/L Carbon Dioxide Level 20 20-31 mmol/L Anion Gap 13 5-15 Blood Urea Nitrogen 21 9-23 mg/dL Creatinine 1.14 0.700-1.30 mg/dL Glomerular Filtration Rate Calc 74 >90 mL/min BUN/Creatinine Ratio 18.4 10.0-20.0 Serum Glucose 89 74-106 mg/dL Lactic Acid Level 1.4 0.4-2.0 mmol/L Calcium Level 9.4 8.7-10.4 mg/dL Magnesium Level 1.9 1.6-2.6 mg/dL Total Bilirubin 2.2 H 0.2-1.0 mg/dL Aspartate Amino Transferase (AST) 75 H 13-40 U/L Alanine Aminotransferase (ALT) 54 H 7-40 U/L Alkaline Phosphatase 210 H 46-116 U/L Troponin I High Sensitivity 37 </=54 ng/L Total Protein 7.1 5.7-8.2 g/dL Albumin 4.4 3.2-4.8 g/dL [facility] [id number] [place] [address] Ph: [phone] DIAGNOSTIC IMAGING Diagnostic Imaging Report : [id number] Signed PATIENT: PRICE LYON ACCT: [id number] UNIT: [id number] : 1965 LOC: OVERFLOW ROOM / BED: 1019-ERT / A AGE / SEX: 59 / M ADM STATUS: ADM IN SERVICE 42 ORDERING PHYSICIAN: MARISA LEACH DO PROCEDURE(s): CXRP - CHEST PORTABLE REASON: SHORTNESS OF BREATH ORDER NUMBER(s): [id number], ACCESSION NUMBER(s): [id number] CHEST RADIOGRAPH Indication: SHORTNESS OF BREATH Technique: XY CHEST PORTABLE COMPARISON: 04/04/2025 FINDINGS: The cardiac silhouette is enlarged. The lungs demonstrate bilateral patchy airspace opacities most pronounced in the Right lower lobe. The pulmonary vasculature is prominent. There is no pleural effusion. There is no pneumothorax. IMPRESSION: Cardiomegaly with pulmonary vascular congestion and bilateral patchy airspace opacities. ATED BY: SHOBHA DIA MD DICTATED DATE/TIME: 05/20/25734 SIGNED BY: SHOBHA DIA MD SIGNED DATE/TIME: 05/20/25734 CC: Time of 1ST Reevaluation: 00:00 Reevaluation 1ST: N/A Patient Education/Counseling: Diagnosis, Treatment Family Education/Counseling: Other Comments MDM: patient presented with the above HPI.-----dyspnea-workup was initiated. patient was found with the above mentioned diagnosis. the following medications were ordered: please refer to order lists of meds and tests obtained by myself Dr. Leach. Patient ED course and VS have been stabilized. Patient has been reassessed in the ED and remained in a stable condition. Pertinent incidental findings were discussed with the patient and/or family. Patient/family voices understanding and is agreeable with plan. Patient has been observed in the ED adequate length of time to insure improvement/stability. Escalation of care considered: Consideration of escalation to observation or admission Patient was given metoprolol Lopressor 5 mg IV for rate control, Lasix 60 mg, Patient was ADMITTED to the medicine team for further evaluation and treatment of their presentation. All the reports of any imaging studies that were ordered by myself were reviewed by myself. Departure 1 Departure Time of Disposition: 20:02 Impression: Primary Impression: Acute exacerbation of CHF (congestive heart failure) Additional Impressions: Noncompliance with medication regimen Atrial fibrillation with RVR Homelessness Methamphetamine abuse Pulmonary vascular congestion Disposition: ADMITTED INPATIENT Admit to: Tele Condition: Guarded e-Prescriptions Metoprolol Tartrate (LOPRESSOR TABLET) 50 Mg Tb 50 MG PO BID, #60 TAB 5 Refills Prov: ROSARIO CAMPOS MD 05/24/25 Spironolactone (Aldactone) 25 Mg Tab 25 MG PO DAILY, #90 TAB 4 Refills Prov: ROSARIO CAMPOS MD 05/24/25 Discharged With: Self Critical Care Note Critical Care Time?: Yes (1 hr-critical care time only) Heart Score Heart Score: Heart Score Response (Comments) Value History Moderate Suspicious [address]-Deviation 2 Age 45-64 1 Risk Factors >3 or Hx ASHD 2 Troponin Normal limit 0 Total 6 I personally scribed for MARISA LEACH DO ([email or web address]) on 05/19/25 at 20:08. Electronically submitted by Ovidio Watson ([employer] [employer]). I personally scribed for MARISA LEACH DO ([email or web address]) on 05/19/25 at 20:19. Electronically submitted by Ovidio Watson ([email or web address]). MARISA LEACH DO May 19, 2025 20:03
[2025-05-19 20:39] LABS: Albumin 4.4 g/dL (3.2-4.8); Anion Gap 13 (5-15); BUN/Creatinine Ratio 18.4 (10.0-20.0); Blood Urea Nitrogen 21 mg/dL (9-23); Calcium 9.4 mg/dL (8.7-10.4); Glucose 89 mg/dL (74-106); Potassium 4.3 mmol/L (3.5-5.1); Sodium 142 mmol/L (136-145); Total Protein 7.1 g/dL (5.7-8.2)
[2025-05-19 20:40] LABS: Alanine Aminotransferase 54 U/L (7-40); Alkaline Phosphatase 210 U/L (46-116); Bilirubin, Total 2.2 mg/dL (0.2-1.0); Carbon Dioxide 20 mmol/L (20-31); Chloride 109 mmol/L (98-107)
[2025-05-19] MEDS: FUROSEMIDE 100 MG/10ML VIAL IV ONE (22:01)
[2025-05-19 22:26] LABS: Hematocrit 44.8 % (41.0-53.0); Hemoglobin 14.8 g/dL (13.5-17.5); Mean Corpuscular Hemoglobin 31.7 pg (28.0-32.0); Mean Corpuscular Volume 96.0 fL (80.0-100.0); Nucleated Red Blood Cells % 0.0 %
--- NOTE | 2025-05-19 23:10 | DVHHPRES ---
History of Present Illness Resident Creating Document: AMILCAR GIBBS History of Present Illness Patient is a 59-year-old male with past medical history of CHF with reduced ejection fraction, atrial fibrillation, hypertension, obstructive sleep apnea, peripheral neuropathy, polysubstance use disorder (methamphetamine, marijuana, alcohol), presented to [facility] ED with complaint of shortness of breaths. He reports that he has not been taking any of his prescribed medications over than 3 months and was only able to refill them today. He denies chest pain at this time. The patient is a poor historian. He was previously discharged from this facility on April 05, 2025, after being treated for acute hypoxic respiratory failure due to an exacerbation of systolic heart failure. At that time, he was also diagnosed with atrial fibrillation with rapid ventricular response (CHADS-VASc score of 4 and HAS-BLED score of 1), systolic heart failure with reduced ejection fraction of less than 40%, pulmonary edema secondary to heart failure exacerbation, hypertension, obstructive sleep apnea, peripheral neuropathy, and acute toxic encephalopathy related to polysubstance abuse. His substance use history includes marijuana and methamphetamine use, and he was noted to have medication noncompliance and alcohol withdrawal during that admission. Acute coronary syndrome was ruled out during his prior hospitalization. On evaluation in the ED, patient is afebrile, tachycardic and hypertensive (167/120 mmHg). Initial labs show AST 75, ALT 54 and ALP 210. The patient was started on breathing treatment and IV fluids. Patient is admitted for further evaluation and management. Past Medical History Congestive heart failure with reduced ejection fraction, atrial fibrillation, hypertension, obstructive sleep apnea, peripheral neuropathy, polysubstance use disorder Past Surgical History: None Family History: None Smoke: Quit ALCOHOL: heavy Lives: Homeless Past Social History Polysubstance use disorder (methamphetamine, marijuana, alcohol) Review of Systems Review of Systems Eyes: No Pain, No Vision change, Conjunctivae inflammation, No Eyelid i nflammation, No Other, Redness ENT: No Ear pain, No Ear discharge, No Nose pain, No Nose discharge, No Nose congestion, No Mouth pain, No Mouth swelling, No Throat pain, No Throat swelling, No Other Cardiovascular: No Chest Pain, No Palpitations, No Orthopnea, No Paroxysmal No Dyspnea, No Edema, No Lt Headedness, No Other Respiratory: No Cough, No Dry, Shortness of breath, SOB with exertion, No Wheezing, No Hemoptysis, No Pleuritic Pain, No Sputum, No Other Gastrointestinal: No Nausea, No Vomiting, No Abdominal Pain, No Diarrhea, No Constipation, No Melena, No Hematochezia, No Other Genitourinary: No Dysuria, No Frequency, No Incontinence, No Hematuria, No Retention, No Other Musculoskeletal: No other, No neck pain, No shoulder pain, No arm pain, No back pain, No hand pain, No leg pain, No foot pain Skin: No Rash, No Lesions, No Jaundice, No Bruising, No Other Allergies: Coded Allergies: NO KNOWN ALLERGIES (Unverified , 03/17/17) Exam Vital Signs Vital Signs Date Time Temp Pulse Resp B/P (MAP) Pulse Ox O2 Delivery O2 Flow Rate FiO2 05/19/25 22:01 167/120 05/19/25 20:33 Room Air* 0 21 05/19/25 20:33 97.8 106 19 97 97.8 Exam General Appearance: Disheveled. mild respiratory distress. Cooperative. NAD Head Exam: Normal inspection Neck Exam: Normal inspection. Non-tender. Normal alignment Pulmonary/Respiratory: Breath sounds are diminished bilaterally with bibasilar crackles. Chest non-tender. Clear bilateral breath sounds, no wheezing. Cardiovascular/Chest: Regular rate and rhythm. No murmurs. No JVD. Peripheral Pulses: 2+ Radial (R). 2+ Radial (L). 2+ Pedal (R). 2+ Pedal (L) Abdominal Exam: Normal bowel sounds. Soft. normal abdomen, no visible veins, Nontender. No hepatospenomegaly. No masses Ankle Exam: Negative ankle edema Lower extremities: Lower extremity +2 pitting edema Neuro/Mental Status: A&O x4. Coherent. Thoughts/Psych: Normal thought pattern. Appropriate mood and affect. Good judgement and insight Skin Exam: Normal inspection. Normal color. Warm. Dry Labs/Xrays Labs Test 05/19/25 21:45 05/19/25 20:03 Range/Units White Blood Count 7.9 4.4-10.8 10^3/uL Red Blood Count 4.67 4.5-5.90 10^6/uL Hemoglobin 14.8 13.5-17.5 g/dL Hematocrit 44.8 41.0-53.0 % Mean Corpuscular Volume 96.0 80.0-100.0 fL Mean Corpuscular Hemoglobin 31.7 28.0-32.0 pg Mean Corpuscular Hemoglobin Concent 33.0 32.0-36.0 g/dL Red Cell Distribution Width 15.5 H 11.8-14.3 % Platelet Count 237 140-450 10^3/uL Mean Platelet Volume 9.0 6.9-10.8 fL Neutrophils (%) (Auto) 66.1 37.0-80.0 % Lymphocytes (%) (Auto) 24.6 10.0-50.0 % Monocytes (%) (Auto) 6.7 0.0-12.0 % Eosinophils (%) (Auto) 1.9 0.0-7.0 % Basophils (%) (Auto) 0.7 0.0-2.0 % Neutrophils # (Auto) 5.3 1.6-8.6 10 ^3/uL Lymphocytes # (Auto) 2.0 0.4-5.4 10 ^3/uL Monocytes # (Auto) 0.5 0-1.3 10 ^3/uL Eosinophils # (Auto) 0.2 0-0.8 10 ^3/uL Basophils # (Auto) 0.1 0-0.2 10 ^3/uL Nucleated Red Blood Cells 0.0 % Sodium Level 142 136-145 mmol/L Potassium Level 4.3 3.5-5.1 mmol/L Chloride Level 109 H 98-107 mmol/L Carbon Dioxide Level 20 20-31 mmol/L Anion Gap 13 5-15 Blood Urea Nitrogen 21 9-23 mg/dL Creatinine 1.14 0.700-1.30 mg/dL Glomerular Filtration Rate Calc 74 >90 mL/min BUN/Creatinine Ratio 18.4 10.0-20.0 Serum Glucose 89 74-106 mg/dL Lactic Acid Level 1.4 0.4-2.0 mmol/L Calcium Level 9.4 8.7-10.4 mg/dL Magnesium Level 1.9 1.6-2.6 mg/dL Total Bilirubin 2.2 H 0.2-1.0 mg/dL Aspartate Amino Transferase (AST) 75 H 13-40 U/L Alanine Aminotransferase (ALT) 54 H 7-40 U/L Alkaline Phosphatase 210 H 46-116 U/L Troponin I High Sensitivity 37 </=54 ng/L Total Protein 7.1 5.7-8.2 g/dL Albumin 4.4 3.2-4.8 g/dL SEPSIS Sepsis Screen Date sepsis recognized/suspect: May 19, 2025 Time Sepsis recognized/suspect: 2032 Recent Procedure: No On Antibiotic Therapy: No Respiratory Rate >20: No Heart Rate >90: Yes Temp<36 C (96.8 F) or >38.3 C: No SBP <90 or MAP <65 mmHG: No New Acute Mental Status Change: No Is the patient on CPAP, BIPAP,: No Physician Orders Chest Portable (05/19/25 19:43) Electrocardigram (05/19/25 19:43) Dev Manager (05/19/25 ) B-Type Natriuretic Peptide (05/19/25 19:51) Vital Signs Date Time Temp Pulse Resp B/P (MAP) Pulse Ox O2 Delivery O2 Flow Rate FiO2 05/19/25 22:01 167/120 05/19/25 20:33 Room Air* 0 21 05/19/25 20:33 97.8 106 19 154/91 (112) 97 97.8 05/19/25 19:48 122 05/19/25 19:41 97.7 65 18 151/104 96 97.7 Laboratory Tests Test 05/19/25 20:03 05/19/25 21:45 Lactic Acid Level 1.4 mmol/L (0.4-2.0) White Blood Count 7.9 10^3/uL (4.4-10.8) Medications Medications Dose Ordered Sig/Vu Route Start Time Stop Time Status Last Admin Dose Admin Furosemide 60 mg ONCE ONCE IV 05/19/25 20:15 05/19/25 20:16 DC 05/19/25 22:01 60 MG Assessment/Plan Assessment/Plan Acute on chronic CHF exacerbation, HFrEF (EF <40%) Intractable shortness breath due to above Echocardiogram Chest X-ray EKG COVID-19 antigen Rapid influenza pain management with [place] and Tylenol Zofran 4 MG IV q4h Albuterol 2.5 MG NEB q6h Ipratropium 0.5 MG NEB q8h UA and UDS TSH Lisinopril 20 mg daily Coreg 6.25 mg bid Spironolactone 35 mg daily Atrial fibrillation with rapid ventricular response (CHADS-VASc score of 4 and HAS-BLED score of 1) Lovenox therapeutic dose given Hypertensive heart disease, possible diastolic dysfunction monitor BP Polysubstance use disorder (methamphetamine, marijuana, alcohol) I have counseled the patient on the importance of complete methamphetamine, marijuana, alcohol cessation for over 50 minutes. Medication noncompliance I have counseled the patient on the importance of maintaining adherence to his medications. Diet: Cardiac Goals of care: Full code, discussed for >30 minutes on 05/19/25 Plan discussed with patient Plan discussed with Dr. Pierson Plan discussed with: Patient Date of Service: May 19, 2025 Billing Provider: ELIDA PIERSON MD Common Visit Codes: 98107-[id number] INP/OBS CARE (HIGH) Secondary Visit Codes: [id number] CARE PLAN 30 MINUTES AMILCAR GIBBS RESIDENT May 19, 2025 23:10 GRECIA BARRERA RESIDENT May 20, 2025 06:35
[2025-05-19] MEDS ORDERED: ONDANSETRON HCL 4 MG/2 ML VIAL IV PRN (23:15)
[2025-05-19] MEDS ORDERED: IPRATROPIUM BROM 0.5 MG/2.5ML INH SOL NEB PRN (23:15)
[2025-05-19] MEDS ORDERED: ALBUTEROL SULF 2.5 MG/0.5ML(0.5%) NEB SOLN NEB PRN (23:15)
[2025-05-19 23:21] VITALS: PULSE 58; RESP 19; O2SAT 96
[2025-05-19] MEDS: METOPROLOL TARTRATE 1MG/1ML-5ML VIAL IV ONE (23:28)
[2025-05-19] MEDS: FUROSEMIDE 20 MG TAB PO ONE (23:39)
[2025-05-19 23:47] VITALS: BP 153/125; PULSE 62; RESP 18; TEMP 98.4; O2SAT 96
[2025-05-19] MEDS: LISINOPRIL 20 MG TAB PO ONE (23:47)
[2025-05-19] MEDS: SPIRONOLACTONE 25 MG TAB PO ONE (23:48)
[2025-05-20] VITALS (12 sets, daily range): BP systolic 132–168; BP diastolic 102–135; PULSE 68–116; RESP 15–20; TEMP 97.5–98.8; O2SAT 90–100
[2025-05-20 01:01] LABS: COVID19 ANTIGEN SOFIA FIA NEGATIVE (NEGATIVE)
[2025-05-20 01:34] LABS: Amphetamine Screen, Urine Pos (NEGATIVE); Barbiturate Scree,Urine Neg (NEGATIVE); Benzodiazephine Screen, Urine Neg (NEGATIVE); Cocaine Screen, Urine Neg (NEGATIVE)
[2025-05-20 01:35] LABS: Cannabinoid Screen, Urine Neg (NEGATIVE); Opiate Scree,Urine Neg (NEGATIVE); Phencyclidine Screen, Urine Neg (NEGATIVE)
[2025-05-20 01:38] LABS: Urine Protein, UAD Negative (Negative)
[2025-05-20 04:54] LABS: Hematocrit 40.4 % (41.0-53.0); Hemoglobin 13.4 g/dL (13.5-17.5); Mean Corpuscular Hemoglobin 32.0 pg (28.0-32.0); Mean Corpuscular Volume 96.5 fL (80.0-100.0); Nucleated Red Blood Cells % 0.1 %
[2025-05-20 05:12] LABS: Albumin 3.9 g/dL (3.2-4.8); Anion Gap 13 (5-15); BUN/Creatinine Ratio 14.6 (10.0-20.0); Blood Urea Nitrogen 15 mg/dL (9-23); Carbon Dioxide 20 mmol/L (20-31); Glucose 78 mg/dL (74-106); Sodium 145 mmol/L (136-145); Total Protein 6.5 g/dL (5.7-8.2)
[2025-05-20 05:17] LABS: Alanine Aminotransferase 40 U/L (7-40); Alkaline Phosphatase 174 U/L (46-116); Bilirubin, Total 2.2 mg/dL (0.2-1.0); Calcium 8.1 mg/dL (8.7-10.4); Chloride 112 mmol/L (98-107); Potassium 3.3 mmol/L (3.5-5.1)
[2025-05-20] MEDS: HYDROcodone-ACET 5/325MG TAB PO PRN (05:28)
[2025-05-20] MEDS: FUROSEMIDE 20 MG TAB PO SCH (05:29)
[2025-05-20] MEDS: SODIUM CHLOR 0.9% PF (SALINE LOCK) 10ML VIAL/SYR IV SCH (06:00)
--- NOTE | 2025-05-20 07:33 | DVH ---
CHEST RADIOGRAPH Indication: SHORTNESS OF BREATH Technique: XY CHEST PORTABLE COMPARISON: 04/04/2025 FINDINGS: The cardiac silhouette is enlarged. The lungs demonstrate bilateral patchy airspace opacities most pronounced in the Right lower lobe. The pulmonary vasculature is prominent. There is no pleural effusion. There is no pneumothorax. IMPRESSION: Cardiomegaly with pulmonary vascular congestion and bilateral patchy airspace opacities.
[2025-05-20] MEDS: SPIRONOLACTONE 25 MG TAB PO SCH (09:14)
[2025-05-20] MEDS: ENOXAPARIN SOD 100 MG/1 ML SYRINGE SC SCH (09:14)
[2025-05-20] MEDS: LISINOPRIL 20 MG TAB PO SCH (09:14)
--- NOTE | 2025-05-20 14:46 | DVHPN2 ---
Subjective The patient seems him at bedside. Complain of shortness for breath. Reviewed: Care Plan, H&P, Labs, Medications, Previous Orders, Radiology Changes from previous H/P or p: No Changes Objective Vitals Vital Signs Date Time Temp Pulse Resp B/P (MAP) Pulse Ox O2 Delivery O2 Flow Rate FiO2 05/20/25 12:44 98.1 86 19 158/135 (143) 90 98.1 05/20/25 10:00 Room Air 0.0 05/20/25 10:00 21 General Appearance: Alert, Cooperative, No acute distress HEENT: Atraumatic, PERRLA, EOMI, Mucous membr. moist/pink Neck: Supple Lungs: Clear to auscultation, Normal air movement Cardiovascular: Regular rate, Normal S1, Normal S2, No murmurs, Gallops, Rubs Abdomen: Normal bowel sounds, Soft, No tenderness Neuro: Cranial nerves 3-12 NL Psych/Mental Status: Mental status NL Medications Current Medications Medications Dose Ordered Sig/Vu Route Start Time Stop Time Status Last Admin Dose Admin Sodium Chloride 10 ml Q8HR IV 05/20/25 06:00 Acetaminophen/ Hydrocodone Bitart 1 tab Q4HP PRN PO 05/19/25 23:15 05/20/25 05:28 1 TAB Ondansetron HCl 4 mg Q4HP PRN IV 05/19/25 23:15 Acetaminophen 650 mg Q6HP PRN PO 05/19/25 23:15 Furosemide 20 mg BIDD PO 05/20/25 06:00 05/20/25 05:29 20 MG Lisinopril 20 mg BID PO 05/20/25 10:00 05/20/25 09:14 20 MG Spironolactone 25 mg DAILY PO 05/20/25 10:00 05/20/25 09:14 25 MG Albuterol 2.5 mg Q6HPRN PRN NEB 05/19/25 23:15 Ipratropium [place] 0.5 mg Q8HPRN PRN NEB 05/19/25 23:15 Enoxaparin Sodium 100 mg Q12HR SC 05/20/25 10:00 Gabapentin 100 mg TID PO 05/20/25 14:00 Atorvastatin Calcium 40 mg HS PO 05/20/25 22:00 Laboratory Results Laboratory Tests 05/20/25 04:33 Chemistry Test 05/19/25 20:03 05/20/25 04:33 Albumin 4.4 g/dL (3.2-4.8) 3.9 g/dL (3.2-4.8) Calcium Level 9.4 mg/dL (8.7-10.4) 8.1 mg/dL (8.7-10.4) L Magnesium Level 1.9 mg/dL (1.6-2.6) Total Protein 7.1 g/dL (5.7-8.2) 6.5 g/dL (5.7-8.2) Cardiac Markers Test 05/19/25 21:45 B-Type Natriuretic Peptide 315.52 pg/mL (0-100) LFT Test 05/19/25 20:03 05/20/25 04:33 Alanine Aminotransferase (ALT) 54 U/L (7-40) H 40 U/L (7-40) Alkaline Phosphatase 210 U/L (46-116) H 174 U/L (46-116) H Aspartate Amino Transferase (AST) 75 U/L (13-40) H 49 U/L (13-40) H Total Bilirubin 2.2 mg/dL (0.2-1.0) H 2.2 mg/dL (0.2-1.0) H HgA1c, TSH Test 05/20/25 04:33 Thyroid Stimulating Hormone (TSH) 2.72 uIU/mL (0.55-4.78) Urinalysis Test 05/19/25 23:13 Urine Color Colorless (Yellow) Urine Clarity Clear (Clear) Urine pH 5.0 (5.0-9.0) Urine Specific [place] 1.006 (1.001-1.035) Urine Protein Negative (Negative) Urine Ketones Negative (Negative) Urine Blood Negative /uL (Negative) Urine Nitrite Negative (Negative) Urine Bilirubin Negative (Negative) Urine Urobilinogen Normal mg/dL (Negative) Urine Leukocyte Esterase Negative /uL (Negative) Urine RBC None seen /hpf (0 - 3) Urine Microscopic WBC < 1 /HPF (0-3) Urine Squamous Epithelial Cells None seen /hpf (<5) Urine Bacteria None seen /hpf (None Seen) Urine Glucose Normal mg/dL (Normal) Assessment/Plan Assessment/Plan Acute on chronic CHF exacerbation, HFrEF (EF <40%) Intractable shortness breath due to above Echocardiogram Chest X-ray EKG COVID-19 antigen Rapid influenza pain management with [place] and Tylenol Zofran 4 MG IV q4h Albuterol 2.5 MG NEB q6h Ipratropium 0.5 MG NEB q8h UA and UDS TSH Lisinopril 20 mg daily Coreg 6.25 mg bid Spironolactone 35 mg daily Atrial fibrillation with rapid ventricular response (CHADS-VASc score of 4 and HAS-BLED score of 1) Lovenox therapeutic dose given Hypertensive heart disease, possible diastolic dysfunction monitor BP Polysubstance use disorder (methamphetamine, marijuana, alcohol) I have counseled the patient on the importance of complete methamphetamine, marijuana, alcohol cessation for over 50 minutes. Medication noncompliance I have counseled the patient on the importance of maintaining adherence to his medications. Diet: Cardiac Goals of care: Full code Continuing current management. We will monitor shortness for breath. Continuing with Lasix. Plan discussed with: Patient Date of Service: May 20, 2025 Billing Provider: ROSARIO CAMPOS MD Common Visit Codes: [id number] INP/OBS CARE(HIGH) ROSARIO CAMPOS MD May 20, 2025 14:46
[2025-05-20] MEDS: GABAPENTIN 100 MG CAP PO SCH (17:24)
[2025-05-20] MEDS: ATORVASTATIN 20 MG TAB PO SCH (23:21)
[2025-05-21] VITALS (12 sets, daily range): BP systolic 115–151; BP diastolic 92–126; PULSE 60–110; RESP 16–18; TEMP 97.3–98.7; O2SAT 95–100
--- NOTE | 2025-05-21 15:26 | DVHPN2 ---
Subjective The patient seems him at bedside. Complain of shortness for breath. Reviewed: Care Plan, H&P, Labs, Medications, Previous Orders, Radiology Changes from previous H/P or p: No Changes Objective Vitals Vital Signs Date Time Temp Pulse Resp B/P (MAP) Pulse Ox O2 Delivery O2 Flow Rate FiO2 05/21/25 12:54 98.7 77 17 151/126 (134) 99 98.7 05/21/25 10:00 Nasal Cannula 2.0 05/21/25 10:00 28 Intake/Output Intake and Output 05/21/25 07:00 Intake Total 2590 ml Output Total 650 ml Balance 1940 ml Intake Oral 2590 ml Output Urine Total 650 ml # Voids 4 General Appearance: Alert, Cooperative, No acute distress HEENT: Atraumatic, PERRLA, EOMI, Mucous membr. moist/pink Neck: Supple Lungs: Clear to auscultation, Normal air movement Cardiovascular: Regular rate, Normal S1, Normal S2, No murmurs, Gallops, Rubs Abdomen: Normal bowel sounds, Soft, No tenderness Neuro: Cranial nerves 3-12 NL Psych/Mental Status: Mental status NL Medications Current Medications Medications Dose Ordered Sig/Vu Route Start Time Stop Time Status Last Admin Dose Admin Sodium Chloride 10 ml Q8HR IV 05/20/25 06:00 05/21/25 13:41 10 ML Acetaminophen/ Hydrocodone Bitart 1 tab Q4HP PRN PO 05/19/25 23:15 05/20/25 05:28 1 TAB Ondansetron HCl 4 mg Q4HP PRN IV 05/19/25 23:15 Acetaminophen 650 mg Q6HP PRN PO 05/19/25 23:15 Furosemide 20 mg BIDD PO 05/20/25 06:00 05/21/25 06:16 20 MG Lisinopril 20 mg BID PO 05/20/25 10:00 05/21/25 10:17 20 MG Spironolactone 25 mg DAILY PO 05/20/25 10:00 05/21/25 10:16 25 MG Albuterol 2.5 mg Q6HPRN PRN NEB 05/19/25 23:15 Ipratropium [place] 0.5 mg Q8HPRN PRN NEB 05/19/25 23:15 Enoxaparin Sodium 100 mg Q12HR SC 05/20/25 10:00 05/20/25 23:21 100 MG Gabapentin 100 mg TID PO 05/20/25 14:00 05/21/25 14:17 100 MG Atorvastatin Calcium 40 mg HS PO 05/20/25 22:00 05/20/25 23:21 40 MG Clonidine HCl 0.1 mg Q8HP PRN PO 05/20/25 17:45 05/20/25 23:20 0.1 MG Aspirin 81 mg DAILY PO 05/22/25 10:00 Artificial Tears 1 drop Q2HP PRN EACHEYE 05/21/25 15:00 Laboratory Results Laboratory Tests 05/20/25 04:33 Urinalysis Test 05/19/25 23:13 Urine Color Colorless (Yellow) Urine Clarity Clear (Clear) Urine pH 5.0 (5.0-9.0) Urine Specific [place] 1.006 (1.001-1.035) Urine Protein Negative (Negative) Urine Ketones Negative (Negative) Urine Blood Negative /uL (Negative) Urine Nitrite Negative (Negative) Urine Bilirubin Negative (Negative) Urine Urobilinogen Normal mg/dL (Negative) Urine Leukocyte Esterase Negative /uL (Negative) Urine RBC None seen /hpf (0 - 3) Urine Microscopic WBC < 1 /HPF (0-3) Urine Squamous Epithelial Cells None seen /hpf (<5) Urine Bacteria None seen /hpf (None Seen) Urine Glucose Normal mg/dL (Normal) Assessment/Plan Assessment/Plan Acute on chronic CHF exacerbation, HFrEF (EF <40%) Intractable shortness breath due to above Echocardiogram Chest X-ray EKG COVID-19 antigen Rapid influenza pain management with [place] and Tylenol Zofran 4 MG IV q4h Albuterol 2.5 MG NEB q6h Ipratropium 0.5 MG NEB q8h UA and UDS TSH Lisinopril 20 mg daily Coreg 6.25 mg bid Spironolactone 35 mg daily Atrial fibrillation with rapid ventricular response (CHADS-VASc score of 4 and HAS-BLED score of 1) Lovenox therapeutic dose given Hypertensive heart disease, possible diastolic dysfunction monitor BP Polysubstance use disorder (methamphetamine, marijuana, alcohol) I have counseled the patient on the importance of complete methamphetamine, marijuana, alcohol cessation for over 50 minutes. Medication noncompliance I have counseled the patient on the importance of maintaining adherence to his medications. Diet: Cardiac Goals of care: Full code Continuing current management. We will monitor shortness for breath. Continuing with Lasix. Plan discussed with: Patient My Orders Orders - ROSARIO CAMPOS MD Procedure Category Date Status Time Clonidine Hcl Tablet PHA 05/20/25 In Process (Catapres Tablet) 17:45 Aspirin Tablet PHA 05/22/25 In Process 10:00 Artificial Tear 15ml PHA 05/21/25 In Process Opthalmic (Tears Na 15:00 Date of Service: May 21, 2025 Billing Provider: ROSARIO CAMPOS MD Common Visit Codes: [id number] INP/OBS CARE(HIGH) ROSARIO CAMPOS MD May 21, 2025 15:26
[2025-05-21] MEDS: POTASSIUM CHL 20 Meq TABLET PO ONE (18:03)
[2025-05-22] VITALS (12 sets, daily range): BP systolic 137–164; BP diastolic 95–117; PULSE 55–112; RESP 15–20; TEMP 97.3–98; O2SAT 96–99
--- NOTE | 2025-05-22 07:02 | ECG ---
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
--- NOTE | 2025-05-22 09:30 | ECG ---
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
--- NOTE | 2025-05-22 12:13 | DVHPN2 ---
Subjective The patient seems him at bedside. Complain of shortness for breath. Reviewed: Care Plan, H&P, Labs, Medications, Previous Orders, Radiology Changes from previous H/P or p: No Changes Objective Vitals Vital Signs Date Time Temp Pulse Resp B/P (MAP) Pulse Ox O2 Delivery O2 Flow Rate FiO2 05/22/25 11:51 68 16 146/103 96 05/22/25 09:00 97.8 97.8 05/22/25 08:00 Room Air* 0 21 Intake/Output Intake and Output 05/22/25 07:00 Intake Total 4705 ml Output Total 3500 ml Balance 1205 ml Intake Oral 4705 ml Output Urine Total 3500 ml # Bowel Movements 1 General Appearance: Alert, Cooperative, No acute distress HEENT: Atraumatic, PERRLA, EOMI, Mucous membr. moist/pink Neck: Supple Lungs: Clear to auscultation, Normal air movement Cardiovascular: Regular rate, Normal S1, Normal S2, No murmurs, Gallops, Rubs Abdomen: Normal bowel sounds, Soft, No tenderness Neuro: Cranial nerves 3-12 NL Psych/Mental Status: Mental status NL Medications Current Medications Medications Dose Ordered Sig/Vu Route Start Time Stop Time Status Last Admin Dose Admin Sodium Chloride 10 ml Q8HR IV 05/20/25 06:00 05/21/25 13:41 10 ML Acetaminophen/ Hydrocodone Bitart 1 tab Q4HP PRN PO 05/19/25 23:15 05/22/25 06:19 1 TAB Ondansetron HCl 4 mg Q4HP PRN IV 05/19/25 23:15 Acetaminophen 650 mg Q6HP PRN PO 05/19/25 23:15 Furosemide 20 mg BIDD PO 05/20/25 06:00 05/22/25 06:11 20 MG Lisinopril 20 mg BID PO 05/20/25 10:00 05/22/25 09:31 20 MG Spironolactone 25 mg DAILY PO 05/20/25 10:00 05/22/25 09:31 25 MG Albuterol 2.5 mg Q6HPRN PRN NEB 05/19/25 23:15 Ipratropium [place] 0.5 mg Q8HPRN PRN NEB 05/19/25 23:15 Enoxaparin Sodium 100 mg Q12HR SC 05/20/25 10:00 05/20/25 23:21 100 MG Gabapentin 100 mg TID PO 05/20/25 14:00 05/22/25 06:11 100 MG Atorvastatin Calcium 40 mg HS PO 05/20/25 22:00 05/21/25 21:41 40 MG Clonidine HCl 0.1 mg Q8HP PRN PO 05/20/25 17:45 05/22/25 06:10 0.1 MG Aspirin 81 mg DAILY PO 05/22/25 10:00 05/22/25 09:31 81 MG Artificial Tears 1 drop Q2HP PRN EACHEYE 05/21/25 15:00 Laboratory Results Laboratory Tests 05/20/25 04:33 Urinalysis Test 05/19/25 23:13 Urine Color Colorless (Yellow) Urine Clarity Clear (Clear) Urine pH 5.0 (5.0-9.0) Urine Specific [place] 1.006 (1.001-1.035) Urine Protein Negative (Negative) Urine Ketones Negative (Negative) Urine Blood Negative /uL (Negative) Urine Nitrite Negative (Negative) Urine Bilirubin Negative (Negative) Urine Urobilinogen Normal mg/dL (Negative) Urine Leukocyte Esterase Negative /uL (Negative) Urine RBC None seen /hpf (0 - 3) Urine Microscopic WBC < 1 /HPF (0-3) Urine Squamous Epithelial Cells None seen /hpf (<5) Urine Bacteria None seen /hpf (None Seen) Urine Glucose Normal mg/dL (Normal) Labs and/or images reviewed: Labs reviewed by me Assessment/Plan Assessment/Plan Acute on chronic CHF exacerbation, HFrEF (EF <40%) Intractable shortness breath due to above Echocardiogram Chest X-ray EKG COVID-19 antigen Rapid influenza pain management with [place] and Tylenol Zofran 4 MG IV q4h Albuterol 2.5 MG NEB q6h Ipratropium 0.5 MG NEB q8h UA and UDS TSH Lisinopril 20 mg daily Coreg 6.25 mg bid Spironolactone 35 mg daily Atrial fibrillation with rapid ventricular response (CHADS-VASc score of 4 and HAS-BLED score of 1) Lovenox therapeutic dose given Hypertensive heart disease, possible diastolic dysfunction monitor BP Polysubstance use disorder (methamphetamine, marijuana, alcohol) I have counseled the patient on the importance of complete methamphetamine, marijuana, alcohol cessation for over 50 minutes. Medication noncompliance I have counseled the patient on the importance of maintaining adherence to his medications. Diet: Cardiac Goals of care: Full code Continuing current management. We will monitor shortness for breath. Continuing with Lasix. The patietn has VTach on monitor now. Will get stat EKG. The patient refuse IV meds, will give one dose of amiodarone. Will contact music education director, Dr Florentino. Plan discussed with: Patient My Orders Orders - ROSARIO CAMPOS MD Procedure Category Date Status Time Aspirin Tablet PHA 05/22/25 In Process 10:00 Artificial Tear 15ml PHA 05/21/25 In Process Opthalmic (Tears Na 15:00 Date of Service: May 22, 2025 Billing Provider: ROSARIO CAMPOS MD Common Visit Codes: [id number] INP/OBS CARE(HIGH) ROSARIO CAMPOS MD May 22, 2025 12:13
[2025-05-22] MEDS: AMIODARONE HCL 200 MG TAB PO ONE (17:10)
[2025-05-22] MEDS: ACETAMINOPHEN 325 MG TAB PO PRN (17:32)
[2025-05-23] VITALS (9 sets, daily range): BP systolic 113–133; BP diastolic 79–96; PULSE 66–111; RESP 17–20; TEMP 97.4–98.2; O2SAT 91–99
[2025-05-23] MEDS ORDERED: MAGNESIUM SULFATE 1GM/100ML 100 ML IV SCH (10:00)
--- NOTE | 2025-05-23 11:29 | DVHINCON2 ---
Date of service: May 23, 2025 History of Present Illness HPI Patient is a 59-year-old gentleman who originally presented on May 19, 2025 for shortness of breath. Since then he has been managed on telemetry floor. Does have baseline of polysubstance abuse (methamphetamine/marijuana/alcohol). Also has history of prostate cancer. He is noncompliant with medication and followups. On May 23, 2025 cardiology was consulted for evaluation and ma nagement of atrial fibrillation with RVR. Patient has not been on any beta paolo/calcium channel blockers. It is of note that patient is noncompliant and refuses many interventions. Patient mentions that he does not follow with any environmental research project manager. He is not known to our practice from before. Home Meds Active Scripts Spironolactone (Spironolactone) 25 Mg Tab, 1 TAB PO DAILY for 90 Days, #90 TAB 3 Refills Prov:HEMA PAYTON MD 04/16/25 Lisinopril (Lisinopril) 20 Mg Tab, 1 TAB PO DAILY for 90 Days, #90 TAB 5 Refills Prov:HEMA PAYTON MD 04/16/25 Furosemide (Lasix) 20 Mg Tb, 1 TAB PO BID for 90 Days, #180 TAB 3 Refills Prov:HEMA PAYTON MD 04/16/25 Carvedilol (Carvedilol) 12.5 Mg Tab, 0.5 TAB PO BID for 90 Days, #90 TAB 3 Refills Prov:HEMA PAYTON MD 04/16/25 Apixaban Base (ELIQUIS) 5 Mg Tab, 5 MG PO BID, #60 TAB 5 Refills Prov:HEMA PAYTON MD 04/16/25 Albuterol Sulfate (Albuterol Sulfate Hfa) 108 Mcg/Act Aer, 108 MCG IN Q6HP PRN, #1 AER 5 Refills Prov:HEMA PAYTON MD 04/16/25 Atorvastatin Calcium (ATORVASTATIN CALCIUM) 40 Mg Tab, 40 MG PO HS for 30 Days, #30 TAB 0 Refills Prov:FRANCOISE WITT 04/04/25 Carvedilol (Carvedilol) 6.25 Mg Tab, 6.25 MG PO BID for 30 Days, #60 TAB 0 Refills Prov:FRANCOISE WITT 04/04/25 Empagliflozin (Jardiance) 10 Mg Tab, 10 MG PO DAILY for 30 Days, #30 TAB Prov:FRANCOISE WITT 04/04/25 Albuterol Sulfate (VENTOLIN MDI) 90 Mcg Ih, 2 PUFF IN Q6HP PRN for 30 Days, #1 INH 0 Refills Prov:FRANCOISE WITT 04/04/25 Folic Acid (Folic Acid) 1 Mg Tab, 1 MG PO DAILY for 14 Days, #14 TAB Prov:FRANCOISE WITT 04/04/25 Gabapentin (Gabapentin) 100 Mg Cap, 100 MG PO TID, #90 CAP 2 Refills Prov:ROSARIO CAMPOS MD 04/24/22 Reported Medications Amiodarone HCl (Amiodarone HCl) 200 Mg Tab, 1 TAB PO BID for 90 Days, #180 05/22/25 Metoprolol Tartrate (Lopressor) 25 Mg Tb, 12.5 MG PO BID for 30 Days, #30 05/22/25 Past Medical History Others Past medical history includes CHF, atrial fibrillation, hypertension, obstructive sleep apnea, polysubstance abuse (methamphetamine/marijuana/alcohol) and also history of prostate cancer. He is noncompliant with medication and followups. Does not follow with any Cardiology/PCPs. Patient Family History: CKD (chronic kidney disease) G8 MOTHER Diabetes mellitus G8 FATHER, Onset:Unknown FH: congestive heart failure G8 FATHER, Onset:Unknown FH: dementia G8 MOTHER Smoker: Positive Alocohol: Moderate Drugs: Marijuana, Amphetimines Review of Systems Constitutional: Malaise Ears, Nose, & Throat: No symptom reported Eyes: No symptom reported Pulmonary/Respiratory: Dyspnea Cardiovascular: Palpitations All Other Systems 14 point review of system was performed. Relevant findings as per above and as per HPI. Otherwise negative. H&P Exam Vital Signs Vital Signs Date Time Temp Pulse Resp B/P (MAP) Pulse Ox O2 Delivery O2 Flow Rate FiO2 05/23/25 09:00 97.6 73 18 125/79 (94) 99 97.6 05/22/25 20:00 Room Air* 0 21 General Appeara: Well developed Head Exam: Normal inspection Eye Exam: bilateral eye PERRL Mouth: Normal Inspection Pulmonary/Respiratory: Lungs clear Cardiovascular/Chest: Tachycardia, Systolic murmur, Irregularly irregular Peripheral Pulses: 2+ carotid (R), 2+ carotid (L), 2+ femoral (R), 2+ femoral (L), 2+ dorsalis pedis (R), 2+ dorsalis pedis (L) Abdominal Exam: Normal bowel sounds, Soft Neuro/Mental St: Alert, Oriented Labs/Xrays Labs Test 05/20/25 04:33 05/19/25 23:34 05/19/25 23:13 05/19/25 21:45 Range/Units White Blood Count 6.7 4.4-10.8 10^3/uL Red Blood Count 4.19 L 4.5-5.90 10^6/uL Hemoglobin 13.4 L 13.5-17.5 g/dL Hematocrit 40.4 L 41.0-53.0 % Mean Corpuscular Volume 96.5 80.0-100.0 fL Mean Corpuscular Hemoglobin 32.0 28.0-32.0 pg Mean Corpuscular Hemoglobin Concent 33.2 32.0-36.0 g/dL Red Cell Distribution Width 15.2 H 11.8-14.3 % Platelet Count 211 140-450 10^3/uL Mean Platelet Volume 8.8 6.9-10.8 fL Neutrophils (%) (Auto) 68.7 37.0-80.0 % Lymphocytes (%) (Auto) 20.7 10.0-50.0 % Monocytes (%) (Auto) 7.5 0.0-12.0 % Eosinophils (%) (Auto) 2.3 0.0-7.0 % Basophils (%) (Auto) 0.8 0.0-2.0 % Neutrophils # (Auto) 4.6 1.6-8.6 10 ^3/uL Lymphocytes # (Auto) 1.4 0.4-5.4 10 ^3/uL Monocytes # (Auto) 0.5 0-1.3 10 ^3/uL Eosinophils # (Auto) 0.2 0-0.8 10 ^3/uL Basophils # (Auto) 0.1 0-0.2 10 ^3/uL Nucleated Red Blood Cells 0.1 % Sodium Level 145 136-145 mmol/L Potassium Level 3.3 L 3.5-5.1 mmol/L Chloride Level 112 H 98-107 mmol/L Carbon Dioxide Level 20 20-31 mmol/L Anion Gap 13 5-15 Blood Urea Nitrogen 15 9-23 mg/dL Creatinine 1.03 0.700-1.30 mg/dL Glomerular Filtration Rate Calc 83 >90 mL/min BUN/Creatinine Ratio 14.6 10.0-20.0 Serum Glucose 78 74-106 mg/dL Calcium Level 8.1 L 8.7-10.4 mg/dL Total Bilirubin 2.2 H 0.2-1.0 mg/dL Aspartate Amino Transferase (AST) 49 H 13-40 U/L Alanine Aminotransferase (ALT) 40 7-40 U/L Alkaline Phosphatase 174 H 46-116 U/L Total Protein 6.5 5.7-8.2 g/dL Albumin 3.9 3.2-4.8 g/dL Thyroid Stimulating Hormone (TSH) 2.72 0.55-4.78 uIU/mL Influenza Type A Antigen Negative Negative Influenza Type B Antigen Negative Negative SARS-CoV-2 Antigen (Rapid) Negative NEGATIVE Urine Color Colorless Yellow Urine Clarity Clear Clear Urine pH 5.0 5.0-9.0 Urine Specific [place] 1.006 1.001-1.035 Urine Protein Negative Negative Urine Ketones Negative Negative Urine Blood Negative Negative /uL Urine Nitrite Negative Negative Urine Bilirubin Negative Negative Urine Urobilinogen Normal Negative mg/dL Urine Leukocyte Esterase Negative Negative /uL Urine RBC None seen 0 - 3 /hpf Urine Microscopic WBC < 1 0-3 /HPF Urine Squamous Epithelial Cells None seen <5 /hpf Urine Bacteria None seen None Seen /hpf Urine Glucose Normal Normal mg/dL Urine Opiates Screen Neg NEGATIVE Urine Fentanyl Screen Neg NEGATIVE Urine Barbiturates Screen Neg NEGATIVE Urine Phencyclidine Screen Neg NEGATIVE Urine Amphetamines Screen Pos NEGATIVE Urine Benzodiazepines Screen Neg NEGATIVE Urine Cocaine Screen Neg NEGATIVE Urine Cannabinoids Screen Neg NEGATIVE B-Type Natriuretic Peptide 315.52 0-100 pg/mL Test 05/19/25 20:03 Range/Units Lactic Acid Level 1.4 0.4-2.0 mmol/L Magnesium Level 1.9 1.6-2.6 mg/dL Troponin I High Sensitivity 37 </=54 ng/L Assessment/Plan Plan Patient is a 59-year-old gentleman who originally presented on May 19, 2025 for shortness of breath. Since then he has been managed on telemetry floor. Does have baseline of polysubstance abuse (methamphetamine/marijuana/alcohol). Also has history of prostate cancer. He is noncompliant with medication and followups. On May 23, 2025 cardiology was consulted for evaluation and management of atrial fibrillation with RVR. Patient has not been on any beta paolo/calcium channel blockers. It is of note that patient is noncompliant and refuses many interventions. Patient mentions that he does not follow with any environmental research project manager. He is not known to our practice from before. Past medical history includes CHF, atrial fibrillation, hypertension, obstructive sleep apnea, polysubstance abuse (methamphetamine/marijuana/alcohol) and also history of prostate cancer. He is noncompliant with medication and followups. Does not follow with any Cardiology/PCPs. Echocardiogram of January 2025 had revealed ejection fraction of less than 40% Creatinine: 1.14-1.03 Potassium: 4.3-3.3 Troponin (high sensitive): 35 BNP: 315.52 Magnesium: 1.9 TSH: 2.72 Urine drug screen was positive for amphetamine EKG revealed atrial fibrillation with RVR Tele reveals atrial fibrillation with RVR. At some point there is widened QRS and most probably reflects aberrancy secondary to tachyarrhythmia Patient is a 59-year-old gentleman who presented with shortness of breath. Does have history of heart failure. Does have history of atrial fibrillation. He is noncompliant with medication and followups. Does have history of methamphetamine abuse. Does have occasions of atrial fibrillation with RVR wh ile being managed on telemetry. Occasions of widened QRS in telemetry is assessed to reflect aberrancy secondary to tachyarrhythmia. Patient has not been on any kind of AV blocking agents for the past few days. ACS is not considered Acute on chronic systolic heart failure Atrial fibrillation with RVR Substance abuse, Hypertension Noncompliance to medications Cardiac suggestion for management: Managed on telemetry Follow-up electrolytes and kidney function tests and correct abnormalities. Keep potassium above 4 and magnesium above 2. Aggressive correction of electrolyte abnormalities is advised IV amiodarone is advised Metoprolol: 50 mg 3 times daily can be considered Request for echocardiogram Further evaluation and management depends on the above and clinical course Thank you for consultation A total of 75 minutes was spent reviewing the patient record, examining the patient, making a diagnostic and therapeutic plan, discussing this plan with medical personnel, following up on diagnostic studies and following the patient for clinical stability excluding any and all procedures. At least 50% of this time was spent in direct, [id number] contact. Thank you for allowing me to participate in this patient's care. Further recommendations will depend on patient's clinical course. Please do not hesitate to contact me if you have any questions or concerns. This medical document was created using electronic medical record system with [employer] computerized dictation system. Although this document has been carefully reviewed, there may still be some phonetic and typographical errors. These areas are purely typographical due to the imperfection of the software programs, and do not reflect any compromise in the patient's medical care. Plan discussed with: Patient, Other (nurse) ANDRE GEORGE MD May 23, 2025 11:29
[2025-05-23] MEDS: METOPROLOL TARTRATE 50 MG TAB PO SCH ×2 (11:34→18:14)
[2025-05-23] MEDS: AMIODARONE BOLUS KIT 100 ML IV ONE (12:00)
--- NOTE | 2025-05-23 12:20 | DVHPN2 ---
Subjective The patient seems him at bedside. Complain of shortness for breath. Reviewed: Care Plan, H&P, Labs, Medications, Previous Orders, Radiology Changes from previous H/P or p: No Changes Objective Vitals Vital Signs Date Time Temp Pulse Resp B/P (MAP) Pulse Ox O2 Delivery O2 Flow Rate FiO2 05/23/25 11:34 88 120/94 05/23/25 09:00 97.6 18 99 97.6 05/22/25 20:00 Room Air* 0 21 Intake/Output Intake and Output 05/23/25 07:00 Intake Total 1040 ml Output Total 1925 ml Balance -885 ml Intake Oral 1040 ml Output Urine Total 1925 ml General Appearance: Alert, Cooperative, No acute distress HEENT: Atraumatic, PERRLA, EOMI, Mucous membr. moist/pink Neck: Supple Lungs: Clear to auscultation, Normal air movement Cardiovascular: Regular rate, Normal S1, Normal S2, No murmurs, Gallops, Rubs Abdomen: Normal bowel sounds, Soft, No tenderness Neuro: Cranial nerves 3-12 NL Psych/Mental Status: Mental status NL Medications Current Medications Medications Dose Ordered Sig/Vu Route Start Time Stop Time Status Last Admin Dose Admin Sodium Chloride 10 ml Q8HR IV 05/20/25 06:00 05/23/25 05:39 10 ML Acetaminophen/ Hydrocodone Bitart 1 tab Q4HP PRN PO 05/19/25 23:15 05/23/25 00:44 1 TAB Ondansetron HCl 4 mg Q4HP PRN IV 05/19/25 23:15 Acetaminophen 650 mg Q6HP PRN PO 05/19/25 23:15 05/22/25 17:32 650 MG Furosemide 20 mg BIDD PO 05/20/25 06:00 05/23/25 05:40 20 MG Lisinopril 20 mg BID PO 05/20/25 10:00 05/23/25 11:33 20 MG Spironolactone 25 mg DAILY PO 05/20/25 10:00 05/23/25 11:33 25 MG Albuterol 2.5 mg Q6HPRN PRN NEB 05/19/25 23:15 Cancel Ipratropium [place] 0.5 mg Q8HPRN PRN NEB 05/19/25 23:15 Cancel Enoxaparin Sodium 100 mg Q12HR SC 05/20/25 10:00 05/23/25 11:36 100 MG Gabapentin 100 mg TID PO 05/20/25 14:00 05/23/25 05:39 100 MG Atorvastatin Calcium 40 mg HS PO 05/20/25 22:00 05/22/25 21:37 40 MG Clonidine HCl 0.1 mg Q8HP PRN PO 05/20/25 17:45 05/22/25 06:10 0.1 MG Aspirin 81 mg DAILY PO 05/22/25 10:00 05/23/25 11:34 81 MG Artificial Tears 1 drop Q2HP PRN EACHEYE 05/21/25 15:00 Metoprolol Tartrate 50 mg TID PO 05/23/25 14:00 Laboratory Results Chemistry Test 05/23/25 11:48 Albumin Pending Calcium Level Pending Total Protein Pending LFT Test 05/23/25 11:48 Alanine Aminotransferase (ALT) Pending Alkaline Phosphatase Pending Aspartate Amino Transferase (AST) Pending Total Bilirubin Pending Urinalysis Test 05/19/25 23:13 Urine Color Colorless (Yellow) Urine Clarity Clear (Clear) Urine pH 5.0 (5.0-9.0) Urine Specific [place] 1.006 (1.001-1.035) Urine Protein Negative (Negative) Urine Ketones Negative (Negative) Urine Blood Negative /uL (Negative) Urine Nitrite Negative (Negative) Urine Bilirubin Negative (Negative) Urine Urobilinogen Normal mg/dL (Negative) Urine Leukocyte Esterase Negative /uL (Negative) Urine RBC None seen /hpf (0 - 3) Urine Microscopic WBC < 1 /HPF (0-3) Urine Squamous Epithelial Cells None seen /hpf (<5) Urine Bacteria None seen /hpf (None Seen) Urine Glucose Normal mg/dL (Normal) Labs and/or images reviewed: Labs reviewed by me Assessment/Plan Assessment/Plan Acute on chronic CHF exacerbation, HFrEF (EF <40%) Intractable shortness breath due to above Echocardiogram Chest X-ray EKG COVID-19 antigen Rapid influenza pain management with [place] and Tylenol Zofran 4 MG IV q4h Albuterol 2.5 MG NEB q6h Ipratropium 0.5 MG NEB q8h UA and UDS TSH Lisinopril 20 mg daily Coreg 6.25 mg bid Spironolactone 35 mg daily Atrial fibrillation with rapid ventricular response (CHADS-VASc score of 4 and HAS-BLED score of 1) Lovenox therapeutic dose given Hypertensive heart disease, possible diastolic dysfunction monitor BP Polysubstance use disorder (methamphetamine, marijuana, alcohol) I have counseled the patient on the importance of complete methamphetamine, marijuana, alcohol cessation for over 50 minutes. Medication noncompliance I have counseled the patient on the importance of maintaining adherence to his medications. Diet: Cardiac Goals of care: Full code Continuing current management. We will monitor shortness for breath. Continuing with Lasix. The patietn has VTach on monitor now. Will get stat EKG. The patient refuse IV meds, will give one dose of amiodarone. 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 SW consult for recuperative care. Plan discussed with: Patient My Orders Orders - ROSARIO CAMPOS MD Procedure Category Date Status Time * Cardiology Consult CONS 05/22/25 Transmitted 19:44 Date of Service: May 23, 2025 Billing Provider: ROSARIO CAMPOS MD Common Visit Codes: [id number] INP/OBS CARE(HIGH) ROSARIO CAMPOS MD May 23, 2025 12:20
[2025-05-23 12:28] LABS: Albumin 4.7 g/dL (3.2-4.8); Anion Gap 12 (5-15); BUN/Creatinine Ratio 21.9 (10.0-20.0); Carbon Dioxide 27 mmol/L (20-31); Chloride 99 mmol/L (98-107); Glucose 98 mg/dL (74-106); Potassium 5.1 mmol/L (3.5-5.1); Sodium 138 mmol/L (136-145)
[2025-05-23 12:29] LABS: Hematocrit 53.5 % (41.0-53.0); Hemoglobin 17.9 g/dL (13.5-17.5); Mean Corpuscular Hemoglobin 32.2 pg (28.0-32.0); Mean Corpuscular Volume 96.3 fL (80.0-100.0); Nucleated Red Blood Cells % 0.3 %
[2025-05-23 12:30] LABS: Alanine Aminotransferase 47 U/L (7-40); Alkaline Phosphatase 205 U/L (46-116); Bilirubin, Total 1.8 mg/dL (0.2-1.0); Blood Urea Nitrogen 32 mg/dL (9-23); Calcium 10.5 mg/dL (8.7-10.4); Total Protein 8.2 g/dL (5.7-8.2)
[2025-05-23] MEDS ORDERED: METOPROLOL TARTRATE 50 MG TAB PO SCH (14:00)
--- NOTE | 2025-05-23 16:53 | DVHSR ---
APPROVED REPORT EXAM: Two-dimensional and M-mode echocardiogram with Doppler and color Doppler. Blood Pressure: 125/79 mmHg INDICATION CHF RISK FACTORS Obesity: Height: 5'11", Weight: 211 DIMENSIONS LVDd 3.3 (3.8-5.7cm) LA (2D) 4.3 (1.9-4.0cm) Aortic Root 4.5 (2.0-3.7cm) LVDs 2.8 (2.5-4.0cm) LA (MM) (1.9-4.0cm) Aortic Cusp Exc 1.8 (1.5-2.0cm) EF (%) 35.0 (55-70%) Rt. Atrium 4.2 (1.9-4.0cm) Asc. Aorta 4.0 cm IVSd 1.5 (0.7-1.1cm) RV (D) (1.8-2.4cm) PWd 1.6 (0.7-1.1cm) Mitral Valve Mitral Mitral Stenosis E wave 0.68m/s MV Mean GR. mmHg E/A ratio 0.0 2D MVA cm2 Aortic Valve Aortic Valve Aortic Stenosis V1 0.58m/s AO Mean GR. 2mmHg V2 1.01m/s AO Peak GR. 4mmHg LVOT Diameter 2.0 (1.8-2.4cm) Doppler ROBY 1.80cm2 Pulmonic Valve V2 1.49m/s Other Information Quality : Rhythm : Atrial Fibrillation Conclusion Left ventricle: Concentric left ventricular hypertrophy was seen. LVEF was around 40%. Diffuse hypokinesis with regional variation of left ventricle was seen. Right ventricle revealed mild dilatation with reduced systolic function. Both atria were mildly dilated. Aortic valve: Aortic valve was trileaflet. There was no aortic insufficiency/stenosis. Mild mitral regurgitation was seen. Trace tricuspid regurgitation was seen. Pulmonary valve was not well visualized. As there was no good tricuspid regurgitation jet, right ventricular systolic pressure could not be estimated. IVC was normal-sized with normal respiratory variation. Aortic root was dilated at 4.5 cm. Ascending aorta was mildly dilated at 4.0 cm.
[2025-05-24] VITALS (9 sets, daily range): BP systolic 118–140; BP diastolic 75–95; PULSE 47–70; RESP 17–20; TEMP 96.1–98.6; O2SAT 92–99
--- NOTE | 2025-05-24 06:39 | DVHPN2 ---
Progress Note - Dictate Date Seen: May 24, 2025 Medical Necessity Reason Pt with a Central, PICC or Fol: No vital signs Vital Sign Date Time Temp Pulse Resp B/P (MAP) Pulse Ox O2 Delivery O2 Flow Rate FiO2 05/24/25 05:54 128/93 05/24/25 05:00 98.0 61 17 92 98.0 05/23/25 20:00 Room Air* 0 21 Total Intake and Output 05/23/25 05/23/25 05/24/25 15:00 23:00 07:00 Intake Total 1131 ml 400 ml Output Total 725 ml 490 ml Balance 406 ml -90 ml medications Current Medications Medications Dose Ordered Sig/Vu Route Start Time Stop Time Status Last Admin Dose Admin Sodium Chloride 10 ml Q8HR IV 05/20/25 06:00 05/24/25 05:53 10 ML Acetaminophen/ Hydrocodone Bitart 1 tab Q4HP PRN PO 05/19/25 23:15 05/23/25 00:44 1 TAB Ondansetron HCl 4 mg Q4HP PRN IV 05/19/25 23:15 Acetaminophen 650 mg Q6HP PRN PO 05/19/25 23:15 05/22/25 17:32 650 MG Furosemide 20 mg BIDD PO 05/20/25 06:00 05/24/25 05:54 20 MG Lisinopril 20 mg BID PO 05/20/25 10:00 05/23/25 21:02 20 MG Spironolactone 25 mg DAILY PO 05/20/25 10:00 05/23/25 11:33 25 MG Albuterol 2.5 mg Q6HPRN PRN NEB 05/19/25 23:15 Cancel Ipratropium [place] 0.5 mg Q8HPRN PRN NEB 05/19/25 23:15 Cancel Enoxaparin Sodium 100 mg Q12HR SC 05/20/25 10:00 05/23/25 21:03 100 MG Gabapentin 100 mg TID PO 05/20/25 14:00 05/24/25 05:54 100 MG Atorvastatin Calcium 40 mg HS PO 05/20/25 22:00 05/23/25 21:03 40 MG Clonidine HCl 0.1 mg Q8HP PRN PO 05/20/25 17:45 05/22/25 06:10 0.1 MG Aspirin 81 mg DAILY PO 05/22/25 10:00 05/23/25 11:34 81 MG Artificial Tears 1 drop Q2HP PRN EACHEYE 05/21/25 15:00 Metoprolol Tartrate 50 mg Q8H PO 05/23/25 19:00 05/24/25 03:29 50 MG laboratory and microbiology Laboratory Tests 05/23/25 11:48 Test 05/23/25 11:48 Range/Units Serum Glucose 98 74-106 mg/dL Assessment/Plan Refused many medications. Refused IV access and IV Amiodarone. Tele revealed conversion of a-fib to NSR Patient is a 59-year-old gentleman who originally presented on May 19, 2025 for shortness of breath. Since then he has been managed on telemetry floor. Does have baseline of polysubstance abuse (methamphetamine/marijuana/alcohol). Also has history of prostate cancer. He is noncompliant with medication and followups. On May 23, 2025 cardiology was consulted for evaluation and management of atrial fibrillation with RVR. Patient has not been on any beta paolo/calcium channel blockers. It is of note that patient is noncompliant and refuses many interventions. 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 He is not known to our practice from before. Past medical history includes CHF, atrial fibrillation, hypertension, obstructive sleep apnea, polysubstance abuse (methamphetamine/marijuana/alcohol) and also history of prostate cancer. He is noncompliant with medication and followups. Does not follow with any Cardiology/PCPs. Echocardiogram of January 2025 had revealed ejection fraction of less than 40% Creatinine: 1.14 - 1.03 - 1.46 Potassium: 4.3 - 3.3 - 5.1 Troponin (high sensitive): 37 BNP: 315.52 Magnesium: 1.9 TSH: 2.72 Urine drug screen was positive for amphetamine Chest xry revealed: IMPRESSION: Cardiomegaly with pulmonary vascular congestion and bilateral patchy airspace opacities. EKG revealed atrial fibrillation with RVR and later: NSR Tele reveals atrial fibrillation with RVR. At some point there is widened QRS and most probably reflects aberrancy secondary to tachyarrhythmia Echocardiogram revealed: Left ventricle: Concentric left ventricular hypertrophy was seen. LVEF was around 40%. Diffuse hypokinesis with regional variation of left ventricle was seen. Right ventricle revealed mild dilatation with reduced systolic function. Both atria were mildly dilated. Aortic valve: Aortic valve was trileaflet. There was no aortic insufficiency/stenosis. Mild mitral regurgitation was seen. Trace tricuspid regurgitation was seen. Pulmonary valve was not well visualized. As there was no good tricuspid regurgitation jet, right ventricular systolic pressure could not be estimated. IVC was normal-sized with normal respiratory variation. Aortic root was dilated at 4.5 cm. Ascending aorta was mildly dilated at 4.0 cm. Patient is a 59-year-old gentleman who presented with shortness of breath. Does have history of heart failure. Does have history of atrial fibrillation. He is noncompliant with medication and followups. Does have history of methamphetamine abuse. Does have occasions of atrial fibrillation with RVR while being managed on telemetry. Occasions of widened QRS in telemetry is assessed to reflect aberrancy secondary to tachyarrhythmia. Patient has not been on any kind of AV blocking agents for first few days of admission. ACS is not considered. Patient refused IV access and IV treatments. Converted to NSR himself Acute on chronic systolic heart failure Atrial fibrillation with RVR PAF Substance abuse, Hypertension Noncompliance to medications Cardiac suggestion for management: Managed on telemetry Follow-up electrolytes and kidney function tests and correct abnormalities. Keep potassium above 4 and magnesium above 2. Aggressive correction of electrolyte abnormalities is advised Metoprolol Tartrate: 75 mg 2 times daily Amiodarone: 200 mg PO HS Recognizing PMH/Co-morbidities, CHADS-Vasc score is high and salvage determiner full anticoagulation is advised. For now on Lovenox. Start on oral A/C before discharge and after stability Further evaluation and management depends on the above and clinical course A total of 55 minutes was spent reviewing the patient record, examining the patient, making a diagnostic and therapeutic plan, discussing this plan with medical personnel, following up on diagnostic studies and following the patient for clinical stability excluding any and all procedures. At least 50% of this time was spent in direct, [id number] contact. Thank you for allowing me to participate in this patient's care. Further recommendations will depend on patient's clinical course. Please do not hesitate to contact me if you have any questions or concerns. This medical document was created using electronic medical record system with [employer] dictation system. Although this document has been carefully reviewed, there may still be some phonetic and typographical errors. These areas are purely typographical due to the imperfection of the software programs, and do not reflect any compromise in the patient's medical care. Plan discussed with: Patient, Other (nurse) ANDRE GEORGE MD May 24, 2025 06:39
--- NOTE | 2025-05-24 07:37 | ECG ---
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
--- NOTE | 2025-05-24 07:37 | ECG ---
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
[2025-05-24] MEDS ORDERED: METOPROLOL TARTRATE 25 MG TAB PO SCH (10:00)
--- NOTE | 2025-05-24 12:04 | DVHPN2 ---
Subjective The patient seems him at bedside.Feel better today. Reviewed: Care Plan, H&P, Labs, Medications, Previous Orders, Radiology Changes from previous H/P or p: No Changes Objective Vitals Vital Signs Date Time Temp Pulse Resp B/P (MAP) Pulse Ox O2 Delivery O2 Flow Rate FiO2 05/24/25 10:00 96 Room Air* 0 21 05/24/25 09:35 131/95 05/24/25 08:56 98.6 54 18 98.6 Intake/Output Intake and Output 05/24/25 06:59 Intake Total 1531 ml Output Total 1215 ml Balance 316 ml Intake Oral 1531 ml Output Urine Total 1215 ml General Appearance: Alert, Cooperative, No acute distress HEENT: Atraumatic, PERRLA, EOMI, Mucous membr. moist/pink Neck: Supple Lungs: Clear to auscultation, Normal air movement Cardiovascular: Regular rate, Normal S1, Normal S2, No murmurs, Gallops, Rubs Abdomen: Normal bowel sounds, Soft, No tenderness Neuro: Cranial nerves 3-12 NL Psych/Mental Status: Mental status NL Medications Current Medications Medications Dose Ordered Sig/Vu Route Start Time Stop Time Status Last Admin Dose Admin Sodium Chloride 10 ml Q8HR IV 05/20/25 06:00 05/24/25 05:53 10 ML Acetaminophen/ Hydrocodone Bitart 1 tab Q4HP PRN PO 05/19/25 23:15 05/23/25 00:44 1 TAB Ondansetron HCl 4 mg Q4HP PRN IV 05/19/25 23:15 Acetaminophen 650 mg Q6HP PRN PO 05/19/25 23:15 05/22/25 17:32 650 MG Furosemide 20 mg BIDD PO 05/20/25 06:00 05/24/25 05:54 20 MG Lisinopril 20 mg BID PO 05/20/25 10:00 05/24/25 09:35 20 MG Spironolactone 25 mg DAILY PO 05/20/25 10:00 05/24/25 09:35 25 MG Albuterol 2.5 mg Q6HPRN PRN NEB 05/19/25 23:15 Cancel Ipratropium [place] 0.5 mg Q8HPRN PRN NEB 05/19/25 23:15 Cancel Enoxaparin Sodium 100 mg Q12HR SC 05/20/25 10:00 05/23/25 21:03 100 MG Gabapentin 100 mg TID PO 05/20/25 14:00 05/24/25 05:54 100 MG Atorvastatin Calcium 40 mg HS PO 05/20/25 22:00 05/23/25 21:03 40 MG Clonidine HCl 0.1 mg Q8HP PRN PO 05/20/25 17:45 05/22/25 06:10 0.1 MG Aspirin 81 mg DAILY PO 05/22/25 10:00 05/24/25 09:35 81 MG Artificial Tears 1 drop Q2HP PRN EACHEYE 05/21/25 15:00 Amiodarone HCl 200 mg HS PO 05/24/25 22:00 Metoprolol Tartrate 50 mg BID PO 05/24/25 22:00 Laboratory Results Laboratory Tests 05/23/25 11:48 Urinalysis Test 05/19/25 23:13 Urine Color Colorless (Yellow) Urine Clarity Clear (Clear) Urine pH 5.0 (5.0-9.0) Urine Specific [place] 1.006 (1.001-1.035) Urine Protein Negative (Negative) Urine Ketones Negative (Negative) Urine Blood Negative /uL (Negative) Urine Nitrite Negative (Negative) Urine Bilirubin Negative (Negative) Urine Urobilinogen Normal mg/dL (Negative) Urine Leukocyte Esterase Negative /uL (Negative) Urine RBC None seen /hpf (0 - 3) Urine Microscopic WBC < 1 /HPF (0-3) Urine Squamous Epithelial Cells None seen /hpf (<5) Urine Bacteria None seen /hpf (None Seen) Urine Glucose Normal mg/dL (Normal) Labs and/or images reviewed: Labs reviewed by me Assessment/Plan Assessment/Plan Acute on chronic CHF exacerbation, HFrEF (EF <40%) Intractable shortness breath due to above Echocardiogram Chest X-ray EKG COVID-19 antigen Rapid influenza pain management with [place] and Tylenol Zofran 4 MG IV q4h Albuterol 2.5 MG NEB q6h Ipratropium 0.5 MG NEB q8h UA and UDS TSH Lisinopril 20 mg daily Coreg 6.25 mg bid Spironolactone 35 mg daily Atrial fibrillation with rapid ventricular response (CHADS-VASc score of 4 and HAS-BLED score of 1) Lovenox therapeutic dose given Hypertensive heart disease, possible diastolic dysfunction monitor BP Polysubstance use disorder (methamphetamine, marijuana, alcohol) I have counseled the patient on the importance of complete methamphetamine, marijuana, alcohol cessation for over 50 minutes. Medication noncompliance I have counseled the patient on the importance of maintaining adherence to his medications. Diet: Cardiac Goals of care: Full code Continuing current management. We will monitor shortness for breath. Continuing with Lasix. The patietn has VTach on monitor now. Will get stat EKG. The patient refuse IV meds, will give one dose of amiodarone. Will contact home health travel ot, Dr Florentino. SW consult for recuperative care. Waiting for placement.DC when bed available at [facility]. 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
[2025-05-24] MEDS ORDERED: SPIR25TA PO (13:11)
[2025-05-24] MEDS ORDERED: MET50T PO (13:12)
[2025-05-24] MEDS: AMIODARONE HCL 200 MG TAB PO SCH (22:00)
[2025-05-24] MEDS: METOPROLOL TARTRATE 50 MG TAB PO SCH (22:00)
[2025-05-24] MEDS: ARTIFICIAL TEARS 15ml EACHEYE PRN (22:24)
[2025-05-25] VITALS (7 sets, daily range): BP systolic 112–126; BP diastolic 75–93; PULSE 51–68; RESP 16–18; TEMP 96.3–98; O2SAT 94–98
--- NOTE | 2025-05-25 07:47 | DVHPN2 ---
Progress Note - Dictate Date Seen: May 25, 2025 Medical Necessity Reason Pt with a Central, PICC or Fol: No vital signs Vital Sign Date Time Temp Pulse Resp B/P (MAP) Pulse Ox O2 Delivery O2 Flow Rate FiO2 05/25/25 05:51 121/85 05/25/25 05:00 96.3 52 18 97 96.3 05/24/25 20:00 Room Air* 0 21 Total Intake and Output 05/24/25 05/24/25 05/25/25 15:00 23:00 07:00 Intake Total 1344 ml 1128 ml Output Total 550 ml 110 ml Balance 794 ml 1018 ml medications Current Medications Medications Dose Ordered Sig/Vu Route Start Time Stop Time Status Last Admin Dose Admin Sodium Chloride 10 ml Q8HR IV 05/20/25 06:00 05/24/25 05:53 10 ML Acetaminophen/ Hydrocodone Bitart 1 tab Q4HP PRN PO 05/19/25 23:15 05/23/25 00:44 1 TAB Ondansetron HCl 4 mg Q4HP PRN IV 05/19/25 23:15 Acetaminophen 650 mg Q6HP PRN PO 05/19/25 23:15 05/22/25 17:32 650 MG Furosemide 20 mg BIDD PO 05/20/25 06:00 05/25/25 05:51 20 MG Lisinopril 20 mg BID PO 05/20/25 10:00 05/24/25 22:24 20 MG Spironolactone 25 mg DAILY PO 05/20/25 10:00 05/24/25 09:35 25 MG Albuterol 2.5 mg Q6HPRN PRN NEB 05/19/25 23:15 Cancel Ipratropium [place] 0.5 mg Q8HPRN PRN NEB 05/19/25 23:15 Cancel Enoxaparin Sodium 100 mg Q12HR SC 05/20/25 10:00 05/23/25 21:03 100 MG Gabapentin 100 mg TID PO 05/20/25 14:00 05/25/25 05:51 100 MG Atorvastatin Calcium 40 mg HS PO 05/20/25 22:00 05/24/25 22:23 40 MG Clonidine HCl 0.1 mg Q8HP PRN PO 05/20/25 17:45 05/22/25 06:10 0.1 MG Aspirin 81 mg DAILY PO 05/22/25 10:00 05/24/25 09:35 81 MG Artificial Tears 1 drop Q2HP PRN EACHEYE 05/21/25 15:00 05/24/25 22:24 1 DROP Amiodarone HCl 200 mg HS PO 05/24/25 22:00 Metoprolol Tartrate 50 mg BID PO 05/24/25 22:00 laboratory and microbiology Laboratory Tests 05/23/25 11:48 Test 05/23/25 11:48 Range/Units Serum Glucose 98 74-106 mg/dL Assessment/Plan Hemodynamically stable Patient is a 59-year-old gentleman who originally presented on May 19, 2025 for shortness of breath. Since then he has been managed on telemetry floor. Does have baseline of polysubstance abuse (methamphetamine/marijuana/alcohol). Also has history of prostate cancer. He is noncompliant with medication and followups. On May 23, 2025 cardiology was consulted for evaluation and management of atrial fibrillation with RVR. Patient has not been on any beta paolo/calcium channel blockers. It is of note that patient is noncompliant and refuses many interventions. 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 He is not known to our practice from before. Past medical history includes CHF, atrial fibrillation, hypertension, obstructive sleep apnea, polysubstance abuse (methamphetamine/marijuana/alcohol) and also history of prostate cancer. He is noncompliant with medication and followups. Does not follow with any Cardiology/PCPs. Echocardiogram of January 2025 had revealed ejection fraction of less than 40% Creatinine: 1.14 - 1.03 - 1.46 Potassium: 4.3 - 3.3 - 5.1 Troponin (high sensitive): 37 BNP: 315.52 Magnesium: 1.9 TSH: 2.72 Urine drug screen was positive for amphetamine Chest xry revealed: IMPRESSION: Cardiomegaly with pulmonary vascular congestion and bilateral patchy airspace opacities. EKG revealed atrial fibrillation with RVR and later: NSR Tele reveals atrial fibrillation with RVR. At some point there is widened QRS and most probably reflects aberrancy secondary to tachyarrhythmia Echocardiogram revealed: Left ventricle: Concentric left ventricular hypertrophy was seen. LVEF was around 40%. Diffuse hypokinesis with regional variation of left ventricle was seen. Right ventricle revealed mild dilatation with reduced systolic function. Both atria were mildly dilated. Aortic valve: Aortic valve was trileaflet. There was no aortic insufficiency/stenosis. Mild mitral regurgitation was seen. Trace tricuspid regurgitation was seen. Pulmonary valve was not well visualized. As there was no good tricuspid regurgitation jet, right ventricular systolic pressure could not be estimated. IVC was normal-sized with normal respiratory variation. Aortic root was dilated at 4.5 cm. Ascending aorta was mildly dilated at 4.0 cm. Patient is a 59-year-old gentleman who presented with shortness of breath. Does have history of heart failure. Does have history of atrial fibrillation. He is noncompliant with medication and followups. Does have history of methamphetamine abuse. Does have occasions of atrial fibrillation with RVR while being managed on telemetry. Occasions of widened QRS in telemetry is assessed to reflect aberrancy secondary to tachyarrhythmia. Patient has not been on any kind of AV blocking agents for first few days of admission. ACS is not considered. Patient refused IV access and IV treatments. Converted to NSR himself Acute on chronic systolic heart failure Atrial fibrillation with RVR PAF Substance abuse, Hypertension Noncompliance to medications Cardiac suggestion for management: Manage on telemetry Follow-up electrolytes and kidney function tests and correct abnormalities. Keep potassium above 4 and magnesium above 2. Aggressive correction of electrolyte abnormalities is advised Metoprolol Tartrate: 50 mg 2 times daily Amiodarone: 200 mg PO HS Recognizing PMH/Co-morbidities, CHADS-Vasc score is high and fci full anticoagulation is advised. For now on Lovenox. Start on oral A/C before discharge and after stability No need for ASA Further evaluation and management depends on the above and clinical course A total of 55 minutes was spent reviewing the patient record, examining the patient, making a diagnostic and therapeutic plan, discussing this plan with medical personnel, following up on diagnostic studies and following the patient for clinical stability excluding any and all procedures. At least 50% of this time was spent in direct, [id number] contact. Thank you for allowing me to participate in this patient's care. Further recommendations will depend on patient's clinical course. Please do not hesitate to contact me if you have any questions or concerns. This medical document was created using electronic medical record system with [employer] dictation system. Although this document has been carefully reviewed, there may still be some phonetic and typographical errors. These areas are purely typographical due to the imperfection of the software programs, and do not reflect any compromise in the patient's medical care. Plan discussed with: Patient, Other (nurse) ANDRE GEORGE MD May 25, 2025 07:47
--- NOTE | 2025-05-25 12:11 | DVHPN2 ---
Subjective The patient seems him at bedside.Feel better today. Reviewed: Care Plan, H&P, Labs, Medications, Previous Orders, Radiology Objective Vitals Vital Signs Date Time Temp Pulse Resp B/P (MAP) Pulse Ox O2 Delivery O2 Flow Rate FiO2 05/25/25 10:36 51 115/76 05/25/25 10:00 98 Room Air 0.0 05/25/25 10:00 21 05/25/25 08:56 97.8 16 97.8 Intake/Output Intake and Output 05/25/25 07:00 Intake Total 2472 ml Output Total 660 ml Balance 1812 ml Intake Oral 2472 ml Output Urine Total 660 ml # Voids 4 # Bowel Movements 2 General Appearance: Alert, Cooperative, No acute distress HEENT: Atraumatic, PERRLA, EOMI, Mucous membr. moist/pink Neck: Supple Lungs: Clear to auscultation, Normal air movement Cardiovascular: Regular rate, Normal S1, Normal S2, No murmurs, Gallops, Rubs Abdomen: Normal bowel sounds, Soft, No tenderness Neuro: Cranial nerves 3-12 NL Psych/Mental Status: Mental status NL Medications Current Medications Medications Dose Ordered Sig/Vu Route Start Time Stop Time Status Last Admin Dose Admin Sodium Chloride 10 ml Q8HR IV 05/20/25 06:00 05/24/25 05:53 10 ML Acetaminophen/ Hydrocodone Bitart 1 tab Q4HP PRN PO 05/19/25 23:15 05/23/25 00:44 1 TAB Ondansetron HCl 4 mg Q4HP PRN IV 05/19/25 23:15 Acetaminophen 650 mg Q6HP PRN PO 05/19/25 23:15 05/22/25 17:32 650 MG Furosemide 20 mg BIDD PO 05/20/25 06:00 05/25/25 05:51 20 MG Lisinopril 20 mg BID PO 05/20/25 10:00 05/25/25 09:36 20 MG Spironolactone 25 mg DAILY PO 05/20/25 10:00 05/25/25 09:36 25 MG Albuterol 2.5 mg Q6HPRN PRN NEB 05/19/25 23:15 Cancel Ipratropium [place] 0.5 mg Q8HPRN PRN NEB 05/19/25 23:15 Cancel Gabapentin 100 mg TID PO 05/20/25 14:00 05/25/25 05:51 100 MG Atorvastatin Calcium 40 mg HS PO 05/20/25 22:00 05/24/25 22:23 40 MG Clonidine HCl 0.1 mg Q8HP PRN PO 05/20/25 17:45 05/22/25 06:10 0.1 MG Artificial Tears 1 drop Q2HP PRN EACHEYE 05/21/25 15:00 05/24/25 22:24 1 DROP Amiodarone HCl 200 mg HS PO 05/24/25 22:00 Metoprolol Tartrate 50 mg BID PO 05/24/25 22:00 05/25/25 09:36 50 MG Apixaban 5 mg BID PO 05/25/25 10:00 Laboratory Results Laboratory Tests 05/23/25 11:48 Urinalysis Test 05/19/25 23:13 Urine Color Colorless (Yellow) Urine Clarity Clear (Clear) Urine pH 5.0 (5.0-9.0) Urine Specific [place] 1.006 (1.001-1.035) Urine Protein Negative (Negative) Urine Ketones Negative (Negative) Urine Blood Negative /uL (Negative) Urine Nitrite Negative (Negative) Urine Bilirubin Negative (Negative) Urine Urobilinogen Normal mg/dL (Negative) Urine Leukocyte Esterase Negative /uL (Negative) Urine RBC None seen /hpf (0 - 3) Urine Microscopic WBC < 1 /HPF (0-3) Urine Squamous Epithelial Cells None seen /hpf (<5) Urine Bacteria None seen /hpf (None Seen) Urine Glucose Normal mg/dL (Normal) Assessment/Plan Assessment/Plan Acute on chronic CHF exacerbation, HFrEF (EF <40%) Intractable shortness breath due to above Echocardiogram Chest X-ray EKG COVID-19 antigen Rapid influenza pain management with [place] and Tylenol Zofran 4 MG IV q4h Albuterol 2.5 MG NEB q6h Ipratropium 0.5 MG NEB q8h UA and UDS TSH Lisinopril 20 mg daily Coreg 6.25 mg bid Spironolactone 35 mg daily Atrial fibrillation with rapid ventricular response (CHADS-VASc score of 4 and HAS-BLED score of 1) Lovenox therapeutic dose given Hypertensive heart disease, possible diastolic dysfunction monitor BP Polysubstance use disorder (methamphetamine, marijuana, alcohol) I have counseled the patient on the importance of complete methamphetamine, marijuana, alcohol cessation for over 50 minutes. Medication noncompliance I have counseled the patient on the importance of maintaining adherence to his medications. Diet: Cardiac Goals of care: Full code Continuing current management. We will monitor shortness for breath. Continuing with Lasix. The patietn has VTach on monitor now. Will get stat EKG. The patient refuse IV meds, will give one dose of amiodarone. Will contact group exercise manager, Dr Florentino. SW consult for recuperative care. Waiting for placement.DC when bed available at [facility]. My Orders Orders - ROSARIO CAMPOS MD Procedure Category Date Status Time Discharge DISCHARGE 05/24/25 Transmitted 13:12 ROSARIO CAMPOS MD May 25, 2025 12:11
[2025-05-25] MEDS: APIXABAN 5 MG TAB PO SCH (14:42)
[2025-05-26 11:56] LABS: Hepatitis B Surface Antigen Negative (Negative); Hepatitis C Antibody Negative (Negative)
--- NOTE | 2025-05-27 12:08 | DVHDS2 ---
Discharge Summary Date of Admission May 19, 2025 at 23:13 Date of Discharge: May 25, 2025 Admitting Diagnosis Acute on chronic CHF exacerbation, HFrEF (EF <40%) Intractable shortness breath due to above Atrial fibrillation with rapid ventricular response (CHADS-VASc score of 4 and HAS-BLED score of 1) Hypertensive heart disease, possible diastolic dysfunction Polysubstance use disorder (methamphetamine, marijuana, alcohol) Medication noncompliance Labs/Diagnostic Data: Laboratory Results Test 05/23/25 11:48 05/20/25 04:33 05/19/25 23:34 05/19/25 23:13 White Blood Count 7.2 10^3/uL (4.4-10.8) Red Blood Count 5.56 10^6/uL (4.5-5.90) Hemoglobin 17.9 g/dL (13.5-17.5) Hematocrit 53.5 % (41.0-53.0) Mean Corpuscular Volume 96.3 fL (80.0-100.0) Mean Corpuscular Hemoglobin 32.2 pg (28.0-32.0) Mean Corpuscular Hemoglobin Concent 33.5 g/dL (32.0-36.0) Red Cell Distribution Width 15.4 % (11.8-14.3) Platelet Count 257 10^3/uL (140-450) Mean Platelet Volume 9.5 fL (6.9-10.8) Neutrophils (%) (Auto) 65.4 % (37.0-80.0) Lymphocytes (%) (Auto) 20.4 % (10.0-50.0) Monocytes (%) (Auto) 10.6 % (0.0-12.0) Eosinophils (%) (Auto) 3.1 % (0.0-7.0) Basophils (%) (Auto) 0.5 % (0.0-2.0) Neutrophils # (Auto) 4.7 10 ^3/uL (1.6-8.6) Lymphocytes # (Auto) 1.5 10 ^3/uL (0.4-5.4) Monocytes # (Auto) 0.8 10 ^3/uL (0-1.3) Eosinophils # (Auto) 0.2 10 ^3/uL (0-0.8) Basophils # (Auto) 0 10 ^3/uL (0-0.2) Nucleated Red Blood Cells 0.3 % Sodium Level 138 mmol/L (136-145) Potassium Level 5.1 mmol/L (3.5-5.1) Chloride Level 99 mmol/L (98-107) Carbon Dioxide Level 27 mmol/L (20-31) Anion Gap 12 (5-15) Blood Urea Nitrogen 32 mg/dL (9-23) Creatinine 1.46 mg/dL (0.700-1.30) Glomerular Filtration Rate Calc 55 mL/min (>90) BUN/Creatinine Ratio 21.9 (10.0-20.0) Serum Glucose 98 mg/dL (74-106) Calcium Level 10.5 mg/dL (8.7-10.4) Total Bilirubin 1.8 mg/dL (0.2-1.0) Aspartate Amino Transferase (AST) 55 U/L (13-40) Alanine Aminotransferase (ALT) 47 U/L (7-40) Alkaline Phosphatase 205 U/L (46-116) Total Protein 8.2 g/dL (5.7-8.2) Albumin 4.7 g/dL (3.2-4.8) Thyroid Stimulating Hormone (TSH) 2.72 uIU/mL (0.55-4.78) Hepatitis B Surface Antigen Negative (Negative) Hepatitis C Antibody Negative (Negative) Influenza Type A Antigen Negative (Negative) Influenza Type B Antigen Negative (Negative) SARS-CoV-2 Antigen (Rapid) Negative (NEGATIVE) Urine Color Colorless (Yellow) Urine Clarity Clear (Clear) Urine pH 5.0 (5.0-9.0) Urine Specific [place] 1.006 (1.001-1.035) Urine Protein Negative (Negative) Urine Ketones Negative (Negative) Urine Blood Negative /uL (Negative) Urine Nitrite Negative (Negative) Urine Bilirubin Negative (Negative) Urine Urobilinogen Normal mg/dL (Negative) Urine Leukocyte Esterase Negative /uL (Negative) Urine RBC None seen /hpf (0 - 3) Urine Microscopic WBC < 1 /HPF (0-3) Urine Squamous Epithelial Cells None seen /hpf (<5) Urine Bacteria None seen /hpf (None Seen) Urine Glucose Normal mg/dL (Normal) Urine Opiates Screen Neg (NEGATIVE) Urine Fentanyl Screen Neg (NEGATIVE) Urine Barbiturates Screen Neg (NEGATIVE) Urine Phencyclidine Screen Neg (NEGATIVE) Urine Amphetamines Screen Pos (NEGATIVE) Urine Benzodiazepines Screen Neg (NEGATIVE) Urine Cocaine Screen Neg (NEGATIVE) Urine Cannabinoids Screen Neg (NEGATIVE) Test 05/19/25 21:45 05/19/25 20:03 B-Type Natriuretic Peptide 315.52 pg/mL (0-100) Lactic Acid Level 1.4 mmol/L (0.4-2.0) Magnesium Level 1.9 mg/dL (1.6-2.6) Troponin I High Sensitivity 37 ng/L (</=54) Other Laboratory Tests 05/23/25 11:48 Brief Hx & Hospital Course: This is a 59 years old male with past medical history congestive heart failure, atrial fibrillation, hypertension, obstructive sleep apnea, peripheral neuropathy, polysubstance abuse with methamphetamine, marijuana, and alcohol came to emergency department because severe shortness for breath. The patient apparently did not take any of his prescribed medication more than three months and only able to refill them on the day of admission. The patient was diagnosis with systolic congestive heart failure with EF of 40%. The patient was found to have pulmonary edema so was admitted for further management. His blood pressure also 167/120. He is tachycardic and had elevation of liver function tests with AST of 75, ALT of 54, and alk phos at 210. The patient was admitted. The patient was treated with IV Lasix. The patient subsequently doing better. Patient does have an episode of V-tach in the hospital. The patient also had atrial fibrillation with RVR. Disposal Man was consulted and Dr. Nolan see the patient. He recommend the patient to be put on amiodarone drip and subsequently switched to oral amiodarone as per home dose which is 200 mg daily. The patient also was received addition spironolactone 25 mg daily. Patient is stable for discharge. The patient had enter the recuperative program. Today the recovery program had bed available and we will send the patient to the [facility]. Activity as tolerated. Diet low-salt low-cholesterol diet. Follow up with primary care physician 1-2 weeks. Follow up with tax intern per schedule. Physical exam: HEENT: Normocephalic atraumatic pupils equal react to light and accommodation. Extraocular muscles intact, conjunctiva pink, oropharynx moist, no thrush, no exudate. Lymphatic: No lymphadenopathy Cardiovascular exam: S1, S2 was heard. No murmurs, rubs, gallops Lung: Clear on auscultation bilaterally, no wheeze, rale, rhonchi. GI: Abdominal soft, nondistended, nontenderness, positive bowel sounds. Extremity: No crepitus, cyanosis, edema. Pedal pulses present bilateral. Full range of motion. Skin: Normal turgor, no rash. Psych: Alert, oriented x3. Neurology: No focal deficits, cranial nerve II to XII grossly intact. This medical document was created using an electronic medical record system with [employer] dictation system. Although this document has been carefully reviewed, there may still be some phonetic and typographical errors. These areas are purely typographical due to imperfections of the software programs, and do not reflect any compromise in the patient's medical care. Condition at Discharge: Stable Final Diagnosis/Problems List Acute on chronic CHF exacerbation, HFrEF (EF <40%) Intractable shortness breath due to above Atrial fibrillation with rapid ventricular response (CHADS-VASc score of 4 and HAS-BLED score of 1) Hypertensive heart disease, possible diastolic dysfunction Polysubstance use disorder (methamphetamine, marijuana, alcohol) Medication noncompliance Discharge Disposition: Residential Care Home Discharge Instruct/Medications Diet: Cardiac 2g Na,low cholest Activity: No Restrictions, As Tolerated Follow Up/Referral: pcp 1-2 weeks Medications: see med list Scheduled Amiodarone HCl (Amiodarone HCl), 1 TAB PO BID, (Reported) Apixaban Base (Eliquis), 5 MG PO BID Atorvastatin Calcium (Atorvastatin Calcium), 40 MG PO HS Empagliflozin (Jardiance), 10 MG PO DAILY Folic Acid (Folic Acid), 1 MG PO DAILY Furosemide (Lasix), 1 TAB PO BID Gabapentin (Gabapentin), 100 MG PO TID Lisinopril (Lisinopril), 1 TAB PO DAILY Metoprolol Tartrate (Lopressor), 12.5 MG PO BID, (Reported) Metoprolol Tartrate (Lopressor Tablet), 50 MG PO BID Spironolactone (Spironolactone), 1 TAB PO DAILY Spironolactone (Aldactone), 25 MG PO DAILY Scheduled PRN Albuterol Sulfate (Ventolin Mdi), 2 PUFF IN Q6HP PRN Albuterol Sulfate (Albuterol Sulfate Hfa), 108 MCG IN Q6HP PRN Discontinued Medications Carvedilol (Carvedilol), 6.25 MG PO BID Carvedilol (Carvedilol), 0.5 TAB PO BID Discharge Statement: "Patient was advised to return to the ER or call 911 if any headaches, dizziness, shortness of breath, chest pain, abdominal pain, bleeding, fevers, or worsening of medical condition. Patient was counseled about treatment plan, medications, possible side effects, patientverbalized understanding. All questions were answered to the best of my ability. This discharge took greater then 30 minutes in planning, reviewing documentation, counseling the patient, and discussing with other team members." ASSESSMENT ASSESSMENT Assessment chf Date of Service: May 25, 2025 Billing Provider: ROSARIO CAMPOS MD Common Visit Codes: 80815-SCN/OBS DISCH DAY >30min ROSARIO CAMPOS MD May 27, 2025 12:08
== END 2025-05-25 16:55 | disposition home or self-care (01) | DRG 194 ==
LOC: ER 19:37 → OVERFLOW 23:13 → TELE-WESTW 05-20 11:17
PROVIDERS: ADMIT Internal Medicine; ATTEND Internal Medicine
DX: I13.0 Hypertensive heart and chronic kidney disease with heart failure and stage 1 through stage 4 chronic kidney disease, or unspecified chronic kidney disease (principal); Z79.01 Long term (current) use of anticoagulants; Z59.00 Homelessness unspecified; I50.23 Acute on chronic systolic (congestive) heart failure; J45.909 Unspecified asthma, uncomplicated; F15.10 Other stimulant abuse, uncomplicated; F10.10 Alcohol abuse, uncomplicated; N18.9 Chronic kidney disease, unspecified; Z20.822 Contact with and (suspected) exposure to COVID-19; I48.0 Paroxysmal atrial fibrillation; F12.10 Cannabis abuse, uncomplicated; Y90.9 Presence of alcohol in blood, level not specified; E78.5 Hyperlipidemia, unspecified; I25.2 Old myocardial infarction; Z90.49 Acquired absence of other specified parts of digestive tract; Z87.891 Personal history of nicotine dependence; Z91.148 Patient's other noncompliance with medication regimen for other reason; Z79.899 Other long term (current) drug therapy; Z79.84 Long term (current) use of oral hypoglycemic drugs; Z85.46 Personal history of malignant neoplasm of prostate; Z84.19 Family history of other disorders of kidney and ureter; Z83.3 Family history of diabetes mellitus; Z82.49 Family history of ischemic heart disease and other diseases of the circulatory system; Z81.8 Family history of other mental and behavioral disorders
CPT/HCPCS: 36415; 71045; 80053; 80307; 81001; 83605; 83735; 83880; 84443; 84484; 85025; 86803; 87340; 87426; 87804; 93005; 93306; G0378